=== PATIENT | male | born 1970 | race Caucasian/White ===

== ENCOUNTER → 2021-10-22 12:11 | Outpatient (BNVA) | payer MEDICAID, SELFPAY | PROVIDERS: PCP Nurse Practitioner Family; Visit Provider Nurse Practitioner | DX: Z20.2 Contact with and (suspected) exposure to infections with a predominantly sexual mode of transmission (principal) | CPT/HCPCS: 87661 ==

== ENCOUNTER 2021-12-31 09:51 | Outpatient (RCR) | payer MEDICAID, SELFPAY ==
[2021-12-30 14:33] LABS: Basophils # 0.1 10^3/uL (0.0-0.1); Basophils % 0.8 %; Eosinophils # 0.4 10^3/uL (0.0-0.8); Eosinophils % 3.5 %; Hemoglobin 14.9 g/dL (11.7-16.6); Lymphocytes # 5.3 10^3/uL (0.8-4.8); Lymphocytes % 49.8 %; Mean Corpuscular HGB Conc 32.4 g/dL (30.0-36.0); Mean Corpuscular Hemoglobin 28.1 pg (28.0-34.0); Mean Corpuscular Volume 86.6 fl (80-94); Mean Platelet Volume 9.8 fL (7.4-10.4); Monocytes # 0.9 10^3/uL (0.2-0.9); Monocytes % 8.2 %; Neutrophils # 4.01 10^3/uL (1.8-7.7); Neutrophils % 37.5 %; Nucleated Red Blood Cells % 0 %; Platelet Count 273 10^3/cmm (130-400); Red Blood Count 5.31 10^6/uL (4.1-5.3); Red Cell Distribution Width 17.1 % (12.1-15.1); White Blood Count 10.7 10^3/uL (4.0-10.0)
[2021-12-30 14:51] LABS: Alanine Aminotransferase 36 U/L (0-41); Albumin Level 4.5 g/dL (3.5-5.2); Alkaline Phosphatase 120 IU/L (40-130); Anion Gap 16.1 (5-19); Aspartate Amino Transferase 38 U/L (0-40); Blood Urea Nitrogen 8 mg/dL (6-20); Calcium 8.9 mg/dL (8.5-10.5); Carbon Dioxide 24 mmol/L (22-29); Chloride 101 mmol/L (98-107); Globulin 3.3 g/dL (1.3-4.6); Glomerular Filtration Rate 140.9 mL/min (90-130); Glucose 98 mg/dL (65-115); Osmolality Calculated 282 mOsm/kg (285-295); Potassium 4.1 mmol/L (3.5-5.1); Sodium 137 mmol/L (136-145); Total Bilirubin 0.3 mg/dL (0.15-1.2); Total Protein 7.8 g/dL (6.6-8.7)
--- NOTE | 2021-12-30 17:34 | ONC CON_ITS ---
Dr. Velazquez New Patient Note Patient: Donny Waller Unit #: [id number]: 1970 Dicatated By: Luiza Velazquez M.D.Date of Visit: Dec 30, 2021 Onc MED New Patient/Consult Referring Physician: Dr. Deon Mendoza M.D. History of Present Illness: Mr. Donny Waller, is a 51-year-old gentleman with a history of recurrent nosebleed was evaluated by ENT in August 2021 requiring right nasal cavity packing, as per ENT note, bleeding was also noted from left nasal cavity, as patient was complaining of sore throat, patient underwent flexible fiberoptic laryngoscopy on November 26, 2021, which showed chronic laryngitis, chronic sore throat and left laryngeal surface of epiglottis mass/lesion, subsequently on December 12, 2021 underwent directly endoscopy, operative, with biopsy with the telescope which showed ulcerative lesion of left laryngeal surface of the epiglottis extends to false fold and left AE fold no glottic involvement. 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 And prominent left palatine tonsil consistent with inflammation, multiple level left neck lymph nodes consistent with metastatic involvement, no evidence of distant metastatic disease., As per ENT evaluation due to difficult exposure, not a TORS candidate Patient has history of heavy smoking and still active, alcohol abuse, quit 5 months ago and history of chewing tobacco and quit 5 months ago. Also history of COPD, CVD, Denies any fever chills denies any nausea or vomiting denies any diarrhea or constipation denies any hemoptysis or hematemesis denies any dysphagia. Past Medical History: Mr. Waller's medical history consists of acute brain disorder, anxiety, chronic alcohol abuse, chronic obstructive pulmonary disease, and respiratory insufficiency. Past Surgical History: Mr. Waller's surgical/procedural history consists of Covid vaccine #2 - [place] in 2020 and Covid vaccine #1 - [place] in 2020. Medications: Acetaminophen 2 Tablet (of 500 mg) Oral b.i.d. PRN Allergies: No Known Allergies. Social History: Mr. Waller is single. He is a daily smoker who smokes 0.5 packs/day. He drinks occasionally. He has indicated exposure to the following products: cigarettes. Family History: Mr. Waller's mother is : lung cancer. Review Of Symptoms: Review of Systems is not available for this patient. Vital Signs: Performed on Dec 30, 2021 13:46: 0, 0, 24.26, 1.73 sq.m, 65 in, 98 %, 82 /min, 16 /min, 133/78 mm(hg), 99.0 F (HIGH), and 145.8 lbs (HIGH). Performance Status: 0 - Fully active, able to carry on all predisease activities without restrictions. (ECOG) Physical Examination: ENMT - Poor oral hygiene/dentition, no mouth sores or thrush, shotty palpable lymph nodes in left neck, Respiratory - Lungs are clear to auscultation, Cardiovascular - Regular rate and rhythm of heart, Abdomen - Soft, bowel sounds present, Extremities - No visible edema. Lab/Imaging: Most recent lab results are not available for this patient. 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 Multiple level left neck lymph node consistent with metastatic involvement, clinically N2b, Clinical stage Patrica COPD History of chronic smoking still active History of chewing tobacco quit recently, history of alcohol abuse quit recently Plan: Discussed with patient regarding his disease status and treatment options, clinically, patient has local regional disease stage Patrica and is a candidate for organ preservation with combined chemoradiation, moreover as per surgical evaluation due to difficult exposure, patient is not a TORS candidate, now being evaluated for combined chemoradiation. With either high-dose cisplatin 100 mg per metered square day 1, 22 and day 43 concurrent with radiation therapy or weekly cisplatin, 40 mg per metered square concurrent with radiation therapy. Due to comorbid condition and poor oral hygiene, patient may require dental surgical evaluation for complete extraction and possible G-tube placement to maintain nutrition, we will defer those decisions to radiation oncology. At this point will obtain baseline CBC CMP and nursing will evaluate if patient have adequate IV access otherwise consider Port-A-Cath placement. He will return to clinic in 2 weeks for further discussion, patient is already scheduled to see radiation oncology in the morning. All the side effect possible benefits associated with chemotherapy including but not limited to bone marrow suppression, nausea vomiting, zahira/nephrotoxicity, were mentioned, further teaching will be done by chemotherapy nurse. Signed By: Luiza Velazquez M.D. <<Signature on File>>
--- NOTE | 2021-12-31 10:48 | N.ONRAD NP_ITS ---
Radiation Oncology Consultation Patient Name: Donny Waller Date of : 1970 Date of Service: 12/31/2021 Attending Physician: Crow Broderick M.D. Donny Waller was seen in consultation this morning at the request of Deon Mendoza M.D. for consideration of head and neck radiotherapy for the management of a recently diagnosed supraglottic laryngeal cancer. He was evaluated at [facility] in [place], [place] by Deon Mendoza M.D. in November regarding a persistent sore throat. A laryngoscopy identified a lesion on the left laryngeal surface of epiglottis. There was no palpable cervical lymphadenopathy. A direct flexible laryngoscopy was performed on December 12, 2021. Significant findings included an ulcerative lesion of the left laryngeal surface of the epiglottis with extension to the left false vocal cord and left area epiglottic fold. 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 A PET scan December 23, 2021 demonstrated thickening of the left epiglottis with a maximum SUV of 5.6, a left level IIA lymph node measuring 1.5 cm x 1 cm (SUV 3.5), and a left level III node measuring 1 cm x 0.8 cm (SUV 4.2). There was no evidence of systemic metastatic disease. The patient was not considered a TORS candidate on account of limited operative exposure. He was evaluated for concomitant chemoradiotherapy. I discussed with Mr. Power the AJCC clinical stage Patrica (T2N2b) supraglottic laryngeal cancer and the National Comprehensive Cancer Network Guidelines endorsing concurrent chemoradiation. I also reviewed the classic [facility] Laryngeal Cancer Study Group Trial that established induction chemotherapy with definitive radiotherapy was effective in laryngeal preservation and the RTOG 91???11 study that randomized patients with locally advanced laryngeal cancer to RT alone, induction chemotherapy, or concurrent chemoradiotherapy that affirmed laryngectomy free survival was significantly improved in the concurrent chemoradiotherapy arm. He will have a pre-radiotherapy dental evaluation and I have requested PEG tube placement to be scheduled prior to implementing therapy. I would recommend a seven week course of radiotherapy. A CT scan with contrast for radiotherapy planning scan in the treatment position will be acquired and co-registered to the staging PET CT scan to identify the gross tumor volumes (primary mass and hypermetabolic lymph nodes). The potential toxicities of head and neck radiotherapy were reviewed. He has verbalized understanding would like to proceed as recommended. The patient's medical treatment plan has been discussed with Elvin Velazquez M.D. Signed by: Dr. Crow Broderick 12/31/2021 10:46:39 AM
== END 2022-01-12 23:59 | disposition home or self-care (01) ==
LOC: ONCMED 09:51
PROVIDERS: Internal Medicine Hematology & Oncology; Visit Provider Radiology Radiation Oncology
DX: C10.1 Malignant neoplasm of anterior surface of epiglottis (principal); C77.0 Secondary and unspecified malignant neoplasm of lymph nodes of head, face and neck; J44.9 Chronic obstructive pulmonary disease, unspecified; F17.210 Nicotine dependence, cigarettes, uncomplicated; F17.221 Nicotine dependence, chewing tobacco, in remission; F10.11 Alcohol abuse, in remission; Z79.899 Other long term (current) drug therapy
CPT/HCPCS: 36415; 80053; 85025; 99205

== ENCOUNTER → 2022-01-14 10:23 | Outpatient (BNVA) | payer MEDICAID, SELFPAY | PROVIDERS: Visit Provider Surgery | DX: Z20.822 Contact with and (suspected) exposure to COVID-19 (principal); Z11.52 Encounter for screening for COVID-19 | CPT/HCPCS: 87635 ==

== ENCOUNTER 2022-01-19 07:31 | Day surgery (SDC) | payer MEDICAID, SELFPAY ==
[2022-01-16 11:06] VITALS: BMI 25.0
[2022-01-19] VITALS (9 sets, daily range): BP systolic 139–172; BP diastolic 78–100; PULSE 66–80; RESP 16–20; TEMP 36.2–36.8; O2SAT 95–99
--- NOTE | 2022-01-19 | SCC_ITS ---
Procedure done: 1. Placement of right subclavian vein PowerPort placement 2. Fluoroscopic guidance and interpretation for placement of catheter 3. Percutaneous endoscopic guided gastrostomy tube placement 10.7 seconds of fluoroscopic guidance, for a cumulative dose of 1.51 mGy, was provided to Dr. Hardin by the radiology department. C-arm images of the chest were saved for the patient's permanent record. [facility]
--- NOTE | 2022-01-19 07:34 | SC_ITS ---
WS: [id number] C-ARM RADIOGRAPHS CHEST; 3 IMAGES HISTORY: PowerPort placement COMPARISON: None available. Intraoperative imaging during power port placement. Power port extends through the RIGHT subclavian v ein with the tip overlying the distal SVC. SC/C-arm FL for CVA 37153 IMPRESSION: Intraoperative imaging during power port placement.
[2022-01-19] MEDS: sodium chloride 0.9% 1,000 ML 30 ML IV (08:10)
[2022-01-19] MEDS: acetaminophen 1,000 MG/100 ML PIGGYBACK 400 MG IV (08:15)
--- NOTE | 2022-01-19 08:24 | ANES.PREANE2 ---
Pre-Anesthetic Assessment Height/Weight: Height 1.65 m Weight 68.039 kg Temp Pulse Resp BP Pulse Ox 97.7 F 78 16 139/79 99 01/19/22 07:52 01/19/22 07:52 01/19/22 07:52 01/19/22 07:52 01/19/22 07:52 Preop Diagnosis: Laryngeal cancer Operation Date: 01/19/22 09:10 Proposed Procedures p Power Port Placement 09524/67546/c32.1(Not Applicable) - Ollie Reza MD s Gastric Tube Insertion(Not Applicable) - Ollie Reza MD s EGD(Not Applicable) - Ollie Reza MD Familial anesthetic complications: None Was Beta Emily taken within 24 hours: N/A Was Clonidine taken within 24 hours: N/A Last intake: Intake Last Liquid Date 01/19/22 Last Liquid Time 06:00 Last Solid Date 01/18/22 Last Solid Time 19:00 Social Tobacco and No alcohol Exam alert, oriented x 3, clear to auscultation bilaterally and regular rate & rhythm Airway Submandibular: within normal limits Cervical ROM: within normal limits Mallampati: Class II Dentition: full Pulmonary Chronic Obstructive Pulmonary Disease Supraglottic cancer CV/HEM None reported METS =4 None reported Hepatic None reported GI None reported Metabolic None reported Musc/skel None reported Neuropsych None reported Anesthetic Plan ASA status: 3 Anesthesia: Anesthesia Evaluation and General Other: We discussed risk and benefits of general anesthesia including PONV, sore throat (sometimes severe), corneal abrasion, positioning and peripheral nerve injuries, life threatening allergic reaction, post operative ICU admission requiring prolonged intubation, stroke, heart attack, , and rare incidences of recall. Patient consents to proceed with general anesthesia. Risk of > 500 ml blood loss (7ml/kg in children): No Medications/Allergies Home Medications Medication Instructions Recorded Confirmed Last Taken Type albuterol sulfate 90 mcg/actuation 2 puff INHALATION Q6H PRN 10/22/21 01/19/22 10/29/21 History aerosol inhaler acetaminophen 325 mg capsule 325 mg PO QID PRN 01/19/22 01/19/22 01/18/22 20:00 History (Tylenol) Allergies Allergy/AdvReac Type Severity Reaction Status Date / Time No Known Allergies Allergy Verified 01/16/22 11:05 Current Medications Generic Name Dose Route Start Last Admin Trade Name Freq PRN Reason Stop Dose Admin Sodium Chloride 1,000 mls @ 30 mls/hr 01/19/22 07:45 01/19/22 08:10 Sodium Chloride 0.9% IV 01/20/22 07:44 30 mls/hr .Q24H PRAVIN Administration PFSH Anesthesia Medical History Cancer of supraglottis Social History Smoking and tobacco status: current every day smoker Alcohol intake: current Data Anesthesia Cardiac Studies: No Data to Display
--- NOTE | 2022-01-19 08:42 | W.PM.OPSUD ---
Surgery/Procedure H&P Update DATE OF PROCEDURE: January 19, 2022 DATE H&P PERFORMED: 01/07/22 PREOP DIAGNOSIS: Laryngeal cancer PRIMARY INDICATION FOR PROCEDURE: The same PLANNED PROCEDURE: Operation Date: 01/19/22 09:10 Proposed Procedures p Power Port Placement 32618/[id number]/c32.1(Not Applicable) - Ollie Reza MD s Gastric Tube Insertion(Not Applicable) - Ollie Reza MD s EGD(Not Applicable) - Ollie Reza MD
[2022-01-19] MEDS: heparin, porcine 1,000 unit/mL INJ 10 mL 10000 UNIT IRRIGATION (10:04)
[2022-01-19] MEDS: lidocaine 2% INJ 20 mL INJECTION (10:05)
--- NOTE | 2022-01-19 10:35 | PM.OP ---
Operative Report Date of procedure: January 19, 2022 Pre-op diagnosis: Preop Diagnosis Laryngeal cancer Post-op diagnosis: The same Post-op findings: Normal anatomy of right subclavian vein Normal-looking esophagus stomach duodenum Procedure done: 1. Placement of right subclavian vein PowerPort placement 2. Fluoroscopic guidance and interpretation for placement of catheter 3. 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 SCDs confirmed to be functioning, preoperative antibiotics administered per protocol, and beta dwayne protocol was confirmed, appropriate positioning of the patient was done by me. Medications were reviewed to assess for anticoagulant usage. Risks and benefits and prevention of central line associated blood stream infection (CLABSI) were discussed with the patient/CPOA, and a consent was obtained. Monitors were in place and monitored throughout the procedure. All necessary supplies were available prior to start. Hand hygiene was completed prior to starting. Maximum barrier technique was utilized including a sterile gown, sterile gloves with a hat and mask. Site was was prepped with [chlorhexidine] and a full body drape was placed. 5 mL of 2% lidocaine was injected into the skin with a 25 gauge needle. Prep& drape was done under the usual sterile technique, lidocaine 2% was injected at the site of the stick, started by right sub-clavian vein stick that retrieved venous blood was obtained from the first stick, a guide wire was then threaded and under the guidance of fluoroscopy position was confirmed to be in the IVC and my interpretation, there were no PVC changes, at that point the guide wire was secured to the drapes with a hemostat and the needle was taken out, attention was then deviated towards creation of a pocket for the port were lidocaine 2% was injected using an 15 blade knife skin incision was created dissection using the Bovie to create a pocket for the Power Port to be accommodated. Hemostasis was secured, after the port being appropriately flushed it was inserted into the pocket and a tunneler was used to accommodate the catheter of the port catheter to be delivered through the incision first created at the site of the stick, at that point under fluoroscopy an estimated length was measured for the catheter and was cut at the designed level, followed by that a dilator with the sheath introduced onto the guide wire the dilator and the wire were retrieved and the catheter of the port was introduced via the sheath where it was peeled off and the catheter maintained to be in the SVC that was confirmed with fluoroscopy, and the fluoroscopy interpretation was done by me throughout the entire procedure. The port was kept in its pocket,3-0 Vicryl deep subdermal interrupted sutures, skin was then closed by 4-0 Monocryl as subcuticular closure.The port was appropriately flushed with heparin and venous blood was withdrawn without difficulty.The stick site was closed by 4-0 Monocryl and Dermabond was used followed by dressing.Count was correct at the end of the procedure.Patient tolerated the procedure well was taken to the recovery area. I was present for the whole entire procedure. Position of the catheter was checked with an intraoperative fluoroscopy and showed to be in good position. Attention now was deviated towards the PEG tube placement Patient was continued to be in supine position after a bite block was placed in her mouth, started by introducing the EGD via the mouth under direct visualization, the patient was continuously monitored via concession stand attendant, I was able to assess the esophagus stomach and duodenum till the second part. GE junction at 40 cm from the incisors,the remaining of the examination was unremarkable. I was able to identify a good light reflex through the anterior abdominal wall, corresponding to appropriate indentation of the examining finger. At this point prep and drape of the anterior abdominal wall was done under the usual sterile technique, sterile gowns and gloves were used, lidocaine was infiltrated at the site of the needle insertion, my equity sales assistant held onto the EGD, under direct visualization a needle with the sheath was inserted by me that come with the PEG kit, once the needle and catheter were inserted into the inflated stomach, a needle was taken out, and through the catheter the blue loop wire introduced through the catheter, and via the working channel of the EGD, the retrieval device was inserted under direct visualization, the blue loop was caught by the retrieval device, at this point the scope was taken out and a firm helminthologist was continued to be applied onto the blue loop wire, the blue loop was then released and the PEG tube was tightened to it outside the patient's mouth, and with the remaining of the blue loop wire was Outside the abdominal wall, I was able to pull the PEG down all the way to the stomach, and have it placed in a good position at the level of 2-3 cm at the skin. The EGD was reintroduced by me, there was no evidence of bleeding, good spinning of the PEG tube was witnessed The scope was then retrieved The scope was retrieved under direct visualization and gas was deflated,no biopsies were obtained at that point. The PEG tube base and clamp were applied and the PEG tube was connected to gravity Patient tolerated the procedure well and was taken to the recovery area I was present for the whole entire procedure
--- NOTE | 2022-01-19 11:56 | ANE.PACU2 ---
Inpatient post-anesthesia follow up: Airway intact: Yes Vital signs: Temperature 98.2 F Pulse Rate 77 Respiratory Rate 20 Blood Pressure 172/79 Pulse Oximetry 98 Oxygen Delivery Me thod Room Air Oxygen Flow Rate 6 Fraction of Inspir ed Oxygen Hydration adequate: Yes Nausea and vomiting: No Pain level: 1 Mental status: Baseline
[2022-01-19] MEDS: HYDROcodone-acetaminophen 5-325 mg Tablet 1 TAB PO (12:25)
== END 2022-01-19 12:30 | disposition home or self-care (01) ==
PROVIDERS: Visit Provider Surgery
PROC: (CPT 36561; principal; 2022-01-19 09:00)
PROC: (CPT 36561; 2022-01-19 09:00)
PROC: 0DJ08ZZ Inspection of Upper Intestinal Tract, Via Natural or Artificial Opening Endoscopic (ICD-10-PCS; CPT 43235; 2022-01-19 09:00)
DX: C32.1 Malignant neoplasm of supraglottis (principal); J44.9 Chronic obstructive pulmonary disease, unspecified; F17.210 Nicotine dependence, cigarettes, uncomplicated
CPT/HCPCS: 36561; 43246; 77001; C1788; J0330; J0690; J1100; J1644; J2405; J2704; J3010; J3490; J7030

== ENCOUNTER 2022-01-24 15:38 | Emergency (ER) | payer MEDICAID, SELFPAY ==
[2022-01-24 15:44] VITALS: BP 120/72; PULSE 100; RESP 16; TEMP 36.9; O2SAT 96; BMI 24.9
--- NOTE | 2022-01-24 16:01 | ED_ITS ---
Documented by User: ADAM Goode 01/24/22 16:03 HPI - Fever General: Chief Complaint: Fever Stated Complaint: peg tube irritated and red/fever Time Seen by Provider: 01/24/22 15:54 History of Present Illness: Patient presents here with discomfort around his PEG site. Patient also said he had fever 100.0 today at home and took Tylenol. Patient does not have a fever on triage here. Patient recently diagnosed with throat cancer. Had a port placed Wednesday and a PEG tube. Is having some leakage in and around PEG tube. Says he just has not felt real good today. Associated symptoms: Deny abdominal pain, chills, chest pain, headache(s), nausea or vomiting Review of Systems Const: Reports: fever(s); Denies: chills or body aches Eyes: Denies: eye discomfort ENMT: Denies: throat pain Card: Denies: chest pain Resp: Denies: dyspnea GI: Denies: abdominal pain, nausea or vomiting Skin/Breast: Reports: erythema and skin swelling; Denies: rash Neuro: Denies: headache(s) Psych: Denies: depression or suicidal ideation [facility] ED PFSH: Medical History Cancer of supraglottis Social History Smoking and tobacco status: current every day smoker Alcohol intake: current Physical Exam Const: COMMON NORMALS: no acute distress, patient oriented x3 and alert HENMT: COMMON NORMALS: normocephalic and external ears normal HEAD & SCALP: normocephalic EXTERNAL EAR: Yes external ears normal Eye: COMMON NORMALS: EOMs intact bilaterally Neck/C-Spine: COMMON NORMALS: no JVD Resp: COMMON NORMALS: normal respiratory effort and No use of accessory muscles Cardio: COMMON NORMALS: no JVD GI: INSPECTION: Yes normal to inspection Extremity: COMMON NORMALS: normal to inspection and full ROM Neuro: COMMON NORMALS: patient oriented x3 SENSORIUM/ORIENTATION: Yes alert Psych: COMMON NORMALS: mental status grossly normal Skin: COMMON NORMALS: no rashes or lesions noted GENERAL SKIN EXAM: no rashes or lesions noted OTHER: Slight redness around his PEG tube that is draining. Course Vital Signs: Vital signs: Vital Signs Temperature 98.5 F 01/24/22 15:44 Pulse Rate 87 01/24/22 16:20 Respiratory Rate 16 01/24/22 16:20 Blood Pressure 125/83 01/24/22 16:20 Pulse Oximetry 94 01/24/22 16:20 MDM - Fever Lab Data : 01/24/22 16:39 Laboratory Results WBC 12.3 10^3/uL (4.0-10.0) H 01/24/22 16:39 RBC 3.61 10^6/uL (4.1-5.3) L 01/24/22 16:39 Hgb 10.7 g/dL (11.7-16.6) L 01/24/22 16:39 Hct 32.2 % (42.0-52.0) L 01/24/22 16:39 MCV 89.2 fl (80-94) 01/24/22 16:39 MCH 29.6 pg (28.0-34.0) 01/24/22 16:39 MCHC 33.2 g/dL (30.0-36.0) 01/24/22 16:39 RDW 17.5 % (12.1-15.1) H 01/24/22 16:39 Plt Count 202 10^3/cmm (130-400) 01/24/22 16:39 MPV 9.3 fL (7.4-10.4) 01/24/22 16:39 Neut % (Auto) 63.0 % 01/24/22 16:39 Lymph % (Auto) 23.9 % 01/24/22 16:39 Bowie % (Auto) 9.2 % 01/24/22 16:39 Eos % (Auto) 3.1 % 01/24/22 16:39 Baso % (Auto) 0.5 % 01/24/22 16:39 Neut # (Auto) 7.72 10^3/uL (1.8-7.7) H 01/24/22 16:39 Lymph # (Auto) 2.9 10^3/uL (0.8-4.8) 01/24/22 16:39 Bowie # (Auto) 1.1 10^3/uL (0.2-0.9) H 01/24/22 16:39 Eos # (Auto) 0.4 10^3/uL (0.0-0.8) 01/24/22 16:39 Baso # (Auto) 0.1 10^3/uL (0.0-0.1) 01/24/22 16:39 Nucleated RBC % (auto) 0 % 01/24/22 16:39 Nucleated RBCs # 0.0 /100WBC 01/24/22 16:39 Lactate 1.3 mmol/L (0.5-2.2) 01/24/22 16:20 C-Reactive Protein 20.7 mg/L (0.0-4.9) H 01/24/22 16:20 Discharge Plan Discharge Patient Disposition: Home Clinical Impression: Cancer of supraglottis Condition: Stable Prescriptions: No Action albuterol sulfate 90 mcg/actuation HFA aerosol inhaler 2 puff inhalation Q6H PRN (Reason: sob) 0RF Tylenol 325 mg Capsule 325 mg PO QID PRN (Reason: Moderate Pain (Scale Score 5-6)) 0RF hydrocodone-acetaminophen 5-325 mg tablet 1 tab PO Q6H PRN (Reason: pain) Qty: 20 0RF Discharge Orders: Discharge ED (Routine); Ordered 01/24/22 Ordered By: Carlos Alberto Armstrong Patient Instructions: Opioid Safety Activity Restrictions/Additional Instructions: Continue your usual medications. Monitor your temperature every 6-8 hours at home. Should your temperature go higher than 100.5 degrees return to this emergency department for reevaluation. Follow-up with your oncologist this coming Wednesday as scheduled. Coding Level of Care Code ED Planishing Hammer Operator for Chg Fwd Exam Comprehensive Documented by User: Carlos Alberto Armstrong DO 01/24/22 17:29 HPI - Fever General: Chief Complaint: Fever Stated Complaint: peg tube irritated and red/fever Time Seen by Provider: 01/24/22 15:54 PFSH ED PFSH: Medical History Cancer of supraglottis Social History Smoking and tobacco status: current every day smoker Alcohol intake: current Course Reevaluation(s): Reevaluation #1: I took over care of this patient from the physician's assistant golf course superintendent who was going off shift. I personally interviewed and did a focused evaluation of the patient. History as noted. Patient awoke with feeling a bit out of sorts and is a question whether he had a temperature that approached 100. He denied any other constitutional symptoms such as cough, sore throat (other than his discomfort from his laryngeal cancer) dysuria exposure to infectious disease etc. He is eating and drinking normally. He is not using his feeding tube yet. His clinical exam reveals him to be alert cooperative and appears to be in no acute distress. He speaks in goal-directed sentences. His skin examination reveals very minimal or erythema around his feeding tube but no drainage. He has no other skin rashes noted his sites over his [id number] are not erythematous and are not draining and are nontender. No other focal clinical findings on his examination. Vital Signs: Vital signs: Vital Signs Temperature 98.5 F 01/24/22 15:44 Pulse Rate 87 01/24/22 16:20 Respiratory Rate 16 01/24/22 16:20 Blood Pressure 125/83 01/24/22 16:20 Pulse Oximetry 94 01/24/22 16:20 MDM - Fever Medical Decision Making This patient with a history of laryngeal cancer just beginning his treatment regimen presented with a history of waking from a nap and feeling out of sorts and there was a question whether he had a low-grade temperature or not but did not document a temperature over 100.5. His clinical examination here was reassuring. His port sites revealed no erythema or tenderness or discomfort and his feeding tube site was also unremarkable for any findings to suggest infection. His laboratories are nonspecific with the exception of his CRP however the latter is likely and can be related to his acute cancer so is really nonspecific. He did not have fever at this location he looks clinically well and subjectively feels at baseline at this time. I discussed current findings under implications with the patient. I think it is reasonable for us to have him follow his temperature at home. I advised both he and his spouse to take his temperature every 8 hours and return to this emergency department immediately should it become 100.5 or greater at any time or should he develop other concerning symptoms. He is not currently using his either his support or his feeding tube. These are pending his oncoming oncologic treatment. Medical Records I reviewed the patient's medical records. Lab Data I reviewed the patient's lab results. : 01/24/22 16:39 Laboratory Results WBC 12.3 10^3/uL (4.0-10.0) H 01/24/22 16:39 RBC 3.61 10^6/uL (4.1-5.3) L 01/24/22 16:39 Hgb 10.7 g/dL (11.7-16.6) L 01/24/22 16:39 Hct 32.2 % (42.0-52.0) L 01/24/22 16:39 MCV 89.2 fl (80-94) 01/24/22 16:39 MCH 29.6 pg (28.0-34.0) 01/24/22 16:39 MCHC 33.2 g/dL (30.0-36.0) 01/24/22 16:39 RDW 17.5 % (12.1-15.1) H 01/24/22 16:39 Plt Count 202 10^3/cmm (130-400) 01/24/22 16:39 MPV 9.3 fL (7.4-10.4) 01/24/22 16:39 Neut % (Auto) 63.0 % 01/24/22 16:39 Lymph % (Auto) 23.9 % 01/24/22 16:39 Bowie % (Auto) 9.2 % 01/24/22 16:39 Eos % (Auto) 3.1 % 01/24/22 16:39 Baso % (Auto) 0.5 % 01/24/22 16:39 Neut # (Auto) 7.72 10^3/uL (1.8-7.7) H 01/24/22 16:39 Lymph # (Auto) 2.9 10^3/uL (0.8-4.8) 01/24/22 16:39 Bowie # (Auto) 1.1 10^3/uL (0.2-0.9) H 01/24/22 16:39 Eos # (Auto) 0.4 10^3/uL (0.0-0.8) 01/24/22 16:39 Baso # (Auto) 0.1 10^3/uL (0.0-0.1) 01/24/22 16:39 Nucleated RBC % (auto) 0 % 01/24/22 16:39 Nucleated RBCs # 0.0 /100WBC 01/24/22 16:39 Lactate 1.3 mmol/L (0.5-2.2) 01/24/22 16:20 C-Reactive Protein 20.7 mg/L (0.0-4.9) H 01/24/22 16:20 Discharge Plan Discharge Patient Disposition: Home Clinical Impression: Cancer of supraglottis Condition: Stable Prescriptions: No Action albuterol sulfate 90 mcg/actuation HFA aerosol inhaler 2 puff inhalation Q6H PRN (Reason: sob) 0RF Tylenol 325 mg Capsule 325 mg PO QID PRN (Reason: Moderate Pain (Scale Score 5-6)) 0RF hydrocodone-acetaminophen 5-325 mg tablet 1 tab PO Q6H PRN (Reason: pain) Qty: 20 0RF Discharge Orders: Discharge ED (Routine); Ordered 01/24/22 Ordered By: Carlos Alberto Armstrong Patient Instructions: Opioid Safety Activity Restrictions/Additional Instructions: Continue your usual medications. Monitor your temperature every 6-8 hours at home. Should your temperature go higher than 100.5 degrees return to this emergency department for reevaluation. Follow-up with your oncologist this coming Wednesday as scheduled. Coding Level of Care Code ED Planishing Hammer Operator for Jackson Fwd Exam Comprehensive
[2022-01-24 16:20] VITALS: BP 125/83; PULSE 87; RESP 16; O2SAT 94
[2022-01-24 16:47] LABS: Basophils # 0.1 10^3/uL (0.0-0.1); Basophils % 0.5 %; Eosinophils # 0.4 10^3/uL (0.0-0.8); Eosinophils % 3.1 %; Hematocrit 32.2 % (42.0-52.0); Hemoglobin 10.7 g/dL (11.7-16.6); Lymphocytes # 2.9 10^3/uL (0.8-4.8); Lymphocytes % 23.9 %; Mean Corpuscular HGB Conc 33.2 g/dL (30.0-36.0); Mean Corpuscular Hemoglobin 29.6 pg (28.0-34.0); Mean Corpuscular Volume 89.2 fl (80-94); Mean Platelet Volume 9.3 fL (7.4-10.4); Monocytes # 1.1 10^3/uL (0.2-0.9); Monocytes % 9.2 %; Neutrophils # 7.72 10^3/uL (1.8-7.7); Nucleated Red Blood Cells % 0 %; Platelet Count 202 10^3/cmm (130-400); Red Blood Count 3.61 10^6/uL (4.1-5.3); Red Cell Distribution Width 17.5 % (12.1-15.1); White Blood Count 12.3 10^3/uL (4.0-10.0)
[2022-01-24 17:01] LABS: C Reactive Protein 20.7 mg/L (0.0-4.9); Lactate (Lactic Acid level) 1.3 mmol/L (0.5-2.2)
[2022-01-24 17:40] VITALS: BP 119/72; PULSE 78; O2SAT 98
== END 2022-01-24 17:42 | disposition home or self-care (01) ==
PROVIDERS: Emergency Provider Nurse Practitioner Family
DX: C32.1 Malignant neoplasm of supraglottis (principal); F17.210 Nicotine dependence, cigarettes, uncomplicated
CPT/HCPCS: 83605; 85025; 86140; 87040; 99282

== ENCOUNTER 2022-02-12 06:49 | Outpatient (RCR) | payer MEDICAID, SELFPAY ==
[2022-01-13 10:06] LABS: Basophils # 0.1 10^3/uL (0.0-0.1); Basophils % 1.2 %; Eosinophils # 0.4 10^3/uL (0.0-0.8); Eosinophils % 4.2 %; Hematocrit 43.3 % (42.0-52.0); Hemoglobin 14.1 g/dL (11.7-16.6); Lymphocytes # 5.2 10^3/uL (0.8-4.8); Lymphocytes % 61.3 %; Mean Corpuscular HGB Conc 32.6 g/dL (30.0-36.0); Mean Corpuscular Hemoglobin 28.9 pg (28.0-34.0); Mean Corpuscular Volume 88.7 fl (80-94); Monocytes # 0.9 10^3/uL (0.2-0.9); Neutrophils # 1.97 10^3/uL (1.8-7.7); Neutrophils % 23.1 %; Nucleated Red Blood Cells % 0 %; Platelet Count 288 10^3/cmm (130-400); Red Blood Count 4.88 10^6/uL (4.1-5.3); Red Cell Distribution Width 17.5 % (12.1-15.1); White Blood Count 8.5 10^3/uL (4.0-10.0)
[2022-01-13 10:30] LABS: Alanine Aminotransferase 26 U/L (0-41); Albumin Level 4.1 g/dL (3.5-5.2); Alkaline Phosphatase 103 IU/L (40-130); Anion Gap 14.2 (5-19); Aspartate Amino Transferase 34 U/L (0-40); Blood Urea Nitrogen 8 mg/dL (6-20); Calcium 9.6 mg/dL (8.5-10.5); Carbon Dioxide 25 mmol/L (22-29); Chloride 101 mmol/L (98-107); Globulin 3.4 g/dL (1.3-4.6); Glucose 87 mg/dL (65-115); Osmolality Calculated 280 mOsm/kg (285-295); Potassium 4.2 mmol/L (3.5-5.1); Sodium 136 mmol/L (136-145); Total Bilirubin 0.3 mg/dL (0.15-1.2); Total Protein 7.5 g/dL (6.6-8.7)
--- NOTE | 2022-01-14 17:06 | ONC FU_ITS ---
Dr. Velazquez follow up note Patient: Donny Waller Unit #: [id number]: 1970 Dicatated By: Luiza Velazquez M.D.Date of Visit:Jan 13, 2022 Onc Med Follow-up/Prog Note History of Present Illness: Mr. Donny Waller, is a 51-year-old gentleman with a history of recurrent nosebleed was evaluated by ENT in August 2021 requiring right nasal cavity packing, as per ENT note, bleeding was also noted from left nasal cavity, as patient was complaining of sore throat, patient underwent flexible fiberoptic laryngoscopy on November 26, 2021, which showed chronic laryngitis, chronic sore throat and left laryngeal surface of epiglottis mass/lesion, subsequently on December 12, 2021 underwent directly endoscopy, operative, with biopsy with the telescope which showed ulcerative lesion of left laryngeal surface of the epiglottis extends to false fold and left AE fold no glottic involvement. 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 And prominent left palatine tonsil consistent with inflammation, multiple level left neck lymph nodes consistent with metastatic involvement, no evidence of distant metastatic disease., As per ENT evaluation due to difficult exposure, not a TORS candidate Patient has history of heavy smoking and still active, alcohol abuse, quit 5 months ago and history of chewing tobacco and quit 5 months ago. Also history of COPD, CVD, Came for follow-up, denies any specific complaints, no fever chills, no nausea or vomiting, no diarrhea or constipation, patient underwent complete dental extraction as preparation for combined chemoradiation for newly diagnosed laryngeal carcinoma, now scheduled for PEG tube and Port-A-Cath placement on coming Wednesday Medications: Acetaminophen 2 Tablet (of 500 mg) Oral b.i.d. PRN Allergies: No Known Allergies. Review of Systems: Review of Systems is not available for this patient. Vital Signs: Performed on Jan 13, 2022 11:17 Height - 65.00 in Weight - 146.8 lbs (LOW) BSA - 1.73 sq.m BMI - 24.43 Temperature - 97.8 F (LOW) Pulse - 74 /min Respiration - 18 /min BP - 149/78 mm(hg) (HIGH) O2 Sat - 99 % Pain - 0 Fatigue - 0 Performance Status: 1 - No physically strenuous activity, but ambulatory and able to carry out light or sedentary work (e.g. office work, light house work). (ECOG) Physical Examination: ENMT - No mouth sores, no thrush, no jaundice, Status post complete dental extraction, Respiratory - Lungs are clear to auscultation, Cardiovascular - Regular rate and rhythm of heart, Abdomen - Soft, bowel sounds present, Extremities - No visible edema. Lab/Imaging: Most recent lab results are not available for this patient. 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 Multiple level left neck lymph node consistent with metastatic involvement, clinically N2b, Clinical stage Patrica COPD History of chronic smoking still active History of chewing tobacco quit recently, history of alcohol abuse quit recently Plan: Discussed with patient regarding his labs white blood count 8.5 hemoglobin 14.1 hematocrit 43.3 platelets 288,000 CMP within normal limits Clinically, patient doing well with no new signs symptoms, recently underwent complete dental extraction as preparation for combined chemoradiation, his baseline lab work-up including CBC CMP is within normal range, at this point, will consider combined chemoradiation therapy with high-dose cisplatin 100 mg per metered square day 1, 22 and 43 concurrent with radiation therapy. We will also request Neulasta to prevent chemotherapy-induced neutropenia/leukopenia. All the side effect possible benefits associated with high-dose cisplatin were discussed again, patient and agreed. Patient already scheduled for Port-A-Cath placement as well as PEG tube placement and scheduled to see radiation oncology next week and anticipating starting combined chemoradiation in 2 weeks. Return to clinic in 2 weeks with CBC CMP to start his first cycle of high-dose cisplatin concurrent with radiation therapy. Signed By: Luiza Velazquez M.D. <<Signature on File>>
--- NOTE | 2022-01-22 13:13 | ONCRAD EPV_ITS ---
Radiation Oncology Follow-Up Note Patient Name: Donny Waller Date of : 1970 Date of Service: 01/22/2022 Attending Physician: Crow Broderick M.D. Donny Waller was seen for a scheduled appointment this afternoon. He was evaluated at [facility] in [place], [place] by Deon Mendoza M.D. in November regarding a persistent sore throat. A laryngoscopy identified a lesion on the left laryngeal surface of epiglottis. There was no palpable cervical lymphadenopathy. A direct flexible laryngoscopy was performed on December 12, 2021. Significant findings included an ulcerative lesion of the left laryngeal surface of the epiglottis with extension to the left false vocal cord and left area epiglottic fold. 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 A PET scan December 23, 2021 demonstrated thickening of the left epiglottis with a maximum SUV of 5.6, a left level IIA lymph node measuring 1.5 cm x 1 cm (SUV 3.5), and a left level III node measuring 1 cm x 0.8 cm (SUV 4.2). There was no evidence of systemic metastatic disease. The patient was not considered a TORS candidate on account of limited operative exposure. He has recently has had a complete extraction of his teeth. An examination of the oral cavity did not identify any open wounds or bone exposure. He will return for radiotheraply planning. Signed by: Dr. Crow Broderick 01/22/2022 1:12:15 PM
--- NOTE | 2022-02-02 | CT_ITS ---
Radiation Therapy Planning CT images; total exam DLP: 851.68 mGy-cm MTDD
[2022-02-02 09:16] LABS: Basophils # 0.1 10^3/uL (0.0-0.1); Basophils % 1.1 %; Eosinophils # 0.6 10^3/uL (0.0-0.8); Hemoglobin 13.1 g/dL (11.7-16.6); Lymphocytes # 4.6 10^3/uL (0.8-4.8); Lymphocytes % 49.2 %; Mean Corpuscular HGB Conc 32.8 g/dL (30.0-36.0); Mean Corpuscular Hemoglobin 29.6 pg (28.0-34.0); Mean Corpuscular Volume 90.5 fl (80-94); Mean Platelet Volume 8.9 fL (7.4-10.4); Monocytes # 0.7 10^3/uL (0.2-0.9); Monocytes % 7.4 %; Neutrophils # 3.38 10^3/uL (1.8-7.7); Neutrophils % 35.9 %; Nucleated Red Blood Cells % 0 %; Platelet Count 336 10^3/cmm (130-400); Red Blood Count 4.42 10^6/uL (4.1-5.3); Red Cell Distribution Width 17.4 % (12.1-15.1); White Blood Count 9.4 10^3/uL (4.0-10.0)
[2022-02-02 09:34] LABS: Alanine Aminotransferase 27 U/L (0-41); Albumin Level 3.7 g/dL (3.5-5.2); Alkaline Phosphatase 97 IU/L (40-130); Anion Gap 13.3 (5-19); Aspartate Amino Transferase 34 U/L (0-40); Blood Urea Nitrogen 9 mg/dL (6-20); Calcium 9.1 mg/dL (8.5-10.5); Carbon Dioxide 22 mmol/L (22-29); Chloride 100 mmol/L (98-107); Globulin 3.3 g/dL (1.3-4.6); Glucose 90 mg/dL (65-115); Osmolality Calculated 270 mOsm/kg (285-295); Potassium 4.3 mmol/L (3.5-5.1); Sodium 131 mmol/L (136-145); Total Bilirubin 0.2 mg/dL (0.15-1.2)
[2022-02-04] MEDS: sodium chloride 0.9% 250 ML 75 ML IV (10:00)
[2022-02-04] MEDS: palonosetron 0.25 mg/5 mL SDV IV (11:30)
[2022-02-04] MEDS: fosaprepitant 150 MG in sodium chloride 0.9% 150 ML 300 MG IV (11:35)
[2022-02-04] MEDS: FUROsemide 10 mg/mL SDV 2mL 20 MG IV (14:10)
[2022-02-04] MEDS: sodium chlor 0.9% + KCl 20 mEq 20 MEQ/1,000 ML BAG 500 MEQ IV (14:15)
[2022-02-04] MEDS: sodium chloride 0.9% (100 ml) 100 ML 75 ML (14:15)
[2022-02-04] MEDS: pegfilgrastim 6 mg/0.6 mL Kit (onpro) SUBCUT (15:28)
--- NOTE | 2022-02-10 15:36 | ONCRAD TMN_ITS ---
Radiation Oncology Treatment Management Note Patient Name: Donny Waller Date of : 1970 Date of Service: 02/10/2022 Attending Physician: Crow Broderick M.D. 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 in November regarding a persistent sore throat. A laryngoscopy identified a lesion on the left laryngeal surface of epiglottis. There was no palpable cervical lymphadenopathy. A direct flexible laryngoscopy was performed on December 12, 2021. Significant findings included an ulcerative lesion of the left laryngeal surface of the epiglottis with extension to the left false vocal cord and left aryepiglottic fold. 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 A PET scan December 23, 2021 demonstrated thickening of the left epiglottis with a maximum SUV of 5.6, a left level IIA lymph node measuring 1.5 cm x 1 cm (SUV 3.5), and a left level III node measuring 1 cm x 0.8 cm (SUV 4.2). There was no evidence of systemic metastatic disease. The patient was not considered a TORS candidate on account of limited operative exposure. The patient has received 10 Gy of a prescribed 50 Valles with an intensity modulated radiotherapy plan utilizing a step and shoot treatment technique. An additional 20 Gy will be delivered to the gross tumor volume and high risk cervical lymph nodes subsequent to the initial treatment plan. He has been prescribed cisplatin (100 mg/m2) every 21 days for three cycles. Upon review of systems, he denied any complaints related to radiotherapy. On physical examination, the patient weighed 140 lbs. His temperature was 98.5 ???F and the blood pressure was 127/74 mmHg. His pulse was 86 bpm and the respiratory rate was 16. There was no erythema within the treatment dias. Continue head and neck radiotherapy as prescribed. Signed by: Dr. Crow Broderick 02/10/2022 3:35:43 PM
[2022-02-11 09:37] LABS: Basophils # 0.2 10^3/uL (0.0-0.1); Basophils % 0.8 %; Eosinophils # 0.1 10^3/uL (0.0-0.8); Eosinophils % 0.7 %; Hematocrit 39.4 % (42.0-52.0); Lymphocytes # 3.7 10^3/uL (0.8-4.8); Lymphocytes % 19.7 %; Mean Corpuscular Hemoglobin 29.6 pg (28.0-34.0); Mean Corpuscular Volume 89.7 fl (80-94); Mean Platelet Volume 10.2 fL (7.4-10.4); Neutrophils # 11.72 10^3/uL (1.8-7.7); Neutrophils % 62.2 %; Nucleated Red Blood Cells % 0 %; Platelet Count 176 10^3/cmm (130-400); Red Blood Count 4.39 10^6/uL (4.1-5.3); Red Cell Distribution Width 17.1 % (12.1-15.1); White Blood Count 18.9 10^3/uL (4.0-10.0)
[2022-02-11 10:03] LABS: Prostate Specific Antigen 0.422 ng/mL (0-4)
[2022-02-11 10:04] LABS: Carcinoembryonic Antigen 2.9 ng/mL (0.0-4.7)
[2022-02-11 10:15] LABS: Alanine Aminotransferase 72 U/L (0-41); Albumin Level 3.8 g/dL (3.5-5.2); Alkaline Phosphatase 196 IU/L (40-130); Anion Gap 12.6 (5-19); Aspartate Amino Transferase 43 U/L (0-40); Blood Urea Nitrogen 11 mg/dL (6-20); Calcium 9.3 mg/dL (8.5-10.5); Carbon Dioxide 24 mmol/L (22-29); Chloride 100 mmol/L (98-107); Cholesterol 99 mg/dL (0-200); Globulin 3.1 g/dL (1.3-4.6); Glomerular Filtration Rate 173.3 mL/min (90-130); Glucose 96 mg/dL (65-115); HDL Cholesterol 33 mg/dL (60-100); LDL Cholesterol Calculated 53 mg/dL (50-129); LDL HDL Ratio 1.61 RATIO (0.00-3.22); Osmolality Calculated 275 mOsm/kg (285-295); Potassium 3.6 mmol/L (3.5-5.1); Sodium 133 mmol/L (136-145); Total Bilirubin 0.3 mg/dL (0.15-1.2); Total Protein 6.9 g/dL (6.6-8.7); Triglycerides 67 mg/dL (0-150)
--- NOTE | 2022-02-11 21:33 | ONC FU_ITS ---
Krysta Davis Progress Note Patient: Donny Waller Unit #: [id number]: 1970 Dicatated By: Krysta Davis N.P.Date of Visit:Feb 04, 2022 Onc MED Follow-up/Prog Note Chief Complaint: Laryngeal carcinoma History of Present Illness: Mr. Donny Waller, is a 51-year-old gentleman with a history of recurrent nosebleed was evaluated by ENT in August 2021 requiring right nasal cavity packing, as per ENT note, bleeding was also noted from left nasal cavity, as patient was complaining of sore throat, patient underwent flexible fiberoptic laryngoscopy on November 26, 2021, which showed chronic laryngitis, chronic sore throat and left laryngeal surface of epiglottis mass/lesion, subsequently on December 12, 2021 underwent directly endoscopy, operative, with biopsy with the telescope which showed ulcerative lesion of left laryngeal surface of the epiglottis extends to false fold and left AE fold no glottic involvement. 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 And prominent left palatine tonsil consistent with inflammation, multiple level left neck lymph nodes consistent with metastatic involvement, no evidence of distant metastatic disease., As per ENT evaluation due to difficult exposure, not a TORS candidate Patient has history of heavy smoking and still active, alcohol abuse, quit 5 months ago and history of chewing tobacco and quit 5 months ago. Also history of COPD, CVD, Patient presents today for education on cisplatin. He is scheduled to receive his first dose today. It will be given concurrently with radiation therapy. He states he is feeling well. His appetite has been fair. He does have a PEG tube which she is not currently using. He is not having any difficulty with swallowing. He denies fever, chills, hot sweats. No shortness of breath, cough, chest pain. No problems with his bowel or bladder. No joint or muscle pain. Review Of Symptoms:See above. Past Medical History: Acute brain disorder Anxiety Chronic alcohol abuse Chronic obstructive pulmonary disease Respiratory insufficiency Past Surgical History: Covid vaccine #2 - [place] in 2020 Covid vaccine #1 - [place] in 2020 Allergies: No Known Allergies. Medications: Acetaminophen 2 Tablet (of 500 mg) Oral b.i.d. PRN LORazepam 1 - 2 Tablet (of 0.5 mg) Oral t.i.d. PRN MiraLax Powder Oral PRN Zofran 1 Tablet (of 4 mg) Oral q 8 hours PRN Family History: Mr. Waller's mother is : lung cancer. Social History: Mr. Waller is single. He is a daily smoker who smokes 0.5 packs/day. He drinks occasionally. He has indicated exposure to the following products: cigarettes. Physical Examination: Performed on Feb 04, 2022 08:36: Height - 65.00 in, Weight - 142.4 lbs (LOW), BSA - 1.71 sq.m, BMI - 23.70, Temperature - 98.3 F (LOW), Pulse - 85 /min, Respiration - 16 /min, BP - 138/78 mm(hg), O2 Sat - 99 %, Pain - 0, and Fatigue - 0. Performance Status: 1 - No physically strenuous activity, but ambulatory and able to carry out light or sedentary work (e.g. office work, light house work). (ECOG) Constitutional Alert, cooperative, oriented. Mood and affect appropriate. Appears close to chronological age. Well nourished. Well developed. Head Normocephalic; no scars. Respiratory Lungs are clear to auscultation without rhonchi or wheezing. Cardiovascular Regular rate and rhythm of heart without murmurs, gallops or rubs. Abdomen Non-tender, non-distended, no masses, ascites or hepatosplenomegaly. Good bowel sounds. No guarding or rebound tenderness. Musculoskeletal No tenderness or swelling, normal range of motion without obvious weakness. Psychiatric Alert and oriented times three. Coherent speech. Verbalizes understanding of our discussions today. Laboratory: Most recent lab results are not available for this patient. 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 Multiple level left neck lymph node consistent with metastatic involvement, clinically N2b, Clinical stage Patrica Started on combined chemoradiation with high-dose cisplatin on February 04, 2022 And planning to consider high-dose cisplatin, day 1, 22 and if possible day 43 concurrent with radiation therapy COPD History of chronic smoking still active History of chewing tobacco quit recently, history of alcohol abuse quit recently Plan: Patient presents today for education on cisplatin which will be given concurrently with radiation therapy. Handouts were provided. Treatment regimen, side effects including neutropenia, thrombocytopenia, nausea and vomiting were all discussed with the patient. He will receive his first dose of cisplatin today and return to the clinic in 1 week with CBC and CMP. Signed By: Krysta Davis N.P. <<Signature on File>>
--- NOTE | 2022-02-16 08:16 | ONC FU_ITS ---
Dr. Velazquez follow up note Patient: Donny Waller Unit #: [id number]: 1970 Dicatated By: Luiza Velazquez M.D.Date of Visit:Feb 11, 2022 Onc Med Follow-up/Prog Note History of Present Illness: Mr. Donny Waller, is a 52-year-old gentleman with a history of recurrent nosebleed was evaluated by ENT in August 2021 requiring right nasal cavity packing, as per ENT note, bleeding was also noted from left nasal cavity, as patient was complaining of sore throat, patient underwent flexible fiberoptic laryngoscopy on November 26, 2021, which showed chronic laryngitis, chronic sore throat and left laryngeal surface of epiglottis mass/lesion, subsequently on December 12, 2021 underwent directly endoscopy, operative, with biopsy with the telescope which showed ulcerative lesion of left laryngeal surface of the epiglottis extends to false fold and left AE fold no glottic involvement. 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 And prominent left palatine tonsil consistent with inflammation, multiple level left neck lymph nodes consistent with metastatic involvement, no evidence of distant metastatic disease., As per ENT evaluation due to difficult exposure, not a TORS candidate Patient has history of heavy smoking and still active, alcohol abuse, quit 5 months ago and history of chewing tobacco and quit 5 months ago. Also history of COPD, CVD, Started on combined chemoradiation with high-dose cisplatin on February 04, 2022 Came for follow-up denies any specific complaints, no fever chills, no nausea or vomiting, no diarrhea constipation, patient tolerated first dose of high-dose cisplatin concurrent with radiation therapy well except 1 day of self-limiting diarrhea. No mouth sores, no new bony pains, no dysuria or hematuria, no jaundice. No dysphagia, tolerating combined chemoradiation well otherwise Medications: Acetaminophen 2 Tablet (of 500 mg) Oral b.i.d. PRN, LORazepam 1 - 2 Tablet (of 0.5 mg) Oral t.i.d. PRN, MiraLax Powder Oral PRN, Zofran 1 Tablet (of 4 mg) Oral q 8 hours PRN Allergies: No Known Allergies. Review of Systems: Review of Systems is not available for this patient. Vital Signs: Performed on Feb 11, 2022 10:15 Height - 65.00 in Weight - 141.0 lbs (HIGH) BSA - 1.71 sq.m BMI - 23.46 Temperature - 98.4 F Pulse - 81 /min Respiration - 16 /min BP - 128/81 mm(hg) O2 Sat - 98 % Pain - 0 Fatigue - 0 Performance Status: 0 - Fully active, able to carry on all predisease activities without restrictions. (ECOG) Physical Examination: ENMT - No mouth sores, no thrush mild pharyngeal erythema, Respiratory - Lungs are clear to auscultation, Cardiovascular - Regular rate and rhythm of heart, Abdomen - Soft, bowel sounds present, Extremities - No visible edema. Lab/Imaging: Most recent lab results are not available for this patient. 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 Multiple level left neck lymph node consistent with metastatic involvement, clinically N2b, Clinical stage Patrica Started on combined chemoradiation with high-dose cisplatin on February 04, 2022 And planning to consider high-dose cisplatin, day 1, 22 and if possible day 43 concurrent with radiation therapy COPD History of chronic smoking still active History of chewing tobacco quit recently, history of alcohol abuse quit recently Plan: Discussed with patient regarding his labs white blood count 18.9 hemoglobin 13 hematocrit 39.4 platelets 176,000 CMP within normal limit except sodium 133 and ALT 72 compared to 27 prior to chemotherapy and AST 43 compared to 34 prior, PSA 0.422 and CEA 2.9 ordered by nursing practitioner Clinically, patient is doing well with no new signs symptoms tolerating combined chemoradiation with high-dose cisplatin well, his follow-up lab work-up shows elevated transaminases, as per patient he has been consuming substantial alcohol, it could be due to alcohol-related or due to chemo. Patient was advised to quit alcohol at least during treatment and will monitor his liver function test and if no improvement will consider intervention Return to clinic in 1 week with CBC CMP. Signed By: Luiza Velazquez M.D. <<Signature on File>>
== END 2022-02-12 23:59 | disposition home or self-care (01) ==
LOC: ONCMED 06:49
PROVIDERS: Absent Provider Internal Medicine Hematology & Oncology; Visit Provider Radiology Radiation Oncology
DX: Z51.0 Encounter for antineoplastic radiation therapy (principal); Z51.11 Encounter for antineoplastic chemotherapy; C10.1 Malignant neoplasm of anterior surface of epiglottis; C77.0 Secondary and unspecified malignant neoplasm of lymph nodes of head, face and neck; J44.9 Chronic obstructive pulmonary disease, unspecified; F17.210 Nicotine dependence, cigarettes, uncomplicated; F17.221 Nicotine dependence, chewing tobacco, in remission; F10.11 Alcohol abuse, in remission; Z79.899 Other long term (current) drug therapy
CPT/HCPCS: 36415; 36591; 77300; 77301; 77334; 77336; 77338; 77386; 77470; 80053; 80061; 82378; 84153; 85025; 96367; 96372; 96375; 96377; 96413; 96415; 99024; 99214; 99215; J1100; J1453; J1940; J2469; J2506; J3475; J3480; J7030; J7040; J7050; J9060; Q9967

== ENCOUNTER 2022-03-13 06:36 | Outpatient (RCR) | payer MEDICAID, SELFPAY ==
--- NOTE | 2022-02-17 15:35 | ONCRAD TMN_ITS ---
Radiation Oncology Treatment Management Note Patient Name: Donny Waller Date of : 1970 Date of Service: 02/17/2022 Attending Physician: Crow Broderick M.D. 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 in November regarding a persistent sore throat. A laryngoscopy identified a lesion on the left laryngeal surface of epiglottis. There was no palpable cervical lymphadenopathy. A direct flexible laryngoscopy was performed on December 12, 2021. Significant findings included an ulcerative lesion of the left laryngeal surface of the epiglottis with extension to the left false vocal cord and left aryepiglottic fold. 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 A PET scan December 23, 2021 demonstrated thickening of the left epiglottis with a maximum SUV of 5.6, a left level IIA lymph node measuring 1.5 cm x 1 cm (SUV 3.5), and a left level III node measuring 1 cm x 0.8 cm (SUV 4.2). There was no evidence of systemic metastatic disease. The patient was not considered a TORS candidate on account of limited operative exposure. The patient has received 20 Gy of a prescribed 50 Valles with an intensity modulated radiotherapy plan utilizing a step and shoot treatment technique. An additional 20 Gy will be delivered to the gross tumor volume and high risk cervical lymph nodes subsequent to the initial treatment plan. He has been prescribed cisplatin (100 mg/m2) every 21 days for three cycles. Upon review of systems, he described odynophagia. On physical examination, the patient weighed 141 lbs. His temperature was 98.3 ???F and the blood pressure was 136/79 mmHg. His pulse was 74 bpm and the respiratory rate was 18. There was no erythema within the treatment dias. Continue head and neck radiotherapy as planned. I will prescribe oxycodone elixir for odynophagia. Signed by: Dr. Crow Broderick 02/17/2022 3:33:57 PM
[2022-02-18 15:28] LABS: Basophils # 0.1 10^3/uL (0.0-0.1); Basophils % 0.8 %; Eosinophils # 0.1 10^3/uL (0.0-0.8); Hematocrit 37.4 % (42.0-52.0); Hemoglobin 12.3 g/dL (11.7-16.6); Mean Corpuscular HGB Conc 32.9 g/dL (30.0-36.0); Mean Corpuscular Hemoglobin 29.6 pg (28.0-34.0); Mean Corpuscular Volume 90.1 fl (80-94); Mean Platelet Volume 9.6 fL (7.4-10.4); Monocytes # 0.7 10^3/uL (0.2-0.9); Neutrophils # 2.59 10^3/uL (1.8-7.7); Nucleated Red Blood Cells % 0 %; Platelet Count 178 10^3/cmm (130-400); Red Blood Count 4.15 10^6/uL (4.1-5.3); Red Cell Distribution Width 17.1 % (12.1-15.1); White Blood Count 6.5 10^3/uL (4.0-10.0)
[2022-02-18 15:45] LABS: Alanine Aminotransferase 33 U/L (0-41); Albumin Level 3.7 g/dL (3.5-5.2); Alkaline Phosphatase 139 IU/L (40-130); Anion Gap 14.6 (5-19); Aspartate Amino Transferase 32 U/L (0-40); Blood Urea Nitrogen 8 mg/dL (6-20); Calcium 9.2 mg/dL (8.5-10.5); Carbon Dioxide 24 mmol/L (22-29); Chloride 103 mmol/L (98-107); Globulin 3.6 g/dL (1.3-4.6); Glomerular Filtration Rate 224.2 mL/min (90-130); Glucose 121 mg/dL (65-115); Osmolality Calculated 286 mOsm/kg (285-295); Potassium 3.6 mmol/L (3.5-5.1); Sodium 138 mmol/L (136-145); Total Bilirubin 0.2 mg/dL (0.15-1.2); Total Protein 7.3 g/dL (6.6-8.7)
--- NOTE | 2022-02-23 09:37 | ONC FU_ITS ---
Krysta Davis Progress Note Patient: Donny Waller Unit #: [id number]: 1970 Dicatated By: Krysta Davis N.P.Date of Visit:Feb 19, 2022 Onc MED Follow-up/Prog Note Chief Complaint: Laryngeal carcinoma History of Present Illness: Mr. Donny Waller, is a 52-year-old gentleman with a history of recurrent nosebleed was evaluated by ENT in August 2021 requiring right nasal cavity packing, as per ENT note, bleeding was also noted from left nasal cavity, as patient was complaining of sore throat, patient underwent flexible fiberoptic laryngoscopy on November 26, 2021, which showed chronic laryngitis, chronic sore throat and left laryngeal surface of epiglottis mass/lesion, subsequently on December 12, 2021 underwent directly endoscopy, operative, with biopsy with the telescope which showed ulcerative lesion of left laryngeal surface of the epiglottis extends to false fold and left AE fold no glottic involvement. 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 And prominent left palatine tonsil consistent with inflammation, multiple level left neck lymph nodes consistent with metastatic involvement, no evidence of distant metastatic disease., As per ENT evaluation due to difficult exposure, not a TORS candidate Patient has history of heavy smoking and still active, alcohol abuse, quit 5 months ago and history of chewing tobacco and quit 5 months ago. Also history of COPD, CVD, Started on combined chemoradiation with high-dose cisplatin on February 04, 2022 Patient presents today for follow-up. He is doing radiation therapy concurrent with high-dose cisplatin on days 1, 22 and possibly day 43. He has been tolerating treatments well. His appetite has been good. He has a mild sore throat. He has a cough that is chronic in nature due to his smoking. He had diarrhea x1 day that has now resolved. No urinary symptoms. No joint or bone pain. No headaches or dizziness. Review Of Symptoms: see above. Past Medical History: Acute brain disorder Anxiety Chronic alcohol abuse Chronic obstructive pulmonary disease Respiratory insufficiency Past Surgical History: Covid vaccine #2 - [place] in 2020 Covid vaccine #1 - [place] in 2020 Allergies: No Known Allergies. Medications: Acetaminophen 2 Tablet (of 500 mg) Oral b.i.d. PRN LORazepam 1 - 2 Tablet (of 0.5 mg) Oral t.i.d. PRN MiraLax Powder Oral PRN oxyCODONE HCl (5 mg/5mL) Solution Oral Take as Directed Zofran 1 Tablet (of 4 mg) Oral q 8 hours PRN Family History: Mr. Waller's mother is : lung cancer. Social History: Mr. Waller is single. He is a daily smoker who smokes 0.5 packs/day. He drinks occasionally. He has indicated exposure to the following products: cigarettes. Physical Examination: Performed on Feb 19, 2022 14:50: Height - 65.00 in, Weight - 139.8 lbs (LOW), BSA - 1.70 sq.m, BMI - 23.26, Pulse - 75 /min, Respiration - 18 /min, BP - 153/84 mm(hg) (HIGH), O2 Sat - 99 %, Pain - 0, and Fatigue - 4. Performance Status: 1 - No physically strenuous activity, but ambulatory and able to carry out light or sedentary work (e.g. office work, light house work). (ECOG) Constitutional Alert, cooperative, oriented. Mood and affect appropriate. Appears close to chronological age. Well nourished. Well developed. Head Normocephalic; no scars. Respiratory Lungs are clear to auscultation without rhonchi or wheezing. Cardiovascular Regular rate and rhythm of heart without murmurs, gallops or rubs. Abdomen Non-tender, non-distended, no masses, ascites or hepatosplenomegaly. Good bowel sounds. No guarding or rebound tenderness. Musculoskeletal No tenderness or swelling, normal range of motion without obvious weakness. Psychiatric Alert and oriented times three. Coherent speech. Verbalizes understanding of our discussions today. Laboratory: Most recent lab results are not available for this patient. 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 Multiple level left neck lymph node consistent with metastatic involvement, clinically N2b, Clinical stage Patrica Started on combined chemoradiation with high-dose cisplatin on February 04, 2022 And planning to consider high-dose cisplatin, day 1, 22 and if possible day 43 concurrent with radiation therapy COPD History of chronic smoking still active History of chewing tobacco quit recently, history of alcohol abuse quit recently Plan: Patient presents today for follow-up after receiving high dose cisplatin. He tolerated the treatment well. He is also tolerating radiation therapy well. He will return to clinic in 1 week with CBC and CMP and to receive his second cycle of high-dose cisplatin. Signed By: Krysta Davis N.P. <<Signature on File>>
--- NOTE | 2022-02-24 11:25 | ONCRAD TMN_ITS ---
Radiation Oncology Treatment Management Note Patient Name: Donny Waller Date of : 1970 Date of Service: 02/24/2022 Attending Physician: Crow Broderick M.D. 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 in November regarding a persistent sore throat. A laryngoscopy identified a lesion on the left laryngeal surface of epiglottis. There was no palpable cervical lymphadenopathy. A direct flexible laryngoscopy was performed on December 12, 2021. Significant findings included an ulcerative lesion of the left laryngeal surface of the epiglottis with extension to the left false vocal cord and left aryepiglottic fold. 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 A PET scan December 23, 2021 demonstrated thickening of the left epiglottis with a maximum SUV of 5.6, a left level IIA lymph node measuring 1.5 cm x 1 cm (SUV 3.5), and a left level III node measuring 1 cm x 0.8 cm (SUV 4.2). There was no evidence of systemic metastatic disease. The patient was not considered a TORS candidate on account of limited operative exposure. The patient has received 30 Gy of a prescribed 50 Valles with an intensity modulated radiotherapy plan utilizing a step and shoot treatment technique. An additional 20 Gy will be delivered to the gross tumor volume and high risk cervical lymph nodes subsequent to the initial treatment plan. He has been prescribed cisplatin (100 mg/m2) every 21 days for three cycles. Upon review of systems, he reported dysgeusia. Pain has improved with medication. On physical examination, the patient weighed 142 lbs. His temperature was 98.2 ???F and the blood pressure was 106/51 mmHg. His pulse was 80 bpm and the respiratory rate was 18. There was no erythema within the treatment dias. Continue head and neck radiotherapy as prescribed. Signed by: Crow Broderick 02/24/2022 11:23:42 AM
[2022-02-24 11:49] LABS: Basophils # 0.1 10^3/uL (0.0-0.1); Basophils % 0.8 %; Eosinophils # 0.2 10^3/uL (0.0-0.8); Eosinophils % 3.3 %; Hematocrit 39.9 % (42.0-52.0); Hemoglobin 13.2 g/dL (11.7-16.6); Lymphocytes # 2.6 10^3/uL (0.8-4.8); Lymphocytes % 41.4 %; Mean Corpuscular HGB Conc 33.1 g/dL (30.0-36.0); Mean Corpuscular Hemoglobin 29.9 pg (28.0-34.0); Mean Corpuscular Volume 90.5 fl (80-94); Mean Platelet Volume 9.4 fL (7.4-10.4); Monocytes # 0.7 10^3/uL (0.2-0.9); Monocytes % 10.6 %; Neutrophils # 2.76 10^3/uL (1.8-7.7); Neutrophils % 43.6 %; Nucleated Red Blood Cells % 0 %; Platelet Count 215 10^3/cmm (130-400); Red Blood Count 4.41 10^6/uL (4.1-5.3); Red Cell Distribution Width 17.2 % (12.1-15.1); White Blood Count 6.3 10^3/uL (4.0-10.0)
[2022-02-24 12:07] LABS: Alanine Aminotransferase 30 U/L (0-41); Albumin Level 3.7 g/dL (3.5-5.2); Alkaline Phosphatase 125 IU/L (40-130); Aspartate Amino Transferase 33 U/L (0-40); Blood Urea Nitrogen 8 mg/dL (6-20); Calcium 9.2 mg/dL (8.5-10.5); Carbon Dioxide 24 mmol/L (22-29); Chloride 102 mmol/L (98-107); Globulin 2.8 g/dL (1.3-4.6); Glomerular Filtration Rate 173.3 mL/min (90-130); Glucose 154 mg/dL (65-115); Osmolality Calculated 277 mOsm/kg (285-295); Sodium 133 mmol/L (136-145); Total Bilirubin 0.2 mg/dL (0.15-1.2); Total Protein 6.5 g/dL (6.6-8.7)
[2022-02-25] MEDS: sodium chloride 0.9% 250 ML 75 ML IV (08:45)
[2022-02-25] MEDS: fosaprepitant 150 MG in sodium chloride 0.9% 150 ML 300 MG IV (10:10)
[2022-02-25] MEDS: palonosetron 0.25 mg/5 mL SDV IV (10:30)
[2022-02-25] MEDS: FUROsemide 10 mg/mL SDV 2mL 20 MG IV (12:00)
[2022-02-25] MEDS: sodium chlor 0.9% + KCl 20 mEq 20 MEQ/1,000 ML BAG 500 MEQ IV (12:05)
[2022-02-25] MEDS: pegfilgrastim 6 mg/0.6 mL Kit (onpro) SUBCUT (13:05)
--- NOTE | 2022-02-25 17:14 | ONC FU_ITS ---
Dr. Velazquez follow up note Patient: Donny Waller < Unit #: [id number]: 1970 Dicatated By: Luiza Velazquez M.D.Date of Visit:Feb 25, 2022 Onc Med Follow-up/Prog Note History of Present Illness: Mr. Donny Waller, is a 52-year-old gentleman with a history of recurrent nosebleed was evaluated by ENT in August 2021 requiring right nasal cavity packing, as per ENT note, bleeding was also noted from left nasal cavity, as patient was complaining of sore throat, patient underwent flexible fiberoptic laryngoscopy on November 26, 2021, which showed chronic laryngitis, chronic sore throat and left laryngeal surface of epiglottis mass/lesion, subsequently on December 12, 2021 underwent directly endoscopy, operative, with biopsy with the telescope which showed ulcerative lesion of left laryngeal surface of the epiglottis extends to false fold and left AE fold no glottic involvement. 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 And prominent left palatine tonsil consistent with inflammation, multiple level left neck lymph nodes consistent with metastatic involvement, no evidence of distant metastatic disease., As per ENT evaluation due to difficult exposure, not a TORS candidate Patient has history of heavy smoking and still active, alcohol abuse, quit 5 months ago and history of chewing tobacco and quit 5 months ago. Also history of COPD, CVD, Started on combined chemoradiation with high-dose cisplatin on February 04, 2022 Came for follow-up, denies any specific complaint except mild itching/discomfort in throat, as per patient radiation oncology is managing it otherwise tolerating combined chemoradiation with high-dose cisplatin well, denies any fever chills denies any shortness of breath denies any palpitation denies any bony pains, denies any peripheral numbness, denies any hearing problem. Medications: Acetaminophen 2 Tablet (of 500 mg) Oral b.i.d. PRN, LORazepam 1 - 2 Tablet (of 0.5 mg) Oral t.i.d. PRN, MiraLax Powder Oral PRN, oxyCODONE HCl (5 mg/5mL) Solution Oral Take as Directed, Zofran 1 Tablet (of 4 mg) Oral q 8 hours PRN Allergies: No Known Allergies. Review of Systems: Review of Systems is not available for this patient. Vital Signs: Performed on Feb 25, 2022 13:20 Height - 65.00 in Temperature - 97.4 F (LOW) Pulse - 74 /min Respiration - 18 /min BP - 135/71 mm(hg) O2 Sat - 99 % Pain - 0 Fatigue - 0 Performed on Feb 25, 2022 08:06 Height - 65.00 in Weight - 140.6 lbs (LOW) BSA - 1.70 sq.m BMI - 23.40 Temperature - 98.1 F (LOW) Pulse - 88 /min Respiration - 16 /min BP - 123/74 mm(hg) O2 Sat - 99 % Pain - 0 Fatigue - 0 Performance Status: 0 - Fully active, able to carry on all predisease activities without restrictions. (ECOG) Physical Examination: ENMT - No mouth sores, no thrush, no jaundice but mild pharyngeal erythema, Respiratory - Lungs are clear to auscultation, Cardiovascular - Regular rate and rhythm of heart, Abdomen - Soft, bowel sounds present, G-tube site clean, Extremities - No visible edema. Lab/Imaging: Most recent lab results are not available for this patient. 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 Multiple level left neck lymph node consistent with metastatic involvement, clinically N2b, Clinical stage Patrica Started on combined chemoradiation with high-dose cisplatin on February 04, 2022 And planning to consider high-dose cisplatin, day 1, 22 and if possible day 43 concurrent with radiation therapy COPD History of chronic smoking still active History of chewing tobacco quit recently, history of alcohol abuse quit recently Plan: Discussed with patient regarding his labs white blood count 6.3 hemoglobin 13.2 hematocrit 39.9 platelets 215,000 CMP within normal limits Clinically, patient doing well with no new signs symptoms except mild sore throat probably due to combined chemoradiation, radiation oncology is managing it. We will proceed with his next cycle #2 with high-dose cisplatin on day 22 concurrent with radiation therapy today and then he will return to clinic in 1 week with CBC CMP. Patient was advised to maintain hydration and use G-tube as needed. Signed By: Luiza Velazquez M.D. <<Signature on File>>
[2022-03-03 15:20] LABS: Basophils # 0.2 10^3/uL (0.0-0.1); Basophils % 0.8 %; Eosinophils # 0.1 10^3/uL (0.0-0.8); Eosinophils % 0.4 %; Hematocrit 37.9 % (42.0-52.0); Hemoglobin 12.9 g/dL (11.7-16.6); Lymphocytes # 2.2 10^3/uL (0.8-4.8); Lymphocytes % 9.9 %; Mean Corpuscular Hemoglobin 30.6 pg (28.0-34.0); Mean Corpuscular Volume 89.8 fl (80-94); Mean Platelet Volume 10.4 fL (7.4-10.4); Monocytes # 2.7 10^3/uL (0.2-0.9); Monocytes % 11.8 %; Neutrophils # 17.23 10^3/uL (1.8-7.7); Nucleated Red Blood Cells % 0 %; Platelet Count 145 10^3/cmm (130-400); Red Blood Count 4.22 10^6/uL (4.1-5.3); Red Cell Distribution Width 17.3 % (12.1-15.1); White Blood Count 22.7 10^3/uL (4.0-10.0)
[2022-03-03 15:43] LABS: Slide Review Slide Review Perform
--- NOTE | 2022-03-03 15:43 | ONCRAD TMN_ITS ---
Radiation Oncology Treatment Management Note Patient Name: Donny Waller Date of : 1970 Date of Service: 03/03/2022 Attending Physician: Crow Broderick M.D. 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 in November regarding a persistent sore throat. A laryngoscopy identified a lesion on the left laryngeal surface of epiglottis. There was no palpable cervical lymphadenopathy. A direct flexible laryngoscopy was performed on December 12, 2021. Significant findings included an ulcerative lesion of the left laryngeal surface of the epiglottis with extension to the left false vocal cord and left aryepiglottic fold. 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 A PET scan December 23, 2021 demonstrated thickening of the left epiglottis with a maximum SUV of 5.6, a left level IIA lymph node measuring 1.5 cm x 1 cm (SUV 3.5), and a left level III node measuring 1 cm x 0.8 cm (SUV 4.2). There was no evidence of systemic metastatic disease. The patient was not considered a TORS candidate on account of limited operative exposure. The patient has received 40 Gy of a prescribed 50 Valles with an intensity modulated radiotherapy plan utilizing a step and shoot treatment technique. An additional 20 Gy will be delivered to the gross tumor volume and high risk cervical lymph nodes subsequent to the initial treatment plan. He has been prescribed cisplatin (100 mg/m2) every 21 days for three cycles. Upon review of systems, he did not report any new complaints. On physical examination, the patient weighed 138 lbs. His temperature was 98.6 ???F and the blood pressure was 115/72 mmHg. His pulse was 81 bpm and the respiratory rate was 16. There was no erythema within the treatment dias. Continue head and neck radiotherapy as planned. Signed by: Crow Broderick 03/03/2022 3:41:58 PM
[2022-03-03 15:52] LABS: Alanine Aminotransferase 55 U/L (0-41); Albumin Level 4.1 g/dL (3.5-5.2); Alkaline Phosphatase 202 IU/L (40-130); Anion Gap 13.6 (5-19); Aspartate Amino Transferase 51 U/L (0-40); Blood Urea Nitrogen 7 mg/dL (6-20); Calcium 9.4 mg/dL (8.5-10.5); Carbon Dioxide 25 mmol/L (22-29); Chloride 97 mmol/L (98-107); Globulin 2.8 g/dL (1.3-4.6); Glomerular Filtration Rate 224.2 mL/min (90-130); Glucose 104 mg/dL (65-115); Osmolality Calculated 272 mOsm/kg (285-295); Potassium 3.6 mmol/L (3.5-5.1); Sodium 132 mmol/L (136-145); Total Bilirubin 0.3 mg/dL (0.15-1.2); Total Protein 6.9 g/dL (6.6-8.7)
--- NOTE | 2022-03-10 15:21 | ONCRAD TMN_ITS ---
Radiation Oncology Treatment Management Note Patient Name: Donny Waller Date of : 1970 Date of Service: 03/10/2022 Attending Physician: Crow Broderick M.D. 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 in November regarding a persistent sore throat. A laryngoscopy identified a lesion on the left laryngeal surface of epiglottis. There was no palpable cervical lymphadenopathy. A direct flexible laryngoscopy was performed on December 12, 2021. Significant findings included an ulcerative lesion of the left laryngeal surface of the epiglottis with extension to the left false vocal cord and left aryepiglottic fold. 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 A PET scan December 23, 2021 demonstrated thickening of the left epiglottis with a maximum SUV of 5.6, a left level IIA lymph node measuring 1.5 cm x 1 cm (SUV 3.5), and a left level III node measuring 1 cm x 0.8 cm (SUV 4.2). There was no evidence of systemic metastatic disease. The patient was not considered a TORS candidate on account of limited operative exposure. The patient has received 50 Gy of a prescribed 50 Valles with an intensity modulated radiotherapy plan utilizing a step and shoot treatment technique. An additional 20 Gy will be delivered to the gross tumor volume and high risk cervical lymph nodes subsequent to the initial treatment plan. He has been prescribed cisplatin (100 mg/m2) every 21 days for three cycles. Upon review of systems, he did not report any new complaints. On physical examination, the patient weighed 136 lbs. His temperature was 98.6 ???F and the blood pressure was 127/72 mmHg. His pulse was 76 bpm and the respiratory rate was 16. There was dry desquamation within the treatment dias. Continue head and neck radiotherapy as prescribed. I will refill the oxycodone elixir. Signed by: Crow Broderick 03/10/2022 3:21:05 PM
[2022-03-10 15:45] LABS: Basophils # 0.1 10^3/uL (0.0-0.1); Basophils % 1.3 %; Eosinophils # 0.1 10^3/uL (0.0-0.8); Eosinophils % 0.9 %; Hematocrit 34.9 % (42.0-52.0); Hemoglobin 11.7 g/dL (11.7-16.6); Lymphocytes # 1.9 10^3/uL (0.8-4.8); Lymphocytes % 34.8 %; Mean Corpuscular HGB Conc 33.5 g/dL (30.0-36.0); Mean Corpuscular Hemoglobin 30.8 pg (28.0-34.0); Mean Corpuscular Volume 91.8 fl (80-94); Mean Platelet Volume 9.9 fL (7.4-10.4); Monocytes # 0.6 10^3/uL (0.2-0.9); Monocytes % 10.8 %; Neutrophils % 51.8 %; Nucleated Red Blood Cells % 0 %; Platelet Count 144 10^3/cmm (130-400); Red Cell Distribution Width 16.5 % (12.1-15.1); White Blood Count 5.6 10^3/uL (4.0-10.0)
[2022-03-10 16:13] LABS: Alanine Aminotransferase 31 U/L (0-41); Alkaline Phosphatase 152 IU/L (40-130); Anion Gap 13.3 (5-19); Aspartate Amino Transferase 32 U/L (0-40); Blood Urea Nitrogen 7 mg/dL (6-20); Calcium 8.3 mg/dL (8.5-10.5); Carbon Dioxide 26 mmol/L (22-29); Chloride 100 mmol/L (98-107); Globulin 2.6 g/dL (1.3-4.6); Glomerular Filtration Rate 224.2 mL/min (90-130); Glucose 97 mg/dL (65-115); Osmolality Calculated 278 mOsm/kg (285-295); Potassium 4.3 mmol/L (3.5-5.1); Sodium 135 mmol/L (136-145); Total Bilirubin 0.2 mg/dL (0.15-1.2); Total Protein 6.6 g/dL (6.6-8.7)
--- NOTE | 2022-03-11 10:32 | ONC FU_ITS ---
Dr. Velazquez follow up note Patient: Donny Waller Unit #: [id number]: 1970 Dicatated By: Luiza Velazquez M.D.Date of Visit:Mar 11, 2022 Onc Med Follow-up/Prog Note History of Present Illness: Mr. Donny Waller, is a 52-year-old gentleman with a history of recurrent nosebleed was evaluated by ENT in August 2021 requiring right nasal cavity packing, as per ENT note, bleeding was also noted from left nasal cavity, as patient was complaining of sore throat, patient underwent flexible fiberoptic laryngoscopy on November 26, 2021, which showed chronic laryngitis, chronic sore throat and left laryngeal surface of epiglottis mass/lesion, subsequently on December 12, 2021 underwent directly endoscopy, operative, with biopsy with the telescope which showed ulcerative lesion of left laryngeal surface of the epiglottis extends to false fold and left AE fold no glottic involvement. 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 And prominent left palatine tonsil consistent with inflammation, multiple level left neck lymph nodes consistent with metastatic involvement, no evidence of distant metastatic disease., As per ENT evaluation due to difficult exposure, not a TORS candidate Patient has history of heavy smoking and still active, alcohol abuse, quit 5 months ago and history of chewing tobacco and quit 5 months ago. Also history of COPD, CVD, Started on combined chemoradiation with high-dose cisplatin on February 04, 2022 Came for follow-up, denies any specific complaints, except sore throat but pain is under control with current pain medication prescribed by radiation oncology, otherwise tolerating combined chemoradiation well and no fever chills, no nausea or vomiting, no diarrhea constipation, patient said he has been avoiding alcohol except on Wednesday he had couple of beers Medications: Acetaminophen 2 Tablet (of 500 mg) Oral b.i.d. PRN, LORazepam 1 - 2 Tablet (of 0.5 mg) Oral t.i.d. PRN, MiraLax Powder Oral PRN, oxyCODONE HCl (5 mg/5mL) Solution Oral Take as Directed, Zofran 1 Tablet (of 4 mg) Oral q 8 hours PRN Allergies: No Known Allergies. Review of Systems: Review of Systems is not available for this patient. Vital Signs: Performed on Mar 11, 2022 10:10 Height - 65.00 in Weight - 136 lbs (HIGH) BSA - 1.68 sq.m BMI - 22.63 Temperature - 97.6 F (LOW) Pulse - 68 /min Respiration - 17 /min BP - 122/76 mm(hg) O2 Sat - 98 % Pain - 0 Fatigue - 0 Performance Status: 0 - Fully active, able to carry on all predisease activities without restrictions. (ECOG) Physical Examination: ENMT - No mouth sores but pharyngeal erythema, poor oral hygiene, Respiratory - Lungs are clear to auscultation, Cardiovascular - Regular rate and rhythm of heart, Abdomen - Soft, bowel sounds present, Extremities - No visible edema. Lab/Imaging: Most recent lab results are not available for this patient. 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 Multiple level left neck lymph node consistent with metastatic involvement, clinically N2b, Clinical stage Patrica Started on combined chemoradiation with high-dose cisplatin on February 04, 2022 And planning to consider high-dose cisplatin, day 1, 22 and if possible day 43 concurrent with radiation therapy COPD History of chronic smoking still active History of chewing tobacco quit recently, history of alcohol abuse quit recently Plan: Discussed with patient regarding his labs white blood count 5.6 hemoglobin 11.7 hematocrit 34.9 platelets 144,000 CMP within normal limits, his ALT has gone down to 31 compared to 55 previously and AST 32 compared to 51 previously and alk phos has gone down to 152 compared to 202 previously Clinically, patient doing well with no new signs symptoms except persistent sore throat which is under control with current pain medication prescribed by radiation oncology. His lab work-up done last week showed mildly elevated AST/ALT, concern was whether is due to alcohol consumption or chemotherapy, patient was advised to hold alcohol consumption and his repeat CMP showed normalization of mildly elevated transaminases. Patient was encouraged not to drink alcohol at least during treatment.He was also advised to maintain oral hygiene He will return to clinic in 1 week with CBC CMP and if reasonable, for final dose of high-dose cisplatin concurrent with radiation therapy. Signed By: Luiza Velazquez M.D. <<Signature on File>>
== END 2022-03-14 23:59 | disposition home or self-care (01) ==
LOC: ONCMED 06:36
PROVIDERS: Internal Medicine Hematology & Oncology; Absent Provider Radiology Radiation Oncology; Visit Provider Radiology Radiation Oncology
DX: Z51.0 Encounter for antineoplastic radiation therapy (principal); Z51.11 Encounter for antineoplastic chemotherapy; C32.1 Malignant neoplasm of supraglottis; C77.8 Secondary and unspecified malignant neoplasm of lymph nodes of multiple regions; J44.9 Chronic obstructive pulmonary disease, unspecified; F17.210 Nicotine dependence, cigarettes, uncomplicated; F17.221 Nicotine dependence, chewing tobacco, in remission; F10.11 Alcohol abuse, in remission; R74.01 Elevation of levels of liver transaminase levels; Z79.899 Other long term (current) drug therapy
CPT/HCPCS: 36591; 77014; 77300; 77336; 77338; 77386; 80053; 85025; 96367; 96372; 96375; 96377; 96401; 96413; 99215; J1100; J1453; J1940; J2469; J2506; J3475; J3480; J7030; J7040; J7050; J9060

== ENCOUNTER 2022-03-16 14:59 | Oncology outpatient (recurring) (ONCR) | payer MEDICAID, SELFPAY ==
--- NOTE | 2022-03-17 15:22 | ONCRAD TMN_ITS ---
Radiation Oncology Treatment Management Note Patient Name: Donny Waller Date of : 1970 Date of Service: 03/17/2022 Attending Physician: Crow Broderick M.D. 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 in November regarding a persistent sore throat. A laryngoscopy identified a lesion on the left laryngeal surface of epiglottis. There was no palpable cervical lymphadenopathy. A direct flexible laryngoscopy was performed on December 12, 2021. Significant findings included an ulcerative lesion of the left laryngeal surface of the epiglottis with extension to the left false vocal cord and left aryepiglottic fold. 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 A PET scan December 23, 2021 demonstrated thickening of the left epiglottis with a maximum SUV of 5.6, a left level IIA lymph node measuring 1.5 cm x 1 cm (SUV 3.5), and a left level III node measuring 1 cm x 0.8 cm (SUV 4.2). There was no evidence of systemic metastatic disease. The patient was not considered a TORS candidate on account of limited operative exposure. The patient has received 60 Gy of a prescribed 70 Valles with an intensity modulated radiotherapy plan utilizing a step and shoot treatment technique. He has been prescribed cisplatin (100 mg/m2) every 21 days for three cycles. Upon review of systems, he did not report any new complaints. On physical examination, the patient weighed 138 lbs. His temperature was 98.2 ???F and the blood pressure was 122/75 mmHg. His pulse was 76 bpm and the respiratory rate was 18. There was dry desquamation within the treatment dias. Continue head and neck radiotherapy as planned. Signed by: Crow Broderick 03/17/2022 3:21:30 PM
--- NOTE | 2022-03-24 15:17 | N.ONRD TS_ITS ---
Radiation OncologyTreatment Summary Patient Name: Donny Waller Date of : 1970 Date of Service: 03/24/2022 Attending Physician: Crow Broderick M.D. 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 He was evaluated at [facility] in [place], [place] by Deon Mendoza M.D. in November regarding a persistent sore throat. A laryngoscopy identified a lesion on the left laryngeal surface of epiglottis. There was no palpable cervical lymphadenopathy. A direct flexible laryngoscopy was performed on December 12, 2021. Significant findings included an ulcerative lesion of the left laryngeal surface of the epiglottis with extension to the left false vocal cord and left aryepiglottic fold. 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 A PET scan December 23, 2021 demonstrated thickening of the left epiglottis with a maximum SUV of 5.6, a left level IIA lymph node measuring 1.5 cm x 1 cm (SUV 3.5), and a left level III node measuring 1 cm x 0.8 cm (SUV 4.2). There was no evidence of systemic metastatic disease. The patient was not considered a TORS candidate on account of limited operative exposure. Head and neck radiation therapy was delivered between the dates of February 04, 2022 through March 24, 2022. A dose of 70 Gy was delivered in 35 fractions encompassing 49 elapsed days. He was prescribed cisplatin (100 mg/m2) every 21 days for three cycles. The supraglottis and cervical lymph node regions were treated utilizing an intensity modulated radiotherapy plan with a step and shoot treatment technique. The plan required eleven gantry angles (0???, 30???, 60???, 80???, 120???, 160???, 190???, 220???, 260???, 300???, and 330???) replicating an arc. The collimator rotation was 0???. The field sizes measured between 9.8 cm x 14.5 cm to 14 cm x 14.8 cm. The SSDs measured a minimum of 86.9 cm to a maximum of 95.9 cm. The ports delivered 234 MU, 223 MU, 149 MU, 112 MU, 118 MU, 153 MU, 143 MU, 119 MU, 97 MU, 128 MU, and 277 MU corresponding to the gantry angles described. Low energy photons were prescribed. The initial dias began on February 04, 2022 and continued through March 10, 2022. A prescribed dose of 50 Valles was administered 25 fractions over 35 elapsed days. The gross tumor volume and PET avid cervical lymph nodes were subsequently treated with an intensity modular radiotherapy plan with a step and shoot treatment technique. The plan required nine gantry angles (0???, 30???, 60???, 80???, 130???, 210???, 190???, 220???, 260???, 300???, and 330?) replicating an arc. The collimator rotations was 0???. The field sizes ranged between 6.3 cm x 9.8 cm to 12.3 cm x 9.3 cm. The SSDs measured a minimum of 90.7 cm to a maximum of 96.9 cm. The ports distributed 174 MU, 188 MU, 167 MU, 130 MU, 70 MU, 88 MU, 111 MU, 98 MU, and 139 MU corresponding to the gantry angles described. Low energy photons were prescribed. The reduced ports commenced on March 11, 2022 and concluded on March 24, 2022. An additional 20 Gy was allocated in 10 fractions over 14 elapsed days. All treatments were performed with the NCLC linear accelerator and an isocentric technique. The dose was calculated by Anisotropic Analytic Algorithm with the plan normalized to deliver 100% of the prescription dose to 95% of the planning target volume. Signed by: Crow Broderick 03/24/2022 3:16:30 PM
--- NOTE | 2022-03-24 15:21 | ONCRAD TMN_ITS ---
Radiation Oncology Treatment Management Note Patient Name: Donny Waller Date of : 1970 Date of Service: 03/24/2022 Attending Physician: Crow Broderick M.D. 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 in November regarding a persistent sore throat. A laryngoscopy identified a lesion on the left laryngeal surface of epiglottis. There was no palpable cervical lymphadenopathy. A direct flexible laryngoscopy was performed on December 12, 2021. Significant findings included an ulcerative lesion of the left laryngeal surface of the epiglottis with extension to the left false vocal cord and left aryepiglottic fold. 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 A PET scan December 23, 2021 demonstrated thickening of the left epiglottis with a maximum SUV of 5.6, a left level IIA lymph node measuring 1.5 cm x 1 cm (SUV 3.5), and a left level III node measuring 1 cm x 0.8 cm (SUV 4.2). There was no evidence of systemic metastatic disease. The patient was not considered a TORS candidate on account of limited operative exposure. The patient has received 70 Gy of a prescribed 70 Valles with an intensity modulated radiotherapy plan utilizing a step and shoot treatment technique. He has been prescribed cisplatin (100 mg/m2) every 21 days for three cycles. Upon review of systems, he did not report any new complaints. On physical examination, the patient weighed 136 lbs. His temperature was 98.5 ???F and the blood pressure was 117/70 mmHg. His pulse was 74 bpm and the respiratory rate was 18. There was dry desquamation within the treatment dias. Treatment was completed today. He will follow-up as scheduled. Signed by: Crow Broderick 03/24/2022 3:20:16 PM
== END 2022-03-18 15:15 | disposition home or self-care (01) ==
PROVIDERS: Visit Provider Radiology Radiation Oncology
DX: Z51.0 Encounter for antineoplastic radiation therapy (principal); C32.1 Malignant neoplasm of supraglottis; C77.0 Secondary and unspecified malignant neoplasm of lymph nodes of head, face and neck; Z79.899 Other long term (current) drug therapy
CPT/HCPCS: 77014; 77336; 77386; 77427; 99215

== ENCOUNTER 2022-03-25 09:04 | Oncology outpatient (recurring) (ONCR) | payer MEDICAID, SELFPAY ==
[2022-03-17 16:18] LABS: Basophils % 0.5 %; Eosinophils # 0.2 10^3/uL (0.0-0.8); Eosinophils % 2.6 %; Hematocrit 35.6 % (42.0-52.0); Hemoglobin 11.9 g/dL (11.7-16.6); Lymphocytes % 33.5 %; Mean Corpuscular HGB Conc 33.4 g/dL (30.0-36.0); Mean Corpuscular Hemoglobin 31.2 pg (28.0-34.0); Mean Corpuscular Volume 93.4 fl (80-94); Mean Platelet Volume 9.5 fL (7.4-10.4); Monocytes # 0.6 10^3/uL (0.2-0.9); Monocytes % 10.5 %; Neutrophils # 3.06 10^3/uL (1.8-7.7); Neutrophils % 52.6 %; Nucleated Red Blood Cells % 0 %; Platelet Count 178 10^3/cmm (130-400); Red Blood Count 3.81 10^6/uL (4.1-5.3); Red Cell Distribution Width 17.7 % (12.1-15.1); White Blood Count 5.8 10^3/uL (4.0-10.0)
[2022-03-17 16:44] LABS: Alanine Aminotransferase 24 U/L (0-41); Alkaline Phosphatase 128 IU/L (40-130); Anion Gap 12.1 (5-19); Aspartate Amino Transferase 28 U/L (0-40); Blood Urea Nitrogen 7 mg/dL (6-20); Calcium 8.6 mg/dL (8.5-10.5); Carbon Dioxide 25 mmol/L (22-29); Chloride 99 mmol/L (98-107); Chol HDL Ratio 3.81 mg/dL (1.0-5.00); Cholesterol 122 mg/dL (0-200); Globulin 2.6 g/dL (1.3-4.6); Glomerular Filtration Rate 224.2 mL/min (90-130); Glucose 100 mg/dL (65-115); HDL Cholesterol 32 mg/dL (60-100); LDL Cholesterol Calculated 73 mg/dL (50-129); LDL HDL Ratio 2.28 RATIO (0.00-3.22); Osmolality Calculated 272 mOsm/kg (285-295); Potassium 4.1 mmol/L (3.5-5.1); Prostate Specific Antigen 0.356 ng/mL (0-4); Sodium 132 mmol/L (136-145); Total Bilirubin 0.2 mg/dL (0.15-1.2); Total Protein 6.6 g/dL (6.6-8.7); Triglycerides 85 mg/dL (0-150)
[2022-03-18 10:20] VITALS: BP 111/71; PULSE 74; RESP 18; TEMP 36.4; O2SAT 98
[2022-03-18] MEDS: sodium chloride 0.9% 250 ML 75 ML IV (12:38)
[2022-03-18] MEDS: palonosetron 0.25 mg/5 mL SDV IVP (12:39)
[2022-03-18] MEDS: fosaprepitant 150 MG in sodium chloride 0.9% 150 ML 300 MG IV (13:07)
[2022-03-18] MEDS: FUROsemide 10 mg/mL SDV 2mL 20 MG IVP (15:50)
[2022-03-18] MEDS: potassium chloride 20 MEQ in sodium chloride 0.9% 500 ML 500 MEQ IV (16:00)
[2022-03-18 16:16] VITALS: BP 132/76; PULSE 69; RESP 18; TEMP 37; O2SAT 99
[2022-03-18] MEDS: pegfilgrastim 6 mg/0.6 mL Kit (onpro) SUBCUT (16:25)
[2022-03-18 16:35] VITALS: BP 121/78; PULSE 74; RESP 18; TEMP 37; O2SAT 99
[2022-03-24 15:45] LABS: Basophils # 0.1 10^3/uL (0.0-0.1); Basophils % 0.9 %; Eosinophils # 0.1 10^3/uL (0.0-0.8); Eosinophils % 0.5 %; Hematocrit 33.6 % (42.0-52.0); Hemoglobin 11.3 g/dL (11.7-16.6); Lymphocytes # 2.2 10^3/uL (0.8-4.8); Mean Corpuscular HGB Conc 33.6 g/dL (30.0-36.0); Mean Corpuscular Hemoglobin 31.7 pg (28.0-34.0); Mean Corpuscular Volume 94.1 fl (80-94); Mean Platelet Volume 10.2 fL (7.4-10.4); Monocytes # 1.5 10^3/uL (0.2-0.9); Monocytes % 9.6 %; Neutrophils # 11.59 10^3/uL (1.8-7.7); Neutrophils % 73.7 %; Nucleated Red Blood Cells % 0 %; Platelet Count 109 10^3/cmm (130-400); Red Blood Count 3.57 10^6/uL (4.1-5.3); Red Cell Distribution Width 18.1 % (12.1-15.1); White Blood Count 15.7 10^3/uL (4.0-10.0)
[2022-03-24 16:36] LABS: Slide Review Slide Review Perform
[2022-03-24 17:01] LABS: Alanine Aminotransferase 51 U/L (0-41); Albumin Level 3.9 g/dL (3.5-5.2); Alkaline Phosphatase 157 IU/L (40-130); Anion Gap 16.6 (5-19); Aspartate Amino Transferase 53 U/L (0-40); Blood Urea Nitrogen 8 mg/dL (6-20); Calcium 9.1 mg/dL (8.5-10.5); Carbon Dioxide 21 mmol/L (22-29); Chloride 96 mmol/L (98-107); Glomerular Filtration Rate 224.2 mL/min (90-130); Glucose 93 mg/dL (65-115); Osmolality Calculated 268 mOsm/kg (285-295); Potassium 3.6 mmol/L (3.5-5.1); Sodium 130 mmol/L (136-145); Total Bilirubin 0.4 mg/dL (0.15-1.2); Total Protein 6.9 g/dL (6.6-8.7)
== END 2022-04-14 23:59 | disposition home or self-care (01) ==
PROVIDERS: Family Medicine; Internal Medicine Hematology & Oncology; Visit Provider Radiology Radiation Oncology
DX: C32.1 Malignant neoplasm of supraglottis (principal); C77.8 Secondary and unspecified malignant neoplasm of lymph nodes of multiple regions; J44.9 Chronic obstructive pulmonary disease, unspecified; E87.1 Hypo-osmolality and hyponatremia; R74.01 Elevation of levels of liver transaminase levels; Z79.899 Other long term (current) drug therapy; Z87.891 Personal history of nicotine dependence
CPT/HCPCS: 36591; 77336; 80053; 80061; 84153; 85025; 96367; 96368; 96375; 96377; 96413; 96415; 99214; 99215; 99999; J1100; J1453; J1940; J2469; J2506; J3475; J3480; J7030; J7040; J7050; J9060

== ENCOUNTER 2022-04-27 13:00 | Oncology outpatient (recurring) (ONCR) | payer MEDICAID, SELFPAY ==
--- NOTE | 2022-04-23 10:23 | ONCRAD EPV_ITS ---
Radiation Oncology Follow-Up Note Patient Name: Donny Waller Date of : 1970 Date of Service: 04/23/2022 Attending Physician: Crow Broderick M.D. Donny Waller returned to my office this morning for a routinely scheduled follow-up appointment. 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 He was evaluated at [facility] in [place], [place] by Deon Mendoza M.D. in November regarding a persistent sore throat. A laryngoscopy identified a lesion on the left laryngeal surface of epiglottis. There was no palpable cervical lymphadenopathy. A direct flexible laryngoscopy was performed on December 12, 2021. Significant findings included an ulcerative lesion of the left laryngeal surface of the epiglottis with extension to the left false vocal cord and left aryepiglottic fold. 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 A PET scan December 23, 2021 demonstrated thickening of the left epiglottis with a maximum SUV of 5.6, a left level IIA lymph node measuring 1.5 cm x 1 cm (SUV 3.5), and a left level III node measuring 1 cm x 0.8 cm (SUV 4.2). There was no evidence of systemic metastatic disease. The patient was not considered a TORS candidate on account of limited operative exposure. Head and neck radiation therapy was delivered between the dates of February 04, 2022 through March 24, 2022. A dose of 70 Gy was delivered in 35 fractions encompassing 49 elapsed days. He was prescribed cisplatin (100 mg/m2) every 21 days for three cycles. On review of systems, he described xerostomia. On physical examination, he weighed 134 lbs. His temperature was 98.1???F and the blood pressure was 124/76 mmHg. The pulse was 73 bpm and his respiratory rate was 16 breaths per minute. No erythema was noted in the skin of the neck. In summary, Mr. Waller returned for a post-radiotherapy follow-up appointment. Toxicities from radiotherapy have improved. He will be scheduled for PET/CT in two months and will continue follow-up with medical oncology. Signed by: Dr. Crow Broderick 04/23/2022 10:22:53 AM
[2022-04-27 13:31] LABS: Basophils # 0.1 10^3/uL (0.0-0.1); Basophils % 0.9 %; Eosinophils # 0.2 10^3/uL (0.0-0.8); Eosinophils % 2.9 %; Lymphocytes # 3.5 10^3/uL (0.8-4.8); Mean Corpuscular HGB Conc 35.3 g/dL (30.0-36.0); Mean Corpuscular Hemoglobin 34.6 pg (28.0-34.0); Mean Platelet Volume 9.1 fL (7.4-10.4); Monocytes # 0.9 10^3/uL (0.2-0.9); Monocytes % 12.4 %; Neutrophils # 2.82 10^3/uL (1.8-7.7); Neutrophils % 37.7 %; Nucleated Red Blood Cells % 0 %; Platelet Count 192 10^3/cmm (130-400); Red Blood Count 3.47 10^6/uL (4.1-5.3); Red Cell Distribution Width 18.5 % (12.1-15.1); White Blood Count 7.5 10^3/uL (4.0-10.0)
[2022-04-27 13:50] LABS: Alanine Aminotransferase 15 U/L (0-41); Albumin Level 4.1 g/dL (3.5-5.2); Alkaline Phosphatase 102 IU/L (40-130); Anion Gap 15.4 (5-19); Aspartate Amino Transferase 25 U/L (0-40); Blood Urea Nitrogen 5 mg/dL (6-20); Calcium 8.8 mg/dL (8.5-10.5); Carbon Dioxide 25 mmol/L (22-29); Chloride 101 mmol/L (98-107); Glomerular Filtration Rate 224.2 mL/min (90-130); Glucose 113 mg/dL (65-115); Osmolality Calculated 282 mOsm/kg (285-295); Potassium 4.4 mmol/L (3.5-5.1); Sodium 137 mmol/L (136-145); Total Bilirubin 0.4 mg/dL (0.15-1.2); Total Protein 7.1 g/dL (6.6-8.7)
== END 2022-05-14 23:59 | disposition home or self-care (01) ==
PROVIDERS: PCP Family Medicine; Visit Provider Internal Medicine Hematology & Oncology
DX: C32.1 Malignant neoplasm of supraglottis (principal); K11.7 Disturbances of salivary secretion; F17.210 Nicotine dependence, cigarettes, uncomplicated; J44.9 Chronic obstructive pulmonary disease, unspecified; E87.1 Hypo-osmolality and hyponatremia; Z79.899 Other long term (current) drug therapy; Z92.3 Personal history of irradiation; Z93.1 Gastrostomy status
CPT/HCPCS: 36591; 80053; 85025; 99215

== ENCOUNTER 2022-05-04 03:32 | Emergency (ER) | payer MEDICAID, SELFPAY ==
[2022-05-04 03:33] VITALS: BMI 23.1
[2022-05-04 03:37] VITALS: BP 101/66; PULSE 67; RESP 17; TEMP 36.1; O2SAT 98
--- NOTE | 2022-05-04 03:59 | CTR_ITS ---
PROCEDURE INFORMATION: Exam: CT Head Without Contrast Exam date and time: 05/04/2022 4:41 AM Age: 52 years old Clinical indication: Weakness, extremity TECHNIQUE: Imaging protocol: Computed tomography of the head without contrast. Radiation optimization: All CT scans at this facility use at least one of these dose optimization techniques: automated exposure control; mA and/or kV adjustment per patient size (includes targeted exams where dose is matched to clinical indication); or iterative reconstruction. COMPARISON: CT head wo con* [id number] 11/13/2017 3:43 AM RADIATION DOSE METRICS: Total DLP (mGy-cm): 911.07 FINDINGS: Brain: There is no acute hemorrhage or mass effect. Mild diffuse volume loss is within the range of normal for patient age. There are small vessel ischemic changes within the periventricular and subcortical white matter. Chronic appearing lacunar infarcts involve the basal ganglia and thalami. Cerebral ventricles: No ventriculomegaly. Paranasal sinuses: Visualized sinuses are unremarkable. No fluid levels. Mastoid air cells: Visualized mastoid air cells are well aerated. Bones/joints: Unremarkable. No acute fracture. Soft tissues: Unremarkable. CT/CT head wo con* [id number] IMPRESSION: No acute intracranial abnormality.
--- NOTE | 2022-05-04 03:59 | XRR_ITS ---
PROCEDURE INFORMATION: Exam: XR Chest Exam date and time: 05/04/2022 4:13 AM Age: 52 years old Clinical indication: Other: Weakness TECHNIQUE: Imaging protocol: Radiologic exam of the chest. Views: 1 view. COMPARISON: CT Chest/Abdomen/Pelvis w IV* 11/13/2017 3:59 AM FINDINGS: Tubes, catheters and devices: There is a right-sided Port-A-Cath. Lungs: Unremarkable. No consolidation. Pleural spaces: Unremarkable. No pleural effusion. No pneumothorax. Heart/Mediastinum: Unremarkable. No cardiomegaly. Bones/joints: Unremarkable. XR/XR chest 1V portable [id number] IMPRESSION: No acute abnormality.
--- NOTE | 2022-05-04 04:00 | ECG_ITS ---
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 Measurements Intervals [place] Rate: 64 P: 62 MT: 160 QRS: 78 QRSD: 85 T: 75 QT: 419 QTc: 435 Interpretive Statements SINUS RHYTHM Compared to ECG 02/06/2017 16:27:51 No significant changes Electronically Signed On 05-04-2022 21:23:45 CDT by Marisol Goodwin M.D. [email or web address] Therapeuticsst. [email or web address] hospitalSection 101[email or web address].Outline [email or web address]/store/NU/[id number] f
[2022-05-04] MEDS: sodium chloride 0.9% 1,000 ML 999 ML IV (04:12)
[2022-05-04 04:14] LABS: Basophils # 0.1 10^3/uL (0.0-0.1); Eosinophils # 0.4 10^3/uL (0.0-0.8); Eosinophils % 5.3 %; Hematocrit 35.9 % (42.0-52.0); Hemoglobin 12.6 g/dL (11.7-16.6); Lymphocytes # 4.5 10^3/uL (0.8-4.8); Lymphocytes % 53.7 %; Mean Corpuscular HGB Conc 35.1 g/dL (30.0-36.0); Mean Corpuscular Volume 99.7 fl (80-94); Mean Platelet Volume 9.1 fL (7.4-10.4); Monocytes # 0.6 10^3/uL (0.2-0.9); Monocytes % 7.7 %; Neutrophils # 2.65 10^3/uL (1.8-7.7); Neutrophils % 31.9 %; Nucleated Red Blood Cells % 0 %; Platelet Count 201 10^3/cmm (130-400); Red Cell Distribution Width 17.1 % (12.1-15.1); White Blood Count 8.3 10^3/uL (4.0-10.0)
--- NOTE | 2022-05-04 04:27 | W.ED.WEAKNES ---
HPI - Weakness General: Chief complaint: Weakness Stated complaint: weakness Time Seen by Provider: 05/04/22 03:59 Source: patient and EMS History of Present Illness: 52-year-old male with a history of glottic cancer. He is off chemotherapy and radiation he states. He notes that around dark last night, he had been sitting on a porch with her friend. He had fallen asleep, and when he awoke to urinate, he felt weak and numb . His weakness he relates to his lower extremities bilaterally. His numbness is mainly in the left side of his face and his left arm. This is somewhat improved since calling an ambulance, but not resolved. He has other general symptoms including cough and dry mouth. He notes he had drank beer last night. MD Complaint: generalized weakness, numbness and tingling Onset (ago): unknown Duration: constant Location: other Migration: none Severity: mild Quality: tingling and numbness Relieving factors: none Exacerbating factors: none Associated symptoms: Denies chest pain, confusion, dysuria, fever(s), headache(s), nausea, short of breath or vomiting Review of Systems Const: Denies: fever(s) Eyes: Denies: change in vision ENMT: Reports: throat pain and hoarseness Card: Denies: chest pain Resp: Denies: dyspnea, productive cough or non-productive cough GI: Denies: nausea or vomiting : Denies: dysuria Neuro: Denies: headache(s) or confusion PFS ED PFSH: Medical History COPD (chronic obstructive pulmonary disease) Elevated liver transaminase level Hyponatremia Laryngeal carcinoma Family History Mother Lung disease COPD Other Anesthesia complication Cancer Hyperlipidemia Hypertension Denies family history of Diabetes CAD (coronary artery disease) Clotting disorder Dementia Psychiatric illness Chronic kidney disease (CKD) Suicide Bleeding disorder Stroke Social History Smoking and tobacco status: current every day smoker cigarettes Packs smoked per day: 0.5 Alcohol intake: former Physical Exam Const: GENERAL APPEARANCE: cooperative, comfortable and frail appearing NUTRITIONAL APPEARANCE: thin HENMT: COMMON NORMALS: normocephalic, atraumatic and Normal external nose present HEAD & SCALP: normocephalic and atraumatic FACE & SINUS: normal facial exam and face symmetric NOSE: Normal external nose present Eye: COMMON NORMALS: Equal, round and reactive pupils present and EOMs intact bilaterally PUPIL: Yes Equal, round and reactive pupils present Neck/C-Spine: GENERAL: Yes trachea midline Chest: CHEST: Yes Symmetrical chest wall rise Resp: COMMON NORMALS: normal respiratory effort, No use of accessory muscles and clear to auscultation bilaterally AUSCULTATION: clear to auscultation bilaterally Cardio: COMMON NORMALS: regular rate and regular rhythm RATE: regular rate RHYTHM: regular rhythm GI: INSPECTION: Yes normal to inspection PALPATION: No Tenderness to palpation present (GI) Extremity: COMMON NORMALS: no pedal edema Neuro: RUTHY COMA SCALE: document GCS findings Ruthy coma scale eye opening: Spontaneous Ruthy coma scale verbal response: Orientated [place] coma scale motor response: Obey commands [place] coma scale total score: 15 CRANIAL NERVES: Yes CN normal except as noted COORDINATION/BALANCE: lbdcfj-gi-eyah test normal and mcdl-en-xrwv test normal SPEECH: speech normal SENSORY EXAM: Yes extremities (Intact) and Trunk sensory exam abnormal (Intact) COORDINATION: gkiguo-uj-badu test normal and aoxz-zq-jmrm test normal Psych: COMMON NORMALS: cooperative ATTITUDE: Yes calm Skin: COMMON NORMALS: no jaundice Course Vital Signs: Vital signs: Vital Signs Temperature 97.0 F L 05/04/22 03:37 Pulse Rate 68 05/04/22 08:02 Respiratory Rate 18 05/04/22 08:02 Blood Pressure 102/68 05/04/22 08:02 Pulse Oximetry 98 05/04/22 08:02 MDM - Weakness Medical Decision Making Patient presents with generalized weakness, and slight alteration in mental status. He is sleepy but arousable. His CBC is normal. His BMP is not remarkable. His chest x-ray is negative for acute abnormality. CT of the head is negative. He is found to have an alcohol level of 222, hours after ingestion apparently. He will be allowed discharge home Lab Data : 05/04/22 03:48 05/04/22 03:48 Radiology Impressions Chest X-Ray 05/04/22 03:59 IMPRESSION: No acute abnormality. Head CT 05/04/22 03:59 IMPRESSION: No acute intracranial abnormality. Laboratory Results WBC 8.3 10^3/uL (4.0-10.0) 05/04/22 03:48 RBC 3.60 10^6/uL (4.1-5.3) L 05/04/22 03:48 Hgb 12.6 g/dL (11.7-16.6) 05/04/22 03:48 Hct 35.9 % (42.0-52.0) L 05/04/22 03:48 MCV 99.7 fl (80-94) H 05/04/22 03:48 MCH 35.0 pg (28.0-34.0) H 05/04/22 03:48 MCHC 35.1 g/dL (30.0-36.0) 05/04/22 03:48 RDW 17.1 % (12.1-15.1) H 05/04/22 03:48 Plt Count 201 10^3/cmm (130-400) 05/04/22 03:48 MPV 9.1 fL (7.4-10.4) 05/04/22 03:48 Neut % (Auto) 31.9 % 05/04/22 03:48 Lymph % (Auto) 53.7 % 05/04/22 03:48 [place] % (Auto) 7.7 % 05/04/22 03:48 Eos % (Auto) 5.3 % 05/04/22 03:48 Baso % (Auto) 1.0 % 05/04/22 03:48 Neut # (Auto) 2.65 10^3/uL (1.8-7.7) 05/04/22 03:48 Lymph # (Auto) 4.5 10^3/uL (0.8-4.8) 05/04/22 03:48 [place] # (Auto) 0.6 10^3/uL (0.2-0.9) 05/04/22 03:48 Eos # (Auto) 0.4 10^3/uL (0.0-0.8) 05/04/22 03:48 Baso # (Auto) 0.1 10^3/uL (0.0-0.1) 05/04/22 03:48 Nucleated RBC % (auto) 0 % 05/04/22 03:48 Nucleated RBCs # 0.0 /100WBC 05/04/22 03:48 Sodium 132 mmol/L (136-145) L 05/04/22 03:48 Potassium 3.9 mmol/L (3.5-5.1) 05/04/22 03:48 Chloride 99 mmol/L (98-107) 05/04/22 03:48 Carbon Dioxide 22 mmol/L (22-29) 05/04/22 03:48 Anion Gap 14.9 (5-19) 05/04/22 03:48 BUN 4 mg/dL (6-20) L 05/04/22 03:48 Creatinine 0.6 mg/dL (0.7-1.2) L 05/04/22 03:48 GFR Calculation 140.4 mL/min (90-130) H 05/04/22 03:48 Glucose 90 mg/dL (65-115) 05/04/22 03:48 Calculated Osmolality 270 mOsm/kg (285-295) L 05/04/22 03:48 Calcium 9.1 mg/dL (8.5-10.5) 05/04/22 03:48 Magnesium 2.0 mg/dL (1.7-2.3) 05/04/22 03:48 Total Bilirubin 0.3 mg/dL (0.15-1.2) 05/04/22 03:48 AST 34 U/L (0-40) 05/04/22 03:48 ALT 16 U/L (0-41) 05/04/22 03:48 Alkaline Phosphatase 99 IU/L (40-130) 05/04/22 03:48 Creatine Kinase 36 U/L (39-308) L 05/04/22 03:48 C-Reactive Protein 3.0 mg/L (0.0-4.9) 05/04/22 03:48 Total Protein 6.8 g/dL (6.6-8.7) 05/04/22 03:48 Albumin 4.1 g/dL (3.5-5.2) 05/04/22 03:48 Globulin 2.7 g/dL (1.3-4.6) 05/04/22 03:48 Urine Color Yellow (Yellow) 05/04/22 04:59 Urine Appearance Clear (CLEAR) 05/04/22 04:59 Urine pH 5 (5-7) 05/04/22 04:59 Ur Specific [place] 1.010 (1.005-1.030) 05/04/22 04:59 Urine Protein Neg (Negative) 05/04/22 04:59 Urine Glucose (UA) Norm (Normal) 05/04/22 04:59 Urine Ketones Negative (Negative) 05/04/22 04:59 Urine Blood 2+ (Negative) H 05/04/22 04:59 Urine Nitrate Negative (Negative) 05/04/22 04:59 Urine Bilirubin Neg (Negative) 05/04/22 04:59 Urine Urobilinogen Norm mg/dL (Negative) 05/04/22 04:59 Ur Leukocyte Esterase Negative (Negative) 05/04/22 04:59 Urine RBC 0-4 /hpf (0-2) H 05/04/22 04:59 Urine WBC 0-4 /hpf (0-5) H 05/04/22 04:59 Ur Squamous Epith Cells 0-4 /hpf (0-5) H 05/04/22 04:59 Amorphous Sediment Not Reportable 05/04/22 04:59 Urine Bacteria Trace /hpf (NONE) 05/04/22 04:59 Urine Opiates Screen Negative ng/mL (Negative) 05/04/22 04:59 Ur Barbiturates Screen Negative ng/mL (Negative) 05/04/22 04:59 Ur Phencyclidine Scrn Negative ng/mL (Negative) 05/04/22 04:59 Ur Amphetamines Screen Negative ng/mL (Negative) 05/04/22 04:59 U Benzodiazepines Scrn Negative ng/mL (Negative) 05/04/22 04:59 Urine Cocaine Screen Negative ng/mL (Negative) 05/04/22 04:59 U Marijuana (THC) Screen Negative ng/mL (Negative) 05/04/22 04:59 Ethyl Alcohol 222 mg/dL (0-10) H 05/04/22 03:48 Discharge Plan Discharge Patient Disposition: Home Clinical Impression: Paresthesia, Alcohol intoxication Condition: Stable Prescriptions: No Action albuterol sulfate 90 mcg/actuation HFA aerosol inhaler 2 puff inhalation Q6H PRN (Reason: sob) 0RF lorazepam 0.5 mg tablet 0.5 mg PO DAILY PRN0RF ondansetron 4 mg tablet,disintegrating 4 mg PO Q8H PRN0RF clotrimazole 10 mg saundra 10 mg mucous membrane TID Qty: 20 1RF oxycodone 5 mg/5 mL solution 5 mg PO Q4H PRN (Reason: pain) 14 Days Qty: 200 0RF Tylenol 325 mg Capsule 325 mg PO QID PRN (Reason: Moderate Pain (Scale Score 5-6)) 0RF Discharge Orders: Discharge ED (Routine); Ordered 05/04/22 Ordered By: Babar Angel Referrals: Ketan Verde, [Primary Care Provider] - 1-3 days Patient Instructions: Alcohol Intoxication (ED), Paresthesia (ED), Opioid Safety Activity Restrictions/Additional Instructions: Return for worsening symptoms. Coding Level of Care Code ED Prescription Clerk for [place] Fwd Exam Comprehensive
[2022-05-04 04:28] LABS: Alanine Aminotransferase 16 U/L (0-41); Albumin Level 4.1 g/dL (3.5-5.2); Alcohol Level 222 mg/dL (0-10); Alkaline Phosphatase 99 IU/L (40-130); Anion Gap 14.9 (5-19); Aspartate Amino Transferase 34 U/L (0-40); Blood Urea Nitrogen 4 mg/dL (6-20); Calcium 9.1 mg/dL (8.5-10.5); Carbon Dioxide 22 mmol/L (22-29); Chloride 99 mmol/L (98-107); Creatine Phosphokinase 36 U/L (39-308); Globulin 2.7 g/dL (1.3-4.6); Glomerular Filtration Rate 140.4 mL/min (90-130); Glucose 90 mg/dL (65-115); Osmolality Calculated 270 mOsm/kg (285-295); Potassium 3.9 mmol/L (3.5-5.1); Sodium 132 mmol/L (136-145); Total Bilirubin 0.3 mg/dL (0.15-1.2); Total Protein 6.8 g/dL (6.6-8.7)
[2022-05-04 04:51] VITALS: BP 113/72; PULSE 59; RESP 16; O2SAT 98
[2022-05-04 05:00] VITALS: BP 114/67; PULSE 60; RESP 17; O2SAT 100
[2022-05-04 05:12] LABS: Add Urine Culture? No; Add Urine Microscopic? YES; Bacteria Urine TRACE /hpf; Bilirubin Urine Neg (Negative); Blood Urine 2+ (Negative); Glucose Urine UA Norm (Normal); Ketones Urine Negative (Negative); Leukocyte Esterase Urine Negative (Negative); Nitrate Urine Negative (Negative); Protein Urine Neg (Negative); RBC Urine 0-4 /hpf (0-2); Squamous Epithelial Cell Urine 0-4 /hpf (0-5); Urine Appearance Clear (CLEAR); Urine Color Yellow (Yellow); Urobilinogen Urine Norm (Negative); WBC Urine 0-4 /hpf (0-5); pH Urine 5 (5-7)
[2022-05-04 05:15] LABS: Amphetamines Screen Urine Negative (Negative); Barbiturates Screen Urine Negative (Negative); Benzodiazepines Screen Urine Negative (Negative); Cocaine Screen Urine Negative (Negative); Opiate Screen Urine Negative (Negative); PCP Screen Urine Negative (Negative); THC Screen Urine Negative (Negative)
[2022-05-04 08:02] VITALS: BP 102/68; PULSE 68; RESP 18; O2SAT 98
== END 2022-05-04 08:04 | disposition home or self-care (01) ==
PROVIDERS: Emergency Provider Emergency Medicine; PCP Family Medicine
DX: R20.2 Paresthesia of skin (principal); F10.129 Alcohol abuse with intoxication, unspecified; Y90.7 Blood alcohol level of 200-239 mg/100 ml; J44.9 Chronic obstructive pulmonary disease, unspecified; F17.210 Nicotine dependence, cigarettes, uncomplicated
CPT/HCPCS: 70450; 71045; 80053; 80306; 80307; 81001; 82550; 83735; 85025; 86140; 93005; 96361; 96374; 99284; J3411; J7030

== ENCOUNTER → 2022-05-13 11:33 | Outpatient (BNVA) | payer MEDICAID, SELFPAY | PROVIDERS: PCP Family Medicine; Visit Provider Surgery | DX: Z93.1 Gastrostomy status (principal) | CPT/HCPCS: 99213 ==

== ENCOUNTER 2022-06-05 19:38 | Emergency (ER) | payer MEDICAID, SELFPAY ==
[2022-06-05 19:39] VITALS: BP 116/88; PULSE 83; RESP 22; TEMP 36.9; O2SAT 100; BMI 22.3
--- NOTE | 2022-06-05 19:47 | CTR_ITS ---
PROCEDURE INFORMATION: Exam: CT Abdomen And Pelvis With Contrast Exam date and time: 06/05/2022 8:16 PM Age: 52 years old Clinical indication: Nausea and vomiting; Abdominal pain; Generalized; Prior surgery; Surgery type: Chest port. Peg tube. Patient HX: C/O abd pain with n/v. History of esophageal/skin cancer. TECHNIQUE: Imaging protocol: Computed tomography of the abdomen and pelvis with contrast. Radiation optimization: All CT scans at this facility use at least one of these dose optimization techniques: automated exposure control; mA and/or kV adjustment per patient size (includes targeted exams where dose is matched to clinical indication); or iterative reconstruction. Contrast material: OMNI 350; Contrast volume: 95 ml; Contrast route: INTRAVENOUS (IV); COMPARISON: CT Chest/Abdomen/Pelvis w IV* 11/13/2017 3:59 AM RADIATION DOSE METRICS: Total DLP (mGy-cm): 822.47 FINDINGS: Tubes, catheters and devices: A percutaneous gastrostomy tube is present, with its tip in the gastric antrum region. Liver: Normal. No mass. Gallbladder and bile ducts: Normal. No calcified stones. No ductal dilation. Pancreas: Normal. No ductal dilation. Spleen: Normal. No splenomegaly. Adrenal glands: Normal. No mass. Kidneys and ureters: The kidneys appear normal. Mild bilateral hydronephrosis is likely due to voluntary urinary retention. Stomach and bowel: Unremarkable. No obstruction. No mucosal thickening. Appendix: The appendix is normal. Intraperitoneal space: Unremarkable. No free air. No significant fluid collection. Vasculature: Unremarkable. No abdominal aortic aneurysm. Lymph nodes: Unremarkable. No enlarged lymph nodes. Urinary bladder: The urinary bladder is prominently distended. No urinary bladder wall thickening. Reproductive: Unremarkable as visualized. Bones/joints: Unremarkable. No acute fracture. Soft tissues: Unremarkable. CT/CT abdomen pelvis w con* [id number] IMPRESSION: No acute abnormality is seen in the abdomen or pelvis.
[2022-06-05 19:50] LABS: Basophils # 0.1 10^3/uL (0.0-0.1); Eosinophils # 0.3 10^3/uL (0.0-0.8); Eosinophils % 3.1 %; Hematocrit 38.7 % (42.0-52.0); Hemoglobin 13.9 g/dL (11.7-16.6); Lymphocytes # 4.9 10^3/uL (0.8-4.8); Mean Corpuscular HGB Conc 35.9 g/dL (30.0-36.0); Mean Corpuscular Hemoglobin 36.6 pg (28.0-34.0); Mean Corpuscular Volume 101.8 fl (80-94); Mean Platelet Volume 9.5 fL (7.4-10.4); Monocytes # 0.6 10^3/uL (0.2-0.9); Monocytes % 7.5 %; Nucleated Red Blood Cells % 0 %; Platelet Count 145 10^3/cmm (130-400); Red Cell Distribution Width 11.9 % (12.1-15.1); White Blood Count 8.2 10^3/uL (4.0-10.0)
--- NOTE | 2022-06-05 19:51 | ECG_ITS ---
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 Measurements Intervals [place] Rate: 81 P: 75 FL: 136 QRS: 85 QRSD: 93 T: 110 QT: 392 QTc: 458 Interpretive Statements SINUS RHYTHM Compared to ECG 05/04/2022 02:39:29 No significant changes Electronically Signed On 06-05-2022 20:28:13 CDT by Christian Covarrubias M.D. [email or web address] [email or web address] Datauniversity hospitals [email or web address] [id number]
[2022-06-05] MEDS: sodium chloride 0.9% 1,000 ML 999 ML IV (19:57)
[2022-06-05 19:58] VITALS: RESP 22
[2022-06-05] MEDS: morphine 4 mg/mL SDV 1 mL 2 MG IVP (19:58)
--- NOTE | 2022-06-05 20:10 | ED_ITS ---
HPI - General Adult General: Chief complaint: Abdominal Pain Stated complaint: ABD PAIN Time Seen by Provider: 06/05/22 19:40 History of Present Illness: Patient is a 52-year-old male with his history of throat cancer, chronically G-tube dependent presenting to the emergency room with complaints of abdominal pain since 2 days ago. Patient tells me that he was outside lifting rocks when he suddenly began having abdominal pain with bloating sensation. Patient reports I think my stomach is about to explode . Patient is chronically G-tube dependent and the G-tube was placed at an outside hospital about 3 to 4-month ago. Patient also report multiple episodes of emesis yesterday followed by episodes of diarrhea history and today. Patient denies any fever/chills, melena/hematochezia. Patient has no complaints he tells me that he still able to swallow despite his throat cancer. Patient has not had any recent chemotherapy or radiation treatment. Onset:3 days ago Duration:3 days Location:home Severity:moderate Associated symptoms: Reports nausea and vomiting; Deny chest pain, dyspnea, rash or palpitations Review of Systems Const: Denies: fever(s) or chills Eyes: Denies: change in vision ENMT: Denies: mouth pain Card: Denies: chest pain or palpitations Resp: Denies: dyspnea or non-productive cough GI: Reports: abdominal pain, nausea, vomiting and diarrhea : Denies: dysuria Musc: Denies: extremity pain Skin/Breast: Denies: rash or new lesions Neuro: Denies: weakness in extremities Psych: Reports: other (Normal mood) Coy/Lymph: Denies: easy bruising PFS ED PFSH: Medical History COPD (chronic obstructive pulmonary disease) Elevated liver transaminase level Feeding by G-tube Heart attack Hyponatremia Laryngeal carcinoma Stroke Surgical History H/O tooth extraction had 32 teeth removed prior to radiation therapy in January 2022 History of insertion of tunneled central venous catheter (CVC) with port History of knee surgery 1986 History of surgery on arm 1986 Family History Mother Lung disease COPD Other Anesthesia complication Cancer Hyperlipidemia Hypertension Denies family history of Diabetes CAD (coronary artery disease) Clotting disorder Dementia Psychiatric illness Chronic kidney disease (CKD) Suicide Bleeding disorder Stroke Social History Smoking and tobacco status: never smoked Alcohol intake: former Physical Exam Const: COMMON NORMALS: alert HENMT: COMMON NORMALS: atraumatic HEAD & SCALP: atraumatic MOUTH: moist mucous membranes not abnormal Eye: COMMON NORMALS: EOMs intact bilaterally and conjunctivae normal CONJ UNCTIVA: Yes conjunctivae normal Neck/C-Spine: COMMON NORMALS: full ROM and supple Resp: COMMON NORMALS: normal respiratory effort and clear to auscultation bilaterally AUSCULTATION: clear to auscultation bilaterally Cardio: COMMON NORMALS: regular rate RATE: regular rate GI: COMMON NORMALS: Soft to palpation PALPATION: Yes Soft to palpation OTHER: +mild epigastric abd focal TTP. NO guarding rebound, guarding, rigidity. No CVA tenderness to percussion. Neg Whiting/Neg McBurney's point tenderness, no suprabupic tenderness to palpation. +G tube site dry/clean/intact Extremity: COMMON NORMALS: full ROM Neuro: SENSORIUM/ORIENTATION: Yes alert MOTOR EXAM: No Abnormal motor strength present and Other motor observations present (no focal motor deficits) Psych: COMMON NORMALS: speech normal SPEECH: Yes normal speech MOOD & AFFECT: Yes euthymic mood Course Vital Signs: Vital signs: Vital Signs Temperature 98.4 F 06/05/22 19:39 Pulse Rate 83 06/05/22 19:39 Respiratory Rate 22 H 06/05/22 19:58 Blood Pressure 116/88 06/05/22 19:39 Pulse Oximetry 100 06/05/22 19:39 [facility] - General Adult Medical Decision Making Patient is a 52-year-old male with his history of throat cancer, chronically G- tube dependent presenting to the emergency room with complaints of abdominal sheri n since 2 days ago. On physical exam, patient had mid epigastric abdominal tenderness to palpation. Exam unremarkable. Patient has a G-tube that is placed without any surrounding erythema or drainage. There is no guarding or rebound tenderness. Patient is noted to have white count 8.2 today. EKG and troponin within normal limit. CT abdomen pelvis showed distended bladder. Creatinine within normal limit. Patient has been able to successfully void 1 L of urine. Patient reports mildly symptomatically improved abdominal pain after GI cocktail. He has been able to tolerate p.o. Patient tells me that he has oral thrush. Patient request for medication for thrush Doubt ACS/PE or other emergent causes of chest pain patient has no chest pain, troponin and EKG within normal limit. No suspicion for other acute intra- abdominal pathology including SBO, biliary pathology, appendicitis, di verticulitis, or other emergent condition requiring surgery. Rx tylenol PRN abd pain, maalox/pepcid PRN dyspepsia, and zofran PRN nausea/vomiting, flucoanzole for oral thrush Disposition: Discharge. Patient counseled regarding diagnostic impression, treatment plan. Patient given ED strict return precautions to return for continuation, worsening, or development of new symptoms. Instructed to f/u w/ PCP regarding symptoms today. Patient verbalized understanding. Lab Data : 06/05/22 18:38 06/05/22 18:38 Radiology Impressions Abdomen/Pelvis CT 06/05/22 19:47 IMPRESSION: No acute abnormality is seen in the abdomen or pelvis. Laboratory Results WBC 8.2 10^3/uL (4.0-10.0) 06/05/22 18:38 RBC 3.80 10^6/uL (4.1-5.3) L 06/05/22 18:38 Hgb 13.9 g/dL (11.7-16.6) 06/05/22 18:38 Hct 38.7 % (42.0-52.0) L 06/05/22 18:38 MCV 101.8 fl (80-94) H 06/05/22 18:38 MCH 36.6 pg (28.0-34.0) H 06/05/22 18:38 MCHC 35.9 g/dL (30.0-36.0) 06/05/22 18:38 RDW 11.9 % (12.1-15.1) L 06/05/22 18:38 Plt Count 145 10^3/cmm (130-400) 06/05/22 18:38 MPV 9.5 fL (7.4-10.4) 06/05/22 18:38 Neut % (Auto) 28.0 % 06/05/22 18:38 Lymph % (Auto) 60.0 % 06/05/22 18:38 [place] % (Auto) 7.5 % 06/05/22 18:38 Eos % (Auto) 3.1 % 06/05/22 18:38 Baso % (Auto) 1.0 % 06/05/22 18:38 Neut # (Auto) 2.30 10^3/uL (1.8-7.7) 06/05/22 18:38 Lymph # (Auto) 4.9 10^3/uL (0.8-4.8) H 06/05/22 18:38 [place] # (Auto) 0.6 10^3/uL (0.2-0.9) 06/05/22 18:38 Eos # (Auto) 0.3 10^3/uL (0.0-0.8) 06/05/22 18:38 Baso # (Auto) 0.1 10^3/uL (0.0-0.1) 06/05/22 18:38 Nucleated RBC % (auto) 0 % 06/05/22 18:38 Nucleated RBCs # 0.0 /100WBC 06/05/22 18:38 Sodium 130 mmol/L (136-145) L 06/05/22 18:38 Potassium 3.2 mmol/L (3.5-5.1) L 06/05/22 18:38 Chloride 93 mmol/L (98-107) L 06/05/22 18:38 Carbon Dioxide 19 mmol/L (22-29) L 06/05/22 18:38 Anion Gap 21.2 (5-19) H 06/05/22 18:38 BUN 4 mg/dL (6-20) L 06/05/22 18:38 Creatinine 0.4 mg/dL (0.7-1.2) L 06/05/22 18:38 GFR Calculation 224.2 mL/min (90-130) H 06/05/22 18:38 Glucose 95 mg/dL (65-115) 06/05/22 18:38 Calculated Osmolality 267 mOsm/kg (285-295) L 06/05/22 18:38 Calcium 9.0 mg/dL (8.5-10.5) 06/05/22 18:38 Total Bilirubin 0.4 mg/dL (0.15-1.2) 06/05/22 18:38 AST 76 U/L (0-40) H 06/05/22 18:38 ALT 50 U/L (0-41) H 06/05/22 18:38 Alkaline Phosphatase 88 IU/L (40-130) 06/05/22 18:38 Troponin T Baseline 7 ng/L (0-15) 06/05/22 18:38 Troponin T 120 Minute 8.89 ng/L (0-15) 06/05/22 20:56 Delta Troponin T 1.89 ABS# (0-10) 06/05/22 20:56 Total Protein 7.5 g/dL (6.6-8.7) 06/05/22 18:38 Albumin 4.5 g/dL (3.5-5.2) 06/05/22 18:38 Globulin 3.0 g/dL (1.3-4.6) 06/05/22 18:38 Lipase 23 U/L (13-60) 06/05/22 18:38 Imaging Data Other Imaging: Radiologist's impression: [place] [address] CT Scan Report Signed Patient: Donny Waller Unit #: [id number] : 1970 Age/Sex: 52 / M ADM Date: 06/05/22 Loc: ER Room/Bed: Attending Dr: Ordering Provider/Ordering MD: Alina Martin MD Date of Service: 06/05/22 Procedure(s): CT abdomen pelvis w con* [id number] Accession Number(s): [id number] Report Number: [id number] PROCEDURE INFORMATION: Exam: CT Abdomen And Pelvis With Contrast Exam date and time: 06/05/2022 8:16 PM Age: 52 years old Clinical indication: Nausea and vomiting; Abdominal pain; Generalized; Prior surgery; Surgery type: Chest port. Peg tube. Patient HX: C/O abd pain with n/v. History of esophageal/skin cancer. TECHNIQUE: Imaging protocol: Computed tomography of the abdomen and pelvis with contrast. Radiation optimization: All CT scans at this facility use at least one of these dose optimization techniques: automated exposure control; mA and/or kV adjustment per patient size (includes targeted exams where dose is matched to clinical indication); or iterative reconstruction. Contrast material: OMNI 350; Contrast volume: 95 ml; Contrast route: INTRAVENOUS (IV);? COMPARISON: CT Chest/Abdomen/Pelvis w IV* 11/13/2017 3:59 AM RADIATION DOSE METRICS: Total DLP (mGy-cm): 822.47 FINDINGS: Tubes, catheters and devices: A percutaneous gastrostomy tube is present, with its tip in the gastric antrum region. Liver: Normal. No mass. Gallbladder and bile ducts: Normal. No calcified stones. No ductal dilation. Pancreas: Normal. No ductal dilation. Spleen: Normal. No splenomegaly. Adrenal glands: Normal. No mass. Kidneys and ureters: The kidneys appear normal. Mild bilateral hydronephrosis is likely due to voluntary urinary retention. Stomach and bowel: Unremarkable. No obstruction. No mucosal thickening. Appendix: The appendix is normal. Intraperitoneal space: Unremarkable. No free air. No significant fluid collection. Vasculature: Unremarkable. No abdominal aortic aneurysm. Lymph nodes: Unremarkable. No enlarged lymph nodes. Urinary bladder: The urinary bladder is prominently distended. No urinary bladder wall thickening. Reproductive: Unremarkable as visualized. Bones/joints: Unremarkable. No acute fracture. Soft tissues: Unremarkable. CT/CT abdomen pelvis w con* [id number] IMPRESSION:? No acute abnormality is seen in the abdomen or pelvis. ? Dictated By: Enrike Armstrong MD Signed By: Enrike Armstrong MD Signed Date/Time: 06/05/222052 DD/ 15 Discharge Plan Discharge Patient Disposition: Home Clinical Impression: Abdominal pain Condition: Stable Prescriptions: New acetaminophen 500 mg tablet 500 mg PO Q6H PRN (Reason: pain) 5 Days Qty: 20 0RF Pepcid 20 mg tablet 20 mg PO BID PRN (Reason: abdominal pain) 10 Days Qty: 20 0RF Maalox Advanced 1,000-60 mg tablet,chewable 1 tab PO TID PRN (Reason: abdominal pain) 7 Days Qty: 21 0RF fluconazole 100 mg tablet 100 mg PO DAILY 21 Days Qty: 21 0RF No Action albuterol sulfate 90 mcg/actuation HFA aerosol inhaler 2 puff inhalation Q6H PRN (Reason: sob) 0RF lorazepam 0.5 mg tablet 0.5 mg PO DAILY PRN0RF ondansetron 4 mg tablet,disintegrating 4 mg PO Q8H PRN0RF clotrimazole 10 mg saundra 10 mg mucous membrane TID Qty: 20 1RF fluconazole [Diflucan] 150 mg tablet 150 mg PO .weekly Qty: 4 0RF sildenafil 25 mg tablet 25 mg PO DAILY PRN (Reason: sexual activity) 30 Days Qty: 10 2RF Rx Instructions: administer 30 minutes to 4 hours before activity oxycodone 5 mg/5 mL solution 5 mg PO Q4H PRN (Reason: pain) 14 Days Qty: 200 0RF Tylenol 325 mg Capsule 325 mg PO QID PRN (Reason: Moderate Pain (Scale Score 5-6)) 0RF Discharge Orders: Discharge ED (Routine); Ordered 06/05/22 Ordered By: Alina Martin Referrals: Ketan Verde DO [Primary Care Provider] - Discharge Diet: Advance as tolerated Discharge Activity: Increase activity as tolerated Patient Instructions: Abdominal Pain (ED) Activity Restrictions/Additional Instructions: Please come back if you have any worsening abdominal pain, fever or chills, nausea or vomiting, diarrhea, blood in the stool, inability hold down liquid or solids, or any new concerning complaints. Coding Level of Care Code ED Heavy Media Operator for Chg Fwd Exam Comprehensive
[2022-06-05] MEDS: iohexol 350 mg/mL 100 mL Btl IV (20:19)
[2022-06-05 20:20] LABS: Alanine Aminotransferase 50 U/L (0-41); Albumin Level 4.5 g/dL (3.5-5.2); Alkaline Phosphatase 88 IU/L (40-130); Anion Gap 21.2 (5-19); Aspartate Amino Transferase 76 U/L (0-40); Blood Urea Nitrogen 4 mg/dL (6-20); Carbon Dioxide 19 mmol/L (22-29); Chloride 93 mmol/L (98-107); Glomerular Filtration Rate 224.2 mL/min (90-130); Glucose 95 mg/dL (65-115); Lipase 23 U/L (13-60); Osmolality Calculated 267 mOsm/kg (285-295); Potassium 3.2 mmol/L (3.5-5.1); Sodium 130 mmol/L (136-145); Total Bilirubin 0.4 mg/dL (0.15-1.2); Total Protein 7.5 g/dL (6.6-8.7)
[2022-06-05 20:35] LABS: Troponin(5th) Baseline 7 ng/L (0-15)
[2022-06-05] MEDS: lidocaine 2% viscous 15 ML, aluminum-mag hydrox-simethicon 30 ML, sucralfate oral liq 1 GM PO (21:20)
[2022-06-05 21:22] LABS: Troponin 5 2HR 8.89 ng/L (0-15); Troponin 5 2HR Delta 1.89 ABS# (0-10)
[2022-06-05 21:58] VITALS: PULSE 71; RESP 18; O2SAT 94
[2022-06-05 22:04] LABS: Add Urine Microscopic? NO; Charge for UA Resulting for Rev
[2022-06-05 22:05] LABS: Bilirubin Urine Neg (Negative); Blood Urine Neg (Negative); Glucose Urine UA Norm (Normal); Ketones Urine Negative (Negative); Leukocyte Esterase Urine Negative (Negative); Nitrate Urine Negative (Negative); Protein Urine Neg (Negative); Specific Gravity, Urine 1.005 (1.005-1.030); Urine Appearance Clear (CLEAR); Urine Color Straw (Yellow); Urobilinogen Urine Neg (Negative); pH Urine 5 (5-7)
== END 2022-06-05 21:59 | disposition home or self-care (01) ==
PROVIDERS: Emergency Provider Emergency Medicine; PCP Family Medicine
DX: R10.9 Unspecified abdominal pain (principal); J44.9 Chronic obstructive pulmonary disease, unspecified; Z86.73 Personal history of transient ischemic attack (TIA), and cerebral infarction without residual deficits; Z85.21 Personal history of malignant neoplasm of larynx; Z93.1 Gastrostomy status
CPT/HCPCS: 36415; 74177; 80053; 81003; 83690; 84484; 85025; 93005; 96361; 96374; 99285; J2270; J7030; Q9967

== ENCOUNTER 2022-07-02 10:35 | Oncology outpatient (recurring) (ONCR) | payer MEDICAID, SELFPAY ==
[2022-07-02 11:30] LABS: Alanine Aminotransferase 35 U/L (0-41); Alkaline Phosphatase 98 U/L (40-130); Aspartate Amino Transferase 42 U/L (0-40); Total Bilirubin 0.3 mg/dL (0.15-1.2)
== END 2022-07-15 23:59 | disposition home or self-care (01) ==
PROVIDERS: PCP Family Medicine; Visit Provider Internal Medicine Hematology & Oncology
DX: C32.1 Malignant neoplasm of supraglottis (principal)
CPT/HCPCS: 36591; 80076

== ENCOUNTER 2022-08-04 10:53 | Oncology outpatient (recurring) (ONCR) | payer MEDICAID, SELFPAY ==
[2022-08-04 11:22] LABS: Basophils # 0.1 10^3/uL (0.0-0.1); Basophils % 0.8 %; Eosinophils # 0.4 10^3/uL (0.0-0.8); Eosinophils % 5.1 %; Hematocrit 46.3 % (42.0-52.0); Hemoglobin 15.6 g/dL (11.7-16.6); Lymphocytes # 3.2 10^3/uL (0.8-4.8); Lymphocytes % 39.5 %; Mean Corpuscular HGB Conc 33.7 g/dL (30.0-36.0); Mean Corpuscular Hemoglobin 34.1 pg (28.0-34.0); Mean Corpuscular Volume 101.3 fl (80-94); Mean Platelet Volume 9.4 fL (7.4-10.4); Monocytes # 0.7 10^3/uL (0.2-0.9); Monocytes % 9.1 %; Neutrophils % 45.1 %; Nucleated Red Blood Cells % 0 %; Platelet Count 201 10^3/cmm (130-400); Red Blood Count 4.57 10^6/uL (4.1-5.3); Red Cell Distribution Width 12.3 % (12.1-15.1)
[2022-08-04 11:41] LABS: Alanine Aminotransferase 26 U/L (0-41); Alkaline Phosphatase 103 U/L (40-130); Aspartate Amino Transferase 40 U/L (0-40); Blood Urea Nitrogen 5 mg/dL (6-20); Calcium 9.3 mg/dL (8.5-10.5); Carbon Dioxide 24 mmol/L (22-29); Chloride 100 mmol/L (98-107); Globulin 3.3 g/dL (1.3-4.6); Glomerular Filtration Rate 140.4 mL/min (90-130); Glucose 101 mg/dL (65-115); Osmolality Calculated 277 mOsm/kg (285-295); Sodium 135 mmol/L (136-145); Total Bilirubin 0.4 mg/dL (0.15-1.2); Total Protein 7.3 g/dL (6.6-8.7)
[2022-08-04 11:42] LABS: Anion Gap 14.7 (5-19); Potassium 3.7 mmol/L (3.5-5.1)
== END 2022-08-14 23:59 | disposition home or self-care (01) ==
PROVIDERS: PCP Family Medicine; Visit Provider Internal Medicine Hematology & Oncology
DX: C32.9 Malignant neoplasm of larynx, unspecified (principal); C44.311 Basal cell carcinoma of skin of nose
CPT/HCPCS: 36591; 80053; 85025

== ENCOUNTER 2022-09-03 12:46 | Oncology outpatient (recurring) (ONCR) | payer MEDICAID, SELFPAY | END 2022-09-14 23:59 | disposition home or self-care (01) | PROVIDERS: PCP Family Medicine; Visit Provider Internal Medicine Hematology & Oncology | DX: Z45.2 Encounter for adjustment and management of vascular access device (principal); C32.9 Malignant neoplasm of larynx, unspecified | CPT/HCPCS: 96523 ==

== ENCOUNTER 2022-10-04 07:29 | Emergency (ER) | payer MEDICAID, SELFPAY ==
[2022-10-04 07:43] VITALS: BP 110/64; PULSE 126; RESP 20; TEMP 37.8; O2SAT 96; BMI 22.3
--- NOTE | 2022-10-04 07:57 | XRR_ITS ---
PROCEDURE INFORMATION: Exam: XR Chest Exam date and time: 10/04/2022 9:11 AM Age: 52 years old Clinical indication: Cough and fever; Prior surgery; Surgery type: Port; Additional info: Fever, cough TECHNIQUE: Imaging protocol: Radiologic exam of the chest. Views: 2 views. COMPARISON: CR XR chest 1V portable [id number] 05/04/2022 4:13 AM FINDINGS: Tubes, catheters and devices: Right-sided central venous chest port noted with the distal tip in the lower SVC. Lungs: The lung parenchyma is clear. Pleural spaces: No pneumothorax. No pleural effusion. Heart/Mediastinum: The cardiomediastinal silhouette is within normal limits. Bones/joints: Partially visualized humeral fixation hardware noted. XR/XR chest 2V* [id number] IMPRESSION: No acute cardiopulmonary abnormality identified.
--- NOTE | 2022-10-04 07:58 | W.ED.FEVER ---
HPI - Fever General: Chief Complaint: Fever Stated Complaint: High fever, and lots of pain. Time Seen by Provider: 10/04/22 07:52 History of Present Illness: 52-year-old male presents with generalized body aches, fever, chills, cough, sore throat. He reports has been going on for about 2 days. Reports he just feels like crap. He denies any shortness of breath. No vomiting or diarrhea. Associated symptoms: Reports chills; Deny abdominal pain, flank pain, chest pain, headache(s), nausea or vomiting Review of Systems Const: Reports: fever(s), chills, body aches, fatigue and malaise Eyes: Denies: change in vision or eye discharge ENMT: Reports: throat pain; Denies: ear or mastoid pain Card: Denies: chest pain or palpitations Resp: Reports: non-productive cough; Denies: dyspnea or wheezing GI: Denies: abdominal pain, nausea or vomiting : Denies: flank pain or difficulty urinating Musc: Denies: neck pain or back pain Skin/Breast: Denies: rash or erythema Neuro: Denies: headache(s) or dizziness [facility] ED PFSH: Medical History COPD (chronic obstructive pulmonary disease) Elevated liver transaminase level Feeding by G-tube Heart attack Hyponatremia Laryngeal carcinoma Stroke Surgical History H/O tooth extraction had 32 teeth removed prior to radiation therapy in January 2022 History of insertion of tunneled central venous catheter (CVC) with port History of knee surgery 1986 History of surgery on arm 1986 Family History Mother Lung disease COPD Other Anesthesia complication Cancer Hyperlipidemia Hypertension Denies family history of Diabetes CAD (coronary artery disease) Clotting disorder Dementia Psychiatric illness Chronic kidney disease (CKD) Suicide Bleeding disorder Stroke Social History Smoking and tobacco status: current every day smoker cigarettes Packs smoked per day: 0.5 Alcohol intake: former Physical Exam Const: COMMON NORMALS: no acute distress, patient oriented x3 and alert GENERAL APPEARANCE: ill appearing HENMT: COMMON NORMALS: hearing grossly normal bilaterally and moist oral mucous membranes Eye: COMMON NORMALS: EOMs intact bilaterally and conjunctivae normal CONJUNCTIVA: Yes conjunctivae normal Chest: CHEST: Yes Symmetrical chest wall rise Resp: COMMON NORMALS: normal respiratory effort, No retractions, No use of accessory muscles and clear to auscultation bilaterally AUSCULTATION: clear to auscultation bilaterally Cardio: COMMON NORMALS: regular rate and regular rhythm RATE: regular rate RHYTHM: regular rhythm GI: COMMON NORMALS: Soft to palpation and non-tender PALPATION: Yes Soft to palpation Extremity: COMMON NORMALS: normal to inspection, full ROM and capillary refill normal Neuro: COMMON NORMALS: patient oriented x3, moves all extremities and no focal motor deficits SENSORIUM/ORIENTATION: Yes alert Psych: COMMON NORMALS: mental status grossly normal, Normal thought process present and speech normal SPEECH: Yes normal speech THOUGHT PROCESS: Normal thought process present Skin: COMMON NORMALS: no rashes or lesions noted and turgor normal GENERAL SKIN EXAM: no rashes or lesions noted and turgor normal Course Vital Signs: Vital signs: Vital Signs Temperature 98.6 F 10/04/22 10:00 Pulse Rate 82 10/04/22 10:30 Respiratory Rate 20 H 10/04/22 07:43 Blood Pressure 102/58 10/04/22 10:30 Pulse Oximetry 96 10/04/22 10:30 Oxygen Delivery Me thod 10/04/22 10:30 MDM - Fever Medical Decision Making Patient's positive for influenza A. Patient was stable throughout his stay in the ER. Patient will be prescribed Tamiflu. He should follow-up as needed with her primary care provider return to the ER if symptoms worsen. Patient stable and discharged home Lab Data 10/04/22 08:06 10/04/22 08:06 Radiology Impressions Chest X-Ray 10/04/22 07:57 IMPRESSION: No acute cardiopulmonary abnormality identified. Laboratory Results WBC 5.7 10^3/uL (4.0-10.0) 10/04/22 08:06 RBC 4.46 10^6/uL (4.1-5.3) 10/04/22 08:06 Hgb 15.2 g/dL (11.7-16.6) 10/04/22 08:06 Hct 42.8 % (42.0-52.0) 10/04/22 08:06 MCV 96.0 fl (80-94) H 10/04/22 08:06 MCH 34.1 pg (28.0-34.0) H 10/04/22 08:06 MCHC 35.5 g/dL (30.0-36.0) 10/04/22 08:06 RDW 12.8 % (12.1-15.1) 10/04/22 08:06 Plt Count 164 10^3/cmm (130-400) 10/04/22 08:06 MPV 9.3 fL (7.4-10.4) 10/04/22 08:06 Neut % (Auto) 78.9 % 10/04/22 08:06 Lymph % (Auto) 7.1 % 10/04/22 08:06 [place] % (Auto) 12.2 % 10/04/22 08:06 Eos % (Auto) 0.7 % 10/04/22 08:06 Baso % (Auto) 0.7 % 10/04/22 08:06 Neut # (Auto) 4.46 10^3/uL (1.8-7.7) 10/04/22 08:06 Lymph # (Auto) 0.4 10^3/uL (0.8-4.8) L 10/04/22 08:06 [place] # (Auto) 0.7 10^3/uL (0.2-0.9) 10/04/22 08:06 Eos # (Auto) 0.0 10^3/uL (0.0-0.8) 10/04/22 08:06 Baso # (Auto) 0.0 10^3/uL (0.0-0.1) 10/04/22 08:06 Nucleated RBC % (auto) 0 % 10/04/22 08:06 Nucleated RBCs # 0.0 /100WBC 10/04/22 08:06 Sodium 133 mmol/L (136-145) L 10/04/22 08:06 Potassium 3.5 mmol/L (3.5-5.1) 10/04/22 08:06 Chloride 99 mmol/L (98-107) 10/04/22 08:06 Carbon Dioxide 20 mmol/L (22-29) L 10/04/22 08:06 Anion Gap 17.5 (5-19) 10/04/22 08:06 BUN 6 mg/dL (6-20) 10/04/22 08:06 Creatinine 0.8 mg/dL (0.7-1.2) 10/04/22 08:06 GFR Calculation 100.7 mL/min (90-130) 10/04/22 08:06 Glucose 145 mg/dL (65-115) H 10/04/22 08:06 Calculated Osmolality 276 mOsm/kg (285-295) L 10/04/22 08:06 Calcium 9.5 mg/dL (8.5-10.5) 10/04/22 08:06 Total Bilirubin 0.6 mg/dL (0.15-1.2) 10/04/22 08:06 AST 43 U/L (0-40) H 10/04/22 08:06 ALT 36 U/L (0-41) 10/04/22 08:06 Alkaline Phosphatase 100 U/L (40-130) 10/04/22 08:06 Total Protein 7.0 g/dL (6.6-8.7) 10/04/22 08:06 Albumin 4.0 g/dL (3.5-5.2) 10/04/22 08:06 Globulin 3.0 g/dL (1.3-4.6) 10/04/22 08:06 Procalcitonin 0.18 ng/mL (0-0.5) 10/04/22 08:06 Nasal Influ A H1 2008 PCR Not detected (NOT DETECT) 10/04/22 08:30 Adenovirus (PCR) Not detected (NOT DETECT) 10/04/22 08:30 C. pneumoniae DNA (PCR) Not detected (NOT DETECT) 10/04/22 08:30 Coronavirus 229E (PCR) Not detected (NOT DETECT) 10/04/22 08:30 Human Metapneumovir PCR Not detected (NOT DETECT) 10/04/22 08:30 Influenza A (H1) PCR Not detected (NOT DETECT) 10/04/22 08:30 Influenza A (H3) PCR Detected (NOT DETECT) A 10/04/22 08:30 Influenza Type A (PCR) Detected (NOT DETECT) A 10/04/22 08:30 Influenza Type B (PCR) Not detected (NOT DETECT) 10/04/22 08:30 M. pneumoniae (PCR) Not detected (NOT DETECT) 10/04/22 08:30 Parainfluenza 1 (PCR) Not detected (NOT DETECT) 10/04/22 08:30 Parainfluenza 2 (PCR) Not detected (NOT DETECT) 10/04/22 08:30 Parainfluenza 3 (PCR) Not detected (NOT DETECT) 10/04/22 08:30 Parainfluenza 4 (PCR) Not detected (NOT DETECT) 10/04/22 08:30 RSV Type A (PCR) Not detected (NOT DETECT) 10/04/22 08:30 RSV Type B (PCR) Not detected (NOT DETECT) 11 08:30 Entero/Rhino (PCR) Not detected (NOT DETECT) 10/04/22 08:30 SARS-CoV-2 (PCR) Not detected (NOT DETECT) 10/04/22 08:30 Discharge Plan Discharge Patient Disposition: Home Clinical Impression: Influenza A Condition: Stable Prescriptions: New Tamiflu 75 mg capsule 75 mg PO BID 5 Days Qty: 10 0RF No Action albuterol sulfate 90 mcg/actuation HFA aerosol inhaler 2 puff inhalation Q6H PRN (Reason: sob) tadalafil 5 mg tablet 5 mg PO DAILY 30 Days Qty: 30 2RF nystatin 100,000 unit/mL suspension 5 ml PO QID Qty: 473 1RF Rx Instructions: swish and swallow. mupirocin 2 % ointment 1 applic topical BID Qty: 22 1RF Rx Instructions: Apply to affected area on the nose until healed after stitches are removed Tylenol 325 mg Capsule 325 mg PO QID PRN (Reason: Moderate Pain (Scale Score 5-6)) Discharge Orders: Discharge ED (Routine); Ordered 10/04/22 Ordered By: Smooth Kwon Referrals: Ketan Verde DO [Primary Care Provider] - Discharge Diet: Usual diet Discharge Activity: Increase activity as tolerated Patient Instructions: Influenza (ED), Opioid Safety, Pain Management Activity Restrictions/Additional Instructions: Follow-up with your primary care provider in 3 to 4 days for recheck. Return to the ER if symptoms continue to worsen or with any concerns Coding Level of Care Code ED Accreditation Specialist for Chg Fwd Exam Comprehensive
[2022-10-04 08:16] VITALS: BP 116/66; PULSE 109; O2SAT 93
[2022-10-04] MEDS: ketorolac 30 mg/mL INJ 15 MG IVP (08:17)
[2022-10-04 08:18] LABS: Basophils % 0.7 %; Eosinophils % 0.7 %; Hematocrit 42.8 % (42.0-52.0); Hemoglobin 15.2 g/dL (11.7-16.6); Lymphocytes # 0.4 10^3/uL (0.8-4.8); Lymphocytes % 7.1 %; Mean Corpuscular HGB Conc 35.5 g/dL (30.0-36.0); Mean Corpuscular Hemoglobin 34.1 pg (28.0-34.0); Mean Platelet Volume 9.3 fL (7.4-10.4); Monocytes # 0.7 10^3/uL (0.2-0.9); Monocytes % 12.2 %; Neutrophils # 4.46 10^3/uL (1.8-7.7); Neutrophils % 78.9 %; Nucleated Red Blood Cells % 0 %; Platelet Count 164 10^3/cmm (130-400); Red Blood Count 4.46 10^6/uL (4.1-5.3); Red Cell Distribution Width 12.8 % (12.1-15.1); White Blood Count 5.7 10^3/uL (4.0-10.0)
[2022-10-04 08:31] VITALS: BP 111/63; PULSE 104; O2SAT 93
[2022-10-04 08:37] LABS: Alanine Aminotransferase 36 U/L (0-41); Alkaline Phosphatase 100 U/L (40-130); Anion Gap 17.5 (5-19); Aspartate Amino Transferase 43 U/L (0-40); Blood Urea Nitrogen 6 mg/dL (6-20); Calcium 9.5 mg/dL (8.5-10.5); Carbon Dioxide 20 mmol/L (22-29); Chloride 99 mmol/L (98-107); Glomerular Filtration Rate 100.7 mL/min (90-130); Glucose 145 mg/dL (65-115); Osmolality Calculated 276 mOsm/kg (285-295); Potassium 3.5 mmol/L (3.5-5.1); Sodium 133 mmol/L (136-145); Total Bilirubin 0.6 mg/dL (0.15-1.2)
[2022-10-04 08:42] LABS: Procalcitonin 0.18 ng/mL (0-0.5)
[2022-10-04 09:49] VITALS: BP 106/56; PULSE 94; O2SAT 96
[2022-10-04 10:00] VITALS: BP 97/54; PULSE 88; TEMP 37; O2SAT 96
[2022-10-04] MEDS: lactated ringers 1,000 ML 999 ML IV (10:09)
[2022-10-04 10:30] VITALS: BP 102/58; PULSE 82; O2SAT 96
[2022-10-04 10:43] LABS: Adenovirus Not Detected (NOT DETECT); Chlamydia Pneumoniae Not Detected (NOT DETECT); Coronavirus 229E,HKU1,NL63,OC4 Not Detected (NOT DETECT); Human Metapneumovirus Not Detected (NOT DETECT); Human Rhinovirus/Enterovirus Not Detected (NOT DETECT); Influenza A Detected (NOT DETECT); Influenza A H1 Not Detected (NOT DETECT); Influenza A H1-2009 Not Detected (NOT DETECT); Influenza A H3 Detected (NOT DETECT); Influenza B Not Detected (NOT DETECT); Mycoplasma Pneumoniae Not Detected (NOT DETECT); Parainfluenza Virus Type 1 Not Detected (NOT DETECT); Parainfluenza Virus Type 2 Not Detected (NOT DETECT); Parainfluenza Virus Type 3 Not Detected (NOT DETECT); Parainfluenza Virus Type 4 Not Detected (NOT DETECT); Respiratory Syncytial Virus A Not Detected (NOT DETECT); Respiratory Syncytial Virus B Not Detected (NOT DETECT); SARS-COV-2 Not Detected (NOT DETECT)
== END 2022-10-04 11:26 | disposition home or self-care (01) ==
PROVIDERS: Emergency Provider Student in an Organized Health Care Education/Training Program; PCP Family Medicine
DX: J10.1 Influenza due to other identified influenza virus with other respiratory manifestations (principal); Z20.822 Contact with and (suspected) exposure to COVID-19; F17.210 Nicotine dependence, cigarettes, uncomplicated; J44.9 Chronic obstructive pulmonary disease, unspecified; Z86.73 Personal history of transient ischemic attack (TIA), and cerebral infarction without residual deficits; Z85.21 Personal history of malignant neoplasm of larynx
CPT/HCPCS: 71046; 80053; 84145; 85025; 87486; 87581; 87633; 96374; 99284; J1885; J7120

== ENCOUNTER 2022-10-12 09:07 | Oncology outpatient (recurring) (ONCR) | payer MEDICAID, SELFPAY | END 2022-10-14 23:59 | disposition home or self-care (01) | PROVIDERS: PCP Family Medicine; Visit Provider Internal Medicine Hematology & Oncology | DX: Z45.2 Encounter for adjustment and management of vascular access device (principal) | CPT/HCPCS: 96523 ==

== ENCOUNTER 2022-12-04 09:00 | Oncology outpatient (recurring) (ONCR) | payer MEDICAID, SELFPAY | END 2022-12-15 23:59 | disposition home or self-care (01) | PROVIDERS: PCP Family Medicine; Visit Provider Internal Medicine Hematology & Oncology | DX: C32.9 Malignant neoplasm of larynx, unspecified | CPT/HCPCS: 96523 ==

== ENCOUNTER 2023-01-04 13:23 | Oncology outpatient (recurring) (ONCR) | payer MEDICAID, SELFPAY | END 2023-01-12 23:59 | disposition home or self-care (01) | LOC: ONCMED 13:23 | PROVIDERS: PCP Family Medicine; Visit Provider Internal Medicine Hematology & Oncology | DX: Z45.2 Encounter for adjustment and management of vascular access device (principal); Z95.828 Presence of other vascular implants and grafts | CPT/HCPCS: 96523 ==

== ENCOUNTER 2023-02-05 09:02 | Oncology outpatient (recurring) (ONCR) | payer MEDICAID, SELFPAY ==
[2023-02-04 09:47] LABS: Basophils # 0.1 10^3/uL (0.0-0.1); Basophils % 1.4 %; Eosinophils # 0.3 10^3/uL (0.0-0.8); Eosinophils % 5.2 %; Hematocrit 41.7 % (42.0-52.0); Hemoglobin 14.3 g/dL (11.7-16.6); Lymphocytes # 2.3 10^3/uL (0.8-4.8); Mean Corpuscular HGB Conc 34.3 g/dL (30.0-36.0); Mean Corpuscular Hemoglobin 33.5 pg (28.0-34.0); Mean Corpuscular Volume 97.7 fl (80-94); Mean Platelet Volume 8.6 fL (7.4-10.4); Monocytes # 0.4 10^3/uL (0.2-0.9); Monocytes % 7.6 %; Neutrophils # 2.09 10^3/uL (1.8-7.7); Neutrophils % 40.4 %; Nucleated Red Blood Cells % 0 %; Platelet Count 210 10^3/cmm (130-400); Red Blood Count 4.27 10^6/uL (4.1-5.3); Red Cell Distribution Width 14.1 % (12.1-15.1); White Blood Count 5.2 10^3/uL (4.0-10.0)
[2023-02-04 10:16] LABS: Alanine Aminotransferase 31 U/L (0-41); Albumin Level 3.8 g/dL (3.5-5.2); Alkaline Phosphatase 75 U/L (40-130); Aspartate Amino Transferase 47 U/L (0-40); Blood Urea Nitrogen 4 mg/dL (6-20); Calcium 8.5 mg/dL (8.5-10.5); Carbon Dioxide 24 mmol/L (22-29); Chloride 106 mmol/L (98-107); Globulin 2.4 g/dL (1.3-4.6); Glomerular Filtration Rate 117.5 mL/min (90-130); Glucose 94 mg/dL (65-115); Osmolality Calculated 287 mOsm/kg (285-295); Sodium 140 mmol/L (136-145); Total Bilirubin 0.3 mg/dL (0.15-1.2); Total Protein 6.2 g/dL (6.6-8.7)
== END 2023-02-12 23:59 | disposition home or self-care (01) ==
PROVIDERS: PCP Family Medicine; Visit Provider Internal Medicine Hematology & Oncology
DX: C32.9 Malignant neoplasm of larynx, unspecified
CPT/HCPCS: 36591; 80053; 85025

== ENCOUNTER 2023-03-15 09:55 | Oncology outpatient (recurring) (ONCR) | payer MEDICAID, SELFPAY ==
[2023-03-15 09:45] VITALS: BP 160/85; PULSE 89; RESP 18; TEMP 37.3; O2SAT 94
== END 2023-04-14 23:59 | disposition home or self-care (01) ==
PROVIDERS: PCP Family Medicine; Visit Provider Internal Medicine Hematology & Oncology
DX: C32.9 Malignant neoplasm of larynx, unspecified (principal)
CPT/HCPCS: 96523

== ENCOUNTER 2023-05-14 09:30 | Oncology outpatient (recurring) (ONCR) | payer MEDICAID, SELFPAY ==
[2023-05-14 09:33] VITALS: BP 117/78; PULSE 91; RESP 18; TEMP 37.2; O2SAT 97
== END 2023-05-14 23:59 | disposition home or self-care (01) ==
LOC: ONCMED 09:30
PROVIDERS: PCP Family Medicine; Visit Provider Internal Medicine Hematology & Oncology
DX: Z45.2 Encounter for adjustment and management of vascular access device (principal)
CPT/HCPCS: 96523; J1642

== ENCOUNTER 2023-06-15 11:39 | Oncology outpatient (recurring) (ONCR) | payer MEDICAID, SELFPAY ==
[2023-06-15 11:50] VITALS: BMI 3235.3
[2023-06-15 11:51] VITALS: BP 174/85; PULSE 70; RESP 16; TEMP 36.1; O2SAT 98
[2023-06-15 12:00] LABS: Basophils # 0.1 10^3/uL (0.0-0.1); Basophils % 1.5 %; Eosinophils # 0.2 10^3/uL (0.0-0.8); Eosinophils % 3.6 %; Hematocrit 41.4 % (42.0-52.0); Hemoglobin 14.1 g/dL (11.7-16.6); Lymphocytes # 2.2 10^3/uL (0.8-4.8); Lymphocytes % 40.8 %; Mean Corpuscular HGB Conc 34.1 g/dL (30.0-36.0); Mean Corpuscular Hemoglobin 33.8 pg (28.0-34.0); Mean Corpuscular Volume 99.3 fl (80-94); Mean Platelet Volume 9.7 fL (7.4-10.4); Monocytes # 0.5 10^3/uL (0.2-0.9); Monocytes % 10.2 %; Neutrophils # 2.33 10^3/uL (1.8-7.7); Neutrophils % 43.7 %; Nucleated Red Blood Cells % 0 %; Platelet Count 166 10^3/cmm (130-400); Red Blood Count 4.17 10^6/uL (4.1-5.3); Red Cell Distribution Width 13.5 % (12.1-15.1); White Blood Count 5.3 10^3/uL (4.0-10.0)
[2023-06-15 12:17] LABS: Alanine Aminotransferase 84 U/L (0-41); Albumin Level 3.9 g/dL (3.5-5.2); Alkaline Phosphatase 72 U/L (40-130); Aspartate Amino Transferase 110 U/L (0-40); Blood Urea Nitrogen 5 mg/dL (6-20); Calcium 9.3 mg/dL (8.5-10.5); Carbon Dioxide 23 mmol/L (22-29); Chloride 99 mmol/L (98-107); Globulin 3.1 g/dL (1.3-4.6); Glomerular Filtration Rate 139.9 mL/min (90-130); Glucose 112 mg/dL (65-115); Osmolality Calculated 274 mOsm/kg (285-295); Sodium 133 mmol/L (136-145); Total Bilirubin 0.6 mg/dL (0.15-1.2)
== END 2023-07-15 23:59 | disposition home or self-care (01) ==
PROVIDERS: Nurse Practitioner Family; PCP Family Medicine; Visit Provider Internal Medicine Hematology & Oncology
DX: C32.9 Malignant neoplasm of larynx, unspecified (principal)
CPT/HCPCS: 36591; 80053; 85025; J1642

== ENCOUNTER 2023-07-07 09:41 | Day surgery (SDC) | payer MEDICAID, SELFPAY ==
[2023-07-06 13:45] VITALS: BMI 22.4
[2023-07-07] VITALS (7 sets, daily range): BP systolic 115–129; BP diastolic 67–74; PULSE 64–75; RESP 16–17; TEMP 36.3–37; O2SAT 97–98
[2023-07-07] MEDS: sodium chloride 0.9% 1,000 ML 30 ML IV (10:17)
--- NOTE | 2023-07-07 11:08 | W.PM.OPSUD ---
Surgery/Procedure H&P Update DATE OF PROCEDURE: July 07, 2023 DATE H&P PERFORMED: 06/22/23 H&P UPDATE INFORMATION: I have reviewed H&P completed within last 30 days, I have examined patient prior to procedure, No changes to prior documentation and H&P is in [facility] [place] on date indicated PLANNED PROCEDURE: Operation Date: 07/07/23 11:20 Proposed Procedures p 11151 Peg removal [id number] port removal z93.1, C32.9(Not Applicable) - Crow Lester MD s Portacath Removal(Not Applicable) - Crow Lester MD
--- NOTE | 2023-07-07 12:08 | ANES.PREANE2 ---
Pre-Anesthetic Assessment Height/Weight: Height 1.65 m Weight 61.235 kg Temp Pulse Resp BP Pulse Ox O2 Del Method 98.6 F 74 17 129/74 98 Room Air 07/07/23 09:59 07/07/23 09:59 07/07/23 09:59 07/07/23 09:59 07/07/23 09:59 07/07/23 10:00 Operation Date: 07/07/23 11:20 Proposed Procedures p [id number] Peg removal 50779 port removal z93.1, C32.9(Not Applicable) - Crow Lester MD s Portacath Removal(Not Applicable) - Crow Lester MD Familial anesthetic complications: none Was Beta Emily taken within 24 hours: N/A Was Clonidine taken within 24 hours: N/A Last intake: Intake Last Liquid Date 07/06/23 Last Liquid Time 20:00 Last Solid Date 07/06/23 Last Solid Time 16:30 Social Alcohol and Tobacco Exam alert, oriented x 3 and regular rate & rhythm Airway Submandibular: within normal limits Cervical ROM: within normal limits Mallampati: Class I Dentition: false Comments: Comments: H/O neck radiation, laryngeal CA, no stridor or hoarsness Pulmonary Chronic Obstructive Pulmonary Disease GI PEG tube Anesthetic Plan ASA status: 3 Anesthesia: Choice Medications/Allergies Home Medications Medication Instructions Recorded Confirmed Last Taken Type albuterol sulfate 90 mcg/actuation 2 puff inhalation Q6H PRN sob 10/22/21 07/06/23 10/29/21 History aerosol inhaler acetaminophen 325 mg capsule 325 mg PO QID PRN Moderate Pain 01/19/22 07/07/23 07/07/23 History (Tylenol) (Scale Score 5-6) meloxicam 7.5 mg tablet 7.5 mg PO DAILY PRN Left knee pain 11/02/22 07/06/23 Unknown Rx #30 tabs fluconazole 150 mg tablet See Rx Instructions PO .COMPLEX 06/23/23 07/06/23 07/05/23 Rx (Diflucan) #11 tabs rjnmxkzl-sazrvjuws-ffmimhuzb 3.5 4 drp otic (ear) Q8H #10 mL 06/23/23 07/06/23 Unknown Rx mg-10,000 unit/mL-1 % ear drops,susp nystatin 100,000 unit/mL oral 5 ml PO QID #473 mL 06/23/23 07/06/23 Unknown Rx suspension Allergies Allergy/AdvReac Type Severity Reaction Status Date / Time No Known Allergies Allergy Verified 07/07/23 09:57 Current Medications Generic Name Dose Route Start Last Admin Trade Name Francoq PRN Reason Stop Dose Admin Sodium Chloride 1,000 mls @ 30 mls/hr 07/07/23 10:00 07/07/23 10:17 Sodium Chloride 0.9% IV 07/08/23 09:59 30 mls/hr .Q24H PRAVIN Administration PFSH Anesthesia Medical History COPD (chronic obstructive pulmonary disease) Elevated liver transaminase level Feeding by G-tube Heart attack Hyponatremia Laryngeal carcinoma Stroke Surgical History H/O tooth extraction had 32 teeth removed prior to radiation therapy in January 2022 History of esophagogastroduodenoscopy (EGD) 2 years ago History of insertion of tunneled central venous catheter (CVC) with port History of knee surgery 1986 History of surgery on arm 1986 Family History Mother Lung disease COPD Other Anesthesia complication Cancer Hyperlipidemia Hypertension Denies family history of Diabetes CAD (coronary artery disease) Clotting disorder Dementia Psychiatric illness Chronic kidney disease (CKD) Suicide Bleeding disorder Stroke Social History Smoking and tobacco status: current every day smoker cigarettes Packs smoked per day: 0.5 Alcohol intake: current Alcohol intake frequency: holidays/special occasions only Substance/Drug Use: never Data Anesthesia Cardiac Studies: No Data to Display
[2023-07-07] MEDS: lidocaine-epi 1% 20 mL INJ (13:39)
[2023-07-07] MEDS: BUPivacaine 0.25% INJ 10 mL INJECTION (13:39)
--- NOTE | 2023-07-07 13:41 | PM.OP ---
Operative Report Date of procedure: July 07, 2023 Pre-op diagnosis: History of head and neck cancer Post-op diagnosis: Same Procedure done: Removal of gastrostomy tube, removal of Port-A-Cath Specimens removed/disposition: Port a cath Surgeon: Crow Lester MD Estimated blood loss: 5cc Complications: none Findings: Particular on the right upper chest, Capsule Noted around the Port. Brief History: This is a 53-year-old male who has history of head and neck cancer, he received chemotherapy, for which he had a Port-A-Cath placed. He also had a gastrostomy tube placed for nutritional support. Patient is done with therapy, currently no additional chemotherapy is expected. He is eating okay and therefore the decision was made to proceed with Port-A-Cath and PEG tube removal Procedure: Patient was brought into the OR, placed in the supine position. Anesthesia was administered. Timeout was conducted. The abdomen was prepped, the gastrostomy tube was identified, the bumper was released and the gastrostomy tube was pulled out. Gastrostomy tube came in 1 piece, no missing bumper. We then prepped and draped the right chest in the usual sterile fashion. Local anesthesia was administered around the port and in the tract of the catheter. 2.5 cm incision was made overlying the previous incision site. The incision was deepened until the Port-A-Cath was encountered. Capsule overlying the Port-A-Cath was opened with electrocautery. Port-A-Cath was then removed from the pocket, catheter was removed from the vein and pressure was applied. 3-0 Vicryl was used to close the catheter tract. Hemostasis was obtained. The wound was closed in layers using 3-0 Vicryl for the subcutaneous tissue and 4-0 Monocryl for the skin. Dermabond was applied. At the end of the procedure all counts were correct. Patient tolerated well the procedure and was transferred to the PACU in stable condition.
--- NOTE | 2023-07-07 15:09 | ANE.PACU2 ---
Inpatient post-anesthesia follow up: Airway intact: Yes Vital signs: Temperature 97.4 F Pulse Rate 65 Respiratory Rate 17 Blood Pressure 120/69 Pulse Oximetry 98 Oxygen Delivery Me thod Room Air Oxygen Flow Rate Fraction of Inspir ed Oxygen Hydration adequate: Yes Nausea and vomiting: No Pain level: 1 Mental status: Baseline
== END 2023-07-07 14:39 | disposition home or self-care (01) ==
PROVIDERS: PCP Family Medicine; Visit Provider Surgery
PROC: (CPT 43999; principal; 2023-07-07 11:10)
PROC: (CPT 36589; 2023-07-07 11:10)
DX: Z85.89 Personal history of malignant neoplasm of other organs and systems (principal); Z45.2 Encounter for adjustment and management of vascular access device; J44.9 Chronic obstructive pulmonary disease, unspecified; F17.210 Nicotine dependence, cigarettes, uncomplicated
CPT/HCPCS: 36590; J2704; J3010; J3490; J7030

== ENCOUNTER → 2023-08-27 10:00 | Outpatient (BNVA) | payer MEDICAID, SELFPAY | PROVIDERS: PCP Family Medicine; Referring Provider Family Medicine; Visit Provider Student in an Organized Health Care Education/Training Program | DX: Z96.652 Presence of left artificial knee joint; M17.12 Unilateral primary osteoarthritis, left knee; T84.84XA Pain due to internal orthopedic prosthetic devices, implants and grafts, initial encounter; Y79.2 Prosthetic and other implants, materials and accessory orthopedic devices associated with adverse incidents; Z01.818 Encounter for other preprocedural examination | CPT/HCPCS: 36415; 73560; 73565; 80053; 81003; 85025 ==

== ENCOUNTER 2023-09-14 11:20 | Oncology outpatient (recurring) (ONCR) | payer MEDICAID, SELFPAY ==
[2023-09-14 11:45] VITALS: BP 117/85; PULSE 74; RESP 18; TEMP 36.6; O2SAT 97
[2023-09-14 11:56] LABS: Basophils # 0.1 10^3/uL (0.0-0.1); Basophils % 1.3 %; Eosinophils # 0.3 10^3/uL (0.0-0.8); Lymphocytes # 3.9 10^3/uL (0.8-4.8); Lymphocytes % 56.5 %; Mean Corpuscular HGB Conc 34.3 g/dL (30-55); Mean Corpuscular Hemoglobin 33.3 pg (27-33); Mean Corpuscular Volume 96.8 fl (82-101); Mean Platelet Volume 9.1 fL (7.4-10.4); Monocytes # 0.5 10^3/uL (0.2-0.9); Monocytes % 7.9 %; Neutrophils # 1.99 10^3/uL (1.8-7.7); Nucleated Red Blood Cells % 0 %; Platelet Count 198 10^3/cmm (157-399); Red Blood Count 4.75 10^6/uL (3.85-5.65); White Blood Count 6.85 10^3/uL (3.29-11.43)
[2023-09-14 12:15] LABS: Alanine Aminotransferase 41 U/L (0-41); Albumin Level 4.3 g/dL (3.5-5.2); Alkaline Phosphatase 80 U/L (40-130); Anion Gap 16.7 (5-19); Aspartate Amino Transferase 49 U/L (0-40); Blood Urea Nitrogen 9 mg/dL (6-20); Calcium 9.6 mg/dL (8.5-10.5); Carbon Dioxide 24 mmol/L (22-29); Chloride 99 mmol/L (98-107); Glomerular Filtration Rate 117.1 mL/min (90-130); Glucose 179 mg/dL (65-115); Osmolality Calculated 283 mOsm/kg (285-295); Potassium 4.7 mmol/L (3.5-5.1); Sodium 135 mmol/L (136-145); Total Bilirubin 0.5 mg/dL (0.15-1.2); Total Protein 7.3 g/dL (6.6-8.7)
[2023-09-14 14:34] LABS: Free T4 Free Thyroxine 1.23 ng/dL (0.82-1.77); Thyroid Stimulating Hormone 3.79 uIU/mL (0.27-4.20)
== END 2023-09-14 23:59 | disposition home or self-care (01) ==
PROVIDERS: Nurse Practitioner Family; PCP Family Medicine; Visit Provider Internal Medicine Medical Oncology
DX: C32.9 Malignant neoplasm of larynx, unspecified (principal); Z45.2 Encounter for adjustment and management of vascular access device
CPT/HCPCS: 36415; 80053; 84439; 84443; 85025

== ENCOUNTER → 2023-09-22 09:30 | Outpatient (BNVA) | payer MEDICAID, SELFPAY | PROVIDERS: PCP Family Medicine; Visit Provider Family Medicine | DX: Z01.818 Encounter for other preprocedural examination (principal) | CPT/HCPCS: 81000 ==

== ENCOUNTER 2023-09-29 08:45 | Day surgery (SDC) | payer MEDICAID, SELFPAY ==
[2023-09-29] VITALS (9 sets, daily range): BP systolic 111–145; BP diastolic 68–98; PULSE 70–106; RESP 14–19; TEMP 36.1–36.7; O2SAT 97–100; BMI 22.4
--- NOTE | 2023-09-29 | XR_ITS ---
WS: [id number] Exam: XR knee LT 1-2V [id number] Date/Time of Exam: 09/29/2023 12:00 AM Reason For Exam: CAT PICS Intraoperative C-arm images of the LEFT knee confirm removal of 3 orthopedic screws from the proximal LEFT tibia. Moderately advanced degenerative changes of the LEFT knee are noted.
[2023-09-29] MEDS: ketorolac 30 mg/mL INJ IVP (10:02)
[2023-09-29] MEDS: sodium chloride 0.9% 1,000 ML 30 ML IV (10:02)
[2023-09-29] MEDS: acetaminophen 1,000 MG/100 ML PIGGYBACK 400 MG IV (10:03)
[2023-09-29] MEDS: scopolamine 1.5 Patch 1 PATCH TRANSDERMA (10:03)
--- NOTE | 2023-09-29 10:17 | W.PM.OPSFHP ---
Same Day Surgery H&P Indication for Procedure/HPI DATE OF PROCEDURE: September 29, 2023 CHIEF COMPLAINT/INDICATIONFOR SURGICAL PROCEDURE: Left knee painful orthopedic hardware PREOP DIAGNOSIS: Left knee painful orthopedic hardware PLANNED PROCEDURE: Operation Date: 09/29/23 10:25 Proposed Procedures p Hardware Removal Knee(Left) - Sky Duran DO Medications/Allergies* Home Medications Medication Instructions Recorded Confirmed Type albuterol sulfate 90 mcg/actuation 2 puff inhalation Q6H PRN sob 10/22/21 09/28/23 History aerosol inhaler acetaminophen 325 mg capsule 325 mg PO QID PRN Moderate Pain 01/19/22 09/28/23 History (Tylenol) (Scale Score 5-6) Allergies/Adverse Reactions Allergy/AdvReac Type Severity Reaction Status Date / Time No Known Allergies Allergy Verified 09/28/23 11:39 Current Medications: Generic Name Dose Route Start Last Admin Trade Name Freq PRN Reason Stop Dose Admin Sodium Chloride 1,000 mls @ 30 mls/hr 09/29/23 09:15 09/29/23 10:02 Sodium Chloride 0.9% IV 09/30/23 09:14 30 mls/hr .Q24H PRAVIN Administration Pertinent History/Comorbid Conditions* Medical History (Updated 08/31/23 @ 22:44 by Sky Duran DO) COPD (chronic obstructive pulmonary disease) Elevated liver transaminase level Feeding by G-tube Heart attack Hyponatremia Laryngeal carcinoma Stroke Surgical History (Updated 07/23/23 @ 08:40 by Crow Lester MD) H/O tooth extraction had 32 teeth removed prior to radiation therapy in January 2022 History of esophagogastroduodenoscopy (EGD) 2 years ago History of insertion of tunneled central venous catheter (CVC) with port History of knee surgery 1986 History of surgery on arm 1986 Family History (Updated 03/25/22 @ 09:20 by Radha Menard LPN) Hyperlipidemia Anesthesia complication Lung disease Mother COPD Cancer Hypertension Denies family history of Diabetes CAD (coronary artery disease) Clotting disorder Dementia Psychiatric illness Chronic kidney disease (CKD) Suicide Bleeding disorder Stroke Social History Smoking and tobacco/nicotine status: current every day tobacco/nicotine user cigarettes Packs smoked per day: 0.5 Alcohol intake: current Alcohol intake frequency: 3 or more drinks per day Substance/Drug Use: never Pertinent Exam Findings alert, oriented x 3, operative site marked and procedure specific exam findings Left Knee Exam: Previous incision in the left knee is well-healed no signs of infection Tenderness to palpation over hardware of the lateral tibial plateau ?ROM 5 to greater [id number] ?Patellar crepitus with ROM ?Medial joint line tenderness to palpation ?Lateral joint line tenderness to palpation ?Stable Varus and Valgus stress ?Gross motor sensory intact Recommendations Surgery/Procedure today Other Plans: plan to proceed OR today for left knee hardware removal Coding Level of Care Code Acute Code for Chg Fwd Diagnoses
--- NOTE | 2023-09-29 10:27 | ANES.PREANE2 ---
Pre-Anesthetic Assessment Height/Weight: Height 1.65 m Weight 61 kg Temp Pulse Resp BP Pulse Ox O2 Del Method 98.1 F 70 18 111/68 98 Room Air 09/29/23 09:18 09/29/23 09:18 09/29/23 09:18 09/29/23 09:18 09/29/23 09:18 09/29/23 09:20 Preop Diagnosis: Left knee painful orthopedic hardware Operation Date: 09/29/23 10:25 Proposed Procedures p Hardware Removal Knee(Left) - Sky Duran, Familial anesthetic complications: None Was Beta Emily taken within 24 hours: N/A Was Clonidine taken within 24 hours: N/A Last intake: Intake Last Liquid Date 09/28/23 Last Liquid Time 20:00 Last Solid Date 09/28/23 Last Solid Time 23:00 Social Alcohol and Tobacco Exam alert, oriented x 3, clear to auscultation bilaterally and regular rate & rhythm Airway Mallampati: Class I Dentition: other (No teeth) Comments: Comments: Hx supraglottic cancer/ states he's had surgery and chemo and radiation, states he's in remission did have a PEG tube placed post-surgery without complications Pulmonary Chronic Obstructive Pulmonary Disease Anesthetic Plan ASA status: 3 Anesthesia: General Risk of > 500 ml blood loss (7ml/kg in children): No Medications/Allergies Home Medications Medication Instructions Recorded Confirmed Last Taken Type albuterol sulfate 90 mcg/actuation 2 puff inhalation Q6H PRN sob 10/22/21 09/28/23 10/29/21 History aerosol inhaler acetaminophen 325 mg capsule 325 mg PO QID PRN Moderate Pain 01/19/22 09/28/23 09/28/23 History (Tylenol) (Scale Score 5-6) sildenafil 50 mg tablet 50 mg PO DAILY PRN sexual activity 08/31/23 09/28/23 Unknown Rx #20 tabs hydrocodone 5 mg-acetaminophen 325 1 tab PO Q6H PRN pain 5 days #20 09/29/23 Unknown Rx mg tablet tabs ondansetron 4 mg disintegrating 4 mg PO Q8H PRN nausea and 09/29/23 Unknown Rx tablet vomiting 3 days #9 tabs Allergies Allergy/AdvReac Type Severity Reaction Status Date / Time No Known Allergies Allergy Verified 09/28/23 11:39 Current Medications Generic Name Dose Route Start Last Admin Trade Name Freq PRN Reason Stop Dose Admin Sodium Chloride 1,000 mls @ 30 mls/hr 09/29/23 09:15 09/29/23 10:02 Sodium Chloride 0.9% IV 09/30/23 09:14 30 mls/hr .Q24H PRAVIN Administration PFSH Anesthesia Medical History COPD (chronic obstructive pulmonary disease) Elevated liver transaminase level Feeding by G-tube Heart attack Hyponatremia Laryngeal carcinoma Stroke Surgical History H/O tooth extraction had 32 teeth removed prior to radiation therapy in January 2022 History of esophagogastroduodenoscopy (EGD) 2 years ago History of insertion of tunneled central venous catheter (CVC) with port History of knee surgery 1986 History of surgery on arm 1986 Family History Mother Lung disease COPD Other Anesthesia complication Cancer Hyperlipidemia Hypertension Denies family history of Diabetes CAD (coronary artery disease) Clotting disorder Dementia Psychiatric illness Chronic kidney disease (CKD) Suicide Bleeding disorder Stroke Social History Smoking and tobacco/nicotine status: current every day tobacco/nicotine user cigarettes Packs smoked per day: 0.5 Alcohol intake: current Alcohol intake frequency: 3 or more drinks per day Substance/Drug Use: never Data Anesthesia Cardiac Studies: No Data to Display
[2023-09-29] MEDS: ceFAZolin 2,000 MG in sodium chloride 0.9% (plus) 50 ML 100 MG IV (12:51)
[2023-09-29] MEDS: lidocaine 2% INJ 20 mL INJECTION (14:13)
[2023-09-29] MEDS: ROPivacaine 0.5% SDV 30 mL 150 MG INJECTION (14:13)
--- NOTE | 2023-09-29 14:22 | P.BOP_ITS ---
Date of Procedure: 09/29/2023 Surgeon: Sky Duran DO Manager Program Management(s): Carson Duran PA-C Procedure(s) performed: Left knee (proximal tibia) deep hardware removal x3 (removal of 3 screws and 3 washers) Findings of the procedure(s): Patient had left knee deep hardware removed all 3 screws and washers were removed atraumatically with no complications patient tolerated procedure well procedure went as planned. Estimated blood loss: 1 cc Specimen(s) removed: 3 orthopedic screws and 3 washers removed Post-operative diagnosis: Left knee painful orthopedic hardware
--- NOTE | 2023-09-29 14:24 | PM.OP ---
Operative Report Date of procedure: September 29, 2023 Pre-op diagnosis: Left knee painful orthopedic hardware Post-op diagnosis: Same Procedure done: Left knee (proximal tibia) deep hardware removal x3 (removal of 3 screws and 3 washers) Surgeon: Sky Duran DO Records Analysis Manager: SURY Blanc necessary for assistance in this case with Estimated blood loss: 1cc 39 minutes IV fluids: See anesthesia record Complications: None Findings: See operative report narrative Condition: stable Disposition: same day Brief History: Patient is a pleasant 53-year-old gentleman who has been worked up in the outpatient setting is findings of knee arthritis as well as left knee remanent of the orthopedic hardware that is painful. He had an injury back he states when he was 17. He had screws placed for this. At this point in time the fracture to his left lower extremity has subsequently healed. Of note his history did reveal he had to have a appears to be a flap coverage as well as skin graft. As result wanted to be careful with our approach to the hardware. We given he has significant arthritis as well as pain over the hardware no down the road he will likely need a knee replacement at this point in time would like to have his hardware removed that way will be ready for knee replacement if ever comes to this. As well as to remove his pain that he is having directly over the hardware laterally. We talked about the ins and outs procedure risk benefits complication alternatives surgery through shared decision-making elects proceed with left knee hardware removal. All questions answered. Procedure: Patient seen eval in preoperative holding area. Consent was reviewed and signed with patient. Correct extremity was then marked. Patient was seen and evaluated anesthesia was cleared for surgery was taken back to the operative suite he is transported on the OR table all bony prominences well-padded patient appropriate secured to the bed. Patient went anesthesia per the anesthesia part once appropriate anesthetized a nonsterile tourniquet was applied to the left thigh. Patient's left lower extremity was then prepped and draped in standard orthopedic fashion. Final timeout performed patient had appropriate preoperative antibiotics. I utilized large fluoroscopic imaging to localize all 3 of the screws. My plan was to make small stab incisions in order to not violate any part of patient's graft as well as to eliminate possible later wound issues or skin bridging if he proceeds with a total knee replacement. As result I started proximally centered my incision over the proximal posterior screw and subsequently made a small stab incision and used blunt dissection as well as electrocautery traction was utilized by my assistant executive housekeeper and I subsequently focalize the screw head the screw head was then debrided and cleared out and I utilized a hex head screwdriver and remove this atraumatically as well as the washer. Next I then subsequently focalized the neck screw inferior small stab incision was then made localizing this withTrial stem C-arm fluoroscopic imaging. Small stab incision made and then subsequently blunt dissection and electrocautery utilized debride all screw head and washer and subsequently removed the screw atraumatically. Final screw did have some excess bone growth around it I utilized the C arm to localize the area small stab incision made utilized a rongeur to debride the bone around the screw as well as washer once I had visualization of the screw head I was able to utilize the screwdriver and subsequently this was removed atraumatically without any issues or complications I did have to utilize an osteotome tome to chisel around the washer to get this removed. All screws were then subsequently removed as well as all 3 washers this was all done atraumatically. Final x-rays were taken confirming removal of hardware. I then tourniquet was deflated hemostasis for as factory I then localized around all of the small stab incision sites. And then thoroughly irrigation was then performed. These were then closed in interrupted nylon stitch fashion. Xeroform 4 x 4's ABD Curlex and an Tim wrap was then applied. Patient was then awakened from anesthesia and taken to PACU in stable condition. Disposition: Patient taken to PACU in stable condition recovering well pain controlled. Will receive appropriate discharge structure as well as pain medication postoperatively. This point in time we will have him have crutches postoperatively we will keep him partial weightbearing for his first 2 weeks postoperatively we will follow-up with patient in 2 weeks postoperatively for an incision check and see how he is doing. Patient understands agrees with current plan. Questions answered.
--- NOTE | 2023-09-29 14:39 | PM.PACU ---
PACU note Narrative: Patient is a 53-year-old male that just underwent orthopedic hardware removal of left knee. Pt transferred to PACU in stable condition. Dressing is dry. pt is awake and alert. pt can wiggle toes and plantarflex and dorsiflex foot. pt able to perform straight leg raise, Femoral nerve intact. Distal pulses are palpable toes are warm and well-perfused. Cap refill is normal and under 2 seconds. Sensation to foot is intact. Pain is controlled. Exam: awake Disposition: discharged
[2023-09-29] MEDS: HYDROcodone-acetaminophen 5-325 mg Tablet 1 TAB PO (15:19)
--- NOTE | 2023-09-29 16:10 | ANE.PACU2 ---
Inpatient post-anesthesia follow up: Airway intact: Yes Vital signs: Temperature 98.1 F Pulse Rate 88 Respiratory Rate 17 Blood Pressure 143/88 Pulse Oximetry 98 Oxygen Delivery Me thod Room Air Oxygen Flow Rate Fraction of Inspir ed Oxygen Hydration adequate: Yes Nausea and vomiting: No Pain level: 1 Mental status: Baseline
== END 2023-09-29 16:10 | disposition home or self-care (01) ==
PROVIDERS: PCP Family Medicine; Visit Provider Student in an Organized Health Care Education/Training Program
PROC: (CPT 20680; principal; 2023-09-29 10:25)
DX: T84.84XA Pain due to internal orthopedic prosthetic devices, implants and grafts, initial encounter (principal); Z85.89 Personal history of malignant neoplasm of other organs and systems; Z92.3 Personal history of irradiation; Z92.21 Personal history of antineoplastic chemotherapy; J44.9 Chronic obstructive pulmonary disease, unspecified; I25.2 Old myocardial infarction; Z86.73 Personal history of transient ischemic attack (TIA), and cerebral infarction without residual deficits; F17.210 Nicotine dependence, cigarettes, uncomplicated
CPT/HCPCS: 20680; 73560; 76000; J0131; J0690; J1100; J1885; J2250; J2405; J2704; J2795; J3010; J7030

== ENCOUNTER → 2023-10-19 09:04 | Outpatient (BNVA) | payer MEDICAID, SELFPAY | PROVIDERS: PCP Family Medicine; Visit Provider Student in an Organized Health Care Education/Training Program | DX: Z96.9 Presence of functional implant, unspecified (principal); M17.12 Unilateral primary osteoarthritis, left knee; T81.31XA Disruption of external operation (surgical) wound, not elsewhere classified, initial encounter; Y83.8 Other surgical procedures as the cause of abnormal reaction of the patient, or of later complication, without mention of misadventure at the time of the procedure | CPT/HCPCS: 73560; 73565 ==

== ENCOUNTER → 2023-11-02 13:23 | Outpatient (BNVA) | payer MEDICAID, SELFPAY | PROVIDERS: PCP Family Medicine; Visit Provider Student in an Organized Health Care Education/Training Program | DX: Z96.652 Presence of left artificial knee joint (principal); M17.12 Unilateral primary osteoarthritis, left knee; T81.31XA Disruption of external operation (surgical) wound, not elsewhere classified, initial encounter; Y83.8 Other surgical procedures as the cause of abnormal reaction of the patient, or of later complication, without mention of misadventure at the time of the procedure | CPT/HCPCS: 73560; 73565 ==

== ENCOUNTER 2023-12-30 09:45 | Oncology outpatient (recurring) (ONCR) | payer MEDICAID, SELFPAY ==
[2023-12-16 11:32] LABS: Basophils # 0.1 10^3/uL (0.0-0.1); Basophils % 1.2 %; Eosinophils # 0.5 10^3/uL (0.0-0.8); Eosinophils % 6.2 %; Hematocrit 42.3 % (37-53); Lymphocytes # 4.2 10^3/uL (0.8-4.8); Lymphocytes % 54.6 %; Mean Corpuscular HGB Conc 34.5 g/dL (30-55); Mean Corpuscular Hemoglobin 33.2 pg (27-33); Mean Corpuscular Volume 96.1 fl (82-101); Mean Platelet Volume 9.3 fL (7.4-10.4); Monocytes # 0.4 10^3/uL (0.2-0.9); Monocytes % 5.6 %; Neutrophils # 2.46 10^3/uL (1.8-7.7); Neutrophils % 32.3 %; Nucleated Red Blood Cells % 0.3 %; Platelet Count 167 10^3/cmm (157-399); Red Cell Distribution Width 13.2 % (12.1-15.1); White Blood Count 7.62 10^3/uL (3.29-11.43)
[2023-12-16 11:50] LABS: Alanine Aminotransferase 38 U/L (0-41); Albumin Level 4.1 g/dL (3.5-5.2); Alkaline Phosphatase 85 U/L (40-130); Anion Gap 14.3 (5-19); Aspartate Amino Transferase 48 U/L (0-40); Blood Urea Nitrogen 7 mg/dL (6-20); Calcium 9.6 mg/dL (8.5-10.5); Carbon Dioxide 23 mmol/L (22-29); Chloride 99 mmol/L (98-107); Globulin 2.9 g/dL (1.3-4.6); Glomerular Filtration Rate 139.9 mL/min (90-130); Glucose 85 mg/dL (65-115); Osmolality Calculated 271 mOsm/kg (285-295); Potassium 4.3 mmol/L (3.5-5.1); Sodium 132 mmol/L (136-145); Total Bilirubin 0.4 mg/dL (0.15-1.2)
[2023-12-30 09:17] LABS: Basophils # 0.1 10^3/uL (0.0-0.1); Basophils % 1.2 %; Eosinophils # 0.3 10^3/uL (0.0-0.8); Eosinophils % 5.8 %; Hematocrit 41.9 % (37-53); Lymphocytes # 2.8 10^3/uL (0.8-4.8); Lymphocytes % 47.3 %; Mean Corpuscular HGB Conc 34.6 g/dL (30-55); Mean Corpuscular Hemoglobin 33.3 pg (27-33); Mean Corpuscular Volume 96.3 fl (82-101); Monocytes # 0.5 10^3/uL (0.2-0.9); Monocytes % 7.9 %; Neutrophils # 2.18 10^3/uL (1.8-7.7); Neutrophils % 37.5 %; Nucleated Red Blood Cells % 0 %; Platelet Count 151 10^3/cmm (157-399); Red Blood Count 4.35 10^6/uL (3.85-5.65); Red Cell Distribution Width 13.2 % (12.1-15.1); White Blood Count 5.82 10^3/uL (3.29-11.43)
[2023-12-30 09:35] LABS: Alanine Aminotransferase 30 U/L (0-41); Alkaline Phosphatase 106 U/L (40-130); Aspartate Amino Transferase 44 U/L (0-40); Blood Urea Nitrogen 7 mg/dL (6-20); Carbon Dioxide 23 mmol/L (22-29); Chloride 98 mmol/L (98-107); Creatinine Clr Calc Pharmacy 122.6282; Globulin 2.9 g/dL (1.3-4.6); Glomerular Filtration Rate 139.9 mL/min (90-130); Glucose 85 mg/dL (65-115); Osmolality Calculated 271 mOsm/kg (285-295); Sodium 132 mmol/L (136-145); Total Bilirubin 0.4 mg/dL (0.15-1.2); Total Protein 6.9 g/dL (6.6-8.7)
== END 2024-01-13 23:59 | disposition home or self-care (01) ==
PROVIDERS: Nurse Practitioner Family; PCP Family Medicine; Visit Provider Internal Medicine Medical Oncology
DX: Z53.9 Procedure and treatment not carried out, unspecified reason (principal); C44.311 Basal cell carcinoma of skin of nose; C32.1 Malignant neoplasm of supraglottis
CPT/HCPCS: 36415; 80053; 85025

== ENCOUNTER 2024-01-17 07:42 | Outpatient (CLI) | payer MEDICAID, SELFPAY ==
--- NOTE | 2024-01-17 07:47 | CT_ITS ---
WS: [id number] CT NECK TECHNIQUE: Contrast-enhanced CT of the neck with coronal and sagittal reformatted images. 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 CT NECK 11/26/21. Outside reports not available. DLP: 152.[address] scans at [facility] use at least one of these dose optimization techniques: automated e xposure control; mA and/or kV adjustment per patient size (includes targeted exams where dose is matc hed to clinical indication); or iterative reconstruction. FINDINGS: Diffuse circumferential mucosal thickening and edema involving the supraglottic and glottic larynx wi th airway narrowing presumably due to treatment related changes. This extends to the oropharynx and p harynx. Recommend correlation with clinical history. No evidence of neck dissection visualized. Diffu se circumferential edema involving the true and false vocal cords. Glottic narrowing. Subglottic airw ay is patent. Slight asymmetry to the LEFT true vocal cord Partially visualized paranasal sinuses are well aerated. Mild mucosal thickening in the RIGHT greater than LEFT mastoid air cells. Normal posterior nasopharynx. Normal parapharyngeal fat. Parotid glands and submandibular glands are normal. No cervical lymphadenopathy. Lung apices are well aerated. Slight fibrosis in the lung apices. Straightening of the normal cervical lordosis. Moderat e spondylitic changes cervical spine. IMPRESSION: 1. Diffuse submucosal enhancement and circumferential edema involving the oropharynx, pharynx, supra glottic and glottic larynx extending to the glottis. Subglottic airway is patent. Findings presumably due to treatment related and radiation changes. No evidence of neck surgery. Recommend correlation w ith clinical history. 2. No cervical lymphadenopathy. 3. Slight asymmetry of the LEFT true vocal cord can be seen with LEFT vocal cord paralysis. This may be due to swallowing. Recommend correlation with endoscopy. 4. Normal salivary glands. 5. No other acute findings.
[2024-01-17] MEDS: iohexol 350 mg/mL 500 mL Btl (per mL) IV (08:32)
== END 2024-01-17 07:43 | disposition home or self-care (01) ==
LOC: RAD 07:42
PROVIDERS: PCP Family Medicine; Visit Provider Specialist
DX: C32.1 Malignant neoplasm of supraglottis (principal)
CPT/HCPCS: 70491; Q9967

== ENCOUNTER 2024-01-21 07:56 | Outpatient (CLI) | payer MEDICAID, SELFPAY ==
--- NOTE | 2024-01-21 07:59 | FL_ITS ---
WS: [id number] Barium swallow and esophagram, 01/21/2024 Clinical Data: MALIGNANT NEOPLASM OF SUPRAGLOTTIS/OTHER DYSPHAGIA Comparison: None. Fluoroscopy time: 0min [id number] # of spot films: 20 Findings: The patient swallowed the thick and thin barium, and it flowed through the hypopharynx without hesita tion. No stricture, mass, polyp or erosion was seen. There is osteoarthritis of the cervical vertebra l bodies impinging slightly onto the hypopharynx. The barium entered the esophagus and there was normal motility throughout. No hiatal hernia, reflux, stricture, polyp, mass, erosion or ulcer was noted. The barium passed normally into the stomach. Impression: Normal esophagram.
== END 2024-01-21 07:57 | disposition home or self-care (01) ==
LOC: RAD 07:56
PROVIDERS: PCP Family Medicine; Visit Provider Specialist
DX: C32.1 Malignant neoplasm of supraglottis (principal); R13.19 Other dysphagia; R07.0 Pain in throat
CPT/HCPCS: 74220

== ENCOUNTER 2024-05-25 19:45 | Emergency (ER) | payer MEDICAID, SELFPAY ==
[2024-05-25 19:59] VITALS: BP 127/79; PULSE 72; RESP 16; TEMP 36.7; O2SAT 97
--- NOTE | 2024-05-25 20:19 | ED_ITS ---
HPI - URI/Sore Throat General: Chief Complaint: Upper Respiratory Infection Stated Complaint: Sore throat x 1 month/ cancer Time Seen by Provider: 05/25/24 20:08 History of Present Illness: 54-year-old male patient comes in today with sore throat. 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 Patient usually will use nystatin with good results. Patient is unable to get nystatin due to a production delay for the medication. Patient appears nontoxic. Patient appears in no respiratory distress. Patient has a history of laryngeal cancer. Review of Systems General: Reports: 10 or more systems reviewed and unremarkable except in HPI and below PFSH ED PFSH: Medical History Stroke Heart attack Feeding by G-tube Elevated liver transaminase level Hyponatremia COPD (chronic obstructive pulmonary disease) Laryngeal carcinoma Surgical History History of esophagogastroduodenoscopy (EGD) 2 years ago History of surgery on arm 1986 History of knee surgery 1986 History of insertion of tunneled central venous catheter (CVC) with port H/O tooth extraction had 32 teeth removed prior to radiation therapy in January 2022 Family History Mother Lung disease COPD Other Anesthesia complication Cancer Hyperlipidemia Hypertension Denies family history of Diabetes CAD (coronary artery disease) Clotting disorder Dementia Psychiatric illness Chronic kidney disease (CKD) Suicide Bleeding disorder Stroke Social History Smoking and tobacco/nicotine status: current every day tobacco/nicotine user cigarettes Packs smoked per day: 0.5 Alcohol intake: current Alcohol intake frequency: 3 or more drinks per day Substance/Drug Use: never Physical Exam Const: COMMON NORMALS: alert HENMT: COMMON NORMALS: atraumatic HEAD & SCALP: atraumatic MOUTH: Normal oral and palatal mucosa present THROAT: posterior oropharynx normal Neck/C-Spine: COMMON NORMALS: full ROM Resp: COMMON NORMALS: normal respiratory effort and clear to auscultation bilaterally AUSCULTATION: clear to auscultation bilaterally Cardio: COMMON NORMALS: regular rate and regular rhythm RATE: regular rate RHYTHM: regular rhythm Back/Pelvis: COMMON NORMALS: thoracic and lumbar spine normal to inspection Extremity: COMMON NORMALS: full ROM Neuro: SENSORIUM/ORIENTATION: Yes alert Skin: COMMON NORMALS: turgor normal GENERAL SKIN EXAM: turgor normal Course Vital Signs: Vital signs: Vital Signs Temperature 98.1 F 05/25/24 19:59 Pulse Rate 72 05/25/24 19:59 Respiratory Rate 16 05/25/24 19:59 Blood Pressure 127/79 05/25/24 19:59 Pulse Oximetry 97 05/25/24 19:59 Oxygen Delivery Me thod Room Air 05/25/24 19:59 MDM - URI/Sore Throat Medical Decision Making 54-year-old male patient comes in today for complaints of sore throat and mouth tenderness. Patient reports that he has a history of recurrent thrush. Patient usually uses nystatin but has been without the medication for over a month. Patient reports that the pharmacy told that there is a shortage of it. On exam oral mucosa appears unremarkable and posterior pharynx is unremarkable. I reviewed with patient treatment plan to try fluconazole liquid 1/2 teaspoon twice a day for 14 days. Patient is willing to try it for treatment of his recurrent stomatitis. Patient should otherwise follow-up with primary care. No radiology studies performed this visit Discharge Plan Discharge Patient Disposition: Home Clinical Impression: Stomatitis Condition: Stable Prescriptions: New Diflucan 40 mg/mL suspension for reconstitution 100 mg PO BID 14 Days Qty: 70 0RF No Action albuterol sulfate 90 mcg/actuation HFA aerosol inhaler 2 puff inhalation Q6H PRN (Reason: sob) nystatin 100,000 unit/mL suspension 5 ml PO QID Qty: 473 5RF Rx Instructions: swish for one minute and spit. fluconazole 150 mg tablet 150 mg PO .q7days 112 Days Qty: 16 0RF sildenafil 50 mg tablet 50 mg PO DAILY PRN (Reason: sexual activity) Qty: 20 5RF Rx Instructions: administer 30 minutes to 4 hours before activity. tramadol 50 mg tablet 50 mg PO Q8H PRN (Reason: pain) Qty: 20 0RF Discharge Orders: Discharge ED (Routine); Ordered 05/25/24 Ordered By: Jefe Dueñas Referrals: Ketan Verde DO [Primary Care Provider] - Discharge Diet: Usual diet Discharge Activity: Increase activity as tolerated Patient Instructions: Gingivostomatitis (ED) Activity Restrictions/Additional Instructions: Use medication as directed. Follow-up with primary care for further instructions. Return to ED for new concerns. 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
[2024-05-25] MEDS: lidocaine 2% viscous 15 ML, diphenhydrAMINE oral liq 37.5 MG, aluminum-mag hydrox-simet... MUCOUS MEM (20:36)
== END 2024-05-25 20:59 | disposition home or self-care (01) ==
PROVIDERS: Emergency Provider Nurse Practitioner Family; PCP Family Medicine
DX: K12.1 Other forms of stomatitis (principal); J44.9 Chronic obstructive pulmonary disease, unspecified; Z79.899 Other long term (current) drug therapy; Z85.21 Personal history of malignant neoplasm of larynx; Z86.73 Personal history of transient ischemic attack (TIA), and cerebral infarction without residual deficits; Z92.3 Personal history of irradiation; F17.210 Nicotine dependence, cigarettes, uncomplicated
CPT/HCPCS: 99283

== ENCOUNTER 2024-06-29 10:12 | Oncology outpatient (recurring) (ONCR) | payer MEDICAID, SELFPAY ==
[2024-06-29 10:38] LABS: Basophils % 0.6 %; Eosinophils # 0.1 10^3/uL (0.0-0.8); Eosinophils % 1.6 %; Hematocrit 41.3 % (37-53); Lymphocytes # 3.1 10^3/uL (0.8-4.8); Lymphocytes % 48.4 %; Mean Corpuscular HGB Conc 34.6 g/dL (30-55); Mean Corpuscular Hemoglobin 35.3 pg (27-33); Mean Platelet Volume 8.5 fL (7.4-10.4); Monocytes # 0.6 10^3/uL (0.2-0.9); Monocytes % 8.6 %; Neutrophils # 2.58 10^3/uL (1.8-7.7); Neutrophils % 40.3 %; Nucleated Red Blood Cells % 0 %; Platelet Count 169 10^3/cmm (157-399); Red Blood Count 4.05 10^6/uL (3.85-5.65)
[2024-06-29 10:50] LABS: Alanine Aminotransferase 42 U/L (0-41); Albumin Level 4.1 g/dL (3.5-5.2); Alkaline Phosphatase 47 U/L (40-130); Aspartate Amino Transferase 66 U/L (0-40); Blood Urea Nitrogen 7 mg/dL (6-20); Calcium 9.1 mg/dL (8.5-10.5); Carbon Dioxide 24 mmol/L (22-29); Chloride 100 mmol/L (98-107); Globulin 2.7 g/dL (1.3-4.6); Glomerular Filtration Rate 116.7 mL/min (90-130); Glucose 91 mg/dL (65-115); Osmolality Calculated 282 mOsm/kg (285-295); Sodium 137 mmol/L (136-145); Total Bilirubin 0.3 mg/dL (0.15-1.2); Total Protein 6.8 g/dL (6.6-8.7)
== END 2024-07-15 23:59 | disposition home or self-care (01) ==
PROVIDERS: Nurse Practitioner Family; PCP Family Medicine; Visit Provider Internal Medicine Medical Oncology
DX: C32.1 Malignant neoplasm of supraglottis
CPT/HCPCS: 36415; 80053; 85025

== ENCOUNTER 2024-06-30 10:08 | Outpatient (CLI) | payer MEDICAID, SELFPAY ==
--- NOTE | 2024-06-30 10:12 | XR_ITS ---
WS: [id number] Examination: XR abdomen 1V* [id number] Reason for Exam: no BM for 2 weeks Date: June 30, 2024 Comparison: None. Findings: There is a large stool burden throughout the colon. Minimal small bowel gas is present The psoas margins are well seen. XR/XR abdomen 1V* [id number] Impression: There is a large stool burden noted throughout the colon.
== END 2024-06-30 10:09 | disposition home or self-care (01) ==
LOC: RAD 10:09
PROVIDERS: PCP Family Medicine; Visit Provider Nurse Practitioner Family
DX: K59.00 Constipation, unspecified (principal)
CPT/HCPCS: 74018

== ENCOUNTER 2024-07-12 20:13 | Emergency (ER) | payer MEDICAID, SELFPAY ==
[2024-07-12 20:14] VITALS: BP 121/77; PULSE 68; RESP 16; TEMP 36.8; O2SAT 99; BMI 24.0
--- NOTE | 2024-07-12 20:18 | ED_ITS ---
HPI - Nausea/Vomiting/Diarrhea 2 General: Chief complaint: Nausea/Vomiting/Diarrhea Stated complaint: N/V Time Seen by Provider: 07/12/24 20:14 Source: patient and EMS Mode of arrival: EMS Limitations: no limitations History of Present Illness: 54-year-old male states he was standing outside and felt like he got overheated. States he had felt nauseous and folic he is going to pass out. Denies any vomiting denies have any chest pain or headache. He is given Zofran fluids and route states he feels much improved and back to his baseline. Associated nausea: Yes Associated symtoms: Reports fatigue and nausea; Denies chest pain or headache(s) Related Data Home Medications Medication Instructions Recorded Confirmed albuterol sulfate 90 mcg/actuation 2 puff inhalation Q6H PRN sob 10/22/21 07/05/24 aerosol inhaler Previous Rx's Medication Instructions Recorded sildenafil 50 mg tablet 50 mg PO DAILY PRN sexual activity 08/31/23 #20 tabs tramadol 50 mg tablet 50 mg PO Q8H PRN pain #20 tabs 05/16/24 clotrimazole 10 mg saundra 10 mg mucous membrane TID #30 tabs 06/14/24 fluconazole 40 mg/mL oral 100 mg (2.5 mL) PO BID 14 days #70 06/29/24 suspension (Diflucan) mL lactulose 20 gram/30 mL oral 20 g (30 mL) PO DAILY PRN 06/29/24 solution constipation #1,200 mL nicotine 21 mg/24 hr daily 1 patch transdermal DAILY #14 ea 06/29/24 transdermal patch permethrin 5 % topical cream 1 applic topical Q14D 2 doses #60 07/05/24 grams ondansetron 4 mg disintegrating 4 mg PO Q6H PRN nausea and 07/12/24 tablet vomiting #14 tabs Allergies Allergy/AdvReac Type Severity Reaction Status Date / Time No Known Allergies Allergy Verified 07/05/24 08:44 Review of Systems 2 Const: Reports: fatigue; Denies: fever(s), chills, body aches or change in appetite Eyes: Denies: blurry vision or eye discomfort ENMT: Denies: throat pain or dental pain Card: Denies: chest pain Resp: Denies: dyspnea GI: Reports: nausea; Denies: abdominal pain, vomiting or diarrhea Musc: Denies: neck pain or back pain Skin/Breast: Denies: rash Neuro: Denies: headache(s) PFSH ED 2 PFSH: Medical History Thrush Stroke Heart attack Feeding by G-tube Elevated liver transaminase level Hyponatremia COPD (chronic obstructive pulmonary disease) Laryngeal carcinoma Surgical History History of esophagogastroduodenoscopy (EGD) 2 years ago History of surgery on arm 1986 History of knee surgery 1986 History of insertion of tunneled central venous catheter (CVC) with port H/O tooth extraction had 32 teeth removed prior to radiation therapy in January 2022 Family History Mother Lung disease COPD Other Anesthesia complication Cancer Hyperlipidemia Hypertension Denies family history of Diabetes CAD (coronary artery disease) Clotting disorder Dementia Psychiatric illness Chronic kidney disease (CKD) Suicide Bleeding disorder Stroke Social History Smoking and tobacco/nicotine status: current every day tobacco/nicotine user cigarettes Packs smoked per day: 0.5 Alcohol intake: current Alcohol intake frequency: 3 or more drinks per day Substance/Drug Use: never Physical Exam 2 Const: COMMON NORMALS: no acute distress, patient oriented x3 and healthy appearing HENMT: COMMON NORMALS: normocephalic and atraumatic HEAD & SCALP: n ormocephalic and atraumatic Neck/C-Spine: COMMON NORMALS: full ROM and supple Chest: COMMONS NORMALS: normal inspection of the chest Resp: COMMON NORMALS: normal respiratory effort, No retractions, No use of accessory muscles and clear to auscultation bilaterally AUSCULTATION: clear to auscultation bilaterally Cardio: COMMON NORMALS: regular rate, regular rhythm and No murmurs present (Cardio) RATE: regular rate RHYTHM: regular rhythm GI: COMMON NORMALS: Normal to inspection, nondistended, normoactive bowel sounds present, Soft to palpation, non-tender and no masses PALPATION: Yes Soft to palpation Extremity: COMMON NORMALS: normal to inspection and full ROM Neuro: COMMON NORMALS: patient oriented x3, moves all extremities and no focal motor deficits Psych: COMMON NORMALS: mental status grossly normal, Normal thought process present and cooperative THOUGHT PROCESS: Normal thought process present Skin: COMMON NORMALS: no rashes or lesions noted and no wounds GENERAL SKIN EXAM: no rashes or lesions noted Course 2 Vital Signs: Vital signs: Vital Signs Temperature 98.2 F 07/12/24 20:14 Pulse Rate 70 07/12/24 21:03 Respiratory Rate 18 07/12/24 21:03 Blood Pressure 119/83 07/12/24 21:03 Pulse Oximetry 97 07/12/24 21:03 Oxygen Delivery Me thod Room Air 07/12/24 21:03 MDM - Nausea/Vomiting/Diarrhea Medical Decision Making Patient presents here with a near syncopal event likely from heat exposure he feels much improved here has been well-appearing here blood works normal he feels much improved after Zofran will prescribe Zofran for home is follow-up with PCP return if worsening. Medical Records I reviewed the patient's medical records. Lab Data I reviewed the patient's lab results. 07/12/24 20:00 07/12/24 20:00 Laboratory Results WBC 10.49 10^3/uL (3.29-11.43) 07/12/24 20:00 RBC 4.02 10^6/uL (3.85-5.65) 07/12/24 20:00 Hgb 14.30 g/dL (11.27-16.99) 07/12/24 20:00 Hct 40.5 % (37-53) 07/12/24 20:00 MCV 100.7 fl (82-101) 07/12/24 20:00 MCH 35.6 pg (27-33) H 07/12/24 20:00 MCHC 35.3 g/dL (30-55) 07/12/24 20:00 RDW 14.3 % (12.1-15.1) 07/12/24 20:00 Plt Count 190 10^3/cmm (157-399) 07/12/24 20:00 MPV 9.2 fL (7.4-10.4) 07/12/24 20:00 Neut % (Auto) 27.2 % 07/12/24 20:00 Lymph % (Auto) 62.8 % 07/12/24 20:00 [place] % (Auto) 6.7 % 07/12/24 20:00 Eos % (Auto) 2.0 % 07/12/24 20:00 Baso % (Auto) 0.7 % 07/12/24 20:00 Neut # (Auto) 2.86 10^3/uL (1.8-7.7) 07/12/24 20:00 Lymph # (Auto) 6.6 10^3/uL (0.8-4.8) H 07/12/24 20:00 [place] # (Auto) 0.7 10^3/uL (0.2-0.9) 07/12/24 20:00 Eos # (Auto) 0.2 10^3/uL (0.0-0.8) 07/12/24 20:00 Baso # (Auto) 0.1 10^3/uL (0.0-0.1) 07/12/24 20:00 Nucleated RBC % (auto) 0 % 07/12/24 20:00 Nucleated RBCs # 0.0 /100WBC 07/12/24 20:00 Sodium 134 mmol/L (136-145) L 07/12/24 20:00 Potassium 3.6 mmol/L (3.5-5.1) 07/12/24 20:00 Chloride 97 mmol/L (98-107) L 07/12/24 20:00 Carbon Dioxide 19 mmol/L (22-29) L 07/12/24 20:00 Anion Gap 21.6 (5-19) H 07/12/24 20:00 BUN 7 mg/dL (6-20) 07/12/24 20:00 Creatinine 0.6 mg/dL (0.7-1.2) L 07/12/24 20:00 GFR Calculation 139.4 mL/min (90-130) H 07/12/24 20:00 Glucose 116 mg/dL (65-115) H 07/12/24 20:00 Calculated Osmolality 277 mOsm/kg (285-295) L 07/12/24 20:00 Calcium 9.0 mg/dL (8.5-10.5) 07/12/24 20:00 Total Bilirubin 0.4 mg/dL (0.15-1.2) 07/12/24 20:00 AST 109 U/L (0-40) H 07/12/24 20:00 ALT 90 U/L (0-41) H 07/12/24 20:00 Alkaline Phosphatase 58 U/L (40-130) 07/12/24 20:00 Creatine Kinase 65 U/L (39-308) 07/12/24 20:00 Total Protein 7.1 g/dL (6.6-8.7) 07/12/24 20:00 Albumin 4.2 g/dL (3.5-5.2) 07/12/24 20:00 Globulin 2.9 g/dL (1.3-4.6) 07/12/24 20:00 Lipase 36 U/L (13-60) 07/12/24 20:00 No radiology studies performed this visit EKG Data EKG 1: I personally reviewed and interpreted this EKG as follows: EKG interpretation date: 07/12/24 EKG interpretation time: 21:03 Interpretation: nsr hr [address] or t wave abnormalities qrs 84 qtc 421 Discharge Plan Discharge Patient Disposition: Home Clinical Impression: Near syncope, Nausea Condition: Stable Prescriptions: New ondansetron 4 mg tablet,disintegrating 4 mg PO Q6H PRN (Reason: nausea and vomiting) Qty: 14 0RF No Action albuterol sulfate 90 mcg/actuation HFA aerosol inhaler 2 puff inhalation Q6H PRN (Reason: sob) clotrimazole 10 mg saundra 10 mg mucous membrane TID Qty: 30 1RF permethrin 5 % cream 1 applic topical Q14D Qty: 60 0RF Rx Instructions: apply second treatment 14 days after first treatment if live lice remain sildenafil 50 mg tablet 50 mg PO DAILY PRN (Reason: sexual activity) Qty: 20 5RF Rx Instructions: administer 30 minutes to 4 hours before activity. Diflucan 40 mg/mL suspension for reconstitution 100 mg PO BID 14 Days Qty: 70 0RF Rx Instructions: swish for 30 seconds and then swallow lactulose 20 gram/30 mL solution 20 g PO DAILY PRN (Reason: constipation) Qty: 1200 0RF Rx Instructions: take 30mL every 2 hours until BM. Repeat cycle, if no BM within 72 hrs. nicotine 21 mg/24 hr patch 24 hour 1 patch transdermal DAILY Qty: 14 2RF tramadol 50 mg tablet 50 mg PO Q8H PRN (Reason: pain) Qty: 20 0RF Discharge Orders: Discharge ED (Routine); Ordered 07/12/24 Ordered By: Shelbi Lopez Referrals: Ketan Verde DO [Primary Care Provider] - 7-10 days Discharge Diet: Advance as tolerated Discharge Activity: Resume usual activity Patient Instructions: Near Syncope (ED) Coding Level of Care Code ED [employer] Lead for [facility]
[2024-07-12 20:20] VITALS: BP 127/74; PULSE 74; RESP 16; O2SAT 97
[2024-07-12 20:23] LABS: Basophils # 0.1 10^3/uL (0.0-0.1); Basophils % 0.7 %; Eosinophils # 0.2 10^3/uL (0.0-0.8); Hematocrit 40.5 % (37-53); Lymphocytes # 6.6 10^3/uL (0.8-4.8); Lymphocytes % 62.8 %; Mean Corpuscular HGB Conc 35.3 g/dL (30-55); Mean Corpuscular Hemoglobin 35.6 pg (27-33); Mean Corpuscular Volume 100.7 fl (82-101); Mean Platelet Volume 9.2 fL (7.4-10.4); Monocytes # 0.7 10^3/uL (0.2-0.9); Monocytes % 6.7 %; Neutrophils # 2.86 10^3/uL (1.8-7.7); Neutrophils % 27.2 %; Nucleated Red Blood Cells % 0 %; Platelet Count 190 10^3/cmm (157-399); Red Blood Count 4.02 10^6/uL (3.85-5.65); Red Cell Distribution Width 14.3 % (12.1-15.1); White Blood Count 10.49 10^3/uL (3.29-11.43)
[2024-07-12 20:41] LABS: Alanine Aminotransferase 90 U/L (0-41); Albumin Level 4.2 g/dL (3.5-5.2); Alkaline Phosphatase 58 U/L (40-130); Anion Gap 21.6 (5-19); Aspartate Amino Transferase 109 U/L (0-40); Blood Urea Nitrogen 7 mg/dL (6-20); Carbon Dioxide 19 mmol/L (22-29); Chloride 97 mmol/L (98-107); Creatine Phosphokinase 65 U/L (39-308); Creatinine Clr Calc Pharmacy 118.4579; Globulin 2.9 g/dL (1.3-4.6); Glomerular Filtration Rate 139.4 mL/min (90-130); Glucose 116 mg/dL (65-115); Lipase 36 U/L (13-60); Osmolality Calculated 277 mOsm/kg (285-295); Potassium 3.6 mmol/L (3.5-5.1); Sodium 134 mmol/L (136-145); Total Bilirubin 0.4 mg/dL (0.15-1.2); Total Protein 7.1 g/dL (6.6-8.7)
[2024-07-12 21:03] VITALS: BP 119/83; PULSE 70; RESP 18; O2SAT 97
--- NOTE | 2024-07-12 21:03 | ECG_ITS ---
[facility] Test Date: 2024-07-12 Pat Name: Donny Waller Department: Room: Gender: Male Skein Yarn Dyer: : 1970 Requested By: Shelbi Lopez Order Number: [id number] Ana MD: Nathan Irvin M.D. Measurements Intervals [place] Rate: 70 P: 20 TX: 152 QRS: 73 QRSD: 84 T: 71 QT: 401 QTc: 433 Interpretive Statements SINUS RHYTHM Compared to ECG 06/05/2022 19:55:47 No significant changes Electronically Signed On 07-13-2024 9:03:18 CDT by Nathan Irvin M.D. [id number]
[2024-07-12] MEDS: sodium chloride 0.9% 1,000 ML 999 ML IV (21:05)
[2024-07-12 21:51] VITALS: BP 119/90; PULSE 80; RESP 18; TEMP 36.8; O2SAT 98
== END 2024-07-12 21:40 | disposition home or self-care (01) ==
PROVIDERS: Emergency Provider Emergency Medicine; PCP Family Medicine
DX: R55 Syncope and collapse (principal); R11.0 Nausea; F17.210 Nicotine dependence, cigarettes, uncomplicated; Z86.73 Personal history of transient ischemic attack (TIA), and cerebral infarction without residual deficits; J44.9 Chronic obstructive pulmonary disease, unspecified; Z85.21 Personal history of malignant neoplasm of larynx
CPT/HCPCS: 80053; 82550; 83690; 85025; 93005; 96360; 99284; J7030

== ENCOUNTER 2024-07-28 06:00 | Outpatient (CLI) | payer MEDICAID, SELFPAY | END 2024-07-28 06:01 | disposition home or self-care (01) | LOC: RAD 08-21 09:26 | PROVIDERS: PCP Family Medicine; Visit Provider Family Medicine | DX: R79.89 Other specified abnormal findings of blood chemistry (principal); K59.00 Constipation, unspecified | CPT/HCPCS: 82977; 83615; 84439; 84443; 84450; 84460 ==

== ENCOUNTER 2024-09-17 11:36 | Emergency (ER) | payer MEDICAID, SELFPAY ==
[2024-09-17 11:44] VITALS: BP 164/115; PULSE 91; RESP 18; TEMP 36.7; O2SAT 97
--- NOTE | 2024-09-17 11:58 | XRR_ITS ---
PROCEDURE INFORMATION: Exam: XR Chest Exam date and time: 09/17/2024 12:28 PM Age: 54 years old Clinical indication: Fever TECHNIQUE: Imaging protocol: Radiologic exam of the chest. Views: 1 view. COMPARISON: CR XR chest 2V* [id number] 10/04/2022 9:11 AM FINDINGS: Tubes, catheters and devices: Previously seen right chest port catheter has been removed. Lungs: The lungs appear clear. Pleural spaces: No pleural effusion. No pneumothorax. Heart/Mediastinum: Mediastinum and jennifer appear unremarkable. Bones/joints: Mild to moderate generalized bony degenerative changes. Bony structures appear otherwise unremarkable. XR/XR chest 1V portable [id number] IMPRESSION: No evidence for acute abnormality identified in the chest.
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
[2024-09-17] MEDS: morphine 4 mg/mL SDV 1 mL IVP (12:32)
[2024-09-17] MEDS: sodium chloride 0.9% 1,000 ML 999 ML IV (12:32)
[2024-09-17] MEDS: ondansetron 2 mg/ML SDV 2 mL 4 MG IVP (12:32)
[2024-09-17 13:09] LABS: Alanine Aminotransferase 147 U/L (0-41); Albumin Level 4.1 g/dL (3.5-5.2); Alkaline Phosphatase 57 U/L (40-130); Anion Gap 18.1 (5-19); Aspartate Amino Transferase 183 U/L (0-40); Blood Urea Nitrogen 6 mg/dL (6-20); Calcium 8.8 mg/dL (8.5-10.5); Carbon Dioxide 23 mmol/L (22-29); Chloride 95 mmol/L (98-107); Creatinine Clr Calc Pharmacy 100.9307; Globulin 2.8 g/dL (1.3-4.6); Glomerular Filtration Rate 116.7 mL/min (90-130); Glucose 105 mg/dL (65-115); Lipase 24 U/L (13-60); Osmolality Calculated 272 mOsm/kg (285-295); Potassium 4.1 mmol/L (3.5-5.1); Sodium 132 mmol/L (136-145); Total Bilirubin 0.7 mg/dL (0.15-1.2); Total Protein 6.9 g/dL (6.6-8.7)
--- NOTE | 2024-09-17 13:11 | CTR_ITS ---
PROCEDURE INFORMATION: Exam: CT Abdomen And Pelvis With Contrast Exam date and time: 09/17/2024 2:20 PM Age: 54 years old Clinical indication: Abdominal pain; Generalized; Additional info: Abd pain TECHNIQUE: Imaging protocol: Computed tomography of the abdomen and pelvis with contrast. Radiation optimization: All CT scans at this facility use at least one of these dose optimization techniques: automated exposure control; mA and/or kV adjustment per patient size (includes targeted exams where dose is matched to clinical indication); or iterative reconstruction. Contrast material: OMNI 350; Contrast volume: 100 ml; Contrast route: INTRAVENOUS (IV); COMPARISON: KUB dated 06/30/2024. CT abdomen pelvis w con* [id number] 06/05/2022 8:[address] abdomen and pelvis with contrast dated 11/13/2017. RADIATION DOSE METRICS: Total DLP (mGy-cm): 349.7 FINDINGS: Lungs: Bilateral dependent lung atelectasis or scarring is demonstrated. Liver: Liver demonstrates diffuse severe hypodensity. Liver appears heterogeneous with irregular border. Possible hepatic parenchymal disease. Gallbladder and biliary ducts: Unremarkable. No calcified stones. No ductal dilation. Pancreas: Unremarkable. Spleen: Unremarkable. No splenomegaly. Adrenal glands: Normal. No mass. Kidneys and ureters: Unremarkable. No hydronephrosis or calculi. Stomach and bowel: Unremarkable. No obstruction, ileus or definite inflammation. Appendix: The visualized appendix appears unremarkable. Intraperitoneal space: No free air. No significant fluid collection. Vasculature: Mild atherosclerotic arterial vascular wall calcifications are demonstrated. Mild atherosclerotic calcification demonstrated within the aorta. Lymph nodes: No enlarged lymph nodes. Urinary bladder: Unremarkable as visualized. Reproductive: Unremarkable as visualized. Bones/joints: Mild to moderate generalized bony degenerative changes. Multilevel disc and osteophyte complexes with mild to moderate central canal and foraminal narrowing. Disc osteophyte complex with moderate to severe left foraminal narrowing at L4-L5 level. Bony structures appear otherwise unremarkable. Soft tissues: Unremarkable. Other findings: Limited study with motion artifact. CT/CT abdomen pelvis w con* [id number] IMPRESSION: 1. Severe hepatic steatosis. Nonspecific heterogeneous and irregular appearance of the liver. Recommend correlation with liver function tests. 2. Chronic findings.
[2024-09-17 13:15] LABS: Covid PCR NEGATIVE (Negative); Influenza A NEGATIVE (Negative); Influenza B NEGATIVE (Negative); Respiratory Syncytial Virus Ce NEGATIVE (Negative)
[2024-09-17 13:19] LABS: Basophils # 0.1 10^3/uL (0.0-0.1); Basophils % 1.2 %; Eosinophils # 0.1 10^3/uL (0.0-0.8); Eosinophils % 1.5 %; Lymphocytes # 2.3 10^3/uL (0.8-4.8); Lymphocytes % 38.5 %; Mean Corpuscular HGB Conc 34.5 g/dL (30-55); Mean Corpuscular Hemoglobin 34.9 pg (27-33); Mean Corpuscular Volume 101.1 fl (82-101); Mean Platelet Volume 10.4 fL (7.4-10.4); Monocytes # 0.6 10^3/uL (0.2-0.9); Monocytes % 10.6 %; Neutrophils # 2.79 10^3/uL (1.8-7.7); Neutrophils % 47.9 %; Nucleated Red Blood Cells % 0 %; Platelet Count 162 10^3/cmm (157-399); Red Blood Count 4.35 10^6/uL (3.85-5.65); Red Cell Distribution Width 12.2 % (12.1-15.1); White Blood Count 5.84 10^3/uL (3.29-11.43)
[2024-09-17 13:24] LABS: Bilirubin Urine Negative (Negative); Blood Urine Negative (Negative); Glucose Urine UA Negative (Normal); Ketones Urine Negative (Negative); Leukocyte Esterase Urine Negative (Negative); Nitrate Urine Negative (Negative); Protein Urine Negative (Negative); Specific Gravity, Urine 1.004 (1.005-1.030); Urine Appearance Clear (CLEAR); Urine Color Yellow (Yellow)
[2024-09-17 13:29] LABS: Add Urine Microscopic? YES; Bacteria Urine None Seen /hpf; Hyaline Casts Urine 0-4 /lpf; RBC Urine 0-2 /hpf (0-2); Squamous Epithelial Cell Urine 0-5 /hpf (0-5); WBC Urine 0-5 /hpf (0-5)
[2024-09-17 14:11] VITALS: BP 139/76
== END 2024-09-17 14:43 | disposition home or self-care (01) ==
PROVIDERS: Emergency Provider Emergency Medicine
DX: R10.9 Unspecified abdominal pain (principal); Z11.52 Encounter for screening for COVID-19; F17.290 Nicotine dependence, other tobacco product, uncomplicated; J44.9 Chronic obstructive pulmonary disease, unspecified; C32.9 Malignant neoplasm of larynx, unspecified
CPT/HCPCS: 0241U; 71045; 74177; 80053; 81001; 83690; 85025; 96374; 96375; 99285; J2270; J2405; J7030; Q9967

== ENCOUNTER → 2024-10-04 13:45 | Outpatient (BNVA) | payer MEDICAID, SELFPAY | PROVIDERS: Visit Provider Family Medicine | DX: R11.10 Vomiting, unspecified (principal) | CPT/HCPCS: 87400; 87426 ==

== ENCOUNTER 2024-10-18 08:44 | Outpatient (CLI) | payer MEDICAID, SELFPAY ==
--- NOTE | 2024-10-18 08:49 | CTR_ITS ---
PROCEDURE INFORMATION: Exam: CT Neck With Contrast Exam date and time: 10/18/2024 9:06 AM Age: 54 years old Clinical indication: Condition or disease; Cancer; Other: Neoplasm of supraglottis; Additional info: Malignant neoplasm of supraglottis, PT having barium swallow too TECHNIQUE: Imaging protocol: Computed tomography of the neck with contrast. Radiation optimization: All CT scans at this facility use at least one of these dose optimization techniques: automated exposure control; mA and/or kV adjustment per patient size (includes targeted exams where dose is matched to clinical indication); or iterative reconstruction. Contrast material: OMNI 350; Contrast volume: 100 ml; Contrast route: INTRAVENOUS (IV); COMPARISON: CT neck w con* [id number] 01/17/2024 8:30 AM RADIATION DOSE METRICS: Total DLP (mGy-cm): 145.78 FINDINGS: Limitations: Motion artifact degrades image quality, to include in the region of the glottis. Salivary glands: Normal. Glands are normal in size. Pharynx: Unremarkable. No significant tonsillar enlargement. Prevertebral and retropharyngeal spaces: Unremarkable. Larynx: Unremarkable as visualized. Epiglottis appears normal. Previous edematous thickening not visualized on this exam. Thyroid: Unremarkable. No enlarged or calcified nodules. Trachea: Visualized trachea is unremarkable. Lungs: Unremarkable as visualized. Lymph nodes: Unremarkable. No lymphadenopathy. Bones/joints: No acute fracture. No aggressive osteolytic or blastic lesion. [id number] degenerative change along the spine greatest at C4-C5. Soft tissues: Unremarkable. No significant soft tissue swelling. CT/CT neck w con* [id number] IMPRESSION: Significant motion artifact degradation decreases sensitivity. Previous edematous thickening of the oropharynx and larynx appears to have resolved.
--- NOTE | 2024-10-18 08:49 | FL_ITS ---
WS: [id number] FL barium swallow [id number] REASON FOR EXAM: MALIGNANT NEOPLASM OF SUPRAGLOTTIS FLUOROSCOPY TIME: 1min [id number] # OF SPOT FILMS: Multiple Patient was examined in the standing upright PA and lateral position, prone AVILA and supine positions. The esophagus was evaluated from the oropharynx to the fundus of the stomach. FINDINGS: The cervical esophagus demonstrated normal motility and anatomy with no penetration or aspiration. The thoracic esophagus demonstrated intermittent but infrequent weakened primary peristalsis and mild tertiary contractions. A small hiatal hernia was seen without significant reflux. No stricture or persistent lower esophageal spasm. FL/FL barium swallow [id number] IMPRESSION: Minimal esophageal dysmotility as above.
[2024-10-18] MEDS: iohexol 350 mg/mL 500 mL Btl (per mL) IV (09:13)
== END 2024-10-18 08:45 | disposition home or self-care (01) ==
LOC: RAD 08:45
PROVIDERS: PCP Specialist; Visit Provider Specialist
DX: C32.1 Malignant neoplasm of supraglottis (principal)
CPT/HCPCS: 70491; 74220

== ENCOUNTER 2024-12-17 11:27 | Emergency (ER) | payer MEDICAID, SELFPAY ==
[2024-12-17 11:38] VITALS: BP 155/90; PULSE 80; RESP 18; TEMP 36.7; O2SAT 98
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
[2024-12-17 12:25] LABS: Basophils # 0.1 10^3/uL (0.0-0.1); Basophils % 1.2 %; Eosinophils % 0.4 %; Lymphocytes # 2.3 10^3/uL (0.8-4.8); Lymphocytes % 31.3 %; Mean Corpuscular HGB Conc 35.1 g/dL (30-55); Mean Corpuscular Hemoglobin 34.3 pg (27-33); Mean Corpuscular Volume 97.8 fl (82-101); Monocytes # 0.5 10^3/uL (0.2-0.9); Monocytes % 6.8 %; Neutrophils # 4.35 10^3/uL (1.8-7.7); Nucleated Red Blood Cells % 0 %; Platelet Count 186 10^3/cmm (157-399); Red Cell Distribution Width 13.2 % (12.1-15.1); White Blood Count 7.25 10^3/uL (3.29-11.43)
[2024-12-17 12:35] LABS: Covid PCR NEGATIVE (Negative); Influenza A NEGATIVE (Negative); Influenza B NEGATIVE (Negative); Respiratory Syncytial Virus Ce NEGATIVE (Negative)
[2024-12-17 12:37] VITALS: RESP 16; O2SAT 96
[2024-12-17] MEDS: HYDROmorphone 1 mg/mL INJ 1 mL IVP (12:37)
[2024-12-17] MEDS: diphenhydrAMINE 50 mg/mL SDV 1mL 25 MG IVP (12:37)
[2024-12-17] MEDS: ondansetron 2 mg/ML SDV 2 mL 8 MG IVP (12:38)
[2024-12-17] MEDS: prochlorperazine 10 mg/2 mL Inj IVP (12:38)
[2024-12-17 12:48] LABS: Alanine Aminotransferase 98 U/L (0-41); Albumin Level 4.3 g/dL (3.5-5.2); Alkaline Phosphatase 81 U/L (40-130); Anion Gap 23.9 (5-19); Aspartate Amino Transferase 161 U/L (0-40); Blood Urea Nitrogen 5 mg/dL (6-20); Calcium 9.6 mg/dL (8.5-10.5); Carbon Dioxide 19 mmol/L (22-29); Chloride 93 mmol/L (98-107); Creatinine Clr Calc Pharmacy 118.4579; Globulin 3.2 g/dL (1.3-4.6); Glomerular Filtration Rate 139.4 mL/min (90-130); Glucose 127 mg/dL (65-115); Lipase 27 U/L (13-60); Osmolality Calculated 273 mOsm/kg (285-295); Potassium 3.9 mmol/L (3.5-5.1); Sodium 132 mmol/L (136-145); Total Bilirubin 1.1 mg/dL (0.15-1.2); Total Protein 7.5 g/dL (6.6-8.7)
--- NOTE | 2024-12-17 13:19 | CTR_ITS ---
PROCEDURE INFORMATION: Exam: CT Abdomen And Pelvis With Contrast Exam date and time: 12/17/2024 1:40 PM Age: 54 years old Clinical indication: Abdominal pain TECHNIQUE: Imaging protocol: Computed tomography of the abdomen and pelvis with contrast. Axial, coronal and sagittal reformatted images were created and reviewed. Radiation optimization: All CT scans at this facility use at least one of these dose optimization techniques: automated exposure control; mA and/or kV adjustment per patient size (includes targeted exams where dose is matched to clinical indication); or iterative reconstruction. Contrast material: OMNI 350; Contrast volume: 100 ml; Contrast route: INTRAVENOUS (IV); COMPARISON: CT abdomen pelvis w con* [id number] 09/17/2024 2:20 PM RADIATION DOSE METRICS: Total DLP (mGy-cm): 355.79 FINDINGS: Lungs: Patchy right lower lobe reticulonodular infiltrates, suggestive of small airway disease/aspiration. Liver: Diffuse hepatic steatosis. Gallbladder and biliary ducts: No radiodense gallstones. No biliary ductal dilatation. Pancreas: Unremarkable. Spleen: Unremarkable. Adrenal glands: Normal. No mass. Kidneys and ureters: No mass. No radiodense calculi. No hydronephrosis. Stomach and bowel: No bowel wall thickening. No obstruction. No pneumatosis. Appendix: Normal. Intraperitoneal space: No free fluid. No organized fluid collection. No free air. Vasculature: Mild atherosclerotic disease. No aneurysm or dissection. Lymph nodes: No pathologically enlarged lymph nodes. Urinary bladder: Mild circumferential urinary bladder wall thickening, likely secondary to underdistention. Reproductive: Unremarkable. Bones/joints: No acute osseous abnormality. Osteopenia. Degenerative changes. Soft tissues: Unremarkable. CT/CT abdomen pelvis w con* [id number] IMPRESSION: 1. Mild circumferential urinary bladder wall thickening, possibly secondary to underdistention. Correlate with urinalysis to exclude cystitis. 2. Patchy right lower lobe reticulonodular infiltrates, suggestive of small airway disease/aspiration. 3. Additional findings, as above.
[2024-12-17] MEDS: sodium chloride 0.9% 1,000 ML 999 ML IV (13:39)
[2024-12-17] MEDS: iohexol 350 mg/mL 500 mL Btl (per mL) IV (13:46)
[2024-12-17 13:48] LABS: Bilirubin Urine 1+ (Negative); Blood Urine Negative (Negative); Glucose Urine UA Negative (Normal); Ketones Urine 1+ (Negative); Leukocyte Esterase Urine Negative (Negative); Nitrate Urine Negative (Negative); Protein Urine 1+ (Negative); Specific Gravity, Urine 1.019 (1.005-1.030); Urine Appearance Clear (CLEAR); pH Urine 5.5 (5-7)
[2024-12-17 13:52] LABS: Add Urine Microscopic? YES; Bacteria Urine None Seen /hpf; Hyaline Casts Urine 0-4 /lpf; RBC Urine 0-2 /hpf (0-2); Squamous Epithelial Cell Urine 0-5 /hpf (0-5); WBC Urine 0-5 /hpf (0-5)
[2024-12-17 13:55] LABS: Amphetamines Screen Urine Negative (Negative); Barbiturates Screen Urine Negative (Negative); Benzodiazepines Screen Urine Negative (Negative); Cocaine Screen Urine Negative (Negative); Opiate Screen Urine Positive (Negative); PCP Screen Urine Negative (Negative); THC Screen Urine Negative (Negative); Urine Color Orange (Yellow)
[2024-12-17 14:43] VITALS: BP 155/87; PULSE 71; O2SAT 95
== END 2024-12-17 14:45 | disposition home or self-care (01) ==
PROVIDERS: Emergency Medicine; Emergency Provider Emergency Medicine; PCP Specialist
DX: R11.10 Vomiting, unspecified (principal); E86.0 Dehydration; Z11.52 Encounter for screening for COVID-19; F17.210 Nicotine dependence, cigarettes, uncomplicated; J44.9 Chronic obstructive pulmonary disease, unspecified
CPT/HCPCS: 74177; 80053; 80306; 81001; 83690; 85025; 87637; 96374; 96375; 99285; J0780; J1171; J1200; J2405; J7030

== ENCOUNTER 2024-12-30 14:02 | Emergency (ER) | payer MEDICAID, SELFPAY ==
[2024-12-30 14:14] VITALS: BP 132/81; PULSE 84; RESP 16; TEMP 36.8; O2SAT 98; BMI 21.4
--- NOTE | 2024-12-30 15:10 | XRR_ITS ---
PROCEDURE INFORMATION: Exam: XR Chest Exam date and time: 12/30/2024 3:26 PM Age: 54 years old Clinical indication: Cough; Prior surgery; Surgery date: 6+ months; Surgery type: Port; Additional info: Cough, congestion TECHNIQUE: Imaging protocol: Radiologic exam of the chest. Views: 2 views. COMPARISON: CR (CHEST, ) 09/17/2024 12:28 PM FINDINGS: Lungs: Unremarkable. No consolidation. Pleural spaces: Unremarkable. No pleural effusion. No pneumothorax. Heart/Mediastinum: Unremarkable. No cardiomegaly. Bones/joints: Moderate degenerative disease of bilateral acromioclavicular joints. Chronic fracture deformity of the right 3rd rib. XR/XR chest 2V* [id number] IMPRESSION: No acute cardiopulmonary process.
--- NOTE | 2024-12-30 15:10 | CTR_ITS ---
PROCEDURE INFORMATION: Exam: CT Neck With Contrast Exam date and time: 12/30/2024 3:35 PM Age: 54 years old Clinical indication: Dysphagia / difficulty swallowing; Prior surgery; Surgery date: 6+ months; Surgery type: Throat cancer SX about 1 year ago; Additional info: History of throat cancer, dysphagia TECHNIQUE: Imaging protocol: Computed tomography of the neck with contrast. Radiation optimization: All CT scans at this facility use at least one of these dose optimization techniques: automated exposure control; mA and/or kV adjustment per patient size (includes targeted exams where dose is matched to clinical indication); or iterative reconstruction. Contrast material: OMNIPAQUE 350; Contrast volume: 80 ml; Contrast route: INTRAVENOUS (IV); COMPARISON: CT neck w con* [id number] 10/18/2024 9:06 AM RADIATION DOSE METRICS: Total DLP (mGy-cm): 209.8 FINDINGS: Salivary glands: Normal. Glands are normal in size. Pharynx: Unremarkable. No significant tonsillar enlargement. Larynx: Unremarkable. Epiglottis is normal. Thyroid: Normal. No enlarged or calcified nodules. Trachea: Visualized trachea is unremarkable. Lungs: Unremarkable as visualized. Lymph nodes: Unremarkable. No lymphadenopathy. Vasculature: Mild atheromatous disease of bilateral carotid arteries. Bones/joints: The cervical spine demonstrates mild degenerative changes at multiple levels. Soft tissues: Unremarkable. No significant soft tissue swelling. CT/CT neck w con* [id number] IMPRESSION: No soft tissue masses in the neck. No lymphadenopathy.
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
[2024-12-30 15:22] VITALS: BP 151/89; PULSE 79; RESP 16; O2SAT 100
[2024-12-30 15:26] LABS: Basophils % 0.2 %; Eosinophils % 0.3 %; Hematocrit 42.3 % (37-53); Lymphocytes # 4.8 10^3/uL (0.8-4.8); Mean Corpuscular Hemoglobin 34.5 pg (27-33); Mean Corpuscular Volume 98.6 fl (82-101); Mean Platelet Volume 8.9 fL (7.4-10.4); Monocytes # 0.6 10^3/uL (0.2-0.9); Monocytes % 5.2 %; Neutrophils # 5.49 10^3/uL (1.8-7.7); Neutrophils % 49.9 %; Nucleated Red Blood Cells % 0 %; Platelet Count 160 10^3/cmm (157-399); Red Blood Count 4.29 10^6/uL (3.85-5.65); Red Cell Distribution Width 14.1 % (12.1-15.1); White Blood Count 10.99 10^3/uL (3.29-11.43)
[2024-12-30] MEDS: iohexol 350 mg/mL 500 mL Btl (per mL) IV (15:32)
[2024-12-30 15:46] LABS: Alanine Aminotransferase 76 U/L (0-41); Albumin Level 3.7 g/dL (3.5-5.2); Alkaline Phosphatase 62 U/L (40-130); Anion Gap 21.7 (5-19); Aspartate Amino Transferase 204 U/L (0-40); Blood Urea Nitrogen 7 mg/dL (6-20); Calcium 9.1 mg/dL (8.5-10.5); Carbon Dioxide 20 mmol/L (22-29); Chloride 92 mmol/L (98-107); Creatinine Clr Calc Pharmacy 96.9993; Globulin 2.8 g/dL (1.3-4.6); Glomerular Filtration Rate 116.7 mL/min (90-130); Glucose 101 mg/dL (65-115); Lipase 46 U/L (13-60); Osmolality Calculated 268 mOsm/kg (285-295); Potassium 3.7 mmol/L (3.5-5.1); Sodium 130 mmol/L (136-145); Total Bilirubin 0.7 mg/dL (0.15-1.2); Total Protein 6.5 g/dL (6.6-8.7)
--- NOTE | 2025-01-02 08:03 | DCPLANNER ---
Referral sent to ENT Dr. Richards
== END 2024-12-30 17:03 | disposition home or self-care (01) ==
PROVIDERS: Emergency Medicine; Emergency Provider Nurse Practitioner; PCP Specialist
DX: J06.9 Acute upper respiratory infection, unspecified (principal); E87.1 Hypo-osmolality and hyponatremia; R13.10 Dysphagia, unspecified; R49.0 Dysphonia; F17.210 Nicotine dependence, cigarettes, uncomplicated; Z85.21 Personal history of malignant neoplasm of larynx; J44.9 Chronic obstructive pulmonary disease, unspecified
CPT/HCPCS: 70491; 71046; 80053; 83690; 85025; 99285

== ENCOUNTER → 2025-04-16 09:32 | Outpatient (BNVA) | payer MEDICAID, SELFPAY | PROVIDERS: PCP Family Medicine; Visit Provider Family Medicine | DX: E87.1 Hypo-osmolality and hyponatremia (principal); K70.0 Alcoholic fatty liver; B37.81 Candidal esophagitis; B37.0 Candidal stomatitis; F10.90 Alcohol use, unspecified, uncomplicated; R79.89 Other specified abnormal findings of blood chemistry | CPT/HCPCS: 80053; 80061; 84439; 84443; 84481; 87070 ==

== ENCOUNTER 2025-05-15 09:00 | Outpatient (CLI) | payer MEDICAID, SELFPAY ==
--- NOTE | 2025-05-15 09:13 | XR_ITS ---
WS: [id number] XR cervical spine 3V* [id number] REASON FOR EXAM: neck pain--fell at home and hit head 2d ago, neck hurting FINDINGS: Straightening of the normal lordosis with slight reversal in the upper cervical spine. No significant vertebral body compression or focal lesion. Mild narrowing of the disc spaces C3-C5. Associated mild to moderate posterior and anterior osteophytosis. No significant neutral listhesis. Normal alignment of the facet joints. Incidental note made of moderate calcified plaque in the left carotid artery. XR/XR cervical spine 3V* [id number] IMPRESSION: Moderate degenerative spondylosis of the cervical spine as above. Calcified left carotid artery plaque.
== END 2025-05-15 09:01 | disposition home or self-care (01) ==
LOC: RAD 09:03
PROVIDERS: PCP Family Medicine; Visit Provider Family Medicine
DX: M47.892 Other spondylosis, cervical region (principal); I65.22 Occlusion and stenosis of left carotid artery; M50.31 Other cervical disc degeneration, high cervical region; M50.321 Other cervical disc degeneration at C4-C5 level; M25.78 Osteophyte, vertebrae
CPT/HCPCS: 72040

== ENCOUNTER 2025-05-23 19:46 | Emergency (ER) | payer MEDICAID, SELFPAY ==
[2025-05-23 19:48] VITALS: BP 138/82; PULSE 100; TEMP 36.9; O2SAT 96; BMI 21.6
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
--- OUTSIDE RECORDS SUMMARY | 2025-05-23 19:50 | XMS_ITS ---
Author Organization [facility] Address [address] 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 Past Treatment and Therapy Plans No past plan information found. Lifetime Dose Tracking * Chemical Lifetime Dose Automatic Entry Manual Entr y Effective Dose 53.9 mSv 3.4 mSv 50.5 mSv Total DLP 8,324 DLP 364 DLP 7,960 DLP CTDIvol Max 549.5 mGy 10.3 mGy 539.2 mGy CTDIvol Min 387.5 mGy 10.3 mGy 377.2 mGy Resolved Problems Problem Noted Date Diagnosed Date Resolved Date URI (upper respiratory infection) 10/17/2018 11/24/2021
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
[2025-05-23 20:08] VITALS: BP 138/89; PULSE 91; O2SAT 98
[2025-05-23 20:27] LABS: Hematocrit 36.2 % (37-53); Hemoglobin 12.70 g/dL (11.27-16.99); Mean Corpuscular HGB Conc 35.1 g/dL (30-55); Mean Corpuscular Hemoglobin 36.1 pg (27-33); Mean Corpuscular Volume 102.8 fl (82-101); Nucleated Red Blood Cells % 0 %; Platelet Count 146 10^3/cmm (157-399); Red Blood Count 3.52 10^6/uL (3.85-5.65); White Blood Count 10.05 10^3/uL (3.29-11.43)
[2025-05-23 20:42] LABS: Glucose Urine UA Negative (Normal); Nitrate Urine Negative (Negative); Specific Gravity, Urine 1.007 (1.005-1.030)
[2025-05-23 20:44] LABS: Alanine Aminotransferase 60 U/L (0-41); Albumin Level 3.1 g/dL (3.5-5.2); Alkaline Phosphatase 107 U/L (40-130); Anion Gap 16.1 (5-19); Aspartate Amino Transferase 148 U/L (0-40); Blood Urea Nitrogen 2 mg/dL (6-20); Calcium 8.8 mg/dL (8.5-10.5); Carbon Dioxide 20 mmol/L (22-29); Chloride 100 mmol/L (98-107); Creatinine Clr Calc Pharmacy 168.2514; Globulin 3.1 g/dL (1.3-4.6); Glucose 67 mg/dL (65-115); Osmolality Calculated 268 mOsm/kg (285-295); Potassium 4.1 mmol/L (3.5-5.1); Sodium 132 mmol/L (136-145); Total Protein 6.2 g/dL (6.6-8.7)
[2025-05-23 20:45] LABS: Add Urine Microscopic? YES
--- NOTE | 2025-05-23 20:52 | CTR_ITS ---
PROCEDURE INFORMATION: Exam: CT Abdomen And Pelvis With Contrast Exam date and time: 05/23/2025 8:59 PM Age: 55 years old Clinical indication: Abdominal pain; Generalized; Additional info: Abd pain TECHNIQUE: Imaging protocol: Computed tomography of the abdomen and pelvis with contrast. Radiation optimization: All CT scans at this facility use at least one of these dose optimization techniques: automated exposure control; mA and/or kV adjustment per patient size (includes targeted exams where dose is matched to clinical indication); or iterative reconstruction. Contrast material: OMNIPAQUE 350; Contrast volume: 100 ml; Contrast route: INTRAVENOUS (IV); COMPARISON: CT abdomen pelvis w con* [id number] 12/17/2024 1:40 PM RADIATION DOSE METRICS: Total DLP (mGy-cm): 348.2 FINDINGS: Liver: Normal. No mass. Gallbladder and biliary ducts: Normal. No calcified stones. No ductal dilation. Pancreas: Normal. No ductal dilation. Spleen: Normal. No splenomegaly. Adrenal glands: Normal. No mass. Kidneys and ureters: Normal. No hydronephrosis. Stomach and bowel: Unremarkable. No obstruction. No mucosal thickening. Appendix: Normal appendix. Intraperitoneal space: Small volume ascites. Negative for pneumoperitoneum. Vasculature: Unremarkable. No abdominal aortic aneurysm. Lymph nodes: Unremarkable. No enlarged lymph nodes. Urinary bladder: Unremarkable as visualized. Reproductive: Unremarkable as visualized. Bones/joints: Unremarkable. No acute fracture. Soft tissues: Unremarkable. CT/CT abdomen pelvis w con* [id number] IMPRESSION: Negative for acute abdominopelvic pathology.
[2025-05-23] MEDS: iohexol 350 mg/mL 500 mL Btl (per mL) IV (21:01)
[2025-05-23 21:55] VITALS: BP 128/76; PULSE 82; O2SAT 96
[2025-05-23 22:20] VITALS: BP 131/77; PULSE 91; RESP 16; O2SAT 96
== END 2025-05-23 22:21 | disposition home or self-care (01) ==
PROVIDERS: Emergency Provider Student in an Organized Health Care Education/Training Program; PCP Family Medicine
DX: R10.9 Unspecified abdominal pain (principal); N40.0 Benign prostatic hyperplasia without lower urinary tract symptoms; F17.210 Nicotine dependence, cigarettes, uncomplicated; J44.9 Chronic obstructive pulmonary disease, unspecified; Z85.21 Personal history of malignant neoplasm of larynx
CPT/HCPCS: 51798; 74177; 80053; 81001; 85025; 99285

== ENCOUNTER 2025-05-31 09:44 | Outpatient (CLI) | payer MEDICAID, SELFPAY ==
--- NOTE | 2025-05-31 09:57 | FL_ITS ---
WS: [id number] FL barium swallow modifd [id number] REASON FOR EXAM: Other dysphagia FLUOROSCOPY TIME: 3min [id number] # OF SPOT FILMS: 0 TECHNIQUE: Examination was supervised by the speech therapy department. Patient was examined in the sitting upright lateral projection. The swallowing of multiple consistencies of barium was monitored fluoroscopically and video recorded. FINDINGS: With thin liquids there was penetration of contrast into the laryngeal vestibule without alberto aspiration. There was no impedance of the transit of the barium tablet through the esophagus into the stomach. FL/FL barium swallow modifd [id number] IMPRESSION: A detailed report of the swallowing will be provided by the speech therapy depa rtment. Contrast penetration of the laryngeal vestibule. No esophageal obstruction.
== END 2025-05-31 09:45 | disposition home or self-care (01) ==
LOC: RAD 09:44
PROVIDERS: PCP Family Medicine; Visit Provider Specialist
DX: R13.19 Other dysphagia (principal)
CPT/HCPCS: 74230; 92611

== ENCOUNTER 2025-06-18 19:23 | Emergency (ER) | payer MEDICAID, SELFPAY ==
--- OUTSIDE RECORDS SUMMARY | 2025-06-18 19:29 | XMS_ITS | Clinical Summary ---
Author Organization [facility] Address [address] 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 [id number] 12/15/2021 Supraglottic lesion (left laryngeal surface of [...] Date URI (upper respiratory infection) 10/17/2018 11/24/2021 Immunizations Immunization Administration Dates Next Due (ADACEL/BOOSTRIX)(10 [...] = 0.6 oz pur e alcohol) daily Sex and Gender Information Value Date Recorded Sex Assigned at Not on file 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
--- OUTSIDE RECORDS SUMMARY | 2025-06-18 19:29 | XMS_ITS ---
Author Organization [facility] Address [address] 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
[2025-06-18 19:32] VITALS: BP 101/66; PULSE 114; RESP 18; TEMP 36.9; O2SAT 97
--- NOTE | 2025-06-18 19:44 | CTR_ITS ---
PROCEDURE INFORMATION: Exam: CT Abdomen And Pelvis With Contrast Exam date and time: 06/18/2025 8:19 PM Age: 55 years old Clinical indication: Abdominal pain; Generalized; Additional info: Soncern for sbo TECHNIQUE: Imaging protocol: Computed tomography of the abdomen and pelvis with contrast. Radiation optimization: All CT scans at this facility use at least one of these dose optimization techniques: automated exposure control; mA and/or kV adjustment per patient size (includes targeted exams where dose is matched to clinical indication); or iterative reconstruction. Contrast material: OMNIPAQUE 350; Contrast volume: 100 ml; Contrast route: INTRAVENOUS (IV); COMPARISON: CT abdomen pelvis w con* [id number] 05/23/2025 8:59 PM RADIATION DOSE METRICS: Total DLP (mGy-cm): 384.93 FINDINGS: Lungs: Few scattered chronic appearing strands at the lung bases. Liver: Nodular liver, nonspecific although compatible with cirrhosis. Mild ascites . Gallbladder and biliary ducts: Normal. No calcified stones. No ductal dilation. Pancreas: Normal. No ductal dilation. Spleen: Normal. No splenomegaly. Adrenal glands: Normal. No mass. Kidneys and ureters: Normal. No hydronephrosis. Stomach and bowel: Scattered areas of mild bowel wall thickening, nonspecific although presumably related to ascites. Appendix: No evidence of appendicitis. Intraperitoneal space: See Liver finding. Vasculature: Aortic and coronary atherosclerosis. Lymph nodes: Unremarkable. No enlarged lymph nodes. Urinary bladder: Unremarkable as visualized. Reproductive: Unremarkable as visualized. Bones/joints: Moderate degenerative changes of vertebral bodies with multilevel endplate spurring and disc space narrowing. Soft tissues: Unremarkable. CT/CT abdomen pelvis w con* [id number] IMPRESSION: No definitive radiographic evidence of small bowel obstruction. Mild ascites. Nodular liver, nonspecific although compatible with cirrhosis. Aortic and coronary atherosclerosis.
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
[2025-06-18] MEDS: iohexol 350 mg/mL 500 mL Btl (per mL) IV (20:22)
[2025-06-18 20:25] LABS: Alanine Aminotransferase 48 U/L (0-41); Albumin Level 2.7 g/dL (3.5-5.2); Alcohol Level 32 mg/dL (0-10); Alkaline Phosphatase 99 U/L (40-130); Anion Gap 13.7 (5-19); Aspartate Amino Transferase 142 U/L (0-40); Blood Urea Nitrogen 8 mg/dL (6-20); Calcium 8.7 mg/dL (8.5-10.5); Carbon Dioxide 21 mmol/L (22-29); Chloride 99 mmol/L (98-107); Creatinine Clr Calc Pharmacy 224.3352; Globulin 3.8 g/dL (1.3-4.6); Glucose 132 mg/dL (65-115); Lipase 18 U/L (13-60); Osmolality Calculated 270 mOsm/kg (285-295); Potassium 3.7 mmol/L (3.5-5.1); Sodium 130 mmol/L (136-145); Total Protein 6.5 g/dL (6.6-8.7)
[2025-06-18 20:26] LABS: Lactic Sepsis W/Reflex 1.7 mmol/L (0.5-2.2)
[2025-06-18 20:29] LABS: Hematocrit 36.9 % (37-53); Hemoglobin 12.90 g/dL (11.27-16.99); Mean Corpuscular HGB Conc 35.0 g/dL (30-55); Mean Corpuscular Hemoglobin 35.2 pg (27-33); Mean Corpuscular Volume 100.8 fl (82-101); Nucleated Red Blood Cells % 0 %; Platelet Count 100 10^3/cmm (157-399); Red Blood Count 3.66 10^6/uL (3.85-5.65); White Blood Count 11.94 10^3/uL (3.29-11.43)
[2025-06-18 20:30] VITALS: RESP 19; O2SAT 99
[2025-06-18] MEDS: morphine 4 mg/mL SDV 1 mL IVP (20:30)
[2025-06-18 21:00] LABS: Slide Review Slide Review Perform
[2025-06-18 21:37] LABS: Glucose Urine UA Negative (Normal); Nitrate Urine Positive (Negative)
[2025-06-18 21:40] LABS: Add Urine Microscopic? YES
[2025-06-18 21:49] LABS: Specific Gravity, Urine 1.055 (1.005-1.030)
[2025-06-18 22:30] VITALS: BP 130/75; PULSE 99; RESP 18; O2SAT 97
--- NOTE | 2025-06-21 08:17 | DCPLANNER ---
pushed images and faxed referral to [facility] urology
== END 2025-06-18 22:36 | disposition home or self-care (01) ==
PROVIDERS: Emergency Provider Emergency Medicine; PCP Family Medicine
DX: K70.31 Alcoholic cirrhosis of liver with ascites (principal); R33.9 Retention of urine, unspecified; Y90.1 Blood alcohol level of 20-39 mg/100 ml; F17.210 Nicotine dependence, cigarettes, uncomplicated; J44.9 Chronic obstructive pulmonary disease, unspecified; Z85.21 Personal history of malignant neoplasm of larynx
CPT/HCPCS: 36415; 51702; 74177; 80053; 80307; 81001; 83605; 83690; 85025; 87040; 96361; 96374; 99285; J2270; J7030

== ENCOUNTER → 2025-06-20 11:22 | Outpatient (BNVA) | payer MEDICAID, SELFPAY | PROVIDERS: PCP Family Medicine | DX: R33.8 Other retention of urine (principal) | CPT/HCPCS: 81000; 87086 ==

== ENCOUNTER 2025-06-22 09:34 | Inpatient (IN) | payer MEDICAID, SELFPAY ==
[2025-06-22] VITALS (8 sets, daily range): BP systolic 102–128; BP diastolic 65–77; PULSE 106–120; RESP 14–18; TEMP 36.3–36.9; O2SAT 93–98; BMI 20.9
--- OUTSIDE RECORDS SUMMARY | 2025-06-22 09:42 | XMS_ITS | Encounter Summary ---
Author Organization [facility] Address [address] [place] [address] Care Team Providers Care Substation Operator Automatic Name Role Phone Catalina Aden MD Primary Care Provider [phone] Encounter Details Date Type Department Care Team (Late st Contact Info) Description 06/22/2025 Abstract [facility] Urology [address] [place] [phone] Provider, Abstract NO ADDRESS ON FILE Social History Tobacco Use Types Packs/Day Years Used Date Smoking Tobacco: Every Day Cigarettes Smokeless Tobacco: Former Quit: 05/29/2021 Alcohol Use Standard Drinks/Week Comments Yes 0 (1 standard drink = 0.6 oz pur e alcohol) daily Sex and Gender Information Value Date Recorded Sex Assigned at Not on file 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
--- OUTSIDE RECORDS SUMMARY | 2025-06-22 09:42 | XMS_ITS | Clinical Summary ---
Author Organization Address [address] 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 [id number] 12/15/2021 Supraglottic lesion (left laryngeal surface of [...] Encounters Date Type Department Care Team Description 06/22/2025 Abstract [facility] Urology [address] [place] [phone] Provider, Abstract from Last 3 Months Immunizations Immunization Administration [...] on file 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 Gender Identity Not on file Sexual Orientation [...] Tdap) 01/19/2023 INFLUENZA VACCINE (#1) 2025 Insurance [facility] [employer] [facility] [id number] Advance Directives For more information, please contact: [phone] * Full Code (Latest Code Status on File) Date Activated Date Inactivated Comments 08/20/2022 9:26 AM 08/20/2022 2:01 PM * Full Code Date Activated Date Inactivated Comments 12/12/2021 7:29 AM 12/12/2021 12:48 PM Care Teams Line Therapist Relationship Specialty Start Date End Date Catalina Aden MD [address] [phone] PCP - General Family Practice 12/18/21
--- OUTSIDE RECORDS SUMMARY | 2025-06-22 09:42 | XMS_ITS ---
Author Organization [facility] Address [address] 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
--- NOTE | 2025-06-22 09:57 | CT_ITS ---
WS: [id number] CT ABDOMEN AND PELVIS WITH CONTRAST HISTORY: abdominal pain, distention, vomiting TECHNIQUE: Imaging performed of the abdomen and pelvis with IV contrast. Single phase imaging of the abdomen. Coronal and sagittal reformats are submitted. All CT scans at [facility] use at least one of these dose optimization techniques: automated exposure control; mA and/or kV adjustment per patient size (includes targeted exams where dose is matched to clinical indication); or iterative reconstruction. IV CONTRAST: Omnipaque 350; 100 mL IV. Oral contrast: No DLP: 447.06 mGy.cm COMPARISON: 06/18/2025, 05/23/2025 Lower thorax: Dependent changes at the lung bases. Partial atelectasis RIGHT middle lobe. Heart is normal size. No hiatal hernia. Liver/biliary system: Heterogeneous liver. Areas of variable density within the liver is probably due to hepatic congestion. Similar findings were noted on the prior study. There is no discrete mass. LEFT lobe is enlarged. Mildly cirrhotic configuration. Normal portal vein. Gallbladder: Mildly hydropic gallbladder. No stones or wall thickening. Pancreas: Normal size pancreas and pancreatic duct. No adjacent inflammation. Spleen: Normal size spleen. No mass or infarct. Adrenal glands: Normal. Right kidney: Normal. Left kidney: Normal. Aorta: Mild atherosclerosis with no aneurysm. Lymphadenopathy: None. Free fluid: Small to moderate amount of ascites throughout the abdomen. There is ascites surrounding the liver and spleen and a small amount in the lesser sac. Ascites continues along the paracolic gutters and central mesentery to the pelvis. Ascites volume has slightly increased since 06/18/2025. GI tract: Stomach is distended with fluid. No small bowel obstruction. Appendix is not visualized. No colon obstruction. There is high density contrast in the colon from a prior CT evaluation with contrast. No obstructive pattern. No colitis. Abdominal wall: Tiny umbilical hernia. Mild soft tissue anasarca. Pelvis: Razo catheter present in the urinary bladder. Bladder is not distended. Bones: Unremarkable. CT/CT abdomen pelvis w con* [id number] IMPRESSION: 1. Small increase in volume of ascites since 06/18/2025. Small to moderate amoun t of ascites. 2. Cirrhotic configuration of the liver. 3. Variable attenuation in the liver from hepatic congestion. 4. No GI tract obstruction. 5. Mesenteric and subcutaneous edema.
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
[2025-06-22 10:18] LABS: Hematocrit 34.4 % (37-53); Hemoglobin 12.10 g/dL (11.27-16.99); Mean Corpuscular HGB Conc 35.2 g/dL (30-55); Mean Corpuscular Hemoglobin 34.5 pg (27-33); Mean Corpuscular Volume 98.0 fl (82-101); Nucleated Red Blood Cells % 0 %; Platelet Count 135 10^3/cmm (157-399); Red Blood Count 3.51 10^6/uL (3.85-5.65); White Blood Count 13.91 10^3/uL (3.29-11.43)
[2025-06-22] MEDS: iohexol 350 mg/mL 500 mL Btl (per mL) IV (10:23)
[2025-06-22 10:26] LABS: INR 1.34 (0.8-1.2); Prothrombin Time 17.40 SECONDS (12.1-14.9)
[2025-06-22 10:27] LABS: Partial Thromboplastin Time 38.3 SECONDS (23.9-36.7)
[2025-06-22 10:30] LABS: Alanine Aminotransferase 54 U/L (0-41); Albumin Level 3.0 g/dL (3.5-5.2); Alkaline Phosphatase 98 U/L (40-130); Anion Gap 16.8 (5-19); Aspartate Amino Transferase 151 U/L (0-40); Blood Urea Nitrogen 12 mg/dL (6-20); Calcium 9.3 mg/dL (8.5-10.5); Carbon Dioxide 21 mmol/L (22-29); Chloride 96 mmol/L (98-107); Creatinine Clr Calc Pharmacy 132.9273; Globulin 4.0 g/dL (1.3-4.6); Glucose 142 mg/dL (65-115); Lactic Sepsis W/Reflex 2.7 mmol/L (0.5-2.2); Lipase 55 U/L (13-60); Osmolality Calculated 272 mOsm/kg (285-295); Potassium 3.8 mmol/L (3.5-5.1); Sodium 130 mmol/L (136-145); Total Protein 7.0 g/dL (6.6-8.7)
--- NOTE | 2025-06-22 10:43 | US_ITS ---
WS: [id number] ULTRASOUND-GUIDED PARACENTESIS CLINICAL INFORMATION: concern for SBP COMPARISON: None. Procedure Informed consent: The risks, benefits, and alternatives of the procedure were discussed with the patient. Verbal and written consent was obtained. Timeout: A timeout was performed to confirm the correct patient, procedure, and site. Preparation: A suitable skin site was identified. The patient was prepped and draped in usual sterile fashion. Lidocaine 1% was used for local anesthesia. Catheter: 4 [place] One-step Yueh catheter. Side: LEFT lower quadrant. Fluid Volume: 1500 ml Color: Clear yellow DISPOSITION: Discarded safely. Complications: None. US/US paracentesis abd w [id number] IMPRESSION: Uncomplicated ultrasound-guided paracentesis. Removal of 1500 cc
--- NOTE | 2025-06-22 10:44 | XR_ITS ---
WS: [id number] XR chest 1V portable [id number] REASON FOR EXAM: tachycardic, low bp, elevated wbc FINDINGS: The chest is relatively unchanged compared to 12/30/2024. The heart and the mediastinum are within normal limits. The lungs are somewhat hypoexpanded. Mild elevation of the right hemidiaphragm. Bilateral calcified granulomatous disease. No acute pulmonary parenchymal or pleural abnormality. Mild degenerative spondylosis in the thoracic spine. XR/XR chest 1V portable [id number] IMPRESSION: Stable chest without acute abnormality.
[2025-06-22 10:53] LABS: Glucose Urine UA Negative (Normal); Nitrate Urine Negative (Negative)
[2025-06-22 10:59] LABS: Add Urine Microscopic? YES
[2025-06-22 11:28] LABS: Specific Gravity, Urine >= 1.099 (1.005-1.030)
[2025-06-22 11:29] LABS: UA Manual Slide Review YES
[2025-06-22 11:57] LABS: Reflex Lactate Order REFLEX LACTIC ORDERD
[2025-06-22 12:47] LABS: Cyto Order Verification No Order
--- NOTE | 2025-06-22 12:47 | PC.NURSE ---
THIS NURSE AND SHANA PAREKH RN AT BEDSIDE. SKIN ASSESSMENT COMPLETED ON PATIENT WITH THE EXCEPTION OF UNDER DIAPER. SMALL LINEAR DISCOLORATION NOTED BELOW LEFT AC, VARYING SHADES OF RED. PARENTS REPORT THEY SELF REPORTED TO BREAKDOWN WORKER AND ARE UNSURE OF WHAT HAPPENED. 17 MONTH OLD SIBLING IN THE ROOM APPEARS APPROPRIATE FOR AGE, WELL FED, AND APPROPRIATELY DRESSED. PARENTS INTERACTIVE WITH BOTH CHILDREN. MOTHER PATIENT UPON OUR ARRIVAL.
[2025-06-22 12:48] LABS: Apprearance, Body Fluid CLOUDY; Color, Body Fluid PALE YELLOW
[2025-06-22 12:58] LABS: Fluid Laterality Left Lower
[2025-06-22 13:03] LABS: Body Fluid Polynuclear #Cells 0.022; Monocytes # Body Fluid 0.182; Mononuclear WBC Body Fluid % 89.200 %; Polynuclear WBC Body Fluid % 10.800 %
[2025-06-22] MEDS: cefTRIAXone 2,000 mg SDV 2000 MG IVP (13:07)
[2025-06-22 13:21] LABS: Alcohol Level 18 mg/dL (0-10)
[2025-06-22 13:30] LABS: Lactic Acid level (Lactate) 2.4 mmol/L (0.5-2.2)
[2025-06-22 13:59] LABS: PATH Referral YES
[2025-06-22 17:48] LABS: Fluid Alkaline Phos. 9 IU/L
[2025-06-22 17:50] LABS: Cyto Order Verification Order Verified; Fluid Laterality Left Lower; PATH Referral NO
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
--- NOTE | 2025-06-22 18:41 | PHA.VACGOAL ---
Vancomycin Goal - Goal Vancomycin Goal:: 15-20 mg/L Vancomycin Indication:: Other - Therapy Day of therpy:: Day []of [] . Actual body weight (kg): 122 lb - Data Labs: WBC 13.91 10^3/uL (3.29-11.43) H 06/22/25 10:04 RBC 3.51 10^6/uL (3.85-5.65) L 06/22/25 10:04 Hgb 12.10 g/dL (11.27-16.99) 06/22/25 10:04 Hct 34.4 % (37-53) L 06/22/25 10:04 MCV 98.0 fl (82-101) 06/22/25 10:04 MCH 34.5 pg (27-33) H 06/22/25 10:04 MCHC 35.2 g/dL (30-55) 06/22/25 10:04 RDW 14.6 % (12.1-15.1) 06/22/25 10:04 Sodium 130 mmol/L (136-145) L 06/22/25 10:04 Potassium 3.8 mmol/L (3.5-5.1) 06/22/25 10:04 Chloride 96 mmol/L (98-107) L 06/22/25 10:04 Carbon Dioxide 21 mmol/L (22-29) L 06/22/25 10:04 Anion Gap 16.8 (5-19) 06/22/25 10:04 BUN 12 mg/dL (6-20) 06/22/25 10:04 Creatinine 0.5 mg/dL (0.7-1.2) L 06/22/25 10:04 GFR Calculation 171.4 mL/min (90-130) H 06/22/25 10:04 Treatment plan:: new consult Regimen:: SSTARTED PATIENT ON 750 MG Q8H PER PROTOCOL. WILL OBTAIN TROUGH PRIOR TO 4TH DOSE.
[2025-06-22] MEDS: pantoprazole 40 mg SDV IVP (18:56)
[2025-06-22] MEDS: heparin 5,000 unit/mL INJ 1 mL 5000 UNIT SUBCUT (18:56)
[2025-06-22] MEDS: thiamine 100 mg/mL 2mL SDV IM (18:57)
[2025-06-22] MEDS: lactulose oral liq 20 gm/30 mL UDC 30 GM PO (18:58)
[2025-06-22 19:23] LABS: Ammonia 66 umol/L (16-60)
[2025-06-22 19:38] LABS: Procalcitonin 0.14 ng/mL (0-0.5); Thyroid Stimulating Hormone 21.14 uIU/mL (0.27-4.20); Vitamin B12 1253 pg/mL (232-1245)
[2025-06-22 20:18] LABS: Iron 108 ug/dL (59-158)
[2025-06-22 21:20] LABS: Total Iron Binding Capacity 124.99999 mcg/dl; Unsaturated Iron Binding < 17 ug/dL (112-347)
[2025-06-22 21:51] LABS: Estmated Average Glucose 85; Hemoglobin A1C 4.6 % (4.0-6.0)
[2025-06-22 22:59] LABS: MRSA PCR OZH (swab) NOT DETECTED (Negative)
[2025-06-23] VITALS (8 sets, daily range): BP systolic 100–119; BP diastolic 52–75; PULSE 91–112; RESP 14–20; TEMP 36.6–37.1; O2SAT 94–97
[2025-06-23 05:00] LABS: Hematocrit 29.1 % (37-53); Hemoglobin 10.40 g/dL (11.27-16.99); Mean Corpuscular HGB Conc 35.7 g/dL (30-55); Mean Corpuscular Hemoglobin 34.8 pg (27-33); Mean Corpuscular Volume 97.3 fl (82-101); Nucleated Red Blood Cells % 0 %; Platelet Count 131 10^3/cmm (157-399); Red Blood Count 2.99 10^6/uL (3.85-5.65); White Blood Count 10.03 10^3/uL (3.29-11.43)
[2025-06-23] MEDS: lactulose oral liq 20 gm/30 mL UDC 30 GM PO ×2 (05:12→17:22)
[2025-06-23] MEDS: heparin 5,000 unit/mL INJ 1 mL 5000 UNIT SUBCUT ×2 (05:12→17:23)
[2025-06-23 05:16] LABS: Cholesterol 66 mg/dL (0-200); HDL Cholesterol 12 mg/dL (60-100); Triglycerides 53 mg/dL (0-150)
[2025-06-23 05:18] LABS: Alanine Aminotransferase 47 U/L (0-41); Albumin Level 2.4 g/dL (3.5-5.2); Alkaline Phosphatase 83 U/L (40-130); Anion Gap 12.3 (5-19); Aspartate Amino Transferase 141 U/L (0-40); Blood Urea Nitrogen 11 mg/dL (6-20); Calcium 8.5 mg/dL (8.5-10.5); Carbon Dioxide 21 mmol/L (22-29); Chloride 102 mmol/L (98-107); Creatinine Clr Calc Pharmacy 170.9696; Globulin 3.4 g/dL (1.3-4.6); Glucose 89 mg/dL (65-115); Magnesium 2.1 mg/dL (1.7-2.3); Osmolality Calculated 271 mOsm/kg (285-295); Potassium 4.3 mmol/L (3.5-5.1); Sodium 131 mmol/L (136-145); Total Protein 5.8 g/dL (6.6-8.7)
[2025-06-23 05:21] LABS: Procalcitonin 0.12 ng/mL (0-0.5)
[2025-06-23 08:50] LABS: Free T4 Free Thyroxine 1.10 ng/dL (0.82-1.77)
--- NOTE | 2025-06-23 11:35 | P.PN_ITS ---
Subjective 2 Subjective: No acute vents overnight. Patient laying comfortably in bed. Denies any nausea, vomiting, headache. States abdominal pain is improving. Did have bowel movement yesterday. Has remained hemodynamically stable and afebrile. Vitals/I&O/Wt Last Vital Signs Temp 98.5 F 06/23/25 07:30 Pulse 110 H 06/23/25 07:59 Resp 16 06/23/25 07:59 BP 103/58 06/23/25 07:30 Pulse Ox 95 06/23/25 07:59 O2 Del Method Room Air 06/23/25 07:59 06/22/25 06/23/25 06/23/25 22:59 06:59 14:59 Intake Total 250 / 1250 370 / 1620 120 / 120 Output Total 100 / 100 Balance 250 / 1250 270 / 1520 120 / 120 Weight last 48 hrs Weight 59.511 kg Weight 55.338 kg Physical Exam 2 Narrative: General: No acute distress, AO x3, dehydrated, HEENT: PERRLA, pupils bilaterally equal and reactive Chest: Normal vesicular breath sounds, no added sounds, equal good air entry bilaterally CVS: S1-S2 regular, no murmurs, no tachycardia, no gallops, no rubs Abdomen: Soft, nontender, no organomegaly, bowel sounds present Neuro: No focal deficits, no facial deformity, AO x3, power 5/5 in all limbs Data 06/23/25 04:13 06/23/25 04:13 Micro: Microbiology 06/23/25 11:05 Blood Culture - Preliminary Blood SPECIMEN COLLECTED 06/23/25 11:09 Blood Culture - Preliminary Blood SPECIMEN COLLECTED 06/22/25 10:02 Blood Culture - Preliminary Blood NEGATIVE TO DATE 06/22/25 10:04 Blood Culture - Preliminary Blood Staphylococcus sp coag neg 06/22/25 10:44 Bacterial Antigens - Final Urine Kidney A&P Assessment and plan 1. Generalized abdominal pain: 2. Ascites due to alcoholic cirrhosis: 3. SBP (spontaneous bacterial peritonitis): 4. Constipation, unspecified constipation type: 5. Chronic indwelling Razo catheter: 6. Chronic obstructive pulmonary disease with acute lower respiratory infection: 7. Bacteremia due to Staphylococcus: Plan: 55-year-old gentleman past medical history of laryngeal cancer, alcoholic cirrhosis with daily alcohol use presents to the ER today with abdominal pain, nausea and constipation with distention underwent paracentesis with concern for SBP. Abdominal pain: Could be in setting of SBP. Could be in setting of significant constipation. Appreciate CT abdomen pelvis. No concern for any collection. Acetic fluid studies appreciated. Cell count of 204 which is borderline with predominantly monocytes. Will have to follow-up for abdominal fluid cultures. Continue with IV ceftriaxone 1 g daily, vancomycin. MRSA swab negative. Staphylococcus bacteremia: Blood culture from admission 1 bottle positive for Staphylococcus species. Cannot rule out aureus. Repeat blood culture sent on 06/23. Will wait for complete ID and specification. If concern for aureus we will do further workup with echocardiogram and CT spine to rule out discitis and infective endocarditis. For constipation: Resolving. Continue with aggressive bowel regimen with lactulose, senna Colace and milk of mag. Zofran as needed, Protonix daily. Continue Flomax. Recent urinary retention: Continue with Razo catheter for now. Will need to follow-up with urology as an outpatient. Daily alcohol use: CIWA protocol. Banana bag. Check EKG. Patient is having episodes of tachycardia. Could be in setting of mild alcohol withdrawal. Metoprolol 12.5 mg twice daily. Albumin 1 dose. Full code Protonix for PUD prophylaxis Advance to mechanical soft diet PDMP PDMP Reviewed: Not Reviewed Attestations 2 Medical Necessity Statement*: Requires further hospitalization for management of abdominal pain with concerns for SBP, constipation, Staphylococcus bacteremia in a patient with recent diagnosis of urinary retention, chronic Razo in place, daily alcohol use Diagnoses Generalized abdominal pain R10.84 Abdominal location: generalized Ascites due to alcoholic cirrhosis K70.31 SBP (spontaneous bacterial peritonitis) K65.2 Constipation, unspecified constipation type K59.00 Constipation type: unspecified constipation type Chronic indwelling Razo catheter Z97.8 Chronic obstructive pulmonary disease with acute lower respiratory infection J44.0 COPD type: COPD with acute lower respiratory infection Bacteremia due to Staphylococcus R78.81; B95.8
[2025-06-23] MEDS: folic acid 1 MG, multivitamin inj 10 ML, thiamine 100 MG in sodium chloride 0.9% 1,000 ML 252.8 MG IV (11:38)
[2025-06-23] MEDS: multivitamin therapeutic Tablet 1 TAB PO (11:39)
--- NOTE | 2025-06-23 13:26 | ECG_ITS ---
[facility]23 Pat Name: Donny Waller Department: Room: 251 Gender: Male [employer] Supervisor: : [id number] Requested By: Mohan Garber Order Number: [id number] Reading MD: KAITLYNN POWELL Measurements Intervals [place] Rate: 107 P: 72 CA: 142 QRS: 66 QRSD: 88 T: 62 QT: 354 QTc: 473 Interpretive Statements SINUS TACHYCARDIA ABNORMAL RHYTHM ECG Compared to ECG 07/12/2024 21:03:07 Sinus rhythm no longer present Electronically Signed On 06-26-2025 20:05:31 CDT by KAITLYNN POWELL [email or web address]
[2025-06-23] MEDS: cefTRIAXone 1,000 mg SDV 1000 MG IVP (14:48)
[2025-06-23] MEDS: albumin 12.5 GM/250 ML VIAL IV (14:59)
[2025-06-23] MEDS: pantoprazole 40 mg SDV IVP (17:22)
[2025-06-23] MEDS: ondansetron 2 mg/ML SDV 2 mL 4 MG IVP (18:38)
[2025-06-24 04:00] VITALS: BP 108/62; PULSE 89; RESP 13; TEMP 36.8; O2SAT 96
[2025-06-24 04:27] LABS: Hematocrit 28.0 % (37-53); Hemoglobin 9.90 g/dL (11.27-16.99); Mean Corpuscular HGB Conc 35.4 g/dL (30-55); Mean Corpuscular Hemoglobin 34.7 pg (27-33); Mean Corpuscular Volume 98.2 fl (82-101); Nucleated Red Blood Cells % 0 %; Platelet Count 120 10^3/cmm (157-399); Red Blood Count 2.85 10^6/uL (3.85-5.65); White Blood Count 9.00 10^3/uL (3.29-11.43)
[2025-06-24 04:39] LABS: Alanine Aminotransferase 46 U/L (0-41); Albumin Level 2.5 g/dL (3.5-5.2); Alkaline Phosphatase 71 U/L (40-130); Anion Gap 11.2 (5-19); Aspartate Amino Transferase 131 U/L (0-40); Blood Urea Nitrogen 12 mg/dL (6-20); Calcium 8.1 mg/dL (8.5-10.5); Carbon Dioxide 19 mmol/L (22-29); Chloride 107 mmol/L (98-107); Creatinine Clr Calc Pharmacy 231.8636; Globulin 3.0 g/dL (1.3-4.6); Glucose 98 mg/dL (65-115); Magnesium 2.1 mg/dL (1.7-2.3); Osmolality Calculated 278 mOsm/kg (285-295); Potassium 3.2 mmol/L (3.5-5.1); Sodium 134 mmol/L (136-145); Total Protein 5.5 g/dL (6.6-8.7)
[2025-06-24] MEDS: heparin 5,000 unit/mL INJ 1 mL 5000 UNIT SUBCUT ×2 (05:23→17:37)
[2025-06-24] MEDS: lactulose oral liq 20 gm/30 mL UDC 30 GM PO (05:24)
[2025-06-24 08:09] VITALS: BP 115/67; PULSE 99; RESP 17; TEMP 36.6; O2SAT 95
[2025-06-24] MEDS: multivitamin therapeutic Tablet 1 TAB PO (09:23)
[2025-06-24 09:58] VITALS: PULSE 97; RESP 18; O2SAT 95
[2025-06-24] MEDS: potassium phosphate (mMol PO4) 30 MMOL in sodium chloride 0.9% (100 ml) 100 ML 25 MMOL IV (10:40)
[2025-06-24 11:40] VITALS: BP 100/62; PULSE 72; RESP 18; TEMP 36.8; O2SAT 96
[2025-06-24] MEDS: cefTRIAXone 1,000 mg SDV 1000 MG IVP (12:01)
--- NOTE | 2025-06-24 12:35 | P.PN_ITS ---
Subjective 2 Subjective: No acute events overnight. Patient having multiple soft small bowel movements. Has remained hemodynamically stable and afebrile. No Ativan needed in last 24 hours for alcohol withdrawal. Denies any nausea, vomiting, headache. Vitals/I&O/Wt Last Vital Signs Temp 98.2 F 06/24/25 11:40 Pulse 72 06/24/25 11:40 Resp 18 06/24/25 11:40 BP 100/62 06/24/25 11:40 Pulse Ox 96 06/24/25 11:40 O2 Del Method Room Air 06/24/25 11:40 06/23/25 06/24/25 06/24/25 22:59 06:59 14:59 Intake Total 1931.2 / 2541.2 370 / 2911.2 360 / 360 Output Total 250 / 250 100 / 350 Balance 1681.2 / 2291.2 270 / 2561.2 360 / 360 Weight last 48 hrs Weight 62.051 kg Weight 59.511 kg Physical Exam 2 Narrative: General: No acute distress, AO x3, dehydrated, HEENT: PERRLA, pupils bilaterally equal and reactive Chest: Normal vesicular breath sounds, no added sounds, equal good air entry bilaterally CVS: S1-S2 regular, no murmurs, no tachycardia, no gallops, no rubs Abdomen: Soft, nontender, no organomegaly, bowel sounds present Neuro: No focal deficits, no facial deformity, AO x3, power 5/5 in all limbs Data 06/24/25 02:48 06/24/25 02:48 Micro: Microbiology 06/22/25 10:44 Urine Culture - Final Urine,Clean Catch 06/23/25 11:05 Blood Culture - Preliminary Blood NEGATIVE TO DATE 06/23/25 11:09 Blood Culture - Preliminary Blood NEGATIVE TO DATE 06/22/25 12:37 Gram Stain - Final Peritoneal Fluid Anaerobic Culture - Preliminary Body Fluid Culture - Preliminary 06/22/25 10:02 Blood Culture - Preliminary Blood NEGATIVE TO DATE 06/22/25 10:04 Blood Culture - Preliminary Blood Staphylococcus sp coag neg 06/22/25 10:44 Bacterial Antigens - Final Urine Kidney A&P Assessment and plan 1. Generalized abdominal pain: 2. Ascites due to alcoholic cirrhosis: 3. SBP (spontaneous bacterial peritonitis): 4. Constipation, unspecified constipation type: 5. Chronic indwelling Razo catheter: 6. Chronic obstructive pulmonary disease with acute lower respiratory infection: 7. Bacteremia due to Staphylococcus: Plan: 55-year-old gentleman past medical history of laryngeal cancer, alcoholic cirrhosis with daily alcohol use presents to the ER today with abdominal pain, nausea and constipation with distention underwent paracentesis with concern for SBP. Abdominal pain: Could be in setting of SBP. Could be in setting of significant constipation. Appreciate CT abdomen pelvis. No concern for any collection. Acetic fluid studies appreciated. Cell count of 204 which is borderline with predominantly monocytes. Will have to follow-up for abdominal fluid cultures. Continue with IV ceftriaxone 1 g daily, vancomycin. MRSA swab negative. Staphylococcus bacteremia: Blood culture from admission 1 bottle positive for Staphylococcus species. Cannot rule out aureus. Repeat blood culture sent on 06/23. Will wait for complete ID and specification. If concern for aureus we will do further workup with echocardiogram and CT spine to rule out discitis and infective endocarditis. For constipation: Resolving. Continue with aggressive bowel regimen with lactulose, senna Colace and milk of mag. Zofran as needed, Protonix daily. Continue Flomax. Recent urinary retention: Continue with Razo catheter for now. Will need to follow-up with urology as an outpatient. Daily alcohol use: CIWA protocol. Banana bag. Full code Protonix for PUD prophylaxis Advance to mechanical soft diet Plan for the day: Follow-up peritoneal fluid culture. Follow-up blood culture. Blood culture from admission positive for coag negative staph. Most likely contaminant. Repeat blood culture sent on 06/23. Continue IV ceftriaxone for now. Continue with metoprolol 12.5 mg twice daily. Advance diet to mechanical soft. Continue with aggressive bowel regimen. Replace potassium and phosphate with 30 mmol one-time. Recheck in AM. PDMP PDMP Reviewed: Not Reviewed Attestations 2 Medical Necessity Statement*: Requires further hospitalization for management of abdominal pain with concerns for SBP, constipation, Staphylococcus bacteremia in a patient with recent diagnosis of urinary retention, chronic Razo in place, daily alcohol use Diagnoses Generalized abdominal pain R10.84 Abdominal location: generalized Ascites due to alcoholic cirrhosis K70.31 SBP (spontaneous bacterial peritonitis) K65.2 Constipation, unspecified constipation type K59.00 Constipation type: unspecified constipation type Chronic indwelling Razo catheter Z97.8 Chronic obstructive pulmonary disease with acute lower respiratory infection J44.0 COPD type: COPD with acute lower respiratory infection Bacteremia due to Staphylococcus R78.81; B95.8
[2025-06-24 15:57] VITALS: BP 97/58; PULSE 83; RESP 18; TEMP 36.9; O2SAT 96
[2025-06-24] MEDS: lactulose oral liq 20 gm/30 mL UDC 10 GM PO (17:36)
[2025-06-24] MEDS: pantoprazole 40 mg SDV IVP (17:36)
[2025-06-24 19:24] VITALS: BP 96/49; PULSE 100; RESP 15; TEMP 36.9; O2SAT 96
[2025-06-25] VITALS: BP 123/69; PULSE 92; RESP 15; TEMP 36.6; O2SAT 96
[2025-06-25 04:00] VITALS: BP 108/64; PULSE 95; RESP 17; TEMP 36.8; O2SAT 97
[2025-06-25] MEDS: heparin 5,000 unit/mL INJ 1 mL 5000 UNIT SUBCUT (04:55)
[2025-06-25 05:22] LABS: Hematocrit 32.4 % (37-53); Hemoglobin 10.80 g/dL (11.27-16.99); Mean Corpuscular HGB Conc 33.3 g/dL (30-55); Mean Corpuscular Hemoglobin 34.3 pg (27-33); Mean Corpuscular Volume 102.9 fl (82-101); Nucleated Red Blood Cells % 0 %; Platelet Count 128 10^3/cmm (157-399); Red Blood Count 3.15 10^6/uL (3.85-5.65); White Blood Count 10.99 10^3/uL (3.29-11.43)
[2025-06-25 05:50] LABS: Alanine Aminotransferase 55 U/L (0-41); Albumin Level 2.5 g/dL (3.5-5.2); Alkaline Phosphatase 75 U/L (40-130); Anion Gap 13.0 (5-19); Aspartate Amino Transferase 149 U/L (0-40); Blood Urea Nitrogen 9 mg/dL (6-20); Calcium 8.6 mg/dL (8.5-10.5); Carbon Dioxide 18 mmol/L (22-29); Chloride 105 mmol/L (98-107); Creatinine Clr Calc Pharmacy 144.3056; Globulin 3.3 g/dL (1.3-4.6); Glucose 114 mg/dL (65-115); Magnesium 2.1 mg/dL (1.7-2.3); Osmolality Calculated 274 mOsm/kg (285-295); Potassium 4.0 mmol/L (3.5-5.1); Sodium 132 mmol/L (136-145); Total Protein 5.8 g/dL (6.6-8.7)
[2025-06-25 07:46] VITALS: BP 108/61; PULSE 103; RESP 17; TEMP 36.6; O2SAT 95
[2025-06-25 08:26] VITALS: PULSE 93; RESP 16; O2SAT 96
[2025-06-25] MEDS: lactulose oral liq 20 gm/30 mL UDC 10 GM PO (09:02)
[2025-06-25] MEDS: multivitamin therapeutic Tablet 1 TAB PO (09:03)
--- NOTE | 2025-06-25 09:56 | PC.NURSE ---
Lab called to say pt had a critical vanc trough of 43.5. This nurse informed her that pt has vanc currently running. Pharmacy will re-time vanc trough for 1700.
[2025-06-25 11:21] VITALS: BP 102/65; PULSE 78; RESP 16; TEMP 37; O2SAT 96
[2025-06-25] MEDS: cefTRIAXone 1,000 mg SDV 1000 MG IVP (11:55)
--- NOTE | 2025-06-25 12:55 | PM.DCS ---
Discharge Providers Date of Admission: 06/22/25 13:47 Date of Discharge: June 25, 2025 Attending Provider at Admission: Mohan Garber MD Attending Provider at Discharge: Tony Centeno MD Primary Care Provider: Aurora Sandy MD Diagnoses at Discharge Discharge Diagnosis 1. Generalized abdominal pain: 2. Ascites due to alcoholic cirrhosis: 3. SBP (spontaneous bacterial peritonitis): 4. Constipation, unspecified constipation type: 5. Chronic indwelling Razo catheter: 6. Chronic obstructive pulmonary disease with acute lower respiratory infection: 7. Bacteremia due to Staphylococcus: Reason for Visit Reason for Visit: N/V More ABD Pain Hospital Course Hospital Course This is a 55-year-old male with a past medical history of alcoholic liver cirrhosis, urine retention with Razo catheter, laryngeal cancer, COPD, who presents [facility] for abdominal pain Patient was admitted to [facility] for abdominal pain, concerns for SBP, managed with IV antibiotics ascitic fluid cell count 204 borderline, culture so far no growth, blood cultures so far no growth SBP is felt to be unlikely, remained afebrile, no current abdominal pain Concerns for Staph aureus bacteremia, 1 blood culture positive for staph species, blood cultures Staphylococcus hominis, likely contamination as repeat blood cultures negative, nonetheless discharged on Zyvox - 1 out of 4 blood cultures was positive for staph species, this could be a contamination, urine culture results will be available tomorrow, I will let you go home, if the culture results come back positive I will call you back to the hospital for consideration of IV antibiotics, however to be on the safe side I meant to discharge on oral antibiotics - Please follow-up with [facility] - For urinary retention please follow-up with urology - If any recurrent abdominal pain go to the emergency room Physical Exam Const: COMMON NORMALS: no acute distress and patient oriented x3 Resp: COMMON NORMALS: normal respiratory effort, No retractions, No use of accessory muscles and clear to auscultation bilaterally AUSCULTATION: clear to auscultation bilaterally Cardio: COMMON NORMALS: regular rate, regular rhythm, S1 normal heart sound present and S2 normal heart sound present RATE: regular rate RHYTHM: regular rhythm HEART SOUNDS: S1 normal heart sound present and S2 normal heart sound present GI: COMMON NORMALS: Normal to inspection, nondistended, normoactive bowel sounds present and non-tender Extremity: COMMON NORMALS: no pedal edema Neuro: COMMON NORMALS: patient oriented x3 Psych: COMMON NORMALS: mental status grossly normal Discharge Data Studies Completed and Pending Completed Studies During Hospitalization Category Date Time Status CT abdomen pelvis w con* [id number] Urgent Cat Scan 06/22/25 09:57 Completed XR chest 1V portable [id number] Stat Exams 06/22/25 10:44 [place] w [id number] Stat Ultrasound 06/22/25 10:43 Completed Pending at discharge Category Date Time Status Amylase, Peritoneal Fluid Routine Lab 06/22/25 12:37 Received Anaerobic Culture Routine Lab 06/22/25 12:37 Results Blood Culture Stat Lab 06/22/25 10:02 Results Blood Culture Stat Lab 06/23/25 11:05 Results Body Fluid Culture & GS Routine Lab 06/22/25 12:37 Results Mycobacteria, Culture w/Fluor Routine Lab 06/22/25 12:37 Received Vancomycin Trough Timed Lab 06/25/25 17:00 Ordered Cytology [PTH] Routine Pth 06/22/25 16:24 Received Radiology Impressions Abdomen/Pelvis CT 06/22/25 09:57 IMPRESSION: 1. Small increase in volume of ascites since 06/18/2025. Small to moderate amount of ascites. 2. Cirrhotic configuration of the liver. 3. Variable attenuation in the liver from hepatic congestion. 4. No GI tract obstruction. 5. Mesenteric and subcutaneous edema. Paracentesis Ultrasound 06/22/25 10:43 IMPRESSION: Uncomplicated ultrasound-guided paracentesis. Removal of 1500 cc Chest X-Ray 06/22/25 10:44 IMPRESSION: Stable chest without acute abnormality. Laboratory Results WBC 10.99 10^3/uL (3.29-11.43) 06/25/25 04:52 RBC 3.15 10^6/uL (3.85-5.65) L 06/25/25 04:52 Hgb 10.80 g/dL (11.27-16.99) L 06/25/25 04:52 Hct 32.4 % (37-53) L 06/25/25 04:52 MCV 102.9 fl (82-101) H 06/25/25 04:52 MCH 34.3 pg (27-33) H 06/25/25 04:52 MCHC 33.3 g/dL (30-55) D 06/25/25 04:52 RDW 15.3 % (12.1-15.1) H 06/25/25 04:52 Plt Count 128 10^3/cmm (157-399) L 06/25/25 04:52 MPV 9.5 fL (7.4-10.4) 06/25/25 04:52 Neut % (Auto) 45.1 % 06/25/25 04:52 Lymph % (Auto) 41.2 % 06/25/25 04:52 Buchanan % (Auto) 10.0 % 06/25/25 04:52 Eos % (Auto) 1.9 % 06/25/25 04:52 Baso % (Auto) 1.3 % 06/25/25 04:52 Neut # (Auto) 4.96 10^3/uL (1.8-7.7) 06/25/25 04:52 Lymph # (Auto) 4.5 10^3/uL (0.8-4.8) 06/25/25 04:52 Buchanan # (Auto) 1.1 10^3/uL (0.2-0.9) H 06/25/25 04:52 Eos # (Auto) 0.2 10^3/uL (0.0-0.8) 06/25/25 04:52 Baso # (Auto) 0.1 10^3/uL (0.0-0.1) 06/25/25 04:52 Nucleated RBC % (auto) 0 % 06/25/25 04:52 Nucleated RBCs # 0.0 /100WBC 06/25/25 04:52 Differential Comment No 06/22/25 12:37 Differential Comment Yes 06/22/25 12:37 PT 17.40 SECONDS (12.1-14.9) H 06/22/25 10:04 INR 1.34 (0.8-1.2) H 06/22/25 10:04 APTT 38.3 SECONDS (23.9-36.7) H 06/22/25 10:04 Sodium 132 mmol/L (136-145) L 06/25/25 04:52 Potassium 4.0 mmol/L (3.5-5.1) 06/25/25 04:52 Chloride 105 mmol/L (98-107) 06/25/25 04:52 Carbon Dioxide 18 mmol/L (22-29) L 06/25/25 04:52 Anion Gap 13.0 (5-19) 06/25/25 04:52 BUN 9 mg/dL (6-20) 06/25/25 04:52 Creatinine 0.5 mg/dL (0.7-1.2) L 06/25/25 04:52 GFR Calculation 171.4 mL/min (90-130) H 06/25/25 04:52 Glucose 114 mg/dL (65-115) 06/25/25 04:52 Estimat Average Glucose 85 06/22/25 10:04 Hemoglobin A1c 4.6 % (4.0-6.0) 06/22/25 10:04 Calculated Osmolality 274 mOsm/kg (285-295) L 06/25/25 04:52 Lactic Acid 2.7 mmol/L (0.5-2.2) H 06/22/25 10:04 Lactic Acid (Sepsis) 2.4 mmol/L (0.5-2.2) H 06/22/25 12:47 Calcium 8.6 mg/dL (8.5-10.5) 06/25/25 04:52 Phosphorus 2.5 mg/dL (2.5-4.5) 06/25/25 04:52 Magnesium 2.1 mg/dL (1.7-2.3) 06/25/25 04:52 Iron 108 ug/dL (59-158) 06/22/25 10:04 TIBC 124.73768 mcg/dl 06/22/25 10:04 % Saturation 86.0 % (20-50) H 06/22/25 10:04 Unsat Iron Binding < 17 ug/dL (112-347) L 06/22/25 10:04 Total Bilirubin 1.9 mg/dL (0.15-1.2) H 06/25/25 04:52 GGT 127 U/L (8-61) H 06/22/25 10:04 AST 149 U/L (0-40) H 06/25/25 04:52 ALT 55 U/L (0-41) H 06/25/25 04:52 Alkaline Phosphatase 75 U/L (40-130) 06/25/25 04:52 Ammonia 66 umol/L (16-60) H 06/22/25 18:22 Lactate Dehydrogenase 164 U/L (135-225) 06/22/25 10:04 Total Protein 5.8 g/dL (6.6-8.7) L 06/25/25 04:52 Albumin 2.5 g/dL (3.5-5.2) L 06/25/25 04:52 Globulin 3.3 g/dL (1.3-4.6) 06/25/25 04:52 Triglycerides 53 mg/dL (0-150) 06/23/25 04:13 Cholesterol 66 mg/dL (0-200) 06/23/25 04:13 LDL Cholesterol, Calc 43 mg/dL (50-129) L 06/23/25 04:13 HDL Cholesterol 12 mg/dL (60-100) L 06/23/25 04:13 LDL/HDL Ratio 3.58 RATIO (0.00-3.22) H 06/23/25 04:13 Cholesterol/HDL Ratio 5.50 mg/dL (1.0-5.00) H 06/23/25 04:13 Lipase 55 U/L (13-60) 06/22/25 10:04 Vitamin B12 1253 pg/mL (232-1245) H 06/22/25 10:04 Folate 2.3 ng/mL (4.5-32.2) L 06/23/25 04:13 Procalcitonin 0.12 ng/mL (0-0.5) 06/23/25 04:13 TSH 21.14 uIU/mL (0.27-4.20) H 06/22/25 10:04 Free T4 1.10 ng/dL (0.82-1.77) 06/23/25 04:13 Free T3 1.8 PG/ML (2.0-4.4) L 06/23/25 04:13 Urine Color Yellow (Yellow) 06/22/25 10:44 Urine Appearance Clear (CLEAR) 06/22/25 10:44 Urine pH 6.5 (5-7) 06/22/25 10:44 Ur Specific Olpe >= 1.099 (1.005-1.030) H 06/22/25 10:44 Urine Protein Trace (Negative) A 06/22/25 10:44 Urine Glucose (UA) Negative (Normal) 06/22/25 10:44 Urine Ketones Negative (Negative) 06/22/25 10:44 Urine Blood 2+ (Negative) A 06/22/25 10:44 Urine Nitrate Negative (Negative) 06/22/25 10:44 Urine Bilirubin Negative (Negative) 06/22/25 10:44 Urine Urobilinogen 2.0 mg/dL (Negative) H 06/22/25 10:44 Ur Leukocyte Esterase Negative (Negative) 06/22/25 10:44 Urine RBC 15-25 /hpf (0-2) H 06/22/25 10:44 Urine WBC Rare /hpf (0-5) 06/22/25 10:44 Ur Squamous Epith Cells None /hpf (0-5) 06/22/25 10:44 Amorphous Sediment Not Reportable 06/22/25 10:44 Urine Bacteria Trace /hpf (NONE) 06/22/25 10:44 Fluid Color Pale yellow 06/22/25 12:37 Fluid Color TNP 06/22/25 12:37 Fluid Appearance Cloudy 06/22/25 12:37 Fluid Appearance TNP 06/22/25 12:37 Fluid Specific Grav 1.011 06/22/25 12:37 Fluid pH 8.0 06/22/25 12:37 Fluid WBC 204 /uL 06/22/25 12:37 Fluid WBC TNP 06/22/25 12:37 Fluid RBC 0 10^3/uL 06/22/25 12:37 Fluid RBC TNP 06/22/25 12:37 Fld Polynuclear WBCs # 0.022 06/22/25 12:37 Fld Polynuclear WBCs # TNP 06/22/25 12:37 Fld Polynuclear WBCs % 10.800 % 06/22/25 12:37 Fld Polynuclear WBCs % TNP 06/22/25 12:37 Fl Mononucl WBCs #(Auto) 0.182 06/22/25 12:37 Fl Mononucl WBCs #(Auto) TNP 06/22/25 12:37 Fl Mononuclear % Auto 89.200 % 06/22/25 12:37 Fl Mononuclear % Auto TNP 06/22/25 12:37 Fld Crystal Laterality Left lower 06/22/25 12:37 Fld Crystal Laterality Left lower 06/22/25 12:37 Fluid Glucose 137.0 mg/dL 06/22/25 12:37 Fluid Total Protein 0.8 g/dL 06/22/25 12:37 Fluid Albumin 0.5 g/dL 06/22/25 12:37 Fluid LDH 33 U/L 06/22/25 12:37 Fluid Alk Phosphatase 9 IU/L 06/22/25 12:37 Fluid Cholesterol 9 mg/dL (0-200) 06/22/25 12:37 Fluid Triglycerides 30 mg/dL (0-150) 06/22/25 12:37 Fluid Uric Acid 4 mg/dL 06/22/25 12:37 Nasal MRSA (PCR) Not detected (Negative) 06/22/25 21:35 Vancomycin Trough Cancelled 06/25/25 09:17 Ethyl Alcohol 18 mg/dL (0-10) H 06/22/25 10:04 Vitals Last Vital Signs Temp 98.6 F 06/25/25 11:21 Pulse 78 06/25/25 11:21 Resp 16 06/25/25 11:21 BP 102/65 06/25/25 11:21 Pulse Ox 96 06/25/25 11:21 O2 Del Method Room Air 06/25/25 11:21 Discharge Plan Discharge Patient Disposition: Home Condition: Stable Prescriptions: New levothyroxine 25 mcg Tablet 25 mcg PO QAM 30 Days Qty: 30 0RF docusate sodium 100 mg Capsule 100 mg PO BID 30 Days Qty: 60 0RF folic acid 1 mg Tablet 1 mg PO DAILY 30 Days Qty: 30 0RF metoprolol tartrate 25 mg Tablet 12.5 mg PO BID@0900,2100 30 Days Qty: 30 0RF thiamine mononitrate (vit B1) [Vitamin B-1 (mononitrate)] 100 mg Tablet 100 mg PO DAILY 30 Days Qty: 30 0RF multivitamin with folic acid [Thera] 400 mcg Tablet 1 tab PO DAILY 30 Days Qty: 30 0RF linezolid [Zyvox] 600 mg tablet 600 mg PO BID 10 Days Qty: 20 0RF Continued tramadol 50 mg tablet 50 mg PO Q8H PRN (Reason: pain) Qty: 60 1RF sildenafil 50 mg tablet See Rx Instructions .ROUTE .COMPLEX Qty: 20 0RF Dose Instruction: TAKE 1 TABLET BY MOUTH DAILY NEEDED FOR SEXUAL ACTIVITY ADMINISTER 30 MINUTES TO 4 HOURS BEFORE ACTIVITY Rx Instructions: TAKE 1 TABLET BY MOUTH DAILY NEEDED FOR SEXUAL ACTIVITY ADMINISTER 30 MINUTES TO 4 HOURS BEFORE ACTIVITY tamsulosin [Flomax] 0.4 mg capsule 0.4 mg PO DAILY Qty: 30 0RF Discontinued sulfamethoxazole-trimethoprim [Bactrim DS] 800-160 mg tablet 1 tab PO Q12H 10 Days Qty: 20 0RF Discharge Order = DC NOW: Discharge Order (Routine); Ordered 06/25/25 Ordered By: Tony Centeno Referrals: Pop Duarte MD [Referring, Internal Medicine] - 2 weeks Referral Note: liver cithosis, We have notified your physician's clinic of the need for a follow-up appointment to be scheduled. If you have not heard from them within the next 2 business days, please call them directly. Cisco Kaye MD [Referring, Urology] - 1 week Referral Note: urinary retention, We have notified your physician's clinic of the need for a follow-up appointment to be scheduled. If you have not heard from them within the next 2 business days, please call them directly. Aurora Sandy MD [Primary Care Provider, Family Practice] - 07/26/25 2:15 pm Discharge Diet: Regular Discharge Activity: Resume usual activity Patient Instructions: Ciprofloxacin (By mouth), Metoprolol (By mouth), Levothyroxine (By mouth), Thiamine (By mouth), Folic Acid (By mouth), Laxative, Stool Softeners (By mouth) (Doculax, Colace, Colace Clear, DSS), Linezolid (By mouth), Bacteremia (DC), Peritonitis (DC), Opioid Safety, Patient Portal & Khris Instructions Activity Restrictions/Additional Instructions: - 1 out of 4 blood cultures was positive for staph species, this could be a contamination, urine culture results will be available tomorrow, I will let you go home, if the culture results come back positive I will call you back to the hospital for consideration of IV antibiotics, however to be on the safe side I meant to discharge on oral antibiotics - Please follow-up with [facility] - For urinary retention please follow-up with urology - If any recurrent abdominal pain go to the emergency room Discharge Attestations Time Spent in Discharge Care*: greater than 30 min Quality Metrics Clinical Quality Measures [ No reported AMI, CVA or VTE this stay] Coding Level of Care Code 28178 Total time (in minutes) for Discharge: 45 Diagnoses Generalized abdominal pain R10.84 Abdominal location: generalized Ascites due to alcoholic cirrhosis K70.31 SBP (spontaneous bacterial peritonitis) K65.2 Constipation, unspecified constipation type K59.00 Constipation type: unspecified constipation type Chronic indwelling Razo catheter Z97.8 Chronic obstructive pulmonary disease with acute lower respiratory infection J44.0 COPD type: COPD with acute lower respiratory infection Bacteremia due to Staphylococcus R78.81; B95.8
[2025-07-01 06:09] LABS: Amylase, Peritoneal Fluid <10 U/L
== END 2025-06-25 14:07 | disposition home or self-care (01) | DRG 433 ==
LOC: ER 13:29 → ER IP 13:48 → MEDSURG 16:41
PROVIDERS: Admitting Provider Student in an Organized Health Care Education/Training Program; Emergency Provider Physician Assistant; PCP Family Medicine; Visit Provider Family Medicine
DX: K70.31 Alcoholic cirrhosis of liver with ascites (principal); E87.1 Hypo-osmolality and hyponatremia; E87.20 Acidosis, unspecified; F10.10 Alcohol abuse, uncomplicated; Y90.0 Blood alcohol level of less than 20 mg/100 ml; K59.00 Constipation, unspecified; J44.9 Chronic obstructive pulmonary disease, unspecified; R33.9 Retention of urine, unspecified; Z96.0 Presence of urogenital implants; F17.210 Nicotine dependence, cigarettes, uncomplicated; K70.0 Alcoholic fatty liver; Z79.891 Long term (current) use of opiate analgesic; Z85.21 Personal history of malignant neoplasm of larynx; Z92.3 Personal history of irradiation
CPT/HCPCS: 36415; 49083; 71045; 74177; 80053; 80061; 80202; 80307; 80503; 81001; 82042; 82140; 82150; 82465; 82607; 82746; 82945; 82977; 83036; 83540; 83550; 83605; 83615; 83690; 83735; 83986; 84075; 84100; 84145; 84157; 84315; 84439; 84443; 84478; 84481; 84560; 85025; 85610; 85730; 86403; 87015; 87040; 87070; 87075; 87077; 87086; 87116; 87150; 87186; 87205; 87206; 87801; 88112; 88305; 89050; 93005; 94664; 96361; 96372; 96374; 99285; J0696; J1644; J2405; J2470; J3373; J3411; J3490; J7030; J7050; J9999; P9045

== ENCOUNTER 2025-06-30 11:29 | Inpatient (IN) | payer MEDICAID, SELFPAY ==
[2025-06-30] VITALS (16 sets, daily range): BP systolic 108–147; BP diastolic 67–82; PULSE 64–85; RESP 16–23; TEMP 36.8–37.2; O2SAT 94–100; BMI 20.7
--- OUTSIDE RECORDS SUMMARY | 2025-06-30 11:35 | XMS_ITS | Encounter Summary ---
Author Organization [facility] Address [address] [place] [address] Care Team Providers Care Business Process Analyst Name Role Phone Catalina Aden MD Primary Care Provider [phone] Encounter Details Date Type Department Care Team (Late Contact Info) Description 06/26/2025 Abstract [facility] [address] [place] [address] Provider, Abstract NO ADDRESS ON FILE Social History Tobacco Use Types Packs/Day Years Used Date Smoking Tobacco: Every Day Cigarettes Smokeless Tobacco: Former Quit: 05/29/2021 Alcohol Use Standard Drinks/Week Comments Yes 0 (1 standard drink = 0.6 oz pur e alcohol) daily Sex and Gender Information Value Date Recorded Sex Assigned at Not on file 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 Gender Identity Not on file Sexual Orientation Not on file documented as of this encounter Plan of Treatment Upcoming Encounters Date Type Department Care Team (Late Contact Info) Description 07/03/2025 9:30 AM CDT Office Visit [address] [place] [address] Crow Medrano NP [facility] [address] [facility] [address] [place] [address] documented as of this encounter Visit Diagnoses Not on filedocumented in this encounter Care Teams Business Process Analyst Relationship Specialty Start Date End Date Catalina Aden MD [address] [facility] [place] [facility] [address] [place] [address] PCP - General Family Practice 12/18/21 documented as of this encounter
--- OUTSIDE RECORDS SUMMARY | 2025-06-30 11:35 | XMS_ITS ---
Author Organization [facility] Address [address] 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
--- OUTSIDE RECORDS SUMMARY | 2025-06-30 11:35 | XMS_ITS | Clinical Summary ---
Author Organization [facility] Address [address] 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 [id number] 12/15/2021 Supraglottic lesion (left laryngeal surface of [...] Encounters Date Type Department Care Team Description 06/26/2025 Abstract [facility] [place] [address] [place] [phone] Provider, Abstract 06/22/2025 Abstract [place] [address] [place] [address] Provider, Abstract from Last 3 Months Immunizations [...] on file 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 Gender Identity Not on file Sexual Orientation [...] 05/29/2023 4:33 PM CDT Plan of Treatment Upcoming Encounters Date Type Department Care Team (Late st Contact Info) Description 07/03/2025 9:30 AM CDT Office Visit [facility] [place] [address] [facility] [address] [place] [address] Crow Medrano NP [address] [place] [phone] Health Maintenance Due Date Last Done Comments [...] Tdap) 01/19/2023 INFLUENZA VACCINE (#1) 2025 Insurance [facility] [id number] Advance Directives For more information, please contact: [phone] * Full Code (Latest Code Status on File) Date Activated Date Inactivated Comments 08/20/2022 9:26 AM 08/20/2022 2:01 PM * Full Code Date Activated Date Inactivated Comments 12/12/2021 7:29 AM 12/12/2021 12:48 PM Care Teams Optical Manufacturing Technician Relationship Specialty Start Date End Date Catalina Aden MD [address] [phone] PCP - General Family Practice 12/18/21
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
[2025-06-30 13:30] LABS: Hematocrit 38.5 % (37-53); Hemoglobin 13.10 g/dL (11.27-16.99); Mean Corpuscular HGB Conc 34.0 g/dL (30-55); Mean Corpuscular Hemoglobin 33.7 pg (27-33); Mean Corpuscular Volume 99.0 fl (82-101); Nucleated Red Blood Cells % 0 %; Platelet Count 181 10^3/cmm (157-399); Red Blood Count 3.89 10^6/uL (3.85-5.65); White Blood Count 13.83 10^3/uL (3.29-11.43)
[2025-06-30 13:49] LABS: Alanine Aminotransferase 65 U/L (0-41); Albumin Level 3.1 g/dL (3.5-5.2); Alkaline Phosphatase 93 U/L (40-130); Anion Gap 18.1 (5-19); Aspartate Amino Transferase 146 U/L (0-40); Blood Urea Nitrogen 26 mg/dL (6-20); Calcium 9.5 mg/dL (8.5-10.5); Carbon Dioxide 18 mmol/L (22-29); Chloride 99 mmol/L (98-107); Globulin 4.1 g/dL (1.3-4.6); Glucose 123 mg/dL (65-115); INR 1.40 (0.8-1.2); Osmolality Calculated 276 mOsm/kg (285-295); Potassium 5.1 mmol/L (3.5-5.1); Prothrombin Time 18.10 SECONDS (12.1-14.9); Sodium 130 mmol/L (136-145); Total Protein 7.2 g/dL (6.6-8.7)
[2025-06-30 13:52] LABS: Ammonia 39 umol/L (16-60)
[2025-06-30 13:53] LABS: Creatinine Clr Calc Pharmacy 17.6108
--- NOTE | 2025-06-30 14:18 | CTR_ITS ---
PROCEDURE INFORMATION: Exam: CT Abdomen And Pelvis Without Contrast Exam date and time: 06/30/2025 3:04 PM Age: 55 years old Clinical indication: Abdominal pain; Generalized; Additional info: Flank pain TECHNIQUE: Imaging protocol: Computed tomography of the abdomen and pelvis without contrast. Radiation optimization: All CT scans at this facility use at least one of these dose optimization techniques: automated exposure control; mA and/or kV adjustment per patient size (includes targeted exams where dose is matched to clinical indication); or iterative reconstruction. COMPARISON: CT abdomen pelvis w con* [id number] 06/22/2025 10:11 AM RADIATION DOSE METRICS: Total DLP (mGy-cm): 428.38 FINDINGS: Lungs: Linear opacities within left lower lobe favor atelectasis, however developing infiltrate not excluded. Pleural spaces: Small left and trace right pleural effusion. Liver: Cirrhotic liver morphology. Gallbladder and biliary ducts: Normal. No calcified stones. No ductal dilation. Pancreas: Normal. No ductal dilation. Spleen: Normal. No splenomegaly. Adrenal glands: Normal. No mass. Kidneys and ureters: Normal. No hydronephrosis. Stomach and bowel: No small bowel obstruction. Appendix: No evidence of appendicitis. Intraperitoneal space: Moderate abdominopelvic ascites. Scattered areas of bowel wall thickening, presumably due to ascites. Vasculature: Aortic atherosclerosis. Lymph nodes: Unremarkable. No enlarged lymph nodes. Urinary bladder: Urinary bladder contains Razo catheter. Reproductive: Unremarkable as visualized. Bones/joints: No acute fracture. Moderate degenerative changes within visualized spine. Soft tissues: Unremarkable. CT/CT kidney stone [id number] IMPRESSION: 1. Cirrhotic liver morphology. 2. Moderate ascites. 3. Aortic and coronary artery atherosclerosis.
[2025-06-30 14:44] LABS: Glucose Urine UA Negative (Normal); Nitrate Urine Positive (Negative); Specific Gravity, Urine 1.017 (1.005-1.030)
[2025-06-30 14:51] LABS: UA Manual Slide Review YES
[2025-06-30 14:52] LABS: Add Urine Microscopic? YES
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
[2025-06-30 19:34] LABS: Lactic Sepsis W/Reflex 1.8 mmol/L (0.5-2.2)
[2025-06-30] MEDS: cefTRIAXone 1,000 mg SDV 1000 MG IVP (20:34)
[2025-06-30 21:04] LABS: Lactic Sepsis W/Reflex 1.5 mmol/L (0.5-2.2)
[2025-07-01] VITALS (7 sets, daily range): BP systolic 101–118; BP diastolic 56–74; PULSE 66–78; RESP 16–18; TEMP 36.4–37.1; O2SAT 93–98
[2025-07-01 06:06] LABS: Hematocrit 34.5 % (37-53); Hemoglobin 11.70 g/dL (11.27-16.99); Mean Corpuscular HGB Conc 33.9 g/dL (30-55); Mean Corpuscular Hemoglobin 33.5 pg (27-33); Mean Corpuscular Volume 98.9 fl (82-101); Nucleated Red Blood Cells % 0 %; Platelet Count 158 10^3/cmm (157-399); Red Blood Count 3.49 10^6/uL (3.85-5.65); White Blood Count 12.51 10^3/uL (3.29-11.43)
[2025-07-01 06:30] LABS: Alanine Aminotransferase 54 U/L (0-41); Albumin Level 2.6 g/dL (3.5-5.2); Alkaline Phosphatase 75 U/L (40-130); Anion Gap 16.6 (5-19); Aspartate Amino Transferase 117 U/L (0-40); Blood Urea Nitrogen 28 mg/dL (6-20); Calcium 8.4 mg/dL (8.5-10.5); Carbon Dioxide 16 mmol/L (22-29); Chloride 106 mmol/L (98-107); Globulin 3.5 g/dL (1.3-4.6); Glucose 87 mg/dL (65-115); Magnesium 2.5 mg/dL (1.7-2.3); Osmolality Calculated 283 mOsm/kg (285-295); Potassium 4.6 mmol/L (3.5-5.1); Sodium 134 mmol/L (136-145); Total Protein 6.1 g/dL (6.6-8.7)
[2025-07-01 06:38] LABS: Creatinine Clr Calc Pharmacy 18.7625
[2025-07-01] MEDS: multivitamin therapeutic Tablet 1 TAB PO (09:08)
--- NOTE | 2025-07-01 11:16 | P.PN_ITS ---
Subjective 2 Subjective: Confusion somewhat improved, keeps tugging on Razo, however. Vitals/I&O/Wt Last Vital Signs Temp 98.0 F 07/01/25 10:55 Pulse 67 07/01/25 10:55 Resp 18 07/01/25 10:55 BP 118/65 07/01/25 10:55 Pulse Ox 96 07/01/25 10:55 O2 Del Method Room Air 07/01/25 10:55 06/30/25 07/01/25 07/01/25 22:59 06:59 14:59 Intake Total 1820.97 / 1820.97 947.917 / 2768.887 Output Total 400 / 400 100 / 500 Balance 1420.97 / 1420.97 847.917 / 2268.887 Weight last 48 hrs Weight 54.233 kg Weight 56.608 kg Weight 56.699 kg Physical Exam 2 Const: COMMON NORMALS: no acute distress EXAM LIMITATIONS: altered mental status ORIENTATION/CONSCIOUSNESS: not oriented to person and not oriented to place HENMT: COMMON NORMALS: normocephalic and atraumatic HEAD & SCALP: n ormocephalic and atraumatic Eye: COMMON NORMALS: Equal, round and reactive pupils present and EOMs intact bilaterally PUPIL: Yes Equal, round and reactive pupils present Neck/C-Spine: COMMON NORMALS: no JVD Lymph: LYMPHATIC: no lymphadenopathy noted and no lymphedema noted Chest: COMMONS NORMALS: normal inspection of the chest and normal palpation of entire chest wall Resp: COMMON NORMALS: normal respiratory effort, No retractions and clear to auscultation bilaterally AUSCULTATION: clear to auscultation bilaterally Cardio: COMMON NORMALS: no JVD, regular rate, regular rhythm, No gallops present (Cardio), No murmurs present (Cardio), No rub (Cardio) and Peripheral pulses 2+ throughout RATE: regular rate RHYTHM: regular rhythm P ERIPHERAL PULSES: Peripheral pulses 2+ throughout GI: OTHER: mild abdominal tenderness, ascites : OTHER: Razo in place Neuro: COMMON NORMALS: no focal motor deficits SENSORIUM/ORIENTATION: No oriented to person, No oriented to place and Yes Orientation impaired Data 07/01/25 04:29 07/01/25 04:29 Micro: Microbiology 06/30/25 19:07 Blood Culture - Preliminary Blood SPECIMEN COLLECTED 06/30/25 19:05 Blood Culture - Preliminary Blood SPECIMEN COLLECTED A&P Assessment and plan 1. UTI (urinary tract infection): 2. Alcoholic cirrhosis: 3. Generalized abdominal pain: 4. Chronic indwelling Razo catheter: 5. Ascites due to alcoholic cirrhosis: Plan: 55 year old male presenting with AMS, EtOH cirrhosis with ascites. AMS toxic metabolic encephalopathy: multifactorial 2/2 EtOH cirrhosis and UTI/infection - hold outpatient zyvox for now, can contribute to lactic acidosis - cont. BB - cont. folate, thiamine - lactic acid not elevated - ammonia not elevated currently - leukocytosis without fever - blood culture pending Etoh Cirrhosis Ascites - ongoing alcohol use - Moderate ascited on CT, however states his abdomen is the largest that it's been. - will need therapeutic paracentesis, last done about 1 week ago, reported to have been his first paracentesis - will likely be Wednesday before he can get one done, ordered for Wednesday AM. - hyperbilirubinemia with elevtated AST/ALT consistent with ETOH cirrhosis - hypoalbuminemia - no thrombocytopenia this admission - INR slightly elevated 2/2 EtOH chrrhosis, recommendations are not to attempt to lower this prior to therapeutic paracentesis DARVIN CKD II at baseline. - creatinine 3.9 on admisison, now 3.6, with azotemia, which can contribute to encephalopathy - cont. IV fluids: NS at 125 ml/hr UTI - start rocephin 1g daily - urine culture pending. Hypothyroidism - cont. levothyroxine Urinary retention - indwelling Razo placed about 1 1/2 week ago - he has appointment with urology in [place] on Wednesday - cont. flomax - blood in urine, continues to tug on Razo. Chronic hyponatremia - mild - 2/2 cirrhosis Diet: regular, NPO after midnight for Wednesday night (paracentesis generally does not require NPO, but attempting to avoid barriers to procedure) PPx: lovenox, hold evening dose prior to procedure. Disposition - inpatient for EtOH cirrhosis with confusion. - therapeutic paracentesis on Wed. - home meds continued. - follow up with outpatient urology as planned, keep Razo in. PDMP PDMP Reviewed: Not Reviewed Attestations 2 Medical Necessity Statement*: ongoing inpatient care for AMS, EtOH cirrhosis with ascites. Time Spent in Patient Care: 16 - 35 minutes (>than 50% of time sp ent in counselling and/or direct pt care on unit) . Coding Level of Care Code Acute Code for Chg Fwd Diagnoses UTI (urinary tract infection) N39.0 Alcoholic cirrhosis K70.30 Generalized abdominal pain R10.84 Abdominal location: generalized Chronic indwelling Razo catheter Z97.8 Ascites due to alcoholic cirrhosis K70.31
[2025-07-01] MEDS: cefTRIAXone 1,000 mg SDV 1000 MG IVP (20:11)
[2025-07-02] VITALS (13 sets, daily range): BP systolic 95–128; BP diastolic 60–78; PULSE 66–76; RESP 16–18; TEMP 36.3–36.6; O2SAT 94–98
--- NOTE | 2025-07-02 05:00 | US_ITS ---
WS: [id number] ULTRASOUND-GUIDED PARACENTESIS CLINICAL INFORMATION: ascites COMPARISON: None. Procedure Informed consent: The risks, benefits, and alternatives of the procedure were discussed with the patient. Verbal and written consent was obtained. Timeout: A timeout was performed to confirm the correct patient, procedure, and site. Preparation: A suitable skin site was identified. The patient was prepped and draped in usual sterile fashion. Lidocaine 1% was used for local anesthesia. Catheter: 4 Upper Sorbian One-step Yueh catheter. Side: LEFT lower quadrant. Fluid Volume: 4700 ml Color: Clear yellow DISPOSITION: Discarded safely. Complications: None. Patient disposition: Discharged from the department in stable condition. US/US paracentesis abd w [id number] IMPRESSION: Uncomplicated ultrasound-guided paracentesis. Removal of 4700 cc
[2025-07-02 05:20] LABS: Hematocrit 34.3 % (37-53); Hemoglobin 11.70 g/dL (11.27-16.99); Mean Corpuscular HGB Conc 34.1 g/dL (30-55); Mean Corpuscular Hemoglobin 33.7 pg (27-33); Mean Corpuscular Volume 98.8 fl (82-101); Nucleated Red Blood Cells % 0 %; Platelet Count 161 10^3/cmm (157-399); Red Blood Count 3.47 10^6/uL (3.85-5.65); White Blood Count 11.60 10^3/uL (3.29-11.43)
[2025-07-02 05:46] LABS: INR 1.40 (0.8-1.2); Prothrombin Time 18.10 SECONDS (12.1-14.9)
[2025-07-02 06:01] LABS: Anion Gap 14.5 (5-19); Blood Urea Nitrogen 33 mg/dL (6-20); Calcium 8.4 mg/dL (8.5-10.5); Carbon Dioxide 15 mmol/L (22-29); Chloride 107 mmol/L (98-107); Creatinine Clr Calc Pharmacy 19.0099; Glucose 99 mg/dL (65-115); Osmolality Calculated 281 mOsm/kg (285-295); Potassium 4.5 mmol/L (3.5-5.1); Sodium 132 mmol/L (136-145)
[2025-07-02] MEDS: multivitamin therapeutic Tablet 1 TAB PO (08:17)
[2025-07-02 09:04] LABS: Total Protein 6.1 g/dL (6.6-8.7)
--- NOTE | 2025-07-02 12:36 | PM.PN ---
Subjective Subjective: patient seen in the morning, doing well. having tense ascites however no signs of alcohol withdrawal or any drowsiness patient is alert and oriented on folleys catheter, clear urine Vitals/I&O/Wt Last Vital Signs Temp 97.6 F 07/02/25 11:52 Pulse 66 07/02/25 11:52 Resp 18 07/02/25 11:52 BP 117/78 07/02/25 11:52 Pulse Ox 95 07/02/25 11:52 O2 Del Method Room Air 07/02/25 03:45 07/01/25 07/02/25 07/02/25 22:59 06:59 14:59 Intake Total 1720 / 2960 970.833 / 3930.833 883.333 / 883.333 Output Total 300 / 300 Balance 1720 / 2960 670.833 / 3630.833 883.333 / 883.333 Weight last 48 hrs Weight 64.41 kg Weight 54.233 kg Weight 56.608 kg Physical Exam Narrative: General: Alert oriented x3, no asterixis, patient lying comfortably on the bed with mild distress due to abdominal distention HEENT: Breathing room normally at room air Cardio: Regular rate rhythm, normal S1-S2, no murmurs rubs gallops, JVD normal Respiratory: normal vesicular breathing, Good bilateral air entry, no wheezes no rhonchi appreciated GI: Abdomen soft, mildly tender, shifting dullness and positive fluid thrill Neuro: No gross neurological deficit, however patient feels drowsy likely secondary to mild alcoholic encephalopathy Behavior: Appropriate and cooperative Extremities: Trace bilateral pedal edema pitting in nature, good peripheral pulses palpable Skin: Unremarkable exam Data 07/02/25 04:45 07/02/25 04:45 Micro: Microbiology 06/30/25 19:07 Blood Culture - Preliminary Blood NEGATIVE TO DATE 06/30/25 19:05 Blood Culture - Preliminary Blood NEGATIVE TO DATE 06/30/25 14:07 Urine Culture - Preliminary Urine,Clean Catch A&P Assessment and plan 1. UTI (urinary tract infection): 2. Alcoholic cirrhosis: 3. Generalized abdominal pain: 4. Chronic indwelling Razo catheter: 5. Ascites due to alcoholic cirrhosis: 6. Protein calorie malnutrition: Plan: 55 year old male presenting with AMS, complaints of diffuse musculoskeletal pain, EtOH cirrhosis with ascites and having worsening renal parameters likely hepatorenal syndrome - toxic metabolic encephalopathy: multifactorial 2/2 EtOH cirrhosis and UTI/infection currently improving - cont. BB at home dose 12.5mg bid and hold in case of HR less than 60 or systolic BP <100mmhg - cont. folate, thiamine - leukocytosis without fever continue to monitor currently trending down - blood culture preliminary negative Etoh Cirrhosis Ascites -s/p paracentesis and removed ~5L of fluids - Monitor liver enzymes and fluid analysis to follow - Continue monitor hemoglobin and platelets - Monitor coagulation profile DARVIN CKD II at baseline. Currently worsening likely hepatorenal syndrome versus prerenal? - Octreotide and midodrine for with albumin challenge for 2 to 3 days and monitoring of renal functions - Monitor for any signs of azotemia -Consider transfer in a specialty hospital with GI services for further management Protein calorie malnourishment: Dietitian consult and follow the recommendations UTI - Possible UTI, ceftriaxone to continue Hypothyroidism - cont. levothyroxine Urinary retention - indwelling Razo placed about 1 1/2 week ago - he has appointment with urology in [place] on Wednesday - cont. flomax Chronic hyponatremia - Sinew to monitor - 2/2 cirrhosis Diet: Regular diet PPx: lovenox, hold evening dose prior to procedure. Disposition: Based on the patient current situation, hepatorenal syndrome and labs if improving for discharge home versus transfer to a facility with GI services PDMP PDMP Reviewed: Not Reviewed Attestations Medical Necessity Statement*: Donny [facility] [place]'s hospital stay will require greater than 2 midnights for alcoholic cirrhosis, status post paracentesis and hepatorenal syndrome Time Spent in Patient Care: Greater than 35 minutes (>than 50% of time spent in counselling and/or direct pt care on unit). Other Attestations: Patient condition has been discussed at length with the patient/family, I have independently reviewed the chart labs imaging and diagnostics and EKG. the goals of care and code status with the patient/family/NOK/legal outside energy sales representatives, and documented accordingly. The patient/family has been informed about the current condition and further plan of care. Agreed with the plan of care and understood without any language barrier. This documentation was created by [employer] statistical consultant software. Every effort was made to ensure accuracy of statistical consultant. Any obvious errors or omissions should be clarified with the author of the document. Coding Level of Care Code 66641 Diagnoses UTI (urinary tract infection) N39.0 Alcoholic cirrhosis K70.30 Generalized abdominal pain R10.84 Abdominal location: generalized Chronic indwelling Razo catheter Z97.8 Ascites due to alcoholic cirrhosis K70.31 Protein calorie malnutrition E46
--- NOTE | 2025-07-02 13:25 | PC.NURSE ---
Ultrasound here to prep for paracentesis, awaiting dr. garsia. Pt's fiance is at bedside.
--- NOTE | 2025-07-02 14:08 | PC.NURSE ---
Paracentesis completed with 4700ml off. Dr. Baca advised. May resume diet.
[2025-07-02 14:20] LABS: Cyto Order Verification No Order
[2025-07-02 14:21] LABS: Body Fluid Polynuclear #Cells 0.008; Monocytes # Body Fluid 0.133; Mononuclear #, Pertinoneal Fl 0.133 10^3/uL; Mononuclear %, Pertinoneal Fl 94.300 %; Mononuclear WBC Body Fluid % 94.300 %; Polynuclear # Cells, Perit 0.008 10^3/uL; Polynuclear % Cells,Perit 5.700 %; Polynuclear WBC Body Fluid % 5.700 %; RBC Pertioneal Fluid 0 10^3/uL; WBC Peritoneal Fluid 141 /uL
[2025-07-02 14:22] LABS: Apprearance, Body Fluid CLOUDY; Color, Body Fluid PALE YELLOW
[2025-07-02 14:23] LABS: Appearance, Peritoneal Fluid Cloudy (Clear); Color, Peritoneal Fluid Pale Yellow (Pale Yellow); Fluid Laterality PERITONEAL FLUID; PATH Referral YES; Pathology Referral Yes
[2025-07-02] MEDS: albumin 25 G/100 ML BAG 60 G IV ×2 (15:02→22:48)
[2025-07-02] MEDS: cefTRIAXone 1,000 mg SDV 1000 MG IVP (21:28)
[2025-07-02] MEDS: thiamine 100 mg/mL 2mL SDV IM (21:29)
[2025-07-02] MEDS: LORazepam 1 MG/0.5 ML injection 2 MG IM (21:34)
[2025-07-03] VITALS (8 sets, daily range): BP systolic 90–129; BP diastolic 54–71; PULSE 67–89; RESP 16–18; TEMP 36.2–36.9; O2SAT 95–98
[2025-07-03 04:48] LABS: Hematocrit 31.7 % (37-53); Hemoglobin 10.60 g/dL (11.27-16.99); Mean Corpuscular HGB Conc 33.4 g/dL (30-55); Mean Corpuscular Hemoglobin 33.5 pg (27-33); Mean Corpuscular Volume 100.3 fl (82-101); Nucleated Red Blood Cells % 0 %; Platelet Count 134 10^3/cmm (157-399); Red Blood Count 3.16 10^6/uL (3.85-5.65); White Blood Count 9.73 10^3/uL (3.29-11.43)
[2025-07-03 04:59] LABS: INR 1.75 (0.8-1.2); Prothrombin Time 21.50 SECONDS (12.1-14.9)
[2025-07-03 05:03] LABS: Alanine Aminotransferase 48 U/L (0-41); Albumin Level 3.1 g/dL (3.5-5.2); Alkaline Phosphatase 61 U/L (40-130); Anion Gap 17.1 (5-19); Aspartate Amino Transferase 98 U/L (0-40); Blood Urea Nitrogen 33 mg/dL (6-20); Calcium 8.6 mg/dL (8.5-10.5); Carbon Dioxide 16 mmol/L (22-29); Chloride 110 mmol/L (98-107); Creatinine Clr Calc Pharmacy 20.6393; Globulin 2.8 g/dL (1.3-4.6); Glucose 125 mg/dL (65-115); Osmolality Calculated 295 mOsm/kg (285-295); Potassium 5.1 mmol/L (3.5-5.1); Sodium 138 mmol/L (136-145); Total Protein 5.9 g/dL (6.6-8.7)
[2025-07-03] MEDS: albumin 25 G/100 ML BAG 60 G IV ×3 (05:19→22:53)
--- NOTE | 2025-07-03 08:24 | P.PN_ITS ---
Subjective 2 Subjective: patient seen in the morning, doing well. s/p paracentensis, no signs of SBP in the peritoneal fluid patient is alert and oriented on folleys catheter, clear urine Vitals/I&O/Wt Last Vital Signs Temp 97.5 F L 07/03/25 08:00 Pulse 67 07/03/25 08:00 Resp 18 07/03/25 08:00 BP 129/71 07/03/25 08:00 Pulse Ox 97 07/03/25 08:00 O2 Del Method Room Air 07/03/25 08:00 07/02/25 07/03/25 07/03/25 22:59 06:59 14:59 Intake Total 1400 / 2283.333 1132.5 / 3415.833 100 / 100 Output Total 250 / 4950 300 / 5250 Balance 1150 / -2666.667 832.5 / -1834.167 100 / 100 Weight last 48 hrs Weight 255.146 g Weight 64.41 kg Physical Exam 2 Narrative: General: Alert oriented x3, no asterixis, patient lying comfortably on the bed with mild distress due to abdominal distention HEENT: Breathing room normally at room air Cardio: Regular rate rhythm, normal S1-S2, no murmurs rubs gallops, JVD normal Respiratory: normal vesicular breathing, Good bilateral air entry, no wheezes no rhonchi appreciated GI: Abdomen soft, mildly tender however better than before, shifting dullness and positive fluid thrill Neuro: No gross neurological deficit, however patient feels drowsy likely secondary to mild alcoholic encephalopathy Behavior: Appropriate and cooperative Extremities: Trace bilateral pedal edema pitting in nature, good peripheral pulses palpable Skin: Unremarkable exam Data 07/03/25 04:27 07/03/25 04:27 Micro: Microbiology 07/02/25 13:45 Gram Stain - Final Ankle - Paracentesis 06/30/25 14:07 Urine Culture - Final Urine,Clean Catch A&P Assessment and plan 1. UTI (urinary tract infection): 2. Alcoholic cirrhosis: 3. Generalized abdominal pain: 4. Chronic indwelling Razo catheter: 5. Ascites due to alcoholic cirrhosis: 6. Protein calorie malnutrition: Plan: 55 year old male presenting with AMS, complaints of diffuse musculoskeletal pain, EtOH cirrhosis with ascites and having worsening renal parameters likely hepatorenal syndrome - toxic metabolic encephalopathy: multifactorial 2/2 EtOH cirrhosis and UTI/infection currently improving - cont. BB at home dose 12.5mg bid and hold in case of HR less than 60 or systolic BP <100mmhg - cont. folate, thiamine - leukocytosis without fever continue to monitor currently trending down, however continue on ceftriaxone since pt had ascites and is immunocompromised, considering empiric converage - blood culture preliminary negative - Patient lactate will likely be will stay a little risk considering the patient having liver cirrhosis and unable to clear lactate Etoh Cirrhosis Ascites -s/p paracentesis and removed ~5L of fluids, no signs of SBP on - Monitor liver enzymes and fluid analysis to follow - Continue monitor hemoglobin and platelets - Monitor coagulation profile DARVIN CKD II at baseline. Currently worsening likely hepatorenal syndrome versus prerenal? - Octreotide and midodrine for with albumin challenge for 2 to 3 days and monitoring of renal functions - Monitor for any signs of azotemia - renal USG showed ascites and possible lobular mass in the posterior urinary bladder. s.p folleys cath - hold diuresis at the moment -contacted the transfer in a specialty hospital with GI services for further management Protein calorie malnourishment: Dietitian consult and follow the recommendations UTI - Possible UTI, ceftriaxone to continue Hypothyroidism - cont. levothyroxine Urinary retention, having bladder mass on USG? - indwelling Razo placed about 1 1/2 week ago - Following with the urology at [place] - cont. flomax Chronic hyponatremia, resolved - continue to monitor - 2/2 cirrhosis Diet: Regular diet PPx: lovenox, to continue Disposition: Based on the patient current situation, hepatorenal syndrome and labs if improving for discharge home versus transfer to a facility with GI services, already spoke with the transfer center at [facility] PDMP PDMP Reviewed: Not Reviewed Attestations 2 Medical Necessity Statement*: Donny Waller's hospital stay will require greater than 2 midnights for management of hepatorenal syndrome, liver cirrhosis complicated by ascites s/p paracentesis Time Spent in Patient Care: 16 - 35 minutes (>than 50% of time sp ent in counselling and/or direct pt care on unit) . Other Attestations: Patient condition has been discussed at length with the patient/family, I have independently reviewed the chart labs imaging and diagnostics and EKG. the goals of care and code status with the patient/family/NOK/legal sales representative trainee, and documented accordingly. The patient/family has been informed about the current condition and further plan of care. Agreed with the plan of care and understood without any language barrier. This documentation was created by [employer] negative turner apprentice software. Every effort was made to ensure accuracy of negative turner apprentice. Any obvious errors or omissions should be clarified with the author of the document. Coding Level of Care Code 05172 Diagnoses UTI (urinary tract infection) N39.0 Alcoholic cirrhosis K70.30 Generalized abdominal pain R10.84 Abdominal location: generalized Chronic indwelling Razo catheter Z97.8 Ascites due to alcoholic cirrhosis K70.31 Protein calorie malnutrition E46
[2025-07-03] MEDS: multivitamin therapeutic Tablet 1 TAB PO (08:25)
--- NOTE | 2025-07-03 08:43 | USR_ITS ---
PROCEDURE INFORMATION: Exam: US Retroperitoneal, Complete, Kidneys and Bladder Exam date and time: 07/03/2025 11:59 AM Age: 55 years old Clinical indication: Condition or disease; Kidney or ureter condition; Other: Josue; Additional info: Josue on ckd? Work up TECHNIQUE: Imaging protocol: Real-time ultrasound of the retroperitoneum with image documentation. Complete exam focused on the bilateral kidneys and urinary bladder. COMPARISON: US paracentesis abd w [id number] 07/02/2025 1:18 PM FINDINGS: Limitations: Keno Writer indicates ascites and prominent bowel gas. Limited visualization. Right kidney: Right kidney measured at 9.0 x 4.6 x 5.2 cm, volume 114.02 mL. Right renal parenchyma measured at 1.4 cm thickness. Right renal parenchyma appears possibly mildly echogenic. Correlate for medical renal disease or other process. No dilated renal collecting system demonstrated of visualized portions of right kidney. Left kidney: Left kidney not well visualized/demonstrated, obscured by shadows, grossly measured at 9.0 x 4.6 x 4.7 cm, volume 101.53 mL. Left renal parenchymal thickness measured at 1.3 cm. No obvious dilated renal collecting system demonstrated of visualized portions of left kidney. Urinary bladder: Evidence of lobular mixed echogenicity, heterogeneous appearing structure measured at 3.8 x 4.7 x 6.6 cm projecting region of posterior urinary bladder near midline versus visualization of bowel within ascites, or other process. Intraperitoneal space: Evidence of extensive ascites. US/US renal BI* [id number] IMPRESSION: 1. Limited study, limited visualization. 2. Evidence of extensive ascites. 3. Correlate for medical renal disease or other process. 4. Evidence of lobular mixed echogenicity, heterogeneous appearing structure measured at 3.8 x 4.7 x 6.6 cm projecting region of posterior urinary bladder near midline versus visualization of bowel within ascites, or other process.
--- NOTE | 2025-07-03 09:57 | PC.CHAP ---
Pastoral Care Encounter/Spiritual Assessment Type of Contact [] Declined certified caregiver visit [] Patient/Family/Request visit [] Outpatient visit [] Follow-up visit [] Physician referral [] Code/Alert [x] Routine visit [] Staff referral [] Actively dying [] Patient sleeping [] Family support [] [] Out of room [] Palliative care [] [] Receiving care in room [] Pre-surgical visit [] Trauma [] Long length of stay [] ICU visit [] Other: Relational/Emotional Strength [x] Patient feels connected with others/family/visitors/staff [] Distress [] Loneliness/isolation [] Abandonment Spirituality of Patient [x] Person of Светлана [] Attends Moravian of their Светлана [x] Believes in Prayer [] Reads Bible or Voodoo materials [] There are Spiritual issues to be addressed 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 Interventions [x] Prayer [x] Active listening [x] Non-anxious presence [x] Spiritual/emotional support [] Crisis/trauma care [] Spiritual counseling [] Bereavement support [] Provided bereavement packet [] Provided Bible/devotional materials [] Provided toy/stuffed animal, coloring book to patient or family member [] Provided Communion [] Anointing/Sigel [] Salvation [x] Completed spiritual assessment [] Other: Impact on Illness or Injury [] Angry [] Fearful [] Anxious [] Often cries [] Exhaustion [] Unable to work [] Unable to attend episcopal [] Unable to walk/stand [] Unable to read [] Unable to drive [] Unable to eat/drink [] Unable to sleep [] Unable to be with family [] Patient intubated [] Other: Summary Time spent with patient 5 min
[2025-07-03 10:43] LABS: Lactate (Lactic Acid level) 1.3 mmol/L (0.5-2.2)
[2025-07-03 11:09] LABS: Potassium, Radom Urine 52 mmol/L; Urine Random Chloride 36 mmol/L
[2025-07-03 11:11] LABS: Urine Random Sodium 12 mmol/L
[2025-07-03 11:15] LABS: Creatinine Urine, Random 158 mg/dL (39-259); Microalbum Creatinine Ratio Ur 25 mg/dL (0-20)
--- NOTE | 2025-07-03 15:21 | P.TS_ITS ---
Transfer Summary Providers Date of Admission: 06/30/25 16:59 Date of Discharge/Transfer: 07/03/25 Attending Provider at Admission: Jan Garcia MD Attending Provider at Transfer: Angel Baca MD Primary Care Provider: Aurora Sandy MD Transfer Plans: Anticipated date of transfer: 07/03/25 . Diagnoses at Discharge Discharge Diagnosis 1. UTI (urinary tract infection): 2. Alcoholic cirrhosis: 3. Generalized abdominal pain: 4. Chronic indwelling Razo catheter: 5. Ascites due to alcoholic cirrhosis: 6. Protein calorie malnutrition: Reason for Visit Reason for Visit Confused pulling cath blood around area Brief History: Donny Waller is a 55 year old male with PMHx significant for EtOH cirrhosis presenting with AMS and increased ascites. He had a paracentesis done about one week ago. Family at bedside states that this is the first time he has had one done. Family also states that his abdomen is the most distended that it has been thus far in his disease process. He continues to drink alcohol, he is unable to specify how much. About 1 1/2 weeks ago he developed urinary retention and had a Razo placed which is present today and he has been pulling on it in his confused state. There were plans to see urology in [place] next week on Wednesday. Confusion has been worsening over the last 2 days and he has had decreased appetite for the past 3 days. He is admitted for further work up and treatment. Hospital Course Hospital Course The patient was admitted for therapeutic and diagnostic paracentesis. However he was found to have stage III DARVIN and was able to produce urine. He underwent paracentesis ultrasound-guided of approximately 5 L of fluid that did not show any signs of SBP. However considering his immunocompromise status and on folates the patient was kept on ceftriaxone .Urine cultures, blood cultures and paracentesis cultures were sent and did not show any growth up to date The patient underwent ultrasound of the kidneys that showed some lobular urinary bladder mass however also catheterized passing adequate amount of urine. Urine studies were done but there is no normal range. Considering patient advanced liver cirrhosis and tense ascites a diagnosis of hepatorenal syndrome was the likely cause of his stage III DARVIN. He was started on albumin and midodrine with octreotide for the response which was inadequate response. Therefore is considering his hepatorenal syndrome, class III DARVIN and need of subspecialties of GI and nephrology on board for further management the patient case were discussed with [facility] and was accepted for transfer and further management. The patient was not started on any diuresis considering his renal parameters derangement. The patient hemodynamics and stability was established before the transfer. Patient care was discussed with the and the patient and agreed for transfer and also agreed for the management of plan that has been delivered without any language barrier Physical Exam Narrative: General: Alert oriented x3, no asterixis, patient lying comfortably on the bed with mild distress due to abdominal distention HEENT: Breathing room normally at room air Cardio: Regular rate rhythm, normal S1-S2, no murmurs rubs gallops, JVD normal Respiratory: normal vesicular breathing, Good bilateral air entry, no wheezes no rhonchi appreciated GI: Abdomen soft, mildly tender however better than before, shifting dullness and positive fluid thrill Neuro: No gross neurological deficit, however patient feels drowsy likely secondary to mild alcoholic encephalopathy Behavior: Appropriate and cooperative Extremities: Trace bilateral pedal edema pitting in nature, good peripheral pulses palpable Skin: Unremarkable exam TS Data Studies Completed and Pending Pending at discharge Category Date Time Status Amylase, Peritoneal Fluid Routine Lab 07/02/25 13:45 Received Blood Culture Stat Lab 06/30/25 19:07 Results Body Fluid Culture & GS Routine Lab 07/02/25 13:45 Results CBC Auto Diff [Complete Blood Count w/Auto] AM LABS Lab 07/04/25 04:00 Ordered CMP [Comprehensive Metabolic Panel] AM LABS Lab 07/04/25 04:00 Ordered Osmolality Urine Stat Lab 07/03/25 10:42 Received Completed Studies During Hospitalization Category Date Time Status CT kidney stone [id number] Stat Cat Scan 06/30/25 14:18 Completed US kidney bilateral [US renal BI* [id number]] Routine Ultrasound 07/03/25 08:43 [place] w [id number] Routine Ultrasound 07/02/25 05:00 Completed Laboratory Last Values WBC 9.73 10^3/uL (3.29-11.43) 07/03/25 04:27 RBC 3.16 10^6/uL (3.85-5.65) L 07/03/25 04:27 Hgb 10.60 g/dL (11.27-16.99) L 07/03/25 04:27 Hct 31.7 % (37-53) L 07/03/25 04:27 MCV 100.3 fl (82-101) 07/03/25 04:27 MCH 33.5 pg (27-33) H 07/03/25 04:27 MCHC 33.4 g/dL (30-55) 07/03/25 04:27 RDW 15.3 % (12.1-15.1) H 07/03/25 04:27 Plt Count 134 10^3/cmm (157-399) L 07/03/25 04:27 MPV 9.5 fL (7.4-10.4) 07/03/25 04:27 Neut % (Auto) 48.4 % 07/03/25 04:27 Lymph % (Auto) 39.3 % 07/03/25 04:27 [place] % (Auto) 8.7 % 07/03/25 04:27 Eos % (Auto) 2.5 % 07/03/25 04:27 Baso % (Auto) 0.7 % 07/03/25 04:27 Neut # (Auto) 4.71 10^3/uL (1.8-7.7) 07/03/25 04:27 Lymph # (Auto) 3.8 10^3/uL (0.8-4.8) 07/03/25 04:27 [place] # (Auto) 0.9 10^3/uL (0.2-0.9) 07/03/25 04:27 Eos # (Auto) 0.2 10^3/uL (0.0-0.8) 07/03/25 04:27 Baso # (Auto) 0.1 10^3/uL (0.0-0.1) 07/03/25 04:27 Nucleated RBC % (auto) 0 % 07/03/25 04:27 Nucleated RBCs # 0.0 /100WBC 07/03/25 04:27 Differential Comment Yes 07/02/25 13:45 PT 21.50 SECONDS (12.1-14.9) H 07/03/25 04:27 INR 1.75 (0.8-1.2) H 07/03/25 04:27 Sodium 138 mmol/L (136-145) 07/03/25 04:27 Potassium 5.1 mmol/L (3.5-5.1) 07/03/25 04:27 Chloride 110 mmol/L (98-107) H 07/03/25 04:27 Carbon Dioxide 16 mmol/L (22-29) L 07/03/25 04:27 Anion Gap 17.1 (5-19) 07/03/25 04:27 BUN 33 mg/dL (6-20) H 07/03/25 04:27 Creatinine 3.5 mg/dL (0.7-1.2) H 07/03/25 04:27 GFR Calculation 18.1 mL/min (90-130) L 07/03/25 04:27 Glucose 125 mg/dL (65-115) H 07/03/25 04:27 Calculated Osmolality 295 mOsm/kg (285-295) 07/03/25 04:27 Lactic Acid 1.5 mmol/L (0.5-2.2) 06/30/25 20:25 Lactate 1.3 mmol/L (0.5-2.2) 07/03/25 10:20 Calcium 8.6 mg/dL (8.5-10.5) 07/03/25 04:27 Phosphorus 3.7 mg/dL (2.5-4.5) 07/01/25 04:29 Magnesium 2.5 mg/dL (1.7-2.3) H 07/01/25 04:29 Total Bilirubin 1.8 mg/dL (0.15-1.2) H 07/03/25 04:27 AST 98 U/L (0-40) H 07/03/25 04:27 ALT 48 U/L (0-41) H 07/03/25 04:27 Alkaline Phosphatase 61 U/L (40-130) 07/03/25 04:27 Ammonia 39 umol/L (16-60) 06/30/25 13:09 Lactate Dehydrogenase 230 U/L (135-225) H 07/02/25 04:45 Creatine Kinase 40 U/L (39-308) 06/30/25 13:09 Total Protein 5.9 g/dL (6.6-8.7) L 07/03/25 04:27 Albumin 3.1 g/dL (3.5-5.2) L 07/03/25 04:27 Globulin 2.8 g/dL (1.3-4.6) 07/03/25 04:27 Urine Color Red (Yellow) A 06/30/25 14:07 Urine Appearance Turbid (CLEAR) A 06/30/25 14:07 Urine pH 5.0 (5-7) 06/30/25 14:07 Ur Specific [place] 1.017 (1.005-1.030) 06/30/25 14:07 Urine Protein 3+ (Negative) A 06/30/25 14:07 Urine Glucose (UA) Negative (Normal) 06/30/25 14:07 Urine Ketones Negative (Negative) 06/30/25 14:07 Urine Blood 3+ (Negative) A 06/30/25 14:07 Urine Nitrate Positive (Negative) A 06/30/25 14:07 Urine Bilirubin 2+ (Negative) H 06/30/25 14:07 Urine Urobilinogen 0.2 mg/dL (Negative) 06/30/25 14:07 Ur Leukocyte Esterase 2+ (Negative) A 06/30/25 14:07 Urine RBC Too numerous to cnt /hpf (0-2) H 06/30/25 14:07 Urine WBC 0-4 /hpf (0-5) H 06/30/25 14:07 Ur Squamous Epith Cells 0-4 /hpf (0-5) H 06/30/25 14:07 Amorphous Sediment Not Reportable 06/30/25 14:07 Urine Bacteria 1+ /hpf (NONE) H 06/30/25 14:07 Hyaline Casts 0-4 /lpf H 06/30/25 14:07 Ur Random Microalbumin 4 ug/dL (0-20) 07/03/25 10:42 Ur Random Sodium 12 mmol/L 07/03/25 10:42 Ur Random Potassium 52 mmol/L 07/03/25 10:42 Ur Random Chloride 36 mmol/L 07/03/25 10:42 Urine Creatinine 155 mg/dL (39-259) 07/03/25 10:42 Urine Creatinine 158 mg/dL (39-259) 07/03/25 10:42 Microalb/Creat Ratio 25 mg/dL (0-20) H 07/03/25 10:42 Fluid Color Pale yellow 07/02/25 13:45 Fluid Appearance Cloudy 07/02/25 13:45 Fluid pH 6.0 07/02/25 13:45 Fluid WBC 141 /uL 07/02/25 13:45 Fluid RBC 0 10^3/uL 07/02/25 13:45 Fld Polynuclear WBCs # 0.008 07/02/25 13:45 Fld Polynuclear WBCs % 5.700 % 07/02/25 13:45 Fl Mononucl WBCs #(Auto) 0.133 07/02/25 13:45 Fl Mononuclear % Auto 94.300 % 07/02/25 13:45 Fld Crystal Laterality Peritoneal fluid 07/02/25 13:45 Fluid Glucose 98.0 mg/dL 07/02/25 13:45 Fluid Total Protein 0.9 g/dL 07/02/25 13:45 Fluid Albumin 0.6 g/dL 07/02/25 13:45 Fluid LDH 48 U/L 07/02/25 13:45 Fluid Amylase Cancelled 07/02/25 13:45 Peritoneal Color Pale yellow (Pale Yellow) 07/02/25 13:45 Peritoneal Appearance Cloudy (Clear) 07/02/25 13:45 Peritoneal WBC 141 /uL 07/02/25 13:45 Peritoneal RBC 0 10^3/uL 07/02/25 13:45 Periton Mononu # Auto 0.133 10^3/uL 07/02/25 13:45 Mononuclear WBCs % 94.300 % 07/02/25 13:45 Polynuclear WBCs % 5.700 % 07/02/25 13:45 Perit Polynuc WBCs # 0.008 10^3/uL 07/02/25 13:45 Peritoneal Diff Commnt Yes 07/02/25 13:45 Peritoneal Amylase Cancelled 07/02/25 13:45 Misc Test Reference Cancelled 07/02/25 13:45 Radiology Impressions Abdomen/Pelvis CT 06/30/25 14:18 IMPRESSION: 1. Cirrhotic liver morphology. 2. Moderate ascites. 3. Aortic and coronary artery atherosclerosis. Paracentesis Ultrasound 07/02/25 05:00 IMPRESSION: Uncomplicated ultrasound-guided paracentesis. Removal of 4700 cc Renal Ultrasound 07/03/25 08:43 IMPRESSION: 1. Limited study, limited visualization. 2. Evidence of extensive ascites. 3. Correlate for medical renal disease or other process. 4. Evidence of lobular mixed echogenicity, heterogeneous appearing structure measured at 3.8 x 4.7 x 6.6 cm projecting region of posterior urinary bladder near midline versus visualization of bowel within ascites, or other process. Recent Clincial Data Last Vital Signs Temp 97.2 F L 07/03/25 11:29 Pulse 82 07/03/25 11:29 Resp 18 07/03/25 11:29 BP 116/69 07/03/25 11:29 Pulse Ox 95 07/03/25 11:29 O2 Del Method Room Air 07/03/25 11:29 Vital Signs Temp Pulse Resp BP Pulse Ox O2 Del Method 07/03/25 11:29 97.2 F L 82 18 116/69 95 Room Air 07/03/25 08:00 97.5 F L 67 18 129/71 97 Room Air 07/03/25 04:00 97.8 F 74 16 98/64 97 Room Air Intake & Output/Weight 07/01/25 07/02/25 07/03/25 07/04/25 06:59 06:59 06:59 06:59 Intake Total 2768.887 / 2768.887 3930.833 / 3930.833 3415.833 / 3415.833 170 / 1700 Output Total 500 / 500 300 / 300 5250 / 5250 Balance 2268.887 / 2268.887 3630.833 / 3630.833 -1834.167 / -7124.199 4239 / 1700 Weight 54.233 kg 64.41 kg 255.146 g Vitals Last Vital Signs Temp 97.2 F L 07/03/25 11:29 Pulse 82 07/03/25 11:29 Resp 18 07/03/25 11:29 BP 116/69 07/03/25 11:29 Pulse Ox 95 07/03/25 11:29 O2 Del Method Room Air 07/03/25 11:29 TS Medications Medications Ceftriaxone Sodium (Ceftriaxone 1,000 Mg Sdv) 1,000 mg IVP Q24H PRAVIN; Protocol Last Admin: 07/02/25 21:28 Dose: 1,000 mg Docusate Sodium (Docusate Sodium 100 Mg Capsule) 100 mg PO BID@0500,1700 PRAVIN Last Admin: 07/03/25 04:50 Dose: 100 mg Enoxaparin Sodium (Enoxaparin 30 Mg/0.3 Ml Syringe) 30 mg SUBCUT Q24H PRAVIN Last Admin: 07/02/25 21:29 Dose: 30 mg Folic Acid (Folic Acid 1 Mg Tablet) 1 mg PO DAILY [facility] Last Admin: 07/03/25 08:25 Dose: 1 mg Folic Acid (Folic Acid 1 Mg Tablet) 1 mg PO DAILY [facility] Last Admin: 07/03/25 08:44 Dose: Not Given Sodium Chloride (Sodium Chloride 0.9%) 1,000 mls @ 125 mls/hr IV .Q8H [facility] Last Infusion: 07/03/25 14:55 Dose: 0 mls/hr Albumin Human (Albumin) 25 g in 100 mls @ 60 mls/hr IV Q8H [facility] Stop: 07/05/25 14:44 Last Infusion: 07/03/25 07:10 Dose: Infused Levothyroxine Sodium (Levothyroxine 25 Mcg Tablet) 25 mcg PO QAM [facility] Last Admin: 07/03/25 04:51 Dose: 25 mcg Lorazepam (Lorazepam 2 Mg Tablet) 2 mg PO Q4H PRN; Protocol PRN Reason: WITHDRAWAL Lorazepam (Lorazepam 1 Mg/0.5 Ml Injection) 2 mg IM Q4H PRN; Protocol PRN Reason: ALCOHOL WITHDRAWAL Last Admin: 07/02/25 21:34 Dose: 2 mg Lorazepam (Lorazepam 1 Mg/0.5 Ml Injection) 2 mg IVP PRN PRN; Protocol PRN Reason: WITHDRAWAL Metoprolol Tartrate (Metoprolol Tartrate 25 Mg Tablet) 12.5 mg PO BID@0500,1700 [facility] Last Admin: 07/03/25 04:51 Dose: 12.5 mg Midodrine (Midodrine 5 Mg Tablet) 10 mg PO TID [facility] Last Admin: 07/03/25 08:25 Dose: 10 mg Multivitamins Therapeutic (Multivitamin Therapeutic Tablet) 1 tab PO DAILY [facility] Last Admin: 07/03/25 08:25 Dose: 1 tab Multivitamins Therapeutic (Multivitamin Therapeutic Tablet) 1 tab PO DAILY [facility] Last Admin: 07/03/25 08:44 Dose: Not Given Ondansetron HCl (Ondansetron 2 Mg/Ml Sdv 2 Ml) 4 mg IVP Q6H PRN PRN Reason: NAUSEA AND VOMITING Tamsulosin HCl (Tamsulosin 0.4 Mg Capsule) 0.4 mg PO DAILY [facility] Last Admin: 07/03/25 08:25 Dose: 0.4 mg Thiamine Mononitrate (Thiamine 100 Mg Tablet) 100 mg PO DAILY [facility] Last Admin: 07/03/25 08:25 Dose: 100 mg Thiamine Mononitrate (Thiamine 100 Mg Tablet) 100 mg PO DAILY [facility] Last Admin: 07/03/25 08:44 Dose: Not Given Tramadol HCl (Tramadol 50 Mg Tablet) 50 mg PO Q8H PRN PRN Reason: PAIN Last Admin: 06/30/25 22:08 Dose: 50 mg Discontinued Medications Docusate Sodium (Docusate Sodium 100 Mg Capsule) 100 mg PO BID [facility] Last Admin: 07/02/25 08:17 Dose: 100 mg Sodium Chloride (Sodium Chloride 0.9%) 1,700.97 mls @ 1,700.97 mls/hr 30 ml/kg infuse over 1 hr (1700.97 ml) IV .Q1H ONE Stop: 06/30/25 15:17 Last Infusion: 06/30/25 19:30 Dose: Infused Sodium Chloride (Sodium Chloride 0.9%) 1,000 mls @ 150 mls/hr IV .Q6H40M [facility] Last Admin: 07/01/25 07:24 Dose: Not Given Metoprolol Tartrate (Metoprolol Tartrate 25 Mg Tablet) 12.5 mg PO BID@0900,2100 [facility] Last Admin: 07/02/25 08:17 Dose: 12.5 mg Octreotide Acetate (Octreotide 100 Mcg/Ml Sdv) 100 mcg SUBCUT Q8H ONE Stop: 07/02/25 09:01 Last Admin: 07/02/25 09:30 Dose: 100 mcg Thiamine HCl (Thiamine 100 Mg/Ml 2ml Sdv) 100 mg IM ONCE ONE Stop: 07/02/25 20:35 Last Admin: 07/02/25 21:29 Dose: 100 mg Allergies No Known Allergies Allergy (Verified 06/20/25 10:45) Home Medications sildenafil 50 mg tablet See Rx Instructions .Route .COMPLEX #20 tabs 03/15/25 [Rx Confirmed 06/30/25] tamsulosin 0.4 mg capsule (Flomax) 0.4 mg PO DAILY #30 caps 05/23/25 [Rx Confirmed 06/30/25] tramadol 50 mg tablet 50 mg PO Q8H PRN pain #60 tabs 06/20/25 [Rx Confirmed 06/30/25] docusate sodium 100 mg capsule 100 mg PO BID 30 days #60 caps 06/25/25 [Rx Confirmed 06/30/25] folic acid 1 mg tablet 1 mg PO DAILY 30 days #30 tabs 06/25/25 [Rx Confirmed 06/30/25] levothyroxine 25 mcg tablet 25 mcg PO QAM 30 days #30 tabs 06/25/25 [Rx Confirmed 06/30/25] linezolid 600 mg tablet (Zyvox) 600 mg PO BID 10 days #20 tabs 06/25/25 [Rx Confirmed 06/30/25] metoprolol tartrate 25 mg tablet 12.5 mg (1/2 x 25 mg) PO BID@0900,2100 30 days #30 tabs 06/25/25 [Rx Confirmed 06/30/25] multivitamin with folic acid 400 mcg tablet (Thera) 1 tab PO DAILY 30 days #30 tabs 06/25/25 [Rx Confirmed 06/30/25] thiamine mononitrate (vit B1) 100 mg tablet (Vitamin B-1 (mononitrate)) 100 mg PO DAILY 30 days #30 tabs 06/25/25 [Rx Confirmed 06/30/25] Discharge Plan Discharge Patient Disposition: Xfer Other Condition: Stable Prescriptions: No Action tramadol 50 mg tablet 50 mg PO Q8H PRN (Reason: pain) Qty: 60 1RF sildenafil 50 mg tablet See Rx Instructions .ROUTE .COMPLEX Qty: 20 0RF Dose Instruction: TAKE 1 TABLET BY MOUTH DAILY NEEDED FOR SEXUAL ACTIVITY ADMINISTER 30 MINUTES TO 4 HOURS BEFORE ACTIVITY Rx Instructions: TAKE 1 TABLET BY MOUTH DAILY NEEDED FOR SEXUAL ACTIVITY ADMINISTER 30 [place] NUTES TO 4 HOURS BEFORE ACTIVITY levothyroxine 25 mcg Tablet 25 mcg PO QAM 30 Days Qty: 30 0RF docusate sodium 100 mg Capsule 100 mg PO BID 30 Days Qty: 60 0RF folic acid 1 mg Tablet 1 mg PO DAILY 30 Days Qty: 30 0RF metoprolol tartrate 25 mg Tablet 12.5 mg PO BID@0900,2100 30 Days Qty: 30 0RF thiamine mononitrate (vit B1) [Vitamin B-1 (mononitrate)] 100 mg Tablet 100 mg PO DAILY 30 Days Qty: 30 0RF multivitamin with folic acid [Thera] 400 mcg Tablet 1 tab PO DAILY 30 Days Qty: 30 0RF linezolid [Zyvox] 600 mg tablet 600 mg PO BID 10 Days Qty: 20 0RF tamsulosin [Flomax] 0.4 mg capsule 0.4 mg PO DAILY Qty: 30 0RF Referrals: Aurora Sandy MD [Primary Care Provider, [facility]] Discharge Diet: Advance as tolerated Discharge Activity: Resume usual activity and Limit activity as instructed Patient Instructions: Altered Mental Status (ED) Transfer Attestations Time Spent in Transfer Care: greater than 30 min Specific Discharge Activities: educating patient, educating and/or supporting family/caregiver, discussing with pcp/other providers, discussing with case specialist/social workers/dc planners, documenting/other paperwork and evaluating patient/reviewing data Status at Transfer: Cognitive status at transfer: cognitively intact ; Behavioral status at transfer: cooperative ; Functional status at transfer: other assisted ambulation ; Overall status at transfer: patient is back to baseline Quality Metrics Clinical Quality Measures [ No reported AMI, CVA or VTE this stay] Coding Level of Care Code 72586 Diagnoses UTI (urinary tract infection) N39.0 Alcoholic cirrhosis K70.30 Generalized abdominal pain R10.84 Abdominal location: generalized Chronic indwelling Razo catheter Z97.8 Ascites due to alcoholic cirrhosis K70.31 Protein calorie malnutrition E46
[2025-07-03] MEDS: cefTRIAXone 1,000 mg SDV 1000 MG IVP (20:30)
--- NOTE | 2025-07-04 01:01 | PC.NURSE ---
EMS here to transport to [facility]. Vitals 129/69, HR-84, R-16, TEMP 97.6 RM 97%
[2025-07-05 21:05] LABS: Amylase, Peritoneal Fluid 13 U/L
== END 2025-07-04 01:04 | disposition short-term general hospital (02) | DRG 432 ==
LOC: ER 14:57 → MEDSURG 18:44
PROVIDERS: Admitting Provider Internal Medicine; Emergency Provider Family Medicine; PCP Family Medicine; Visit Provider Student in an Organized Health Care Education/Training Program
DX: K70.31 Alcoholic cirrhosis of liver with ascites (principal); G92.8 Other toxic encephalopathy; K76.7 Hepatorenal syndrome; E46 Unspecified protein-calorie malnutrition; N17.9 Acute kidney failure, unspecified; E87.1 Hypo-osmolality and hyponatremia; E87.20 Acidosis, unspecified; F10.10 Alcohol abuse, uncomplicated; Y90.9 Presence of alcohol in blood, level not specified; N32.9 Bladder disorder, unspecified; R33.9 Retention of urine, unspecified; F17.210 Nicotine dependence, cigarettes, uncomplicated; J44.9 Chronic obstructive pulmonary disease, unspecified; E03.9 Hypothyroidism, unspecified; N18.2 Chronic kidney disease, stage 2 (mild); Z96.0 Presence of urogenital implants; Z79.891 Long term (current) use of opiate analgesic; Z79.899 Other long term (current) drug therapy; Z85.21 Personal history of malignant neoplasm of larynx
CPT/HCPCS: 36415; 49083; 74176; 76770; 80048; 80053; 80503; 81001; 82042; 82044; 82140; 82150; 82436; 82550; 82570; 82945; 83605; 83615; 83735; 83935; 83986; 84100; 84133; 84155; 84157; 84300; 85025; 85610; 87040; 87070; 87075; 87086; 87205; 89050; 96372; 99285; J0696; J1650; J2060; J2354; J3411; J7030; J9999; P9046

== ENCOUNTER 2025-07-14 15:48 | Emergency (ER) | payer MEDICAID, SELFPAY ==
--- OUTSIDE RECORDS SUMMARY | 2025-07-04 02:48 | XMS_ITS | Encounter Summary ---
Author Organization [facility] Address 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 Name Role Phone Catalina Aden MD Primary Care Provider [phone] Reason for Referral * Eval and Treat (5-7 Days) - Closed Specialty Diagnoses / Procedures Referred By Contac t Referred To Contact Diagnoses Acute hepatic encephalopathy (CMS/HCC) Procedures ND OFFICE/OUTPATIENT ESTABLISHED MOD MDM 30 MIN ND OFFICE/OUTPATIENT NEW MODERATE MDM 45 MINUTES Jesusita Gutierrez MD [address] [place] [phone] Phone: tel: fax: Referral ID Status Reason Start Date Expiration Date Visits Re quested Visits Authorized [id number] Closed 07/10/2025 07/10/2026 1 1 * Eval and Treat (8-30 Days) - Open Specialty Diagnoses / Procedures Referred By Contac t Referred To Contact Diagnoses DARVIN (acute kidney injury) Procedures ND OFFICE/OUTPATIENT ESTABLISHED MOD MDM 30 MIN ND OFFICE/OUTPATIENT NEW MODERATE [place]DM [place] [address] [place] [phone] Phone: tel: fax: Referral ID Status Reason Start Date Expiration Date Visits Re quested Visits Authorized [id number] Open 07/10/2025 07/10/2026 1 1 * Eval and Treat (8-30 Days) - Open Specialty Diagnoses / Procedures Referred By Beatriz orta Referred To Contact Diagnoses Acute alcoholic intoxication with complication Alcoholic cirrhosis of liver with ascites (CMS/HCC) Chronic hepatitis C without hepatic coma (CMS/HCC) Procedures ND OFFICE/OUTPATIENT ESTABLISHED MOD MDM 30 MIN ND OFFICE/OUTPATIENT NEW MODERATE MDM 45 MINUTES Jesusita Gutierrez MD [address] [place] [phone] Phone: tel: fax: Referral ID Status Reason Start Date Expiration Date Visits Re quested Visits Authorized [id number] Open 07/10/2025 07/10/2026 1 1 Reason for Visit * Auth/Cert (Routine) Specialty Diagnoses / Procedures Referred By Beatriz orta Referred To Contact Internal Medicine Diagnoses ascites DARVIN Mino Butler MD [address] [place] [phone] Phone: tel: fax: [address] [phone] Phone: tel: fax: Referral ID Status Reason Start Date Expiration Date Visits Re quested Visits Authorized [id number] 1 1 Encounter Details Date Type Department Care Team (Latest Contact Info) Description 07/04/2025 2:48 AM CDT - 07/12/2025 2:00 PM CDT Hospital Encounter [address] [phone] Pool Arciniega MD [address] [place] [phone] Mino Butler MD [address] [place] [phone] Jesusita Gutierrez MD [address] [place] [address] Kenji Regalado MD [address] [place] [address] DARVIN (acute kidney injury) Discharge Disposition: Home or Self Care Social History Tobacco Use Types Packs/Day Years Used Date Smoking Tobacco: Every Day Cigarettes Smokeless Tobacco: Former Quit: 05/29/2021 Alcohol Use Standard Drinks/Week Comments Yes 0 (1 standard drink = 0.6 oz pur e alcohol) daily Feeling Safe Answer Date Recorded Are you in a relationship wi th someone who hurts you emotionally and/or physically? 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 Gender Identity Not on file Sexual Orientation Not on file documented as of this encounter Last Filed Vital Signs Vital Sign Reading Time Taken Comments Blood Pressure 124/76 07/12/2025 7:51 AM CDT Pulse 95 07/12/2025 7:51 AM CDT Temperature 36.8 C (98.2 F) 07/12/2025 7:51 AM CDT Respiratory Rate 18 07/12/2025 7:51 AM CDT Oxygen Saturation 96% 07/12/2025 7:51 AM CDT Inhaled Oxygen Concentration - - Weight 69.3 kg (152 lb 12.5 oz) 07/12/2025 3:30 AM CDT Height 172.7 cm (5' 8 ) 07/04/2025 3:35 AM CDT Body Mass Index 23.23 07/04/2025 3:35 AM CDT documented in this encounter Discharge Summaries * Kenji Regalado MD - 07/12/2025 10:29 AM CDT Physician Discharge Summary PATIENT: Donny Waller AGE: 55 y.o. CSN: [id number] Date of : 1970 Admit date: 07/04/2025 Discharge date: 07/12/2025 Disposition: home Discharge Condition: stable. Patient instructions: Activity: activity as tolerated. Diet: DIET SUPPLEMENT GEN ADULT TID; Complete Oral Supplement, DIET RENAL Food Texture: Soft, Follow-up with PCP in 5 day(s). Patient has been instructed to seek urgent medical care or call PCP if patient has ANY health care concerns or questions such as fever greater than 101, increasing SOB or chest pain that is not normal or increasing or any other concerns. Significant Diagnostic Studies: CT head, MRI brain, US abdomen, ECHO, EEG. Consults: nephrology. Hospital Course: Donny Waller is a 55-year-old male with a history of alcoholic liver cirrhosis,chronic obstructive pulmonary disease, squamous cell carcinoma of the larynx, anemia, thrombocytopenia, alcohol use disorder, protein-calorie malnutrition, and mood disorder, who was admitted for evaluation and management of acute kidney injury (DARVIN) in the context of altered mental status and worsening ascites. The principal diagnosis of DARVIN w as established based on laboratory findings of elevated creatinineand BUN, reduced GFR, and clinical context of cirrhosis with concern for hepatorenal syndrome. Abdominal ultrasound demonstrated extensive ascites, and CT abdomen/pelvis confirmed cirrhotic liver morphology with moderate ascites and vascular atherosclerosis. Nephrology was consulted and recommendedintravenous fluids, initially normal saline, then lactated Ringer???s, and subsequently sodium bicarbonate/potassium chloride-containing flu ids as metabolic acidosis and hypovolemia were identified as contributors to the DARVIN. Renal function improved with supportive care, and nephrology signed off as DARVIN stabilized. To address progressive ascites and abdominal distention, he underwent two large- volume paracenteses: one prior to transfer (4.7 L) and one during admission (4.9 L), both without evidence of spontaneous bacterial peritonitis (SBP) on fluid analysis and cultures. He received IV albumin post-paracentesis and intermittent IV furosemide for volume overload and lower extremity edema. Ceftriaxone was ad ministered for SBP prophylaxis. Possible catheter-associated cystitis was ruled. Razo catheter wasexchanged during admission, with outpatient urology follow-up planned for ongoing urinary retention. Acute hepatic encephalopathy was managed with lactulose, including an initial enema and ongoing oral therapy titrated to bowel movement frequency, resulting in gradual i mprovement in mental status though not returning to baseline. Cognitive evaluation by speech therapy revealed severe impairment (MoCA 930), with recommendations for 24-hour supervision and home health speech therapy. Additional issues addressed included severe protein-calorie malnutrition, for which a renal, soft diet with oral supplements was provided and nutrition consults followed. Anemia and thrombocytopenia were monitored, attributed to cirrhosis, with no active bleeding during admission. Chronic hepatitisC was confirmed by positive antibody and viral RNA load, with outpatient GI referral recommended for further management. COPD was stable, but he required inhaled bronchodilators for intermittent wheezing. Hypothyroidism was managed with increased levothyroxine dosing, and outpatient thyroid function testing was planned. Generalized weakness, balance deficits, and decreased activity tolerance wereaddressed by physical and occupational therapy, with rec ommendations for home discharge with 24-hour supervision and home health services. Throughout the admission, he remained full code. Discharge planning included home with family assistance, outpatient follow-up with PCP, GI, and urology, and continued therapy and nutritional support. Discharge Exam: BP 124/76 (BP Location: Left arm, Patient Position (BP): Supine) Pulse 95 Temp 98.2 ??F (36.8 ??C) (Oral) Resp 18 Ht 5' 8 (1.727 m) Wt 69.3 kg (152 lb 12.5 oz) SpO2 96% BMI 23.23 kg/m?? General appearance: alert, in no distress Lungs: clear to auscultation bilaterally, normal respiratory effort Heart: normal rate, regular rhythm, normal S1, S2, no murmurs, rubs, clicks or gallops Abdomen: Soft, non-tender. Bowel sounds normal. No masses, no organomegaly. 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 Signed by: Dr. Nikhil Hyde Quantity: 30 Tablet Refills: 0 lactulose 10 gram/15 mL oral solution Commonly known as: ENULOSE Take 45 mL by mouth 3 times daily. Likely to have at least 2-3 loose bowel movements per day, can hold if you already have more than 3 loose bowel movements for that day Signed by: Dr. Nikhil Hyde Quantity: 4050 mL Refills: 0 spironolactone 25 mg tablet Commonly known as: ALDACTONE Take 0.5 Tablets (12.5 mg) by mouth daily. Signed by: Dr. Nikhil Hyde Quantity: 30 Tablet Refills: 0 walker Length of Need: 99 months Ht Readings from Last 1 Encounters: 07/04/25 : 5' 8 (1.727 m) , Weight: 71 kg (156 lb 8.4 oz) (07/08/25 0500). If over 300 lbs, patient requires heavy duty. Type of walker:walker Signed by: Dr. Nikhil Hyde Quantity: 1 Each Refills: 0 CHANGE how you take these medications levothyroxine 75 mcg tablet Commonly known as: SYNTHROID What changed: medication strength how much to take Take 0.5 Tablets (37 mcg) by mouth daily in the morning. Signed by: Dr. Nikhil Hyde Quantity: 30 Tablet Refills: 0 CONTINUE taking these medications folic acid 1 mg tablet Commonly known as: FOLVITE Take 1 Tablet by mouth daily. Refills: 0 multivitamin tablet Commonly known as: DAILY-TADEO Take 1 Tablet by mouth daily. Refills: 0 tamsulosin 0.4 mg capsule Commonly known as: FLOMAX Take 1 Capsule by mouth daily. Refills: 0 thiamine 500 mg Tablet Commonly known as: VITAMIN B-1 Take 500 mg by mouth daily. Refills: 0 traMADol 50 mg tablet Commonly known as: ULTRAM Take 50 mg by mouth every 8 hours as needed for Pain. Refills: 0 STOP taking these medications docusate sodium 100 mg capsule Commonly known as: COLACE linezolid 600 mg tablet Commonly known as: ZYVOX metoprolol tartrate 25 mg tablet Commonly known as: LOPRESSOR Where to Get Your Medications These medications were sent to [facility] - [place], [place] - [address], [facility] [address] Hours: M-F [id number] Sat 8632-0202 Sun closed furosemide 40 mg tablet lactulose 10 gram/15 mL oral solution levothyroxine 75 mcg tablet spironolactone 25 mg tablet walker This discharge took greater than 30 minutes which included examining the patient, answering questions and providing instructions for follow up, prescribing medications and coordinating discharge arrangements. Signed: Kenji Regalado MD 07/12/2025, 10:29 AM CC: No primary care provider on file. documented in this encounter Discharge Instructions * Discharge Instructions* Kenji Regalado MD - 07/04/2025 11:10 AM CDT Admit date: 07/04/2025 Discharge date: 07/12/2025 Disposition: home Discharge Condition: stable. Patient instructions: Activity: activity as tolerated. Diet: DIET SUPPLEMENT GEN ADULT TID; Complete Oral Supplement, DIET RENAL Food Texture: Soft, Follow-up with PCP in 5 day(s). Follow up with specialists. Per previously scheduled appointment or according their most recent instructions. During your hospital stay you were cared for by the hospitalist service in collaboration with your primary care physician. Your primary care physician will have access to/or receive records includingan updated list of your medications upon your discharge from the hospital. As the hospitalist physician provides care while you are in the hospital, your primary care physician will assume that responsibility after you are discharged from the hospital. Please contact your primary care physician's office for a follow-up as instructed. Please contact your PCPs office regarding any questions or new problems, including medication refills or ANY health care concerns or questions such as but not limited to fever greater than 101. Increasing SOB. Chest pain that is not normal or increasing or any other health concerns. Recommend repeat TSH with reflexive 3 to 4 weeks and follow-up with PCP You also have chronic hepatitis C - and alcoholic cirrhosis - Must follow up with OP GI And need strict alcohol cessation In case of worsening confusion, abdominal distention, any bleeding, worsening dyspnea-please come back to ER immediately Follow up PCP 5 days with repeaT cbc,cmp You might need paracentesis in 1-2 weeks , pls discuss with your phsycian CONTINUE FLUID AND SALT RESTRICTION <2 G, /DAY Chemical Dependency Treatment List ? [place] [facility] of Mental Health/Call for up to date list of treatment facilities: 8:00 a.m.- 5:00 p.m. Wednesday - Wednesday. [facility] ([place]) [address] [place] [address] [facility] ([place])-Social Detox Program [address] [place] [address] [address] [address] [facility]) [address] [place] [address] Women???s admission: [phone] Men???s admission: [phone] [facility] (outpatient) [address] [place] [address] [facility] (outpatient- located at [facility]) [address] [address] [facility] [address] [facility] [place] [phone] [facility] [address] [facility] [address] [address] [facility] [address] [place] [address] [address] [address] [facility] Recovery [address] [phone] (07/06 number) [facility] - Detox Program [address] [place] [address] ? [place] [address] [place], [place] [phone] ? [facility] [address] [place] [address] ? [facility] [address], [place] [phone] ? [facility] [address] [place], [place] [phone] ? [facility] [address] [place], [place] [phone] Website: teenchallenge.net ? [facility] (Outpatient) [address] [place], [place] [phone] (Bring [place] state ID, and proof of income) ? [facility] [address] [place], [place] [phone] ? [facility] [address] [facility] [place] [address] ? [facility] [address] [place] [address] ? [place]- [facility] [address] [facility] [address] Ext: [phone] 18 day inpatient CD [place] for veterans ? [facility] [address] [place] [address] Offers 3 day detox program; Medical Detox; accepts Medicaid ? [facility] Detox [facility] [address] [place], [place] [phone] ? [facility] Call for more information: [phone] ? 58-jjls-r-day hotline for information about AA Meetings: [phone] [place] [facility] [address] [facility] [address] Wednesdays @ noon [facility] [address] [facility] [address] [address] [facility] [place] Full Handicap Accessibility, -Wednesday @ 6:30am [facility] [address] [facility] [address] [facility] In the [place] Full Handicap Accessibility, Saturdays @ 10am 10:00 AM [facility], Sundays @7pm, Mondays @ 8pm [address] [facility] [address] [facility] Detox Facilities [facility] Detox [address] [place], [place] [phone] [facility] Medical Detox [address] [place] [address] [facility] Alcohol/ Drug Detox [phone] [facility] Inpatient and Outpatient [address] [place] [address] [facility] Inpatient and Outpatient [address] [place] [address] [facility] Inpatient and Outpatient [place], [place] [phone] ? ? Resources and Services Counseling and Support Groups [facility]: [address] [place] [address]; [phone]. Free services for victims of abuse. STEPHANIE ([facility] [place] [facility]): [address] [facility]; [phone]. Free support groups and community referrals. Local Warm Line 4pm to 10pm daily [phone] or [phone]. Statewide Warm Line 9am to 9pm weekdays/1pm to 6pm weekends and holidays [phone] [facility]; [phone].? Free counseling provided by students. [facility] Crisis Team: Estela Ruiz, [phone]. For mental health emergencies and to schedule a screening for services. [facility]: [address] [facility]; [phone]. Counseling on a sliding-fee scale. [facility]/Carlos Gooden: [address] [facility]; [phone]. Individual and family counseling. [facility]: [address] [place]; [phone]. Bryant Alicea, and Melissa. [facility]: [place], [place]; [phone]. Andie Counselin [address] [place], [place]; [phone]. 1 year free counseling for any who has been actively deployed to a war zone. [facility]: [place], [place]; [phone]. [place], [place] [phone]. [facility]: [address], [place], [place]; [phone]. Takes Medicaid. [facility]: [place], [place]; [phone]. Sliding scale fees. Gene Vivienne: [address] [facility]; [phone] [facility]: [phone]. [facility]'s [facility]. [facility]: [phone]. [facility]'s [facility]. March: [place], [place]; [phone]. Individual and family counseling. [facility]: [facility]; [phone]. Housing and Shelters One [facility]: [address] [facility]; [phone] Housing Authority: [address] [place] [address]; [phone]. Low-income housing. [place] [facility]: [address]; [phone]. [facility] [place]: [address]; [phone]. [facility]: [address] [facility]; [phone]. [facility]: [phone] [facility]: [phone] [facility] Life: [phone] [facility]: [address] [facility]; [phone]. Crisis nursery. * Attachments The following attachments cannot be sent through Care Everywhere. * Furosemide (Beninese) * Spironolactone (Beninese) * Lactulose (Beninese) * Acute Kidney Injury (Beninese) documented in this encounter Medications at Time of Discharge levothyroxine 75 mcg tablet Take 0.5 Tablets (37 mcg) by mouth daily in the morning. 30 Tablet 07/10/2025 lactulose (ENULOSE) 10 gram/15 mL oral solution Take 45 mL by mouth 3 times daily. Likely to have at least 2-3 loose bowel movements per day, can hold if you already have more than 3 loose bowel movements for that day 4050 mL 07/10/2025 furosemide (Lasix) 40 mg tablet Take 1 Tablet (40 mg) by mouth daily. 30 Tablet 07/10/2025 spironolactone (ALDACTONE) 25 mg tablet Take 0.5 Tablets (12.5 mg) by mouth daily. 30 Tablet 07/10/2025 walker Length of Need: 99 months Ht Readings from Last 1 Encounters: 07/04/25 : 5' 8 (1.727 m) , Weight: 71 kg (156 lb 8.4 oz) (07/08/25 0500). If over 300 lbs, patient requires heavy duty. Type of walker:walker 1 Each 07/10/2025 folic acid (FOLVITE) 1 mg tablet Take 1 Tablet by mouth daily. 06/25/2025 tamsulosin (FLOMAX) 0.4 mg capsule Take 1 Capsule by mouth daily. 05/24/2025 traMADol (ULTRAM) 50 mg tablet Take 50 mg by mouth every 8 hours as needed for Pain. 06/20/2025 thiamine (VITAMIN B-1) 500 mg Tablet Take 500 mg by mouth daily. multivitamin (DAILY-TADEO) tablet Take 1 Tablet by mouth daily. documented as of this encounter Progress Notes * Jesusita Gutierrez MD - 07/10/2025 8:[address] cog eval-still significantly low 08/14-given on oral thiamine supplements on multiple lactulose with good bowel movements, CT head unremarkable Discussed with neurology on-call Dr. Knox-possibly agree on alcohol related encephalopathy but recommend to do MRI brain, eeg to complete encephalopathy workup Also will recheck TSH and free T4 if abnormal will discuss with endocrinology in a.m. Meanwhile we will switch to IV thiamine regiment Neurology will see as consult if any abnormal results on MRI/EEG * Jesusita Gutierrez MD - 07/10/2025 5:39 PM CDT Images from the original note were not included. Your life is our life's work [facility] Medicine Progress Note LOS: 6 days Room/Bed: [facility]/ Patient name: Donny Waller Date of : 1970 HOSPITAL COURSE SUMMARY: Donny Waller is a 55 y.o. male with PMH significant for alcoholic liver cirrhosis, COPD, history of squamous cell carcinoma larynx, anemia, thrombocytopenia, alcohol use, protein calorie malnutrition and mood disorder who initially presented to [facility] with altered mental status and wors ening ascites, paracentesis earlier today was done about a week ago, underwent paracentesis yielding about 4700 cc acetic fluid with no evidence of SBP, urine cultures, blood cultures and paracentesis cultures were sent and did not show growth till date, was being treated with Rocephin for possibleUTI due to abnormal UA, has Razo catheter in place due to urinary retention since last 2 weeks, found to have DARVIN, transferred to [facility] with concern for hepatorenal syndrome, GIand nephrology evaluation. He received octreotide, midodrine and albumin with little to no responseas well prior to transfer. Renal ultrasound showed evidence of extensive ascites, lobular mixed echogenicity 3.8x 4.7x 6.6 cm,CT abdomen/pelvis showed cirrhotic liver morphology with moderate ascites and aortic and coronary artery atherosclerosis. Vital signs stable upon presentation to ED, labs showed Hb 9.4, platelets 104. Labs at other hospital showed WBC 9.7, Hb 10.6, platelets 134, INR 1.75, sodium 138, potassium 5.1,bicarb 16, BUN 33, creatinine 3.5, GFR 18, lactic acid 1.5, LFTs mildly elevated, T. bili 1.8, CK 40. UA with nitrite positive, 2+ leukocyte esterase, 1+ bacteria, acetic fluid pale yellow with pH 6,ascitic fluid blood glucose 98, albumin 2.6, LDH 48, WBCs 141, PMNs 0.008, 5.7% Serum ammonia Upon my evaluation, he is cachectic appearing, awake, however, not very well- oriented to time or place. 07/04: Somnolent, oriented to self -not eating much per staff. Trial of lactulose enema.-RN reports large brown BM, confusion slightly improving now Continue IV ABX. Appreciate nephrology continue IVF per them. Co2- 14 -will check blood gas, TSH high, follow free T4. Need home med reconciliation- d/w staff 07/05: Alert, able to answer ox2 , but still confused. Titrate lactulose. D/w staff to obtain ascites fluid analysis/cultures, UCX from [facility]. Reports last alcohol drink 2 weeks ago. He reports he has abdominal taps before. Restart home meds per [employer], will d/w significant other Nephrology switched to LR. Call significant other per chart-unable to reach 07/06: More alert since admit, following commands but still confusion-says July at [facility] does not remember why he in the hospital. Per records from [facility]-he is having confusion from past 2 days prior to admit with decreased appetite, having ongoing drinking, Razo was placed about 2 weeks ago for urine retention, also reported no prior paracentesis. Ammonia level 39 at OSH . D.w RN and charge lpn again -to obtain culture results from OSH. Per staff multiple BMs yesterday with no bleeding. Nephrology switched to bicarb fluids. Platelets dropped 71 His abdomen is progressively getting distended again-but he does not feel most discomfort-will holdrepeat paracentesis in the setting of DARVIN unless symptomatic 07/07: Awake, mentation same. Continue IVF per nephrology. Good BMs. Staff send fax-still awaiting cultures. Called SO/sister per chart with no response, encourage OOB. Platelets 66. PT/OT ordered 07/08: DARVIN better-nephrology signed off. Wheezing on exam, new leg swelling,, progressive abdominal distention. No much urine output or 50 cc-IV Lasix x 1 ordered (d/w nephro), nebs ordered. CXR no acute findings, proBNP elevated. Encourage OOB Likely need repeat paracentesis-will discuss with nephro on any limit protocol 07/09: Repeat IV Lasix today. 1X IV albumin. Paracentesis today 4.9 L-follow cytology and cultures. D/w charge lpn- on pending cultures from OSH. Today able to say at [facility] and Cirrhosis but still sayssep- ST/PT/OT eval. Hcv RNA PCR- 5.40- reccd need for close OP GI eval both for cirrhosis/hep C. TTE stable. I called Girlfriennicole Damon- updated on clinical status. Reports he was diagnosed with liver cirrhosis 4-5 months and had his first at the beginning of his month and now is his first episode of encephalopathy, confusion improving since admit but not at baseline. Discussed her need for alcohol cessation hepatitis C treatment and need for outpatient GI follow-up 07/10: ST cog eval [facility] 08/14. Repeat fluid analysis here not suggestive of SBP, cultures NTD. Ammonia level stable, check B1 level/recheck TSH. CT head came back stable. He has good bowel movements this admit, suspected his encephalopathy secondary to alcohol related disorder. Currently ambulating well with therapy, PT/OT recommend home with 24 x 7 supervision. Foleyexchanged today with OP urology follow-up. DARVNI stable, repeat IV albumin I counseled on need for strict alcohol cessation, need for close follow-up with PCP and GI also might need repeat paracentesis sooner/high risk for readmit Consultants: IP CONSULT TO NUTRITION SERVICES IP CONSULT TO NEPHROLOGY SUBJECTIVE: Rounded with [place] Seen ambulating with therapy today Appeared to have cognitive deficits, again discussed on liver cirrhosis ROS: History obtained from the patient-Limited given patient confusion Psychological: no Depression, no Suicide ideation/thoughts Constitutional: negative for fever, chills, negative for confusion, fatigue Pulmonary: negative for dyspnea, no cough Cardiovascular: negative for chest pain, no palpitations, no orthopnea GI: Abdominal distention and discomfort Renal: no dysuria, no hematuria Musculoskeletal: no back pain, no joint pain, no calf swelling Neuro: negative for headache, no vision changes, no dizziness Skin: no skin rash, no redness OBJECTIVE: Temp (24hrs), Av.2 ??F (36.8 ??C), Min:97.8 ??F (36.6 ??C), Max:98.5 ??F (36.9 ??C) BP 119/64 (BP Location: Left arm, Patient Position (BP): Supine) Pulse 87 Temp 97.8 ??F (36.6 ??C) (Temporal) Resp 16 Ht 5' 8 (1.727 m) Wt 71 kg (156 lb 8.4 oz) SpO2 96% BMI 23.80 kg/m?? Intake/Output Summary (Last 24 hours) at 07/10/2025 1739 Last data filed at 07/10/2025 0324 Gross per 24 hour Intake -- Output 751 ml Net -751 ml Last documented weight: Weight: 71 kg (156 lb 8.4 oz) (07/08/25 0500) EXAM: General: Much alert and awake since admit, oriented X2-3, Neurologic: Grossly normal, moving all extremities of gravity HEENT: atraumatic, Normocephalic, without obvious abnormality Lungs: Bilateral wheezing on exam Heart: normal rate, regular rhythm, normal S1, S2, no murmurs, rubs, clicks or gallops Abdomen: Moderate abdominal distention-gradually getting worse since admit Extremities: + 1 bilateral lower extremity edema Skin: Scattered bruising LABORATORY: Recent Labs 07/08/25 0158 07/10/25 0341 WBC 10.8 13.4* HGB 9.3* 9.7* HCT 26.3* 27.8* PLT 75* 143 Recent Labs 07/08/25 0158 07/09/25 1140 07/10/25 0341 NA 145 138 138 K 4.1 4.5 3.9 CL 116* 109* 111* CO2 18* 17* 17* CA 8.5* 8.9 8.7 BUN 22* 28* 28* CREAT 1.45* 1.30* 1.21* GLUCOSE 103* 153* 113* Recent Labs 07/08/25 0158 07/09/25 1140 TOTALPROTEIN 5.2* 6.0* ALBUMIN 3.0* 3.0* BILITOTAL 1.9* 1.7* ALKPHOS 60 71 AST 103* 103* ALT 55* 61* Recent Labs 07/09/25 1140 INR 2.6* PT 28.9* No results for input(s): BASETROP , 2HRTROP , DELTA , 6HRTROP in the last 72 hours. Diagnostic testing reviewed by me: Medications were reviewed by me. Current Facility-Administered Medications: [COMPLETED] albumin, human 25 % injection 25 Gram, 25 Gram, IV, ONE time only, Jesusita Gutierrez MD, 25 Gram at 07/10/25 1046 albuterol sulfate 90 mcg/Actuation inhaler 1 Puff, 1 Puff, Inhalation, resp, every 6 hours PRN, Jesusita Gutierrez MD albuterol (PROVENTIL,VENTOLIN) 2.5 mg /3 mL (0.083 %) inhalation solution 2.5 mg, 2.5 mg, Inhalation, resp, 3 times daily, Jesusita Gutierrez MD, 2.5 mg at 07/10/25 1254 zinc OXIDE-cod liver oil (DESITIN) 40 % topical paste, , Topical, see admin instructions, Jesusita Gutierrez MD lactulose (ENULOSE) 10 gram/15 mL oral solution 45 mL, 45 mL, Oral, TID, Jesusita Gutierrez MD, 45 mL at 07/10/25 1725 tamsulosin (FLOMAX) SR 24 hour capsule 0.4 mg, 0.4 mg, Oral, daily AFTER supper, Jesusita Gutierrez MD, 0.4 mg at 07/10/25 1724 levothyroxine (SYNTHROID) tablet 37 mcg, 37 mcg, Oral, daily EARLY, Jesusita Gutierrez MD, 37 mcg at 07/10/25 0536 sodium chloride flush injection 10 mL, 10 mL, IV, every 12 hours (2 times daily), Mino Butler MD, 10 mL at 07/10/25 1052 sodium chloride flush injection 10 mL, 10 mL, IV, see admin instructions, Mino Butler MD sodium chloride 0.9 % flush bag 25 mL, 25 mL, IV, see admin instructions, Mino Butler MD dextrose 5 % in water 250 mL flush bag 25 mL, 25 mL, IV, see admin instructions, Mino Butler MD acetaminophen (TYLENOL) tablet 650 mg, 650 mg, Oral, every 6 hours PRN, Mino Butler MD morphine 4 mg/mL injection 2 mg, 2 mg, IV, every 4 hours PRN, Mino Butler MD naloxone (NARCAN) 0.4 mg/mL injection 0.1-0.4 mg, 0.1-0.4 mg, IV, see admin instructions, Mino Butler MD ondansetron (ZOFRAN) 4 mg/2 mL injection 4 mg, 4 mg, IV, every 6 hours PRN, Mino Butler MD, 4 mg at 07/06/252009 calcium as CARBONATE (TUMS) 500 mg (200 mg elemental) chewable tablet 400 mg, 400 mg, Oral, every 6hours PRN, Mino Butler MD cefTRIAXone (ROCEPHIN) 2,000 mg in sodium chloride 0.9% 50 mL IVPB (MBP), 2,000 mg, IV, every 24 hours (daily), Mino Butler MD, Stopped at 07/10/25 0952 Primary discharge diagnosis: DARVIN (acute kidney injury) Other active medical issues also addressed during this admission: Active Hospital Problems Diagnosis Chronic hepatitis C without hepatic coma (CMS/HCC) History of hepatitis CAb +ve Hypoproteinemia Elevated LFTs Protein-calorie malnutrition, severe DARVIN (acute kidney injury) Anemia Thrombocytopenia Alcohol use disorder Urinary retention Hyperammonemia Ascites Normocytic anemia Acute hepatic encephalopathy (CMS/HCC) 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 S/p paracentesis with 4700 mL ascitic fluid removed at OSH S/P repeat paracentesis here on 07/09-4.9 L-follow fluid results-not suggestive of SBP Continue Rocephin for SBP prophylaxis, Obtain ascitic fluid cultures, ascitic fluid lab analysis reviewed as above- still pending Currently unable to start diuretics given DARVIN Might need repeat paracentesis given worsening abdominal distention slowly BCx-NTD WBC/LFT trend Repeat IV Lasix today,1 X IV Albumin > oral diuretic regimen on discharge Outpatient GI referral for cirrhosis/chronic hepatitis C DARVIN suspected from HRS: Slow improvement Metabolic acidosis Appreciate nephrology-s/p IVF currently signed off renal ultrasound showed evidence of extensive ascites, lobular mixed echogenicity 3.8x 4.7x 6.6 cm Closely watch on diuresis, post tap Suspect fluid overload/acute CHF unspecified: Not POA Oxygen per protocol Currently s/p IVF One-time IV Lasix today Started on inhalers, nebs TTE-stable EF 55 to 60% Suspect catheter associated acute cystitis: Recent acute urine retention: Razo placed 2 weeks ago prior to admit at [facility] Finished course of IV ceftriaxone Will obtain UCX, BCx from OSH - d/w charge lpn-still pending Monitor accurate I/os Razo exchanged this admit, follow-up with outpatient urology Acute hepatic encephalopathy/suspect underlying alcohol-related encephalopathy: Slowly improving CT head-no acute findings Status post lactulose enema Titrate p.o. lactulose [address] [facility] 08/14 Follow vitamin B1 levels, continue thiamine supplements Anemia/thrombocytopenia suspect from cirrhosis: Relatively stable Monitor on labs periodically Watch for any bleeding signs Alcohol abuse: Chronic hepatitis C: Currently does not appear in active withdrawal symptoms Counseled extensively on need for alcohol cessation. HIV screen negative HIV viral RNA load positive need outpatient GI referral Generalized weakness from all above: PT/OT ordered-recommend home with 24 x 7 supervision Chronic medical problems: COPD: Stable inhalers nebs as needed MAGGIE: Need home med reconciliation Hypothyroidism: Increased home levothyroxine 25 >37 mcg per [employer]. Recheck TSH TSH high 32, but free T4 stable- recd OP TFTs in 4 weeks and follow-up with PCP BPH:resume flomax Hx of SCC OF larynx 2021: Nutrition Status: Malnutrition Nutrition Diagnosis: Severe protein-calorie malnutrition Provider Assessment/Plan: Symptoms/Signs/Physical Exam: Eating Poorly, Weakness, and Fatigue Etiology: Alcohol abuse, Inability to consume adequate nutrition, Altered mental status, Alterationin GI tract structure/function, and Physiological causes increasing nutrient needs Nutrition Treatment Plan: - Current Diet and/or Nutritional Supplementation ordered: DIET SUPPLEMENT GEN ADULT TID; Complete Oral Supplement, DIET RENAL Food Texture: Soft, - Daily weights Impact of Malnutrition on patient condition and outcomes: Increased risk of infection, Delayed recovery, Increased muscle weakness and fall risk, Decreased activity tolerance and reduced mobility , Respiratory deterioration, and Increased readmission risk DVT prophylaxis: DVT Pharmacologic Prophylaxis: Patient has a contraindication for pharmacologic prophylaxis. Please refer to the orders for additional details. Code status: Full Code Outpatient follow up: PCP, GI Anticipated Disposition Location: Per PT/OT-Home with / supervision Timeframe: 07/10/2025 Criteria: Stable labs/stable mentation, transport issues Patient's understanding of illness: Fair Primary family contact: Significant other Morenita per [phone] MDM complexity: [] Mild [x] Moderate [] High More than 35 minutes spent in pateint care including at least 50% time spent face to face encounter, labs, radiological images, chart review, discussing with family and staff and consultants on the case. Jesusita Hyde MD 07/10/2025, 5:39 PM * Delvin Peraza RN - 07/10/2025 3:59 PM CDT Minoo Xavier updated that d/t transportation delays and need for CT scan, pt will discharge tomorrow morning. Family and pt agreeable to plan. * Delvin Peraza RN - 07/10/2025 1:18 PM CDT Left msg for [employer] requesting DME walker per OT recommendation. 1322: Family updated nursing staff that patient already has walker at home. Cancelled request from [employer]. * Jenna Saldaña RN - 07/10/2025 1:17 PM CDT Spoke to Minoo Xavier, patients significant other, who states that she is ready for patient to come home now or at anytime. Minoo Xavier confirms that someone will be at their home to help care for patient 07/06. * Belkys Santillan, Occupational Therapist - 07/10/2025 12:20 PM CDT [facility] - Therapy Services 3K Ph. Acute Occupational Therapy Evaluation 07/10/2025 Room: [address] [place] [address] Name: Donny Waller Age: 55 y.o. Patient Class: Inpatient Date of : 1970 Insurance: Payor: [facility] MEDICAID / Plan: [facility] [id number] / Product Type: HMO / Prior to OT session thorough chart review completed, including prior OT notes as applicable. Consent to evaluate provided by patient and nurse Date of admission: 07/04/2025 SUBJECTIVE Occupational Profile Information provided by: patient Prior Level of Function ADLs: Pt's significant other assist with lower body dressing, bathing, and sometimes stephanie-care for toileting. IADLs: unknown due to patient cognition; no family present Functional mobility: modified independent with intermittent use of cane Falls: Denies Home Information Employment/daily routine: Self-care ADLs Self-care assist available at home: Lives with his /girlfriend who works 4 days per week, nightshift only. Pt states that he just sleeps while she is at work and she is home to provide supervision during the day. Home environment: 1-level home 4-5 step(s) to enter Walk-in shower Tub/shower Durable medical equipment already in home: Canes: single point cane Grab bar next to toilet Additional Information Patient/family statement/goal(s): To return home today Comments: Patient supine in bed upon OTR arrival, agreeable to therapy evaluation. Pt cooperative throughout OT session. Pain: Refer to flowsheet for documentation of pain and interventions. OBJECTIVE Cognition Level of alertness: alert and flat Orientation: assessment deferred due to pt frustration with repeatedly being asked orientation questions by nursing and staff Command following: good Safety awareness: fair; limited by slow processing, decreased problem solving, decreased insight into deficits, and decreased attention Memory: impaired STM, impaired LTM, and pt with 9/30 MoCA score with MEDICAL TECH cognitive assessment Vision: not assessed UE Function Right-hand dominant UE Assessment Right Left ROM Active: WFL Active: impaired shoulder flexion at baseline due to history of significant arm andwrist injuries Strength Generalized weakness present; ~3/5 Generalized weakness present; ~3/5 Muscle Tone Normal; frail Normal; frail Coordination Normal Normal Sensation Normal Baseline numbness and tingling Edema None noted None noted Occupational Performance Activities of Daily Living Feeding: supervision for setup Grooming: supervision standing at sink for hand hygiene Upper extremity dressing: supervision to don/doff gown seated EOB Lower extremity dressing: maximal assistance to adjust socks seated EOB - pt's significant other does this for him at baseline Toileting: supervision on toilet, in standing for clothing management to pull brief down and back up, no LOB Toilet transfer: supervision sit < > stand from toilet with use of grab bar All tasks not tested with anticipated assist levels are based on observed tasks and movement patterns. Functional Mobility All mobility completed with gait belt, non-skid socks, and walker Bed mobility: minimal assistance supine > sit EOB with assist for trunk righting; supervision for sit to supine and to boost to HOB using long sit Sit to stand: supervision from EOB Functional ambulation: supervision x 10+10 feet with 2WWR Sitting balance: supervision for static tasks and dynamic tasks at EOB Standing balance: supervision for static tasks and dynamic tasks with 2WWR Patient required verbal, visual, and tactile cues for attention to task and problem solving. [facility] Daily Activity How much help from another person does the patient currently need? Score 1. Putting on and taking off regular lower body clothing? 2 - A lot (max to mod assist) 2. Bathing (including washing, rinsing, drying)? 3 - A little (supervision to min assist) 3. Toileting, which includes using toilet, bedpan or urinal? 3 - A little (supervision to min assist) 4. Putting on and taking off regular upper body clothing? 3 - A little (supervision to min assist) 5. Taking care of personal grooming such as brushing teeth? 3 - A little (supervision to min assist) 6. Eating meals? 3 - A little (supervision to min assist) Total score 17/24 0-19 indicates likely facility discharge 19-24 indicates likely community discharge *Scores determined based on patient report, observation or professional expertise* Vitals Current O2 requirement: room air Vital signs stable throughout. On continuous monitoring throughout session. Pt denies any orthostatic symptoms throughout OT evaluation. Precautions Patient precautions: fall Patient bracing: none Weight bearing: no restrictions ASSESSMENT & PLAN Evaluation Details Donny Waller is a 55 y.o. male referred for OT following admission for AMS and ascites, found to have liver cirrhosis and Hep C. Additional pertinent diagnoses and past medical history related to this hospital stay are present in physician H&P and physician daily notes. OT evaluation: Moderate complexity Assessment Patient is currently functioning below his prior level of function. Patient presents with acute functional deficits including: Functional balance Safety awareness Decreased functional strength Decreased endurance Cognitive deficits Medical complexity These deficits impact patient ability to complete: Functional mobility Bathing Toileting Dressing Personal hygiene/grooming Patient would benefit from continued skilled OT services in order to increase occupational performance through modification and remediation approaches such as ADL training, balance training, endurance training, strength training, functional transfer training, home safety education, patient education, caregiver education, and functional cognition training Plan During acute hospitalization, recommend medium frequency treatment (3-5 times/week). Current plan of care to continue until goals met or patient discharges from facility Anticipate ongoing OT treatment sessions with specific focus on functional transfers and mobility, ADL training, activity tolerance, safety awareness. Recommendations Based on OT assessment of patient's ability to complete self care tasks, AM-PAC Daily Activity Score, functional cognition and safety awareness, potential for improvement, available home support, participation in therapeutic intervention, and tolerance for activity, anticipated discharge disposition, once medically ready: Home with supervision;Home with assistance;Home with Home Health OT (07/10/25 1220). Rationale: Patient needs home environment assessment, DME recommendations, and modifications to improve functional performance for ADLs and IADLs within their typical environment. Assistance recommended for household I/ADLs, driving, medication management. * The final discharge location is determined through physician, case management, and patient/caregiver input along with insurance authorization of skilled services when appropriate. Plan of care and discharge recommendations shared with patient, hospice home care coordinator, and PT OT recommended DME and AE upon discharge: (2-wheeled walker) (07/10/25 1220) No new additional adaptive equipment necessary (07/10/25 1220) Education provided to patient regarding OT recommendations and plan of care, safety awareness, fallprevention. Education response: verbalized understanding and would benefit from reinforcement Nursing Staff Mobility Recommendations Recommended daily activity during admission: toileting in bathroom, up with supervision, up to chair for meals, and up with 2WWR Disposition At start of session, patient found lying in bed At end of session, patient left in bed, call light in reach, phone in reach, bed alarm activated, patient instructed not to get up without staff assistance, and staff notified of patient location/events of session Further treatment notes and therapeutic goals can be found in Care Plan Notes. If the patient discharges from facility before another therapy visit, this shall serve as therapy discharge summary. Thank you for this referral, Belkys Santillan, Occupational Therapist * Jesusita Gutierrez MD - 07/09/2025 3:20 PM CDT Images from the original note were not included. Your life is our life's work [facility] Hospitalist/Hospital Medicine Progress Note LOS: 5 days Room/Bed: 422/ Patient name: Donny Waller Date of : 1970 HOSPITAL COURSE SUMMARY: Donny Waller is a 55 y.o. male with PMH significant for alcoholic liver cirrhosis, COPD, history of squamous cell carcinoma larynx, anemia, thrombocytopenia, alcohol use, protein calorie malnutrition and mood disorder who initially presented to [facility] with altered mental status and wors ening ascites, paracentesis earlier today was done about a week ago, underwent paracentesis yielding about 4700 cc acetic fluid with no evidence of SBP, urine cultures, blood cultures and paracentesis cultures were sent and did not show growth till date, was being treated with Rocephin for possibleUTI due to abnormal UA, has Razo catheter in place due to urinary retention since last 2 weeks, found to have DARVIN, transferred to [facility] with concern for hepatorenal syndrome, GIand nephrology evaluation. He received octreotide, midodrine and albumin with little to no responseas well prior to transfer. Renal ultrasound showed evidence of extensive ascites, lobular mixed echogenicity 3.8x 4.7x 6.6 cm,CT abdomen/pelvis showed cirrhotic liver morphology with moderate ascites and aortic and coronary artery atherosclerosis. Vital signs stable upon presentation to ED, labs showed Hb 9.4, platelets 104. Labs at other hospital showed WBC 9.7, Hb 10.6, platelets 134, INR 1.75, sodium 138, potassium 5.1,bicarb 16, BUN 33, creatinine 3.5, GFR 18, lactic acid 1.5, LFTs mildly elevated, T. bili 1.8, CK 40. UA with nitrite positive, 2+ leukocyte esterase, 1+ bacteria, acetic fluid pale yellow with pH 6,ascitic fluid blood glucose 98, albumin 2.6, LDH 48, WBCs 141, PMNs 0.008, 5.7% Serum ammonia was elevated. Upon my evaluation, he is cachectic appearing, awake, however, not very well- oriented to time or place. 07/04: Somnolent, oriented to self -not eating much per staff. Trial of lactulose enema.-RN reports large brown BM, confusion slightly improving now Continue IV ABX. Appreciate nephrology continue IVF per them. Co2- 14 -will check blood gas, TSH high, follow free T4. Need home med reconciliation- d/w staff 07/05: Alert, able to answer ox2 , but still confused. Titrate lactulose. D/w staff to obtain ascites fluid analysis/cultures, UCX from [facility]. Reports last alcohol drink 2 weeks ago. He reports he has abdominal taps before. Restart home meds per [employer], will d/w significant other Nephrology switched to LR. Call significant other per chart-unable to reach 07/06: More alert since admit, following commands but still confusion-says July at [facility] does not remember why he in the hospital. Per records from [facility]-he is having confusion from past 2 days prior to admit with decreased appetite, having ongoing drinking, Razo was placed about 2 weeks ago for urine retention, also reported no prior paracentesis. Ammonia level 39 at OSH . D.w RN and charge lpn again -to obtain culture results from OSH. Per staff multiple BMs yesterday with no bleeding. Nephrology switched to bicarb fluids. Platelets dropped 71 His abdomen is progressively getting distended again-but he does not feel most discomfort-will holdrepeat paracentesis in the setting of DARVIN unless symptomatic 07/07: Awake, mentation same. Continue IVF per nephrology. Good BMs. Staff send fax-still awaiting cultures. Called SO/sister per chart with no response, encourage OOB. Platelets 66. PT/OT ordered 07/08: DARVIN better-nephrology signed off. Wheezing on exam, new leg swelling,, progressive abdominal distention. No much urine output or 50 cc-IV Lasix x 1 ordered (d/w nephro), nebs ordered. CXR no acute findings, proBNP elevated. Encourage OOB Likely need repeat paracentesis-will discuss with nephro on any limit protocol 07/09: Repeat IV Lasix today. 1X IV albumin. Paracentesis today 4.9 L-follow cytology and cultures. D/w charge lpn- on pending cultures from OSH. Today able to say at [facility] and Cirrhosis but still sayssep- ST/PT/OT eval. Hcv RNA PCR- 5.40- reccd need for close OP GI eval both for cirrhosis/hep C. TTE stable. I called Girlfriend Nelson- updated on clinical status. Reports he was diagnosed with liver cirrhosis 4-5 months and had his first at the beginning of his month and now is his first episode of encephalopathy, confusion improving since admit but not at baseline. Discussed her need for alcohol cessation hepatitis C treatment and need for outpatient GI follow-up Consultants: IP CONSULT TO NUTRITION SERVICES IP CONSULT TO NEPHROLOGY SUBJECTIVE: Rounded with ABRIL Weber No family at bedside Awake, still has underlying confusion He feels abdominal distention and discomfort gradually getting worse ROS: History obtained from the patient-Limited given patient confusion Psychological: no Depression, no Suicide ideation/thoughts Constitutional: negative for fever, chills, negative for confusion, fatigue Pulmonary: negative for dyspnea, no cough Cardiovascular: negative for chest pain, no palpitations, no orthopnea GI: Abdominal distention and discomfort Renal: no dysuria, no hematuria Musculoskeletal: no back pain, no joint pain, no calf swelling Neuro: negative for headache, no vision changes, no dizziness Skin: no skin rash, no redness OBJECTIVE: Temp (24hrs), Av.3 ??F (36.8 ??C), Min:98.3 ??F (36.8 ??C), Max:98.3 ??F (36.8 ??C) BP (!) 142/78 (BP Location: Right arm, Patient Position (BP): Supine) Pulse 92 Temp 98.3 ??F (36.8 ??C) (Temporal) Resp 16 Ht 5' 8 (1.727 m) Wt 71 kg (156 lb 8.4 oz) SpO2 95% BMI 23.80kg/m?? Intake/Output Summary (Last 24 hours) at 07/09/2025 1520 Last data filed at 07/09/2025 1034 Gross per 24 hour Intake 360 ml Output 652 ml Net -292 ml Last documented weight: Weight: 71 kg (156 lb 8.4 oz) (07/08/25 0500) EXAM: General: Much alert and awake since admit, oriented X2-3, Neurologic: Grossly normal, moving all extremities of gravity HEENT: atraumatic, Normocephalic, without obvious abnormality Lungs: Bilateral wheezing on exam Heart: normal rate, regular rhythm, normal S1, S2, no murmurs, rubs, clicks or gallops Abdomen: Moderate abdominal distention-gradually getting worse since admit Extremities: + 1 bilateral lower extremity edema Skin: Scattered bruising LABORATORY: Recent Labs 07/07/25 03507/08/25157 WBC 12.2* 10.8 HGB 9.1* 9.3* HCT 26.1* 26.3* PLT 66* 75* Recent Labs 07/07/25 03507/08/25 0158 07/09/25 1140 NA 145 145 138 K 3.5 4.1 4.5 CL 118* 116* 109* CO2 16* 18* 17* CA 8.9 8.5* 8.9 BUN 25* 22* 28* CREAT 1.73* 1.45* 1.30* GLUCOSE 118* 103* 153* Recent Labs 07/07/25 0359 07/08/25 0158 07/09/25 1140 TOTALPROTEIN 5.4* 5.2* 6.0* ALBUMIN 3.1* 3.0* 3.0* BILITOTAL 1.9* 1.9* 1.7* ALKPHOS 69 60 71 AST 103* 103* 103* ALT 55* 55* 61* Recent Labs 07/09/25 1140 INR 2.6* PT 28.9* No results for input(s): BASETROP , 2HRTROP , DELTA , 6HRTROP in the last 72 hours. Diagnostic testing reviewed by me: Medications were reviewed by me. Current Facility-Administered Medications: [COMPLETED] furosemide (LASIX) injection 40 mg, 40 mg, IV, ONE time only, Jesusita Gutierrez MD,40 mg at 07/09/25 1131 albuterol sulfate 90 mcg/Actuation inhaler 1 Puff, 1 Puff, Inhalation, resp, every 6 hours PRN, Jesusita Gutierrez MD albuterol (PROVENTIL,VENTOLIN) 2.5 mg /3 mL (0.083 %) inhalation solution 2.5 mg, 2.5 mg, Inhalation, resp, 3 times daily, Jesusita Gutierrez MD, 2.5 mg at 07/09/25 0936 [DISCONTINUED] albuterol (PROVENTIL,VENTOLIN) 2.5 mg /3 mL (0.083 %) inhalation solution 2.5 mg, 2.5 mg, Inhalation, resp, every 6 hours, Jesusita Gutierrez MD, 2.5 mg at 07/08/25 1859 zinc OXIDE-cod liver oil (DESITIN) 40 % topical paste, , Topical, see admin instructions, Jesusita Gutierrez MD [DISCONTINUED] albuterol sulfate 90 mcg/Actuation inhaler 1 Puff, 1 Puff, Inhalation, resp, every 6hours, Jesusita Gutierrez MD lactulose (ENULOSE) 10 gram/15 mL oral solution 45 mL, 45 mL, Oral, TID, Jesusita Gutierrez MD, 45 mL at 07/09/25 0922 tamsulosin (FLOMAX) SR 24 hour capsule 0.4 mg, 0.4 mg, Oral, daily AFTER supper, Jesusita Gutierrez MD, 0.4 mg at 07/08/25 1711 levothyroxine (SYNTHROID) tablet 37 mcg, 37 mcg, Oral, daily EARLY, Jesusita Gutierrez MD, 37 mcg at 07/09/25 0536 sodium chloride flush injection 10 mL, 10 mL, IV, every 12 hours (2 times daily), Mino Butler MD, 10 mL at 07/09/25 0922 sodium chloride flush injection 10 mL, 10 mL, IV, see admin instructions, Mino Butler MD sodium chloride 0.9 % flush bag 25 mL, 25 mL, IV, see admin instructions, Mino Butler MD dextrose 5 % in water 250 mL flush bag 25 mL, 25 mL, IV, see admin instructions, Mino Butler MD acetaminophen (TYLENOL) tablet 650 mg, 650 mg, Oral, every 6 hours PRN, Mino Butler MD morphine 4 mg/mL injection 2 mg, 2 mg, IV, every 4 hours PRN, Mino Butler MD naloxone (NARCAN) 0.4 mg/mL injection 0.1-0.4 mg, 0.1-0.4 mg, IV, see admin instructions, Mino Butler MD ondansetron (ZOFRAN) 4 mg/2 mL injection 4 mg, 4 mg, IV, every 6 hours PRN, Mino Butler MD, 4 mg at 07/06/252009 calcium as CARBONATE (TUMS) 500 mg (200 mg elemental) chewable tablet 400 mg, 400 mg, Oral, every 6hours PRN, Mino Butler MD cefTRIAXone (ROCEPHIN) 2,000 mg in sodium chloride 0.9% 50 mL IVPB (MBP), 2,000 mg, IV, every 24 hours (daily), Mino Butler MD, Stopped at 07/09/25 1003 Primary discharge diagnosis: DARVIN (acute kidney injury) Other active medical issues also addressed during this admission: Active Hospital Problems Diagnosis History of hepatitis CAb +ve Hypoproteinemia Elevated LFTs Protein-calorie malnutrition, severe DARVIN (acute kidney injury) Anemia Thrombocytopenia Alcohol use disorder Urinary retention Hyperammonemia Ascites Normocytic anemia Acute hepatic encephalopathy (CMS/HCC) 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 S/p paracentesis with 4700 mL ascitic fluid removed at OSH S/P repeat paracentesis here on 07/09-4.9 L-follow fluid results Continue Rocephin for SBP prophylaxis, Obtain ascitic fluid cultures, ascitic fluid lab analysis reviewed as above- still pending Currently unable to start diuretics given DARVIN Might need repeat paracentesis given worsening abdominal distention slowly BCx-NTD WBC/LFT trend Repeat IV Lasix today,1 X IV Albumin Outpatient GI referral for cirrhosis/chronic hepatitis C DARVIN suspected from HRS: Slow improvement Metabolic acidosis Appreciate nephrology-s/p IVF currently signed off renal ultrasound showed evidence of extensive ascites, lobular mixed echogenicity 3.8x 4.7x 6.6 cm Closely watch on diuresis, post tap Suspect fluid overload/acute CHF unspecified: Not POA Oxygen per protocol Currently s/p IVF One-time IV Lasix today Started on inhalers, nebs TTE-stable EF 55 to 60% Suspect catheter associated acute cystitis: Recent acute urine retention: Razo placed 2 weeks ago prior to admit at [facility] Currently on IV ceftriaxone Will obtain UCX, BCx from OSH - d/w charge lpn-still pending Monitor accurate I/os Acute hepatic encephalopathy: Slowly improving Status post lactulose enema today Titrate p.o. lactulose [address] cog eval Anemia/thrombocytopenia suspect from cirrhosis: Relatively stable Monitor on labs periodically Watch for any bleeding signs Alcohol abuse: Chronic hepatitis C: Currently does not appear in active withdrawal symptoms Counseled extensively on need for alcohol cessation. HIV screen negative AB viral RNA load positive need outpatient GI referral Generalized weakness from all above: PT/OT ordered Chronic medical problems: COPD: Stable inhalers nebs as needed MAGGIE: Need home med reconciliation Hypothyroidism: Increased home levothyroxine 25 >37 mcg per [employer]. TSH high 32, but free T4 stable- recd OP TFTs in 4 weeks and follow-up with PCP BPH:resume flomax Hx of SCC OF larynx 2021: Nutrition Status: Malnutrition Nutrition Diagnosis: Severe protein-calorie malnutrition Provider Assessment/Plan: Symptoms/Signs/Physical Exam: Eating Poorly, Weakness, and Fatigue Etiology: Alcohol abuse, Inability to consume adequate nutrition, Altered mental status, Alterationin GI tract structure/function, and Physiological causes increasing nutrient needs Nutrition Treatment Plan: - Current Diet and/or Nutritional Supplementation ordered: DIET SUPPLEMENT GEN ADULT TID; Complete Oral Supplement, DIET RENAL Food Texture: Soft, - Daily weights Impact of Malnutrition on patient condition and outcomes: Increased risk of infection, Delayed recovery, Increased muscle weakness and fall risk, Decreased activity tolerance and reduced mobility , Respiratory deterioration, and Increased readmission risk DVT prophylaxis: DVT Pharmacologic Prophylaxis: Patient has a contraindication for pharmacologic prophylaxis. Please refer to the orders for additional details. Code status: Full Code Outpatient follow up: PCP, GI Anticipated Disposition Location: Per PT/OT Timeframe: 07/10/2025 Criteria: Stable labs/pending therapies Patient's understanding of illness: Fair Primary family contact: Significant other Morenita per [phone] MDM complexity: [] Mild [x] Moderate [] High More than 35 minutes spent in pateint care including at least 50% time spent face to face encounter, labs, radiological images, chart review, discussing with family and staff and consultants on the case. Jesusita Hyde MD 07/09/2025, 3:20 PM * Cassandra Pham, CHRISTINA - 07/09/2025 2:30 PM CDT [facility] Therapy [facility] Ph. ; Fax. Acute Speech-Language Pathology Cognitive-Linguistic/Memory Evaluation 07/09/2025 Room: [address] [place] [address] Name: Donny Waller Age: 55 y.o. Date of : 1970 Insurance: Payor: [facility] MEDICAID / Plan: [facility] [id number] / Product Type: HMO / Patient class: Inpatient Confirmed patient's identification of name and date of : by patient report Consent to treatment given by patient with results as follows: Onset of illness/injury or date of surgery: 07/04/2025 HPI Donny Waller is a 55 y.o. male admitted for AMS and worsening ascites. PMH significant for alcoholic liver cirrhosis, COPD, history of squamous cell carcinoma larynx, anemia, thrombocytopenia, alcohol use, protein calorie malnutrition and mood disorder. Subjective Information and Clinical Observations Patient/Family Goals Statement: I did pretty good I think. Pain: Refer to Doc Flowsheet for documented pain levels. Level of Alertness: Drowsy Mood/Affect: Patient calm and cooperative Position: Lying in bed Circumstances negatively impacting performance this date: none Objective Information Diagnostic Intervention Provided: Speech Language Pathology Predisposing cognitive-linguistic risk factors: Chronic alcohol use Acute cognitive-linguistic risk factors: Encephalopathy Social History/Home Environment: Currently lives with girlfriend Occupational background: disabled Highest level of education: highest grade completed: 9th History of special education requirements: Yes Able to read/write at baseline: yes, for basic information Independently managed medications: Yes Independently managed finances: No, managed by girlfriend Able to drive motor vehicle prior to admission: No Sensory Input/Output: Visual deficits: none per patient Hearing deficits: uncorrected hearing impairment per patient Dominant hand: right handed per patient Patient demonstrated functional utilization of dominant hand during evaluation:Yes Informal Assessment: Temporal orientation: impaired - 0/5 appropriate responses to basic orientation questions (e.g., day of the week, month, and year). Oriented 4/5 with independent use of the white board. Spatial orientation: impaired - 3/5 appropriate responses to basic orientation questions (e.g., city, state, and county) Biographical orientation: impaired - 2/5 appropriate responses to basic orientation questions (e.g., name, birthday, and age) Situational orientation: suspect at baseline - Patient able to provide basic reason for hospital visit Verbal problem solving regarding safety: suspect at baseline - 3/4 appropriate responses to basic problem solving questions (e.g., What would you do if you noticed a fire in your home? ) Tests Administered and Qualitative Observations Speech-Language Pathology: Administered Greg Cognitive Assessment (MoCA) version BASIC to assess cognitive-linguistic skills. MoCA assesses attention, concentration, executive functioning, memory, language, visuoconstructional skills, conceptual thinking, calculation, and orientation. The results were as follows: MoCA Subtests Executive function: 0/1 Fluency: 1/2 Orientation: 1/6 Calculation: 0/3 Abstraction: 2/3 Delayed Recall: 0/5 Visuoperception: 1/3 Namin/4 Attention: 0/3 Patient completed <4 years of education - one point added Patient reported to be illiterate - one point added Total: 9/30, suggesting basic impairment for age and education level. Normal range: Score greater than or equal to 26 Memory index score: 315 Qualitative Observations Speech Production: Speech intelligibility subjectively judged to be 90-100% at the conversation level with an unfamiliar listener. Hoarse/harsh vocal quality likely related to hx of laryngeal cancer. Expressive Language: functional for basic information Receptive Language: functional for basic information Assessment Per standardized assessment and qualitative observations, patient presents with: Cognitive-linguistic/memory: deficits in the areas of visuospatial skills, executive functioning, immediate recall, calculation, mental flexibility, delayed recall, orientation, and generative/divergent naming Pt's score of 9/30 on the MoCA Basic suggests severe cognitive impairment for his age and education. Pt reported a 9th grade education, hx of special education, and basic literacy. He was unable to identify the pattern during trail making task. He named 8 fruits out of a goal of 13 in one minute. Di fficulty with mental calculation flexibility for making exact change. Pt identified 4/10 items in visuoperception task. Pt had good task attention during vigilance tasks but difficulty recalling the directions once the task began. Patient recalled 0/5 words following 5 minute time delay, increasingto 2/5 words given category and multiple choice cues. This is suggestive of an encoding deficit, asopposed to a retrieval deficit. Pt was oriented to self, hospital, state, and very loosely to situation. Pt's performance is a decline from previous evaluation on 05/08/2016 when pt scored 24/30 indicatingmild impairment. Pt had limited insight into deficits. He attested to receiving help with money management from his girlfriend. Pt agreeable to futher speech therapy. Safety concerns for home discharge: Concern for activities of daily living that require a large cognitive load (e.g., cooking/meal preparation, medication management, patient financial counselor, maintaining personal hygiene, responding to emergency situations, etc.). Recommend 24-hour assistance in discharge location. Patient would benefit from further speech therapy to address the above deficits in order to improvefunctional independence and quality of life. Recommendations DISCHARGE RECOMMENDATIONS: Home, 24-hour assistance, and Home health Speech Therapy * The final discharge location is determined through physician, case management, and patient/caregiver input along with insurance authorization of skilled services when appropriate Recommendations for referral to another service: None at this time Precautions Plan of Care Patient precautions: Fall Continue MEDICAL TECH services to address cognitive- linguistic/memory deficits, anticipate follow up in the next 5-10 days or as medical condition changes. Plan of care to continue for the duration of the patient's acute care hospital stay or until goals are met. Please notify speech therapy department should the patient's condition change and/or patient requires MEDICAL TECH services prior to the next anticipated MEDICAL TECH visit. Education Disposition Regarding: results and recommendations of cognitive-linguistic/memory evaluation, implementation ofmemory strategies, and speech therapy plan of care Learner, method of education, and response to learning listed in Education tab in Epic Before session: Patient lying in bed After session: Patient lying in bed, call light in reach, and phone in reach Current Diagnoses/Past Medical History Pertinent diagnoses and past medical history related to this hospital stay are present in physicianH&P and physician daily notes. Prior to session, completed thorough chart review. Reviewed prior therapy treatment notes as applicable. Further treatment notes and therapeutic goals can be found in Care Plan Notes. If the patient discharges from facility prior to another therapy visit, this shall serve as the therapy discharge summary Thank you for this referral, Cassandra Pham M.S., [facility]-MEDICAL TECH Acute Speech Therapy Charge Zone Phone #[phone] Acute Speech Therapy Charge Pager #[phone] * Tony Ross - 07/09/2025 2:17 PM CDT Paracentesis 4900 ml Charli Lagunas * Nancy Maher, RD - 07/09/2025 2:13 PM CDT Nutritional Status/Recommendations/Plan for Follow up: Po intake 10-90% per graphics of renal, soft diet w/ supplements. Likely needs more paracentesis. Encourage nutrient dense foods and beverages. Following. Estimated Needs: Estimated Energy Target: 8438-1588 (07/04/25 1400) Estimated Protein Target: ~70-90 (07/04/25 1400) Estimated Fluid Target : 0811-0024 (07/04/25 1400) Nutrition Energy Formula: Calories per kilogram (07/04/25 1400) Weight Used for Formula: Actual weight (07/04/25 1400) Current diet/nutrition support: DIET SUPPLEMENT GEN ADULT TID; Complete Oral Supplement, DIET RENAL Food Texture: Soft, Food/Meal: Breakfast (07/09/25 08),Intake (%): 90% (07/09/25 0812) Oral Supplement Type: Complete oral supplement-adult (07/08/25 1130) Weight status/changes: Height: 5' 8 (172.7 cm) (07/04/25 0335) Weight: 71 kg (156 lb 8.4 oz) (07/08/25 0500) Last seven weights (if available) from 06/11/25 1415 to 07/09/25 1414 (Last 7 readings): Weight Weight Method 07/08/25 0500 71 kg (156 lb 8.4 oz) Actual 07/07/25 0500 67.9 kg (149 lb 11.1 oz) Actual 07/04/25 0335 63.8 kg (140 lb 10.5 oz) Actual 07/04/25 025 63 kg (138 lb 14.2 oz) Actual Admission:Weight: 63 kg (138 lb 14.2 oz) (07/04/25 025)Weight Method: Actual (07/04/25256) Body mass index is 23.8 kg/m??. [place] body weight: 68.4 kg (150 lb 12.7 oz) Adjusted ideal body weight: 69.4 kg (153 lb 1.4 oz) Nutrition Focused Exam Physical Findings- Summary: Malnutrition Nutrition Diagnosis: Severe protein-calorie malnutrition (07/04/25 1400) Subcutaneous Fat Loss Assessment: Severe fat loss (07/04/25 1400) Muscle Wasting Assessment: Severe (07/04/25 1400) Edema: Rounded contour with a deep depression or pit that persists (severe) (recent ascites) (07/04/25 1400) Hand Manager Mechanical Maintenance: Unable to assess (07/04/25 1400) Percentage of Energy: < or equal to 50% for > or equal to 5 days (severe-acute) (07/04/25 1400) Percentage of Weight Loss: >20% in 1 year (severe) (07/04/25 1400) Additional assessment indices: Ermias Score: 19 (07/09/25 0749) Last Bowel Movement (mm/dd/yyyy): 07/09/25 (07/09/25 1034) Stool Consistency - Reference Brooks Stool Chart: liquid - (type 7) (07/09/25 1034) Allergies No Known Allergies Labs: Lab Results Component Value Date/Time NA 138 07/09/2025 11:40 AM K 4.5 07/09/2025 11:40 AM CL 109 (H) 07/09/2025 11:40 AM CO2 17 (L) 07/09/2025 11:40 AM CA 8.9 07/09/2025 11:40 AM BUN 28 (H) 07/09/2025 11:40 AM CREAT 1.30 (H) 07/09/2025 11:40 AM GLUCOSE 153 (H) 07/09/2025 11:40 AM TOTALPROTEIN 6.0 (L) 07/09/2025 11:40 AM ALBUMIN 3.0 (L) 07/09/2025 11:40 AM BILITOTAL 1.7 (H) 07/09/2025 11:40 AM ALKPHOS 71 07/09/2025 11:40 AM AST 103 (H) 07/09/2025 11:40 AM ALT 61 (H) 07/09/2025 11:40 AM ANIONGAP 12 07/09/2025 11:40 AM BCRATIO 7 08/12/2022 02:42 PM No results found for: HGBA1C , [id number] Lab Results Component Value Date/Time RDW 16.3 (H) 07/08/2025 01:58 AM Lab Results Component Value Date/Time CRP <3.0 06/12/2021 05:50 PM Lab Results Component Value Date/Time MG 1.8 07/06/2025 02:15 AM Lab Results Component Value Date/Time CA 8.9 07/09/2025 11:40 AM No results found for: [id number] , VITD25 , [id number] , DMHY41KPR3 , [id number] , [id number] , [id number] , VITAMINDTO , RRPHAPR432 Lab Results Component Value Date/Time [id number] 313 10/18/2018 05:30 AM Lab Results Component Value Date/Time FOLATE 7.5 10/18/2018 05:30 AM No results found for: ZINC * Ki Lagunas PA-C - 07/09/2025 1:44 PM CDT Post Procedure Vascular/Interventional Radiology Note Pre-Radiology Procedure Diagnosis: Ascites Technical Procedure: US guided paracentesis Specimens removed: 4900 ml clear, yellow ascites from the RLQ Findings: Tolerated procedure well. There were no immediate post-procedure complications. Estimated Blood Loss: Minimal Medications: 1% Lidocaine used for local anesthesia. Post-Radiology Procedure Diagnosis: as above Ki Lagunas PA-C 07/09/25 1:44 PM Cosigned by Todd Crockett MD at 07/09/2025 2:39 PM CDT * Skye Ruelas Occupational Therapist - 07/09/2025 10:56 AM CDT Attempted to see patient for OT evaluation. Patient/Family chose not to participate in therapy due to fatigue stating, Come back tomorrow. . Pt educated on importance of continued mobility. Will continue with attempts for evaluation/established plan of care. Thank you, Skye Ruelas Occupational Therapist * Malik Villegas, Physical Therapist - 07/09/2025 10:16 AM CDT [facility] - Therapy Services [facility] Ph. Acute Physical Therapy Evaluation 07/09/2025 Room: [address] [place] [address] Name: Donny Waller Age: 55 y.o. Date of : 1970 Insurance: Payor: [facility] MEDICAID / Plan: [facility] [id number] / Product Type: HMO / Patient Class: Inpatient Onset of illness/injury or date of surgery: 07/04/2025 Subjective Information/History Subjective Information Provided By: Patient reports urgency of bowel. Patient is agreeable to PT Prior level of Function: reports at times he uses a SPC when his legs feel weak or tired. He reports he normally can walk through the store, he does not drive, and denies needing help at home. Patient does not report a history of falls Home Environment: 1-Story home Number of Outside Stairs: 4-5 with rail Available Adaptive Equipment: Cane: single point cane Assistance available: reports his can provide 24hr assist and that there is normally a good number of people visiting Patient/Family Goals Statement: to go home Pain: Refer to Doc Flowsheet for documented pain levels. Consent To Treatment Given By: Patient and Nurse Safety Awareness Orientation: Person and Situation. Patient could not state month nor year. Patient knew he [facility] at [facility] but did not know what town/city he was in. Command Following: good Safety Awareness: Good Precautions Patient Precautions: Fall Risk and Oxygen Bracing/Orthotics: none Weight Bearing: No Restrictions Objective Information/Examination Muscle Tone: Normal Coordination: Normal Sensation: Not Tested Strength: Right UE: Generalized weakness noted: limiting functional mobility Left UE: Generalized weakness noted: limiting functional mobility Right LE: Abnormal: 4/5 grossly Left LE: Abnormal: 4/5 grossly Functional Mobility: Supine to sit: supervision Sit to stand: supervision Toilet transfer: supervision assist Toileting: supervision assist Gait Trainin feet with rolling walker. minimal assistance for safety. Deficits affecting function/Deviations noted: no loss of balance, good use of FWW Patient required verbal cues energy conservation and proper posture. Patient was found to be soiledwhen laying in bed, was ambulated to the restroom, nursing called to clean bed and patient. Nursingasked keep patient sitting on toilet. Emergency light provided Balance: Sitting: Normal Standing: Abnormal: FWW needed today Vitals Patient on 2 liters/min via nasal cannula At rest: HR: 90 bpm, O2 Sat: 96% [facility] AM-PAC Basic Mobility How much help from another person does the patient currently need? Score 1. Turning from your back to your side while in a flat bed without using bedrails? 3 - A little (supervision to min assist) 2. Moving from lying on your back to sitting on the side of a flat bed without using bedrails? 3 - A little (supervision to min assist) 3. Moving to and from a bed to a chair (including a wheelchair)? 3 - A little (supervision to min assist) 4. Standing up from a chair using your arms (e.g., wheelchair, or bedside chair)? 3 - A little (supervision to min assist) 5. Walking in hospital room? 3 - A little (supervision to min assist) 6. Climbing 3-5 steps with a railing? 3 - A little (supervision to min assist) Total score 18/24 0-16 - indicates likely facility discharge 17-24 indicates likely community discharge * scores determined based on patient report, observation or professional expertise Assessment/Plan Donny Waller is a 55 y.o. male is referred for physical therapy. Based on objective findings above, the patient presents with the following impairments: balance deficits, decreased activity tolerance, decreased strength, gait disturbance, medical complexity, pain, risk for falls, and disorientation which impacts independent mobility . Patient is currently functioning below his prior level of function. Patient will benefit from continued PT to improve strength, balance, and mobility to assist with return to prior level of function. Plan will include but is not limited to: Gait Training, Transfer Training, Patient/Family Education, Stair Training, Home & Safety Instruction, Balance Training, ADL Training, Functional Cognition Training, Neuromuscular Re- education, Functional Strengthening, and Monitor and adjust treatment as needed based on patient response/vital signs, in accordance with physicians ordered guidelines. Specific focus for next treatment session: progress stair training. PT Evaluation: medium complexity Recommendations During acute hospitalization, recommend medium frequency treatment (3-5 times per week). Current plan of care to continue until goals met or patient discharges from facility. Functional Prognosis: Based on prior level of function and deficits, anticipate good progress with PT. Based on PT assessment of and/or progress with physical function, AM-PAC Basic Mobility score, potential for improvement, available home support, participation in therapeutic intervention, tolerance for activity, and safety , anticipated discharge disposition once medically ready: Home with 24-hoursupervision;Home with home health PT (07/09/25 1007). Safety concerns if patient is without supervision/assistance. HHPT for continued strengthening. * The final discharge location is determined through physician, case management, and patient/caregiver input along with insurance authorization of skilled services when appropriate Plan of care and/or discharge recommendations shared with: Patient, [employer], and Nurse PT Recommended DME: To be determined (07/09/25 1007). May require FWW Daily activity recommendations: Up with 1 assist, Ambulate to bathroom with staff, and Ambulation with nursing three times daily Recommendations for referral to another service: Care Management and Occupational Therapy Education/Training Provided Education provided: basic time frames for healing, daily activity with nursing staff, discharge planning, plan of care, pain management, precautions during healing, rehabilitation principles, and to ambulate with nursing staff TID Learner, method of education, and response to learning listed in Education tab in Epic. Disposition At start of session, patient found lying in bed At end of session, patient left sitting on toilet per nursing request, emergency call light in hand Current Diagnoses/Past Medical History Pertinent diagnoses and past medical history related to this hospital stay are present in physicianH&P and physician daily notes. Prior to PT session a thorough chart review was completed including prior PT notes as applicable. Further treatment notes and therapeutic goals can be found in Care Plan Notes. If the patient discharges from the facility before another therapy visit, this shall serve as the therapy discharge summary. Thank you for this referral, Malik Villegas, Physical Therapist * Jesusita Gutierrez MD - 07/08/2025 2:28 PM CDT Images from the original note were not included. Your life is our life's work [facility] Hospitalist/Hospital Medicine Progress Note LOS: 4 days Room/Bed: Patient name: Donny Waller Date of : 1970 HOSPITAL COURSE SUMMARY: Donny Waller is a 55 y.o. male with PMH significant for alcoholic liver cirrhosis, COPD, history of squamous cell carcinoma larynx, anemia, thrombocytopenia, alcohol use, protein calorie malnutrition and mood disorder who initially presented to [facility] with altered mental status and wors ening ascites, paracentesis earlier today was done about a week ago, underwent paracentesis yielding about 4700 cc acetic fluid with no evidence of SBP, urine cultures, blood cultures and paracentesis cultures were sent and did not show growth till date, was being treated with Rocephin for possibleUTI due to abnormal UA, has Razo catheter in place due to urinary retention since last 2 weeks, found to have DARVIN, transferred to [facility] with concern for hepatorenal syndrome, GIand nephrology evaluation. He received octreotide, midodrine and albumin with little to no responseas well prior to transfer. Renal ultrasound showed evidence of extensive ascites, lobular mixed echogenicity 3.8x 4.7x 6.6 cm,CT abdomen/pelvis showed cirrhotic liver morphology with moderate ascites and aortic and coronary artery atherosclerosis. Vital signs stable upon presentation to ED, labs showed Hb 9.4, platelets 104. Labs at other hospital showed WBC 9.7, Hb 10.6, platelets 134, INR 1.75, sodium 138, potassium 5.1,bicarb 16, BUN 33, creatinine 3.5, GFR 18, lactic acid 1.5, LFTs mildly elevated, T. bili 1.8, CK 40. UA with nitrite positive, 2+ leukocyte esterase, 1+ bacteria, acetic fluid pale yellow with pH 6,ascitic fluid blood glucose 98, albumin 2.6, LDH 48, WBCs 141, PMNs 0.008, 5.7% Serum ammonia was elevated. Upon my evaluation, he is cachectic appearing, awake, however, not very well- oriented to time or place. 07/04: Somnolent, oriented to self -not eating much per staff. Trial of lactulose enema.-RN reports large brown BM, confusion slightly improving now Continue IV ABX. Appreciate nephrology continue IVF per them. Co2- 14 -will check blood gas, TSH high, follow free T4. Need home med reconciliation- d/w staff 07/05: Alert, able to answer ox2 , but still confused. Titrate lactulose. D/w staff to obtain ascites fluid analysis/cultures, UCX from [facility]. Reports last alcohol drink 2 weeks ago. He reports he has abdominal taps before. Restart home meds per [employer], will d/w significant other Nephrology switched to LR. Call significant other per chart-unable to reach 07/06: More alert since admit, following commands but still confusion-says July at [facility] does not remember why he in the hospital. Per records from [facility]-he is having confusion from past 2 days prior to admit with decreased appetite, having ongoing drinking, Razo was placed about 2 weeks ago for urine retention, also reported no prior paracentesis. Ammonia level 39 at OSH . D.w RN and charge lpn again -to obtain culture results from OSH. Per staff multiple BMs yesterday with no bleeding. Nephrology switched to bicarb fluids. Platelets dropped 71 His abdomen is progressively getting distended again-but he does not feel most discomfort-will holdrepeat paracentesis in the setting of DARVIN unless symptomatic 07/07: Awake, mentation same. Continue IVF per nephrology. Good BMs. Staff send fax-still awaiting cultures. Called SO/sister per chart with no response, encourage OOB. Platelets 66. PT/OT ordered 07/08: DARVIN better-nephrology signed off. Wheezing on exam, new leg swelling,, progressive abdominal distention. No much urine output or 50 cc-IV Lasix x 1 ordered (d/w nephro), nebs ordered. CXR no acute findings, proBNP elevated. Encourage OOB Likely need repeat paracentesis-will discuss with nephro on any limit protocol Consultants: IP CONSULT TO NUTRITION SERVICES IP CONSULT TO NEPHROLOGY SUBJECTIVE: Rounded with RN No family at bedside Awake, still has underlying confusion He feels abdominal distention and discomfort gradually getting worse ROS: History obtained from the patient-Limited given patient confusion Psychological: no Depression, no Suicide ideation/thoughts Constitutional: negative for fever, chills, negative for confusion, fatigue Pulmonary: negative for dyspnea, no cough Cardiovascular: negative for chest pain, no palpitations, no orthopnea GI: Abdominal distention and discomfort Renal: no dysuria, no hematuria Musculoskeletal: no back pain, no joint pain, no calf swelling Neuro: negative for headache, no vision changes, no dizziness Skin: no skin rash, no redness OBJECTIVE: Temp (24hrs), Av.2 ??F (36.8 ??C), Min:98.1 ??F (36.7 ??C), Max:98.3 ??F (36.8 ??C) BP 107/80 (BP Location: Right arm, Patient Position (BP): Supine) Pulse 97 Temp 98.1 ??F (36.7 ??C) (Oral) Resp 20 Ht 5' 8 (1.727 m) Wt 71 kg (156 lb 8.4 oz) SpO2 97% BMI 23.80 kg/m?? Intake/Output Summary (Last 24 hours) at 07/08/2025 1428 Last data filed at 07/08/2025 1220 Gross per 24 hour Intake 2879.18 ml Output 551 ml Net 2328.18 ml Last documented weight: Weight: 71 kg (156 lb 8.4 oz) (07/08/25 0500) EXAM: General: Much alert and awake since admit, oriented X1-3, Neurologic: Grossly normal, moving all extremities of gravity HEENT: atraumatic, Normocephalic, without obvious abnormality Lungs: Bilateral wheezing on exam Heart: normal rate, regular rhythm, normal S1, S2, no murmurs, rubs, clicks or gallops Abdomen: Moderate abdominal distention-gradually getting worse since admit Extremities: + 1 bilateral lower extremity edema Skin: Scattered bruising LABORATORY: Recent Labs 07/06/2521407/07/25 0359 07/08/25 0158 WBC 11.9* 12.2* 10.8 HGB 9.6* 9.1* 9.3* HCT 27.0* 26.1* 26.3* PLT 71* 66* 75* Recent Labs 07/06/25 0215 07/07/25 0359 07/08/25 0158 NA 143 145 145 K 3.5 3.5 4.1 CL 117* 118* 116* CO2 13* 16* 18* CA 8.8 8.9 8.5* BUN 27* 25* 22* CREAT 1.98* 1.73* 1.45* GLUCOSE 106* 118* 103* Recent Labs 07/06/25214 07/07/25 0359 07/08/25 0158 TOTALPROTEIN 5.5* 5.4* 5.2* ALBUMIN 3.2* 3.1* 3.0* BILITOTAL 1.9* 1.9* 1.9* ALKPHOS 56 69 60 AST 100* 103* 103* ALT 54* 55* 55* No results for input(s): INR , PT in the last 72 hours. Invalid input(s): PTT No results for input(s): BASETROP , 2HRTROP , DELTA , 6HRTROP in the last 72 hours. Diagnostic testing reviewed by me: Medications were reviewed by me. Current Facility-Administered Medications: [COMPLETED] furosemide (LASIX) injection 40 mg, 40 mg, IV, ONE time only, Jesusita Gutierrez MD,40 mg at 07/08/25 1326 albuterol (PROVENTIL,VENTOLIN) 2.5 mg /3 mL (0.083 %) inhalation solution 2.5 mg, 2.5 mg, Inhalation, resp, every 6 hours, Jesusita Gutierrez MD [DISCONTINUED] furosemide (LASIX) tablet 40 mg, 40 mg, Oral, daily, Jesusita Gutierrez MD albuterol sulfate 90 mcg/Actuation inhaler 1 Puff, 1 Puff, Inhalation, resp, every 6 hours, Jesusita Gutierrez MD zinc OXIDE-cod liver oil (DESITIN) 40 % topical paste, , Topical, see admin instructions, Jesusita Gutierrez MD [DISCONTINUED] potassium CHLORIDE 32.96 mEq, sodium bicarbonate 82.4 mEq in sodium chloride 0.45 % 1,098.88 mL infusion, , IV, continuous, Crow Vasquez MD, Stopped at 07/08/25 0756 lactulose (ENULOSE) 10 gram/15 mL oral solution 45 mL, 45 mL, Oral, TID, Jesusita Gutierrez MD, 45 mL at 07/08/25 1326 tamsulosin (FLOMAX) SR 24 hour capsule 0.4 mg, 0.4 mg, Oral, daily AFTER supper, Jesusita Gutierrez MD, 0.4 mg at 07/07/25 1735 levothyroxine (SYNTHROID) tablet 37 mcg, 37 mcg, Oral, daily EARLY, Jesusita Gutierrez MD, 37 mcg at 07/08/25 0524 sodium chloride flush injection 10 mL, 10 mL, IV, every 12 hours (2 times daily), Mino Butler MD, 10 mL at 07/08/25 0900 sodium chloride flush injection 10 mL, 10 mL, IV, see admin instructions, Mino Butler MD sodium chloride 0.9 % flush bag 25 mL, 25 mL, IV, see admin instructions, Mino Butler MD dextrose 5 % in water 250 mL flush bag 25 mL, 25 mL, IV, see admin instructions, Mino Butler MD acetaminophen (TYLENOL) tablet 650 mg, 650 mg, Oral, every 6 hours PRN, Mino Butler MD morphine 4 mg/mL injection 2 mg, 2 mg, IV, every 4 hours PRN, Mino Butler MD naloxone (NARCAN) 0.4 mg/mL injection 0.1-0.4 mg, 0.1-0.4 mg, IV, see admin instructions, Mino Butler MD ondansetron (ZOFRAN) 4 mg/2 mL injection 4 mg, 4 mg, IV, every 6 hours PRN, Mino Butler MD, 4 mg at 07/06/252009 calcium as CARBONATE (TUMS) 500 mg (200 mg elemental) chewable tablet 400 mg, 400 mg, Oral, every 6hours PRN, Mino Butler MD cefTRIAXone (ROCEPHIN) 2,000 mg in sodium chloride 0.9% 50 mL IVPB (MBP), 2,000 mg, IV, every 24 hours (daily), Mino Butler MD, Stopped at 07/08/25 1031 Primary discharge diagnosis: DARVIN (acute kidney injury) Other active medical issues also addressed during this admission: Active Hospital Problems Diagnosis History of hepatitis CAb +ve Hypoproteinemia Elevated LFTs Protein-calorie malnutrition, severe DARVIN (acute kidney injury) Anemia Thrombocytopenia Alcohol use disorder Urinary retention Hyperammonemia Ascites Normocytic anemia Acute hepatic encephalopathy (CMS/HCC) 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 S/p paracentesis with 4700 mL ascitic fluid removed at OSH Continue Rocephin for SBP prophylaxis, Obtain ascitic fluid cultures, ascitic fluid lab analysis reviewed as above- still pending Currently unable to start diuretics given DARVIN Might need repeat paracentesis given worsening abdominal distention slowly BCx-NTD WBC/LFT trend One-time IV Lasix today DARVIN suspected from HRS: Slow improvement Metabolic acidosis Appreciate nephrology-s/p IVF currently signed off renal ultrasound showed evidence of extensive ascites, lobular mixed echogenicity 3.8x 4.7x 6.6 cm Suspect fluid overload/acute CHF unspecified: Not POA Oxygen per protocol Currently s/p IVF One-time IV Lasix today Started on inhalers, nebs Follow TTE Suspect catheter associated acute cystitis: Recent acute urine retention: Razo placed 2 weeks ago prior to admit at [facility] Currently on IV ceftriaxone Will obtain UCX, BCx from OSH - d/w charge lpn-still pending Monitor accurate I/os Acute hepatic encephalopathy: Slowly improving Status post lactulose enema today Titrate p.o. lactulose 3 times daily Likely need cognition evaluation prior to DC Anemia/thrombocytopenia suspect from cirrhosis: Relatively stable Monitor on labs periodically Watch for any bleeding signs Alcohol abuse: Currently does not appear in active withdrawal symptoms Generalized weakness from all above: PT/OT ordered Chronic medical problems: COPD: Stable inhalers nebs as needed MAGGIE: Need home med reconciliation Hypothyroidism: Increased home levothyroxine 25 >37 mcg per [employer]. TSH high 32, but free T4 stable- recd OP TFTs in 4 weeks and follow-up with PCP BPH:resume flomax Hx of SCC OF larynx 2021: Nutrition Status: Malnutrition Nutrition Diagnosis: Severe protein-calorie malnutrition Provider Assessment/Plan: Symptoms/Signs/Physical Exam: Eating Poorly, Weakness, and Fatigue Etiology: Alcohol abuse, Inability to consume adequate nutrition, Altered mental status, Alterationin GI tract structure/function, and Physiological causes increasing nutrient needs Nutrition Treatment Plan: - Current Diet and/or Nutritional Supplementation ordered: DIET SUPPLEMENT GEN ADULT TID; Complete Oral Supplement, DIET RENAL Food Texture: Soft, - Daily weights Impact of Malnutrition on patient condition and outcomes: Increased risk of infection, Delayed recovery, Increased muscle weakness and fall risk, Decreased activity tolerance and reduced mobility , Respiratory deterioration, and Increased readmission risk DVT prophylaxis: DVT Pharmacologic Prophylaxis: Patient has a contraindication for pharmacologic prophylaxis. Please refer to the orders for additional details. Code status: Full Code Outpatient follow up: PCP, GI Anticipated Disposition Location: Per PT/OT Timeframe: 07/09/2025 Criteria: Improvement in labs, clinical/AMS improvement/nephrology clearance Patient's understanding of illness: Fair Primary family contact: Significant other per chart MDM complexity: [] Mild [x] Moderate [] High More than 60 minutes spent in pateint care including at least 50% time spent face to face encounter, labs, radiological images, chart review, discussing with family and staff and consultants on the case. Jesusita Hyde MD 07/08/2025, 2:28 PM * Tony Rapp NP - 07/08/2025 7:57 AM CDT Renal Update Note Renal function improving daily. Okay to stop IVF. Encourage oral hydration. Will sign off. Please call with questions and concerns. Razo present on admission. He is awaiting urology evaluation OP He does not need OP follow up with us, expect full recovery. Please call with questions or concerns. Tony Rapp NP Cosigned by Clover Valverde DO at 07/08/2025 10:02 AM CDT * Jesusita Gutierrez MD - 07/07/2025 2:46 PM CDT Images from the original note were not included. Your life is our life's work [facility] Hospitalist/Hospital Medicine Progress Note LOS: 3 days Room/Bed: 4225/01 Patient name: Donny Waller Date of : 1970 HOSPITAL COURSE SUMMARY: Donny Waller is a 55 y.o. male with PMH significant for alcoholic liver cirrhosis, COPD, history of squamous cell carcinoma larynx, anemia, thrombocytopenia, alcohol use, protein calorie malnutrition and mood disorder who initially presented to [facility] with altered mental status and wors ening ascites, paracentesis earlier today was done about a week ago, underwent paracentesis yielding about 4700 cc acetic fluid with no evidence of SBP, urine cultures, blood cultures and paracentesis cultures were sent and did not show growth till date, was being treated with Rocephin for possibleUTI due to abnormal UA, has Razo catheter in place due to urinary retention since last 2 weeks, found to have DARVIN, transferred to [facility] with concern for hepatorenal syndrome, GIand nephrology evaluation. He received octreotide, midodrine and albumin with little to no responseas well prior to transfer. Renal ultrasound showed evidence of extensive ascites, lobular mixed echogenicity 3.8x 4.7x 6.6 cm,CT abdomen/pelvis showed cirrhotic liver morphology with moderate ascites and aortic and coronary artery atherosclerosis. Vital signs stable upon presentation to ED, labs showed Hb 9.4, platelets 104. Labs at other hospital showed WBC 9.7, Hb 10.6, platelets 134, INR 1.75, sodium 138, potassium 5.1,bicarb 16, BUN 33, creatinine 3.5, GFR 18, lactic acid 1.5, LFTs mildly elevated, T. bili 1.8, CK 40. UA with nitrite positive, 2+ leukocyte esterase, 1+ bacteria, acetic fluid pale yellow with pH 6,ascitic fluid blood glucose 98, albumin 2.6, LDH 48, WBCs 141, PMNs 0.008, 5.7% Serum ammonia was elevated. Upon my evaluation, he is cachectic appearing, awake, however, not very well- oriented to time or place. 07/04: Somnolent, oriented to self -not eating much per staff. Trial of lactulose enema.-RN reports large brown BM, confusion slightly improving now Continue IV ABX. Appreciate nephrology continue IVF per them. Co2- 14 -will check blood gas, TSH high, follow free T4. Need home med reconciliation- d/w staff 07/05: Alert, able to answer ox2 , but still confused. Titrate lactulose. D/w staff to obtain ascites fluid analysis/cultures, UCX from [facility]. Reports last alcohol drink 2 weeks ago. He reports he has abdominal taps before. Restart home meds per [employer], will d/w significant other Nephrology switched to LR. Call significant other per chart-unable to reach 07/06: More alert since admit, following commands but still confusion-says July at [facility] does not remember why he in the hospital. Per records from [facility]-he is having confusion from past 2 days prior to admit with decreased appetite, having ongoing drinking, Razo was placed about 2 weeks ago for urine retention, also reported no prior paracentesis. Ammonia level 39 at OSH . D.w RN and charge lpn again -to obtain culture results from OSH. Per staff multiple BMs yesterday with no bleeding. Nephrology switched to bicarb fluids. Platelets dropped 71 His abdomen is progressively getting distended again-but he does not feel most discomfort-will holdrepeat paracentesis in the setting of DARVIN unless symptomatic 07/07: Awake, mentation same. Continue IVF per nephrology. Good BMs. Staff send fax-still awaiting cultures. Called SO/sister per chart with no response, encourage OOB. Platelets 66. PT/OT ordered Consultants: IP CONSULT TO NUTRITION SERVICES IP CONSULT TO NEPHROLOGY SUBJECTIVE: Rounded with ABRIL López More alert and answering questions better today-still does not remember about his medical problems/diagnosis-we are discussing every day Denies any significant abdominal discomfort so far ROS: History obtained from the patient-Limited given patient confusion Psychological: no Depression, no Suicide ideation/thoughts Constitutional: negative for fever, chills, negative for confusion, fatigue Pulmonary: negative for dyspnea, no cough Cardiovascular: negative for chest pain, no palpitations, no orthopnea GI: negative for nausea, vomiting, diarrhea and constipation, no abdominal pain Renal: no dysuria, no hematuria Musculoskeletal: no back pain, no joint pain, no calf swelling Neuro: negative for headache, no vision changes, no dizziness Skin: no skin rash, no redness OBJECTIVE: Temp (24hrs), Av.8 ??F (37.1 ??C), Min:98.6 ??F (37 ??C), Max:99 ??F (37.2 ??C) BP 132/70 (BP Location: Right arm, Patient Position (BP): Supine) Pulse 98 Temp 98.6 ??F (37 ??C) (Oral) Resp 20 Ht 5' 8 (1.727 m) Wt 67.9 kg (149 lb 11.1 oz) SpO2 96% BMI 22.76 kg/m?? Intake/Output Summary (Last 24 hours) at 07/07/2025 1446 Last data filed at 07/07/2025 1300 Gross per 24 hour Intake 495 ml Output 503 ml Net -8 ml Last documented weight: Weight: 67.9 kg (149 lb 11.1 oz) (07/07/25 0500) EXAM: General: Somnolent, oriented X1-3, Neurologic: Grossly normal HEENT: atraumatic, Normocephalic, without obvious abnormality Lungs: clear to auscultation bilaterally, normal respiratory effort Heart: normal rate, regular rhythm, normal S1, S2, no murmurs, rubs, clicks or gallops Abdomen: Mildly-moderate distended, diffuse mild tenderness Extremities: No edema Skin: Scattered bruising LABORATORY: Recent Labs 07/05/2513207/06/2521407/07/25 0359 WBC 11.2* 11.9* 12.2* HGB 9.3* 9.6* 9.1* HCT 26.3* 27.0* 26.1* PLT 103* 71* 66* Recent Labs 07/05/2513207/06/2521407/07/25 0359 NA 143 143 145 K 3.5 3.5 3.5 CL 119* 117* 118* CO2 13* 13* 16* CA 8.6 8.8 8.9 BUN 32* 27* 25* CREAT 2.45* 1.98* 1.73* GLUCOSE 89 106* 118* Recent Labs 07/05/2513207/06/2521407/07/25 0359 TOTALPROTEIN 5.4* 5.5* 5.4* ALBUMIN 3.1* 3.2* 3.1* BILITOTAL 1.6* 1.9* 1.9* ALKPHOS 52 56 69 AST 101* 100* 103* ALT 51* 54* 55* No results for input(s): INR , PT in the last 72 hours. Invalid input(s): PTT No results for input(s): BASETROP , 2HRTROP , DELTA , 6HRTROP in the last 72 hours. Diagnostic testing reviewed by me: Medications were reviewed by me. Current Facility-Administered Medications: potassium CHLORIDE 32.96 mEq, sodium bicarbonate 82.4 mEq in sodium chloride 0.45 % 1,098.88 mL infusion, , IV, continuous, Crow Vasquez MD, Last Rate: 100 mL/hr at 07/07/25 0508, New Bag at 07/07/25 0508 lactulose (ENULOSE) 10 gram/15 mL oral solution 45 mL, 45 mL, Oral, TID, Jesusita Gutierrez MD, 45 mL at 07/07/25 1250 tamsulosin (FLOMAX) SR 24 hour capsule 0.4 mg, 0.4 mg, Oral, daily AFTER supper, Jesusita Gutierrez MD, 0.4 mg at 07/06/25 1803 levothyroxine (SYNTHROID) tablet 37 mcg, 37 mcg, Oral, daily EARLY, Jesusita Gutierrez MD, 37 mcg at 07/07/25 0508 sodium chloride flush injection 10 mL, 10 mL, IV, every 12 hours (2 times daily), Mino Butler MD, 10 mL at 07/07/25 0906 sodium chloride flush injection 10 mL, 10 mL, IV, see admin instructions, Mino Butler MD sodium chloride 0.9 % flush bag 25 mL, 25 mL, IV, see admin instructions, Mino Butler MD dextrose 5 % in water 250 mL flush bag 25 mL, 25 mL, IV, see admin instructions, Mino Butler MD acetaminophen (TYLENOL) tablet 650 mg, 650 mg, Oral, every 6 hours PRN, Mino Butler MD morphine 4 mg/mL injection 2 mg, 2 mg, IV, every 4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 07/09/2025 12:53 PM CDT Shift Summary Ambulation was performed with assistive devices and 1-person assist, and no falls or injuries occurred during the shift. Physical therapy evaluated and recommended discharge home with supervision and home health PT, while occupational therapy was refused. Skin integrity was maintained with regular turning and mobility promotion, and no wound or moistureissues were noted. Furosemide was administered during the shift. Overall, remained safe and participated in mobility activities with support, and discharge planningprogressed with PT recommendations. Safety/Fall: Absence of fall, injury, harm during hospitalization: No falls or injuries occurred during the shift; safety checks were completed and ambulation was performed with a gait belt and 1-person assist as needed. Identify discharge needs upon admission and through discharge: Physical therapy recommended discharge home with 24-hour supervision and home health PT, and assistive devices were used during ambulation; occupational therapy was refused during the shift. Maintain skin integrity and/or promote wound healing by discharge: Skin remained within defined limits, Ermias score was 19, and interventions included turning and promoting mobility; no moisture or wound issues were documented. * Care Plan - Payton Longo RCP - 07/08/2025 9:04 PM CDT Daily Respiratory Reassessment Note Donny Waller 55 y.o. male [id number] Daily respiratory reassessment of ordered therapy was performed. Based upon the finding documented on Doc Flowsheet, therapy ordered will decrease. Payton Longo RCP * Care Plan - Eula Gray RN - 07/08/2025 8:49 AM CDT Problem: Discharge Planning Goal: Identify discharge needs upon admission and through discharge Description: Outcome: Progressing [employer] Discharge Planning Awaiting PT/Ot recommendations. Expected Discharge Date Jul 09, 2025 Plan Discharge To: Home with family assist (07/08/25848) Plan Discharge To - Alternate: Home Health Services (07/08/25848) Family/Caregiver Assist Does the patient have family and/or a caregiver that is willing, able and available to assist if needed?: Yes (07/04/251107) Name and Relation: Mandy Xavier PIPE (07/04/251107) Referrals Status: Follow-up on Referrals Sent: No (07/08/25848) Preferred Pharmacy: [facility] - [facility] [address] [facility] - [place], [place] - [address] Patient / Family Communications: Patient/Family Communications: Plan Discharge To Update (07/08/25848) Resources Provided Transportation Plan: Has discharge transport been arranged?: No (07/08/25848) Follow Up Appointments Scheduled Eula Gray RN * Care Plan - Rene Villatoro RN - 07/07/2025 7:32 PM CDT Shift Summary Provider was notified for dyspnea and tachycardia in the afternoon. cefTRIAXone and custom IV fluids were administered and stopped in [facility] Ultrasound during the shift. Hygiene care with CHG and comfort interventions were completed at midday. Safety checks and mobility assistance were provided, with no falls or injuries documented. Patient remained alert and oriented, with no pain reported and blood cultures in progress. Verbalizes/displays acceptable comfort level or baseline comfort level: No pain was reported throughout the shift and comfort interventions such as bed pad, gown, and linen changes were performed after hygiene care with CHG. Infection Risk/Actual: Infection prevention, control, or resolution by discharge: Blood cultures are in progress, no signs of UTI were identified, and cefTRIAXone was administered and stopped in [facility] Ultrasound; hygiene care with CHG was provided. Safety/Fall: Absence of fall, injury, harm during hospitalization: Safety checks were completed andpatient required 1-person assist and transfer pad for mobility, with no falls or injuries documented during the shift. Identify discharge needs upon admission and through discharge: Plan of care was reviewed with both the healthcare team and patient, and no family/caregiver contact occurred this shift. Maintain skin integrity and/or promote wound healing by discharge: Skin integrity was WDL except for ecchymosis noted in the groin, and hygiene care including razo care with CHG was performed. Rounded on patient hourly, patient stable, all questions answered, all needs met. Call light and belongings in reach and fall precautions followed. Intake/Output Summary (Last 24 hours) at 07/07/20251931 Last data filed at 07/07/20251929 Gross per 24 hour Intake 3074.18 ml Output 503 ml Net 2571.18 ml Vitals: 07/06/25 2000 07/07/25 0230 07/07/25 0809 07/07/25 1508 Temp: 99 ??F (37.2 ??C) 98.8 ??F (37.1 ??C) 98.6 ??F (37 ??C) Pulse: (!) 119 (!) 104 98 BP: (!) 152/88 118/73 132/70 (!) 136/92 Mean Arterial Pressure: 106 MM HG 87 MM HG 88 MM HG 104 MM HG Resp: SpO2: 95% 94% 96% 95% * Care Plan - Yemi Rincon RN - 07/06/2025 6:36 PM CDT Shift Summary cefTRIAXone (ROCEPHIN) was administered and stopped in the morning, and hygiene care with CHG was performed at midday. No pain was reported and comfort interventions were provided during the shift. Fall risk precautions and safety checks were maintained, with no falls or injuries documented. Discharge planning was discussed and the goal of home was documented. Overall, skin integrity was supported with frequent repositioning and hygiene care, and the patientremained stable in bed with mild muscle weakness. Verbalizes/displays acceptable comfort level or baseline comfort level: No pain was reported throughout the shift and comfort interventions such as linen and gown changes were performed at midday. Infection Risk/Actual: Infection prevention, control, or resolution by discharge: cefTRIAXone (ROCEPHIN) was administered and stopped in the morning, and hygiene care including CHG bathing and razo care was completed; no abnormal temperature trends were noted. Safety/Fall: Absence of fall, injury, harm during hospitalization: Fall risk precautions were maintained, safety checks were completed, and no falls or injuries occurred during the shift. Identify discharge needs upon admission and through discharge: Discharge goal of home was documented and plan of care was reviewed with the patient and healthcare team during the shift. Maintain skin integrity and/or promote wound healing by discharge: Skin was assessed as WDL, but ecchymosis and jaundice were noted; CHG hygiene care and frequent repositioning were performed to support skin integrity. * Care Plan - Yemi Rincon RN - 07/05/2025 5:58 PM CDT Shift Summary cefTRIAXone (ROCEPHIN) was administered and then stopped in the morning, and hygiene care includingCHG bathing and razo care was completed. Patient was repositioned several times and received regular skin assessments and hygiene care. Lactulose was administered three times during the shift. No falls or injuries occurred, and safety checks were completed. Patient remained pain-free and oriented, with discharge goal identified as home. Verbalizes/displays acceptable comfort level or baseline comfort level: No pain was reported throughout the shift and no pain interventions were required. Infection Risk/Actual: Infection prevention, control, or resolution by discharge: cefTRIAXone (ROCEPHIN) was administered in the morning and stopped shortly after; hygiene care including CHG bathing and razo care was completed. Safety/Fall: Absence of fall, injury, harm during hospitalization: No falls or injuries occurred, and safety checks were completed with agreement on fall risk status. Identify discharge needs upon admission and through discharge: Discharge goal was identified as home, and plan of care was reviewed with the patient and healthcare team twice during the shift. Maintain skin integrity and/or promote wound healing by discharge: Skin was assessed as WDL, hygiene care was performed, and Ermias score was 16, indicating moderate risk; patient was repositioned multiple times and razo care was provided. * Care Plan - Yemi Rincon RN - 07/05/2025 2:28 PM CDT Shift Summary lactulose and cefTRIAXone were administered as ordered, and CHG hygiene care was provided. All transfers required one-person assist, and no falls or injuries occurred. Fall risk and safety checks were addressed, and skin integrity was maintained. Plan of care and discharge needs were reviewed with the patient and healthcare team. Overall, remained stable with no pain, maintained safety, and received appropriate infection prevention interventions. Verbalizes/displays acceptable comfort level or baseline comfort level: No pain was reported or observed throughout the shift, and no pain interventions were required. Infection Risk/Actual: Infection prevention, control, or resolution by discharge: CHG bathing and razo care were performed, and cefTRIAXone and lactulose were administered as ordered. Safety/Fall: Absence of fall, injury, harm during hospitalization: Fall risk was acknowledged, safety checks were completed, and all transfers were performed with one-person assist without incident. Identify discharge needs upon admission and through discharge: Discharge goal of home was documented, and plan of care was reviewed with the patient and healthcare team. Maintain skin integrity and/or promote wound healing by discharge: Skin was assessed as within defined limits, CHG hygiene care was provided, and Ermias score was 16 with interventions for moisture and positioning. * Treatment Plan - Lucía Mayo RN - 07/04/2025 1:35 PM CDT Lactulose Enema given. Patient only able to tolerate 400 ml of enema. Large brown gelatenous incontinent result approx 45 min later. Patient now awake. Speaking clearly. In full sentences. * Care Plan - Lucía Mayo RN - 07/04/2025 11:40 AM CDT Shift Summary Razo care with CHG was performed to support infection prevention and skin integrity. Isolation precautions and aspiration precautions were maintained throughout the shift. High fall risk interventions and safety checks were completed, with no falls or injuries reported. Discharge planning was reviewed, and family support for home discharge was confirmed. Overall, comfort was supported and safety maintained during the shift. Verbalizes/displays acceptable comfort level or baseline comfort level: Pain was difficult to assess, but FLACC score remained low and nonverbal indicators of discomfort were minimal; multiple pain management interventions were provided throughout the shift. Infection Risk/Actual: Infection prevention, control, or resolution by discharge: Isolation precautions and VAP prevention measures were maintained, and razo care with CHG was performed; no new infection-related interventions were required during the shift. Safety/Fall: Absence of fall, injury, harm during hospitalization: High fall risk interventions andsafety checks were completed, and identification armband remained in place; no falls or injuries occurred during the shift. Identify discharge needs upon admission and through discharge: Discharge planning was reviewed, with family available to assist and plan to discharge home; individualized goal to go home was reaffirmed during the shift. Maintain skin integrity and/or promote wound healing by discharge: Ermias score indicated moderate risk, with occasional moisture and limited mobility; razo care and hygiene interventions were performed to support skin integrity. * Care Plan - Estrellita Hernández RN - 07/04/2025 11:03 AM CDT Care Management Initial Assessment Initial Discharge Planning Assessment completed. Discussed Care Management's role and Discharge planning. Does the patient have family and/or a caregiver that is willing, able and available to assist if needed? Yes - Name/Relation:PIPE Sparks Comments: CM attempted to meet with patient at bedside, patient is lethargic and not well-oriented.CM attempted to signficant other but the phone number is not an working number. CM reviewed chart to complete assessment Chemical Dependency Treatment List provided in d/c instructions Patient Discharge Planning Goal: uncertain at this time Patient will potentially discharge to a SNF/NH? No Care Management visited with: chart review . Prior to admission, patient resides at: own home. Prior to admission, living arrangements: significant other. Prior to admission, patient's functional level:independent; uses N/A for mobility; needs assistancewith iADLs: N/A Prior to admission, the patient has the following DME? N/A Services in the home/community: none Receives hemodialysis? No Emergency contact(s): Extended Emergency Contact Information Primary Emergency Contact: MINOO MERCEDES [facility] Relation: Significant Other Prescription coverage: yes Preferred Pharmacy verified: [facility] - [place], [place] - [address] [facility] - [place], [place] - [address] Insurance coverage verified: Payor: [facility] MEDICAID / Plan: [facility] PLAN [facility] [id number] / Product Type: HMO / Secondary Insurance:N/A Medicaid Status: no spend down Has VA Benefits: no Employment Status: not employed PCP verified as: Catalina Aden MD Patient has not had a stay at an acute care hospital in the last 30 days. Recent Falls?: Plan for transportation at discharge: pending Care Management contact information provided. Care Management will continue to follow and assist asneeded. documented in this encounter Plan of Treatment Pending Results Name Type Priority Associated Diagnoses Date /Time VITAMIN B1 LEVEL Lab Routine 07/10/20 6:25 PM CDT Scheduled Orders Name Type Priority Associated Diagnoses Orde r Schedule VITAMIN B1 LEVEL Lab Routine ONE TIME for 1 Occurrences starting 07/10/2025 until 07/10/2025 Scheduled Referrals Name Type Priority Associated Diagnoses Orde r Schedule AMB REFERRAL TO GASTROENTEROLOGY Outpatient Referral Routine Acute alcoholic intoxication with complication Alcoholic cirrhosis of liver with ascites (CMS/HCC) Chronic hepatitis C without hepatic coma (CMS/HCC) Ordered: 07/10/2025 AMB REFERRAL TO UROLOGY Outpatient Referral Routine DARVIN (acute kidney injury) Ordered: 07/10/2025 AMB REFERRAL TO FAMILY PRACTICE Outpatient Referral Routine Acute hepatic encephalopathy (CMS/HCC) Ordered: 07/10/2025 documented as of this encounter Procedures Procedure Name Priority Date/Time Associated Diagnosis Comments BASIC METABOLIC PANEL Routine 07/12/2025 1:01 AM CDT MRI BRAIN WO CONTRAST Routine 07/11/2025 5:01 PM CDT CBC WITHOUT DIFFERENTIAL Routine 07/11/2025 3:33 AM CDT BASIC METABOLIC PANEL Routine 07/11/2025 3:33 AM CDT EEG Routine 07/11/2025 VITAMIN B12 AND FOLATE Routine 07/10/2025 10:[address] HEAD WO CONTRAST Stat 07/10/2025 4 :44 PM CDT MEDICAL TECH EVALUATE AND TREAT Pending Discharge 07/10/2025 12:28 PM CDT CBC WITHOUT DIFFERENTIAL Routine 07/10/2025 3:41 AM CDT TSH Routine 07/10/2025 3:41 AM CDT T4 FREE Routine 07/10/2025 3:41 AM CDT BASIC METABOLIC PANEL Routine 07/10/2025 3:41 AM CDT US ASPIRATION ABDOMEN Routine 07/09/2025 2:16 PM CDT ANAEROBIC/AEROBIC CULTURE W GRAM STAIN Routine 07/09/2025 1:41 PM CDT CELL COUNT WITH DIFFERENTIAL, BODY FLUID Routine 07/09/2025 1:41 PM CDT PROTEIN, BODY FLUID Routine 07/09/2025 1 :41 PM CDT CYTOLOGY, NON GYNE Pathology 07/09/2025 1: 41 PM CDT ECHO COMPLETE Routine 07/09/2025 12:23 PM CDT PROTIME-INR Stat 07/09/2025 11:40 AM CDT COMPREHENSIVE METABOLIC PANEL Routine 07/09/2025 11:40 AM CDT CBC WITHOUT DIFFERENTIAL Routine 07/08/2025 1:58 AM CDT COMPREHENSIVE METABOLIC PANEL Routine 07/08/2025 1:58 AM CDT BRAIN NATRIURETIC PEPTIDE, BNP OR PROBNP Routine 07/07/2025 3:54 PM CDT XR CHEST PA OR AP 1 VW Routine 07/07/2025 3:36 PM CDT LACTATE DEHYDROGENASE Routine 07/07/2025 12:07 PM CDT ACUTE HEPATITIS PANEL Routine 07/07/2025 3:59 AM CDT HEPATITIS C RNA PCR, QUANTITATIVE Routine 07/07/2025 3:59 AM CDT CBC WITHOUT DIFFERENTIAL Routine 07/07/2025 3:59 AM CDT COMPREHENSIVE METABOLIC PANEL Routine 07/07/2025 3:59 AM CDT US ABDOMEN LIMITED Routine 07/06/2025 12 :22 PM CDT HIV DETECTION W/REFLX CONFIRMATION Routine 07/06/2025 11:05 AM CDT CBC WITHOUT DIFFERENTIAL Routine 07/06/2025 2:15 AM CDT MAGNESIUM LEVEL Routine 07/06/2025 2:15 AM CDT HAPTOGLOBIN Routine 07/06/2025 2:15 AM CDT COMPREHENSIVE METABOLIC PANEL Routine 07/06/2025 2:15 AM CDT BLOOD CULTURE Routine 07/05/2025 4:44 PM CDT BLOOD CULTURE Routine 07/05/2025 4:44 PM CDT BLOOD CULTURE Routine 07/05/2025 4:44 PM CDT BLOOD CULTURE Routine 07/05/2025 4:44 PM CDT CBC WITHOUT DIFFERENTIAL Routine 07/05/2025 1:33 AM CDT COMPREHENSIVE METABOLIC PANEL Routine 07/05/2025 1:33 AM CDT POC LACTIC ACID Routine 07/04/2025 6:40 PM CDT BLOOD GAS ARTERIAL Routine 07/04/2025 6: 40 PM CDT AMMONIA LEVEL Routine 07/04/2025 3:37 PM CDT TSH Routine 07/04/2025 10:42 AM CDT T4 FREE Stat 07/04/2025 10:42 AM CDT AMMONIA LEVEL Routine 07/04/2025 10:42 AM CDT ETHANOL LEVEL Routine 07/04/2025 10:42 AM CDT CBC WITH DIFFERENTIAL Routine 07/04/2025 6:24 AM CDT FERRITIN Routine 07/04/2025 6:24 AM CDT COMPREHENSIVE METABOLIC PANEL Routine 07/04/2025 6:24 AM CDT documented in this encounter Results * (ABNORMAL) BASIC METABOLIC PANEL (07/12/2025 1:01 AM CDT) Pathologist [facility] SODIUM 140 136 - 145 mmol/L 07/12/2025 2:09 AM CDT [facility] POTASSIUM 3.5 3.5 - 5.1 mmol/L 07/12/2025 2:09 AM CDT [facility] CHLORIDE 112(H) 98 - 107 mmol/L 07/12/2025 2:09 AM CDT [facility] CO2 17(L) 22 - 29 mmol/L 07/12/2025 2:09 AM CDT [facility] CALCIUM 8.5(L) 8.6 - 10.0 mg/dL 07/12/2025 2:09 AM CDT [facility] BUN 26(H) 6 - 20 mg/dL 07/12/2025 2:09 AM CDT [facility] CREATININE 1.12 0.67 - 1.17 mg/dL 07/12/2025 2:09 AM CDT [facility] GLUCOSE 103(H) 74 - 99 mg/dL 07/12/2025 2:09 AM CDT [facility] GFR >60 >=60 mL/min/1.7 3 sq meter 07/12/2025 2:09 AM CDT [facility] Comment:eGFR calculated with 2020 CKD-EPI equation. Vegetarian diet, extremely high or low muscle mass, and may affect results. Cystatin C with Glomerular Filtration Rate is a suitable alternative for these patients. ANION GAP 11 9 - 20 mmol/L 07/12/2025 2:09 AM CDT [facility] Blood Venipuncture / Unknown 07/12/2025 1:01 AM CDT 07/12/2025 1:33 AM CDT us Kenji Regalado MD CHEMISTRY ORDERABLES Final Re sult [facility] CLIA # [id number] [address] [place] [id number] * MRI BRAIN WO CONTRAST (07/11/2025 5:01 PM CDT) Anatomical Region Laterality Modality Head Magnetic Resonan ce 07/11/2025 5:01 PM CDT Impressions 07/12/2025 7:18 AM CDT IMPRESSION: Please see below. Exam: MRI BRAIN WO CONTRAST Date/Time of Exam: 07/11/2025 5:01 PM Reason For Exam: Mental status change, unknown cause. Diagnosis: Acute alcoholic intoxication with complication; Alcoholic cirrhosis of liver with ascites (CMS/HCC); Chronic hepatitis C without hepatic coma (CMS/HCC); Acute hepatic encephalopathy (CMS/HCC); DARVIN (acute kidney injury). Technique: MRI of the brain was performed without the administration of intravenous contrast. Comparison: CT head without contrast 07/10/2025. Findings: Moderate diffuse atrophy. No acute infarcts and no abnormal extra-axial fluid. Moderate chronic small vessel ischemic changes throughout the cerebral white matter. Very small chronic lacunar infarcts in the bilateral thalami and subinsular white matter. The brainstem and cerebellum are unremarkable. No abnormal extra-axial fluid. No significant susceptibility changes. The orbits are unremarkable. Trace ethmoid sinus mucosal thickening. Fluid in the mastoid air cells. IMPRESSION:. 1. Moderate atrophy and chronic small vessel ischemic changes. Nothing acute. 2. Fluid in the bilateral mastoid air cells. Narrative Procedure Note Michael Gill MD - 07/12/2025 IMPRESSION: Please see below. Exam: MRI BRAIN WO CONTRAST Date/Time of Exam: 07/11/2025 5:01 PM Reason For Exam: Mental status change, unknown cause. Diagnosis: Acute alcoholic intoxication with complication; Alcoholic cirrhosis of liver with ascites (CMS/HCC); Chronic hepatitis C without hepatic coma (CMS/HCC); Acute hepatic encephalopathy (CMS/HCC); DARVIN (acute kidney injury). Technique: MRI of the brain was performed without the administration of intravenous contrast. Comparison: CT head without contrast 07/10/2025. Findings: Moderate diffuse atrophy. No acute infarcts and no abnormal extra-axial fluid. Moderate chronic small vessel ischemic changes throughout the cerebral white matter. Very small chronic lacunar infarcts in the bilateral thalami and subinsular white matter. The brainstem and cerebellum are unremarkable. No abnormal extra-axial fluid. No significant susceptibility changes. The orbits are unremarkable. Trace ethmoid sinus mucosal thickening. Fluid in the mastoid air cells. IMPRESSION:. 1. Moderate atrophy and chronic small vessel ischemic changes. Nothing acute. 2. Fluid in the bilateral mastoid air cells. us Jesusita Hyde MD MR ORDERABLES Final Res ult * (ABNORMAL) BASIC METABOLIC PANEL (07/11/2025 3:33 AM CDT) SODIUM 142 136 - 145 mmol/L 07/11/2025 4:12 AM [facility] POTASSIUM 3.2(L) 3.5 - 5.1 mmol/L 07/11/2025 4:12 AM T [facility] CHLORIDE 114(H) 98 - 107 mmol/L 07/11/2025 4:12 AM T [facility] CO2 19(L) 22 - 29 mmol/L 07/11/2025 4:12 AM T [facility] CALCIUM 8.8 8.6 - 10.0 mg/dL 07/11/2025 4:12 AM T [facility] BUN 27(H) 6 - 20 mg/dL 07/11/2025 4:12 AM T [facility] CREATININE 1.20(H) 0.67 - 1.17 mg/dL 07/11/2025 4:12 AM T [facility] GLUCOSE 94 74 - 99 mg/dL 07/11/2025 4:12 AM T [facility] GFR >60 >=60 mL/min/1. 73 sq meter 07/11/2025 4:12 AM [facility] Comment:eGFR calculated with 2020 CKD-EPI equation. Vegetarian diet, extremely high or low muscle mass, and may affect results. Cystatin C with Glomerular Filtration Rate is a suitable alternative for these patients. ANION GAP 9 9 - 20 mmol/L 07/11/2025 4:12 AM [facility] Blood Venipuncture / Unknown 07/11/2025 3:33 AM CDT 07/11/2025 3:41 AM CDT us Jesusita Hyde MD CHEMISTRY ORDERABLES Seble l Result [facility] CLIA # [id number] [address] [place] [address] * (ABNORMAL) CBC WITHOUT DIFFERENTIAL (07/11/2025 3:33 AM CDT) WBC 11.0(H) 4.8 - 10.8 K/uL 07/11/2025 4:00 AM [facility] RBC 2.72(L) 4.60 - 6.20 M/uL 07/11/2025 4:00 AM [facility] HEMOGLOBIN 9.0(L) 14.0 - 18.0 g/dL 07/11/2025 4:00 AM [facility] HEMATOCRIT 25.7(L) 41.0 - 53.0 % 07/11/2025 4:00 AM [facility] MCV 94.5 84.0 - 103.0 fL 07/11/2025 4:00 AM CDT [facility] MCH 33.1 27.0 - 34.0 pg 07/11/2025 4:00 AM CDT [facility] MCHC 35.0 30.0 - 35.0 g/dL 07/11/2025 4:00 AM CDT [facility] PLATELETS 143 140 - 440 K/uL 07/11/2025 4:00 AM CDT [facility] MPV 10.5 8.9 - 12.8 fL 07/11/2025 4:00 AM CDT [facility] RDW 16.9(H) 11.0 - 14.5 % 07/11/2025 4:00 AM T [facility] RDW-STDEV 57.4(H) 37.0 - 54.0 fL 07/11/2025 4:00 AM T [facility] Blood Venipuncture / Unknown 07/11/2025 3:33 AM CDT 07/11/2025 3:41 AM CDT us Jesusita Hyde MD HEMATOLOGY ORDERABLES Fin al Result [facility] CLIA # [id number] [address] [place] [address] * EEG (07/11/2025) Impressions Dee Morse MD - 07/11/2025 HISTORY: Per report Presented with altered mental status and worsening ascites. Found to have DARVIN . MEDICATION: no AEDs listed. TECHNICAL INFORMATION: This EEG was recorded on a [employer] EEG system. The 21 scalp electrodes used were placed in accordance with the standard international 10 - 20 system. BACKGROUND RHYTHM: Background pattern in wakefulness were well organized with a posterior dominant rhythm of 7 Hertz. Drowsiness is associated with attenuation of voltage and slowing of frequencies. Normal stage II sleep patterns were seen. ABNORMAL POTENTIAL: no epileptiform activity or focal slowing was noted. ACTIVATION PROCEDURES: PHOTIC STIMULATION: did not activate tracing EKG: single channel EKG monitoring was uninterpretable. IMPRESSION: This awake and asleep EEG pattern is consistent with mild encephalopathy. No epileptiform discharges were noted. Dee Morse M.D Jesusita Hyde MD NEUROLOGY ORDERABLES Seble l Result * (ABNORMAL) VITAMIN B12 AND FOLATE (07/10/2025 10:08 PM CDT) VITAMIN B12 1,077(H) 211 - 946 pg/mL 07/10/2025 11:31 PM CDT [facility] [employer] [facility] FOLATE, SERUM 10.4 3.1 - 17.5 ng/mL 07/10/2025 11:31 PM CDT [facility] Blood Venipuncture / Unknown 07/10/2025 10:08 PM CDT 07/10/2025 10:22 PM CDT Jesusita Hyde MD CHEMISTRY ORDERABLES Seble l Result [facility] CLIA # [id number] [address] [place] [address] * CT HEAD WO CONTRAST (07/10/2025 4:44 PM CDT) Anatomical Region Laterality Modality Head Computed Tomogra phy 07/10/2025 4:40 PM CDT Impressions 07/10/2025 5:27 PM CDT IMPRESSION: No acute intracranial abnormality. Mild sequela of small vessel ischemic disease. Narrative 07/10/2025 5:27 PM CDT Exam: CT HEAD WO CONTRAST Date/Time of Exam: 07/10/2025 4:44 PM Reason For Exam: Mental status change, unknown cause. Diagnosis: Acute alcoholic intoxication with complication; Alcoholic cirrhosis of liver with ascites (CMS/HCC); Chronic hepatitis C without hepatic coma (CMS/HCC); Acute hepatic encephalopathy (CMS/HCC); DARVIN (acute kidney injury). Technique: CT of the head was performed without the administration of intravenous contrast. Findings: No acute infarction, hemorrhage or extra-axial collection. Mild sequela of small vessel ischemic disease and diffuse parenchymal volume loss. No hydrocephalus. Basal cisterns are patent. No acute osseous abnormality. The paranasal sinuses and mastoid air cells are clear. The orbits are intact. Procedure Note Ramiro Huffman DO - 07/10/2025 Exam: CT HEAD WO CONTRAST Date/Time of Exam: 07/10/2025 4:44 PM Reason For Exam: Mental status change, unknown cause. Diagnosis: Acute alcoholic intoxication with complication; Alcoholic cirrhosis of liver with ascites (CMS/HCC); Chronic hepatitis C without hepatic coma (CMS/HCC); Acute hepatic encephalopathy (CMS/HCC); DARVIN (acute kidney injury). Technique: CT of the head was performed without the administration of intravenous contrast. Findings: No acute infarction, hemorrhage or extra-axial collection. Mild sequela of small vessel ischemic disease and diffuse parenchymal volume loss. No hydrocephalus. Basal cisterns are patent. No acute osseous abnormality. The paranasal sinuses and mastoid air cells are clear. The orbits are intact. IMPRESSION: No acute intracranial abnormality. Mild sequela of small vessel ischemic disease. Jesusita Hyde MD CT ORDERABLES Final Res ult * T4 FREE (07/10/2025 3:41 AM CDT) T4 FREE 0.88 0.81 - 1.70 ng/dL 07/10/2025 8:47 PM CDT [facility] [employer] [facility] Blood Venipuncture / Unknown 07/10/2025 3:41 AM CDT 07/10/2025 3:52 AM CDT Jesusita Hyde MD CHEMISTRY ORDERABLES Seble l Result [facility] [employer] [facility] CLIA # [id number] [address] [address] [place] [address] * (ABNORMAL) TSH (07/10/2025 3:41 AM CDT) TSH 37.85(H) 0.27 - 4.20 uIU/mL 07/10/2025 6:38 PM CDT [facility] Blood Venipuncture / Unknown 07/10/2025 3:41 AM CDT 07/10/2025 3:52 AM CDT Jesusita Hyde MD CHEMISTRY ORDERABLES Seble jefferson Result [facility] CLIA # [id number] [address] [place] [address] * (ABNORMAL) BASIC METABOLIC PANEL (07/10/2025 3:41 AM CDT) Pathologist [facility] SODIUM 138 136 - 145 mmol/L 07/10/2025 4:34 AM T [facility] POTASSIUM 3.9 3.5 - 5.1 mmol/L 07/10/2025 4:34 AM T [facility] CHLORIDE 111(H) 98 - 107 mmol/L 07/10/2025 4:34 AM T [facility] CO2 17(L) 22 - 29 mmol/L 07/10/2025 4:34 AM T [facility] CALCIUM 8.7 8.6 - 10.0 mg/dL 07/10/2025 4:34 AM T [facility] BUN 28(H) 6 - 20 mg/dL 07/10/2025 4:34 AM T [facility] CREATININE 1.21(H) 0.67 - 1.17 mg/dL 07/10/2025 4:34 AM T [facility] GLUCOSE 113(H) 74 - 99 mg/dL 07/10/2025 4:34 AM T [facility] GFR >60 >=60 mL/min/1. 73 sq meter 07/10/2025 4:34 AM T [facility] Comment:eGFR calculated with 2020 CKD-EPI equation. Vegetarian diet, extremely high or low muscle mass, and may affect results. Cystatin C with Glomerular Filtration Rate is a suitable alternative for these patients. ANION GAP 10 9 - 20 mmol/L 07/10/2025 4:34 AM T [facility] Blood Venipuncture / Unknown 07/10/2025 3:41 AM CDT 07/10/2025 3:52 AM CDT us Jesusita Hyde MD CHEMISTRY ORDERABLES Seble jefferson Result [facility] CLIA # [id number] [address] [place] [address] * (ABNORMAL) CBC WITHOUT DIFFERENTIAL (07/10/2025 3:41 AM CDT) WBC 13.4(H) 4.8 - 10.8 K/uL 07/10/2025 3:57 AM CDT [facility] RBC 2.89(L) 4.60 - 6.20 M/uL 07/10/2025 3:57 AM T [facility] HEMOGLOBIN 9.7(L) 14.0 - 18.0 g/dL 07/10/2025 3:57 AM [facility] HEMATOCRIT 27.8(L) 41.0 - 53.0 % 07/10/2025 3:57 AM CDT [facility] MCV 96.2 84.0 - 103.0 fL 07/10/2025 3:57 AM CDT [facility] MCH 33.6 27.0 - 34.0 pg 07/10/2025 3:57 AM T [facility] MCHC 34.9 30.0 - 35.0 g/dL 07/10/2025 3:57 AM CDT [facility] PLATELETS 143 140 - 440 K/uL 07/10/2025 3:57 AM T [facility] MPV 11.0 8.9 - 12.8 fL 07/10/2025 3:57 AM CDT [facility] RDW 17.1(H) 11.0 - 14.5 % 07/10/2025 3:57 AM CDT [facility] RDW-STDEV 57.9(H) 37.0 - 54.0 fL 07/10/2025 3:57 AM CDT [facility] Blood Venipuncture / Unknown 07/10/2025 3:41 AM CDT 07/10/2025 3:52 AM CDT us Jesusita Hyde MD HEMATOLOGY ORDERABLES Fin al Result [facility] CLIA # [id number] [facility] [address] * US ASPIRATION ABDOMEN (07/09/2025 2:16 PM CDT) Anatomical Region Laterality Modality Abdomen Ultrasound 07/09/2025 2:18 PM CDT Impressions 07/09/2025 2:47 PM CDT IMPRESSION: Please see below. Exam: US ASPIRATION ABDOMEN Date/Time of Exam: 07/09/2025 2:16 PM Reason For Exam: Ascites. This procedure was performed and preliminary findings dictated by Charli Lagunas PA-C. Supervision and final interpretation by Dr. Crockett. CONSENT: Risks, benefits, and alternatives of the procedure were discussed with the patient. Specific risks of paracentesis to include, but not limited to: bleeding, infection, pain, injury to bowel, damage to adjacent tissue/organs, . Procedure may need to be repeated if the fluid sample obtained is non-diagnostic. Written informed consent was obtained from the patient. Description of Procedure: A time out was performed to verify the patient and procedure. The patient was placed in a supine position, and ultrasound was utilized to evaluate the abdomen for the largest pocket of free fluid. The right lower quadrant was selected. The area was marked, prepped, and draped in the usual sterile fashion. All elements of maximal sterile barrier technique, including hand hygiene and cutaneous antisepsis with an antisepsis agent, were used. Local anesthesia was achieved with 1% lidocaine overlying the proposed needle course. A 10-cm 5 Maltese Yueh centesis catheter was inserted. 4900 ml of a clear, yellow ascites was then drained via suction. The centesis catheter was removed in its entirety, the chlorhexidine cleansed from the skin, and a sterile dressing placed. The patient tolerated the procedure without complications. Estimated Blood Loss: None Narrative Procedure Note Todd Crockett MD - 07/09/2025 IMPRESSION: Please see below. Exam: US ASPIRATION ABDOMEN Date/Time of Exam: 07/09/2025 2:16 PM Reason For Exam: Ascites. This procedure was performed and preliminary findings dictated by Charli Lagunas PA-C. Supervision and final interpretation by Dr. Crockett. CONSENT: Risks, benefits, and alternatives of the procedure were discussed with the patient. Specific risks of paracentesis to include, but not limited to: bleeding, infection, pain, injury to bowel, damage to adjacent tissue/organs, . Procedure may need to be repeated if the fluid sample obtained is non-diagnostic. Written informed consent was obtained from the patient. Description of Procedure: A time out was performed to verify the patient and procedure. The patient was placed in a supine position, and ultrasound was utilized to evaluate the abdomen for the largest pocket of free fluid. The right lower quadrant was selected. The area was marked, prepped, and draped in the usual sterile fashion. All elements of maximal sterile barrier technique, including hand hygiene and cutaneous antisepsis with an antisepsis agent, were used. Local anesthesia was achieved with 1% lidocaine overlying the proposed needle course. A 10-cm 5 Maltese Yueh centesis catheter was inserted. 4900 ml of a clear, yellow ascites was then drained via suction. The centesis catheter was removed in its entirety, the chlorhexidine cleansed from the skin, and a sterile dressing placed. The patient tolerated the procedure without complications. Estimated Blood Loss: None us Jesusita Hyde MD US ORDERABLES Final Res ult * CELL COUNT WITH DIFFERENTIAL, BODY FLUID (07/09/2025 1:41 PM CDT) APPEARANCE, BODY FLUID Clear 07/09/2025 3:42 PM CDT [facility] COLOR, FLD Yellow 07/09/2025 3:42 PM CDT [facility] TOTAL NUCLEATED CELLS, FLD (AUTO) 119 No Ref Range Estab /ul 07/09/2025 3:42 PM CDT [facility] TOTAL RBC'S, FLD (AUTO) <3,000 No Ref Range Estab /ul 07/09/2025 3:42 PM CDT [facility] NEUTROPHILS, FLD 5 No Ref Range Estab % 07/09/2025 3:42 PM CDT [facility] LYMPHOCYTE, FLD 19 No Ref Range Estab % 07/09/2025 3:42 PM CDT [facility] MONOCYTE/MACROPH AGE, FLD 64 No Ref Range Estab % 07/09/2025 3:42 PM CDT [facility] MESOTHELIAL FLD 10 No Ref Range Estab % 07/09/2025 3:42 PM CDT [facility] Body fluid ENTIRE SEROUS MEMBRANE OF PERITONEUM / Unknown Collection / Unknown 07/09/2025 1:41 PM CDT 07/09/2025 2:45 PM CDT us Jesusita Hyde MD BODY FLUIDS AND STOOLS Fi nal Result [facility] CLIA # [id number] [address] [place] [address] * ANAEROBIC/AEROBIC CULTURE W GRAM STAIN (07/09/2025 1:41 PM CDT) CULTURE No aerobic or anaerobic growth 07/12/2025 11:08 AM CDT [facility] GRAM STAIN No Polymorphonuclear WBC 07/12/2025 11:08 AM CDT [facility] GRAM STAIN No organisms observed 07/12/2025 11:08 AM CDT [facility] Body fluid ENTIRE SEROUS MEMBRANE OF PERITONEUM / Unknown Collection / Unknown 07/09/2025 1:41 PM CDT 07/09/2025 2:45 PM CDT Jesusita Hyde MD MICROBIOLOGY - GENERAL OR DERABLES Final Result [facility] CLIA # [id number] [address] [place] [address] * CYTOLOGY, NON GYNE (07/09/2025 1:41 PM CDT) CASE REPORT Medical Cytology Report Case: [id number] Authorizing Provider: Jesusita Gutierrez MD Collected: 07/09/2025 01:41 PM Ordering Location: [facility] Received: 07/10/2025 08:48 AM Medical Pathologist: Lakesha Garces MD Specimen: Peritoneal (ascitic) fluid 10:57 AM CDT [facility] FINAL DIAGNOSIS A. Peritoneal fluid, ThinPrep and cell block - No malignant cells identified - Mesothelial cells, histiocytes, and small lymphocytes present Lakesha Garces MD [id number] 10:57 AM CDT [facility] at 1057 CDT GROSS DESCRIPTION A. Peritoneal (ascitic) fluid - 30 ml clear yellow fluid processed for ThinPrep and cell block A2. 10:57 AM CDT [facility] CLINICAL INFORMATION No Dx found. 10:57 AM CDT [facility] COMMENT The [employer] voice-activated dictation system may have been used in the creation of this report. Inherent to this system is the possibility of errors in syntax, grammar, punctuation, or other areas that could impact interpretation. If there are interpretive questions about the report, please contact the performing pathologist. Unless gross only is specified in the diagnosis, the microscopic examination substantiates the above cited diagnosis. The performance characteristics of all immunohistochemical stains cited in this report (if any) were determined by the Diagnostic Immunohistochemistry Laboratory of [facility] in compliance with CLIA'88 regulations. Some of these tests rely on the use of analyte specific reagents and are subject to specific labeling requirements by the FDA. All controls show appropriate reactivity. This testing was developed by the Diagnostic Immunohistochemistry Laboratory of [facility]. It has not been cleared or approved by the FDA. The FDA has determined that such clearance or approval is not necessary. 10:57 AM CDT [facility] Body fluid ASCITIC FLUID SPECIMEN / Unknown Collection / Unknown 07/09/2025 1:41 PM CDT 07/10/2025 8:48 AM CDT Jesusita Hyde MD PATHOLOGY/CYTOLOGY ORDERA BLES Final Result Performing Organization Address [facility] de Phone Number [facility] CLIA # [id number] [address] [address] * PROTEIN, BODY FLUID (07/09/2025 1:41 PM CDT) PROTEIN, FLD 0.8 g/dL 07/09/2025 3:18 PM CDT [facility] Body fluid ENTIRE SEROUS MEMBRANE OF PERITONEUM / Unknown Collection / Unknown 07/09/2025 1:41 PM CDT 07/09/2025 2:45 PM CDT Narrative [facility] - 07/09/2025 3:18 PM CDT Interpretive Criteria: Transudate: <2.0 g/dL Exudate: >2.0 g/dL The reference range and other method performance specifications are unavailable for this body fluid. Comparison of this result with the concentration in the blood, serum, or plasma is recommended. Jesusita Hyde MD BODY FLUIDS AND STOOLS Fi nal Result Performing Organization Address [facility] Co de Phone Number [facility] CLIA # [id number] [id number] [place] [address] * ECHO COMPLETE - CONTRAST AND STRAIN IF INDICATED (07/09/2025 12:23 PM CDT) EJECTION FRACTION 60 INTERFACE SYSTEM 07/09/2025 8:37 AM CDT Narrative INTERFACE SYSTEM - 07/09/2025 10:59 AM CDT [facility] Cardiovascular Services Echocardiography Laboratory [address] [place] [address] Transthoracic Echocardiography Patient: Donny Waller Study ID: ECHO COMPLETE - Gender: M : 1970 Age: 55 Room: [facility] Study Date: 07/09/2025 Pt Status: Inpatient Study Time: 08:37:40 AM CSN #: [id number] Ordering:Jesusita Gutierrez Patient Relations Representative: YULY Indications and History: HF, Cardiomyopathy, dyspnea, SOB, initial eval of known or suspected HF/cardiomyopathy. Summary and Conclusion: - Left ventricle: The cavity size is normal. Wall thickness is normal. Global systolic function is normal. The estimated ejection fraction is 55-60%. For Epic reporting: the left ventricular ejection fraction is 60%. No diagnostic regional wall motion abnormality identified. Doppler parameters are consistent with abnormal left ventricular relaxation (grade 1 diastolic dysfunction). The longitudinal strain is -23.3% (Normal range is -18 to -25). - Right ventricle: The cavity size is normal. Systolic function is normal. Systolic pressure is within the normal range. - Mitral valve: The annulus is mildly calcified. There is trivial to mild regurgitation. Procedure information: No prior study is available for comparison. Study status: Routine. Procedure: A transthoracic echocardiogram was performed. Image quality was adequate. Scanning was performed from the parasternal, apical, subcostal, and suprasternal notch acoustic windows. Study components: M-mode, 2D, complete spectral Doppler, and color Doppler. Height: 172.7cm. Height: 68in. Weight: 71kg. Weight: 156.5lb. BMI: 23.8kg/m^2. BSA: 1.85m^2. Blood pressure: 118/67 Study date: 07/09/2025. Study time: 08:37 AM. Location: Bedside. Cardiac Anatomy: LEFT VENTRICLE: The cavity size is normal. Wall thickness is normal. Global systolic function is normal. The estimated ejection fraction is 55-60%. For Epic reporting: the left ventricular ejection fraction is 60%. No diagnostic regional wall motion abnormality identified. The longitudinal strain is -23.3% (Normal range is -18 to -25). Doppler parameters are consistent with abnormal left ventricular relaxation (grade 1 diastolic dysfunction). RIGHT VENTRICLE: The cavity size is normal. Systolic function is normal. Systolic pressure is within the normal range. LEFT ATRIUM: The atrium is normal in size. RIGHT ATRIUM: The atrium is normal in size. ATRIAL SEPTUM: No obvious PFO or ASD identified by 2D imaging and color Doppler. AORTIC VALVE: The valve is trileaflet. The leaflets are normal thickness. Mobility is not restricted. There is no stenosis. There is no significant regurgitation. MITRAL VALVE: The annulus is mildly calcified. Mobility is not restricted. No evidence for prolapse. There is no evidence for stenosis. There is trivial to mild regurgitation. TRICUSPID VALVE: Structurally normal valve. Mobility is unrestricted. There is no evidence for stenosis. There is trivial regurgitation. PULMONIC VALVE: Not well visualized. The valve appears to be grossly normal. There is no evidence for stenosis. There is trivial regurgitation. PERICARDIUM: There is no pericardial effusion. AORTA: Aortic root: The root is not dilated. Aortic arch: The vessel is not dilated. INTRACARDIAC MASS THROMBUS: No apparent intracavitary masses or thrombi detected. Measurements Left ventricle Value Left atrium continued Value GLS, 2D -23.3 % Vol, S 48 ml OTIS, LAX 4.6 cm Vol/bsa, S 26 ml/m^2 ESD, LAX 3.2 cm Vol, ES, 1-p A4C 41 ml OTIS/bsa, LAX 2.5 cm/m^2 Vol/bsa, ES, 1-p A4C 22 ml/m^2 ESD/bsa, LAX 1.7 cm/m^2 Vol, ES, 1-p A2C 44 ml FS, LAX 29 % Vol/bsa, ES, 1-p A2C 24 ml/m^2 ESD major ax, A4C 5.7 cm Vol, ES, A/L 48 ml ESD/bsa major ax, A4C 3.1 cm/m^2 Vol/bsa, ES, A/L 26 ml/m^2 OTIS minor ax, A4C 5.7 cm OTIS/bsa minor ax, A4C 3.1 cm/m^2 Right atrium Value OTIS major ax, A2C 7.4 cm Area, ES 13 cm^2 OTIS/bsa major ax, A2C 4.0 cm/m^2 Area, ES, A4C 13 cm^2 IVS, ED 0.7 cm ESD 3.2 cm Aortic valve Value ESD/bsa 1.7 cm/m^2 Peak v, S 96.47 cm/sec PW, ED 0.9 cm Peak grad, S 4 mm Hg IVS/PW, ED 0.77 LVOT/AV, Vpeak ratio 0.9 EDV, 1-p A4C 91 ml LINDA, Vmax 2.82 cm^2 ESV, 1-p A4C 35 ml LINDA/bsa, Vmax 1.52 cm^2/m^2 EF, 1-p A4C 61 % SV, 1-p A4C 56 ml Mitral valve Value EDV/bsa, 1-p A4C 49 ml/m^2 Mean v, D 64.86 cm/sec ESV/bsa, 1-p A4C 19 ml/m^2 Peak E 91.23 cm/sec SV/bsa, 1-p A4C 30 ml/m^2 Peak A 87.46 cm/sec Decel time 161 ms LVOT Value PHT 47 ms Diam, S 2.1 cm Mean grad, D 2 mm Hg Area 3.4 cm^2 Peak grad, D 6 mm Hg Peak yoni, S 86.68 cm/sec Peak E/A ratio 1.04 Peak grad, S 3 mm Hg MVA, PHT 4.72 cm^2 MVA/bsa, PHT 2.55 cm^2/m^2 Right ventricle Value Vena contracta width 2.3 cm OTIS, LAX 2.3 cm OTIS 2.3 cm Tricuspid valve Value TR peak v 174.12 cm/sec Left atrium Value Peak RV-RA grad, S 12 mm Hg AP dim, ES 3.1 cm AP dim index, ES 1.7 cm/m^2 Ascending aorta Value SI dim, A4C 5.0 cm AAo AP diam, S 3.3 cm Area ES, A4C 17 cm^2 AAo AP diam/bsa, S 1.8 cm/m^2 Legend: (L) and (H) den values outside specified reference range. [facility] are accredited with the Intersocietal Accreditation Commission - Echocardiography. Prepared and Electronically Authenticated Efraín Shabazz MD Confirmed 07/09/2025 10:58 Procedure Note Efraín Shabazz MD - 07/09/2025 [facility] Cardiovascular Services Echocardiography Laboratory [address] [place] [id number] Transthoracic Echocardiography Patient: Donny Waller Study ID: [id number] - Gender: M : 1970 Age: 55 Room: [facility] Study Date: 07/09/2025 Pt Status: Inpatient Study Time: 08:37:40 AM [facility] #: [id number] Ordering:Jesusita Gutierrez Patient Relations Representative: YULY Indications and History: HF, Cardiomyopathy, dyspnea, SOB, initialeval of known or suspected HF/cardiomyopathy. Summary and Conclusion: - Left ventricle: The cavity size is normal. Wall thickness is normal.Global systolic function is normal. The estimated ejection fraction is 55-60%.For Epic reporting: the left ventricular ejection fraction is 60%. Nodiagnostic regional wall motion abnormality identified. Doppler parameters are consistent with abnormal left ventricular relaxation (grade 1diastolic dysfunction). The longitudinal strain is -23.3% (Normal range is -18to -25). - Right ventricle: The cavity size is normal. Systolic function isnormal. Systolic pressure is within the normal range. - Mitral valve: The annulus is mildly calcified. There is trivial tomild regurgitation. Procedure information: No prior study is available for comparison.Study status: Routine. Procedure: A transthoracic echocardiogram wasperformed. Image quality was adequate. Scanning was performed from the parasternal, apical, subcostal, and suprasternal notch acoustic windows.Study components: M-mode, 2D, complete spectral Doppler, and color Doppler. Height: 172.7cm. Height: 68in. Weight: 71kg. Weight: 156.5lb. BMI: 23.8kg/m^2. BSA: 1.85m^2. Blood pressure: 118/67 Studydate: 07/09/2025. Study time: 08:37 AM. Location: Bedside. Cardiac Anatomy: LEFT VENTRICLE: The cavity size is normal. Wall thickness is normal.Global systolic function is normal. The estimated ejection fraction is 55-60%.For Epic reporting: the left ventricular ejection fraction is 60%. Nodiagnostic regional wall motion abnormality identified. The longitudinal strain is-23.3% (Normal range is -18 to -25). Doppler parameters are consistent withabnormal left ventricular relaxation (grade 1 diastolic dysfunction). RIGHT VENTRICLE: The cavity size is normal. Systolic function isnormal. Systolic pressure is within the normal range. LEFT ATRIUM: The atrium is normal in size. RIGHT ATRIUM: The atrium is normal in size. ATRIAL SEPTUM: No obvious PFO or ASD identified by 2D imaging and color Doppler. AORTIC VALVE: The valve is trileaflet. The leaflets are normalthickness. Mobility is not restricted. There is no stenosis. There is nosignificant regurgitation. MITRAL VALVE: The annulus is mildly calcified. Mobility is notrestricted. No evidence for prolapse. There is no evidence for stenosis. There istrivial to mild regurgitation. TRICUSPID VALVE: Structurally normal valve. Mobility isunrestricted. There is no evidence for stenosis. There is trivial regurgitation. PULMONIC VALVE: Not well visualized. The valve appears to be grosslynormal. There is no evidence for stenosis. There is trivial regurgitation. PERICARDIUM: There is no pericardial effusion. AORTA: Aortic root: The root is not dilated. Aortic arch: The vessel is not dilated. INTRACARDIAC MASS THROMBUS: No apparent intracavitary masses or thrombi detected. Measurements Left ventricle Value Left atrium continued Value GLS, 2D -23.3 % Vol, S 48 ml OTIS, LAX 4.6 cm Vol/bsa, S 26ml/m^2 ESD, LAX 3.2 cm Vol, ES, 1-p A4C 41 ml OTIS/bsa, LAX 2.5 cm/m^2 Vol/bsa, ES, 1-p A4C 22ml/m^2 ESD/bsa, LAX 1.7 cm/m^2 Vol, ES, 1-p A2C 44 ml FS, LAX 29 % Vol/bsa, ES, 1-p A2C 24ml/m^2 ESD major ax, A4C 5.7 cm Vol, ES, A/L 48 ml ESD/bsa major ax, A4C 3.1 cm/m^2 Vol/bsa, ES, A/L 26ml/m^2 OTIS minor ax, A4C 5.7 cm OTIS/bsa minor ax, A4C 3.1 cm/m^2 Right atrium Value OTIS major ax, A2C 7.4 cm Area, ES 13 cm^2 OTIS/bsa major ax, A2C 4.0 cm/m^2 Area, ES, A4C 13 cm^2 IVS, ED 0.7 cm ESD 3.2 cm Aortic valve Value ESD/bsa 1.7 cm/m^2 Peak v, S 96.47cm/sec PW, ED 0.9 cm Peak grad, S 4 mmHg IVS/PW, ED 0.77 LVOT/AV, Vpeak ratio 0.9 EDV, 1-p A4C 91 ml LINDA, Vmax 2.82 cm^2 ESV, 1-p A4C 35 ml LINDA/bsa, Vmax 1.52cm^2/m^2 EF, 1-p A4C 61 % SV, 1-p A4C 56 ml Mitral valve Value EDV/bsa, 1-p A4C 49 ml/m^2 Mean v, D 64.86cm/sec ESV/bsa, 1-p A4C 19 ml/m^2 Peak E 91.23cm/sec SV/bsa, 1-p A4C 30 ml/m^2 Peak A 87.46cm/sec Decel time 161 ms LVOT Value PHT 47 ms Diam, S 2.1 cm Mean grad, D 2 mmHg Area 3.4 cm^2 Peak grad, D 6 mmHg Peak yoni, S 86.68 cm/sec Peak E/A ratio 1.04 Peak grad, S 3 mm Hg MVA, PHT 4.72 cm^2 MVA/bsa, PHT 2.55cm^2/m^2 Right ventricle Value Vena contracta width 2.3 cm OTIS, LAX 2.3 cm OTIS 2.3 cm Tricuspid valve Value TR peak v 174.12cm/sec Left atrium Value Peak RV-RA grad, S 12 mmHg AP dim, ES 3.1 cm AP dim index, ES 1.7 cm/m^2 Ascending aorta Value SI dim, A4C 5.0 cm AAo AP diam, S 3.3 cm Area ES, A4C 17 cm^2 AAo AP diam/bsa, S 1.8cm/m^2 Legend: (L) and (H) den values outside specified reference range. [facility] are accredited with theIntersocietal Accreditation Commission - Echocardiography. Prepared and Electronically Authenticated Efraín Shabazz MD Confirmed 07/09/2025 10:58 us Jesusita Hyde MD US ORDERABLES Final Res ult INTERFACE SYSTEM Refer to clinic/hospital department * (ABNORMAL) PROTIME-INR (07/09/2025 11:40 AM CDT) PROTIME 28.9(H) 12.7 - 14.9 Seconds 07/09/2025 12:10 PM CDT [facility] INR 2.6(H) 0.8 - 1.2 07/09/2025 12:10 PM CDT [facility] Blood Venipuncture / Unknown 07/09/2025 11:40 AM CDT 07/09/2025 11:56 AM CDT [facility] - 07/09/2025 12:10 PM CDT Expected Values for INR: DVT/PE Goal INR 2.5; range 2.0 - 3.0 Valve Replacement Tissue Goal INR 2.5; range 2.0 - 3.0 Valve Replacement Mechanical Goal INR 3.0; range 2.5 - 3.5 POST-MN Goal INR 2.5; range 2.0 - 3.0 or Goal INR 3.0; range 2.5 - 3.5 Atrial Fibrillation Goal INR 2.5; range 2.0 - 3.0 Ischemic Stroke Goal INR 2.5; range 2.0 - 3.0 us Jesusita Hyde MD HEMATOLOGY ORDERABLES Fin al Result [facility] CLIA # [id number] [address] [place] [address] * (ABNORMAL) COMPREHENSIVE METABOLIC PANEL (07/09/2025 11:40 AM CDT) SODIUM 138 136 - 145 mmol/L 07/09/2025 12:26 PM [facility] POTASSIUM 4.5 3.5 - 5.1 mmol/L 07/09/2025 12:26 PM [facility] CHLORIDE 109(H) 98 - 107 mmol/L 07/09/2025 12:26 PM T [facility] CO2 17(L) 22 - 29 mmol/L 07/09/2025 12:26 PM T [facility] CALCIUM 8.9 8.6 - 10.0 mg/dL 07/09/2025 12:26 PM T [facility] BUN 28(H) 6 - 20 mg/dL 07/09/2025 12:26 PM [facility] CREATININE 1.30(H) 0.67 - 1.17 mg/dL 07/09/2025 12:26 PM CDT [facility] GLUCOSE 153(H) 74 - 99 mg/dL 07/09/2025 12:26 PM T [facility] TOTAL PROTEIN 6.0(L) 6.4 - 8.3 g/dL 07/09/2025 12:26 PM T [facility] ALBUMIN 3.0(L) 3.5 - 5.2 g/dL 07/09/2025 12:26 PM T [facility] BILIRUBIN TOTAL 1.7(H) 0.0 - 1.0 mg/dL 07/09/2025 12:26 PM T [facility] ALKALINE PHOSPHATASE 71 40 - 129 U/L 07/09/2025 12:26 PM T [facility] AST 103(H) 10 - 50 U/L 07/09/2025 12:26 PM T [facility] ALT 61(H) <=50 U/L 07/09/2025 12:26 PM [facility] GFR >60 >=60 mL/min/1. 73 sq meter 07/09/2025 12:26 PM T [facility] Comment:eGFR calculated with 2020 CKD-EPI equation. Vegetarian diet, extremely high or low muscle mass, and may affect results. Cystatin C with Glomerular Filtration Rate is a suitable alternative for these patients. ANION GAP 12 9 - 20 mmol/L 07/09/2025 12:26 PM T [facility] Blood Venipuncture / Unknown 07/09/2025 11:40 AM CDT 07/09/2025 11:56 AM CDT us Jesusita Hyde MD CHEMISTRY ORDERABLES Seble jefferson Result [facility] CLIA # [id number] [address] [address] * (ABNORMAL) CBC WITHOUT DIFFERENTIAL (07/08/2025 1:58 AM CDT) [facility] WBC 10.8 4.8 - 10.8 K/uL 07/08/2025 2:30 AM CDT [facility] RBC 2.76(L) 4.60 - 6.20 M/uL 07/08/2025 2:30 AM CDT [facility] HEMOGLOBIN 9.3(L) 14.0 - 18.0 g/dL 07/08/2025 2:30 AM CDT [facility] HEMATOCRIT 26.3(L) 41.0 - 53.0 % 07/08/2025 2:30 AM CDT [facility] MCV 95.3 84.0 - 103.0 fL 07/08/2025 2:30 AM CDT [facility] MCH 33.7 27.0 - 34.0 pg 07/08/2025 2:30 AM T [facility] MCHC 35.4(H) 30.0 - 35.0 g/dL 07/08/2025 2:30 AM CDT [facility] PLATELETS 75(L) 140 - 440 K/uL 07/08/2025 2:30 AM T [facility] MPV 10.9 8.9 - 12.8 fL 07/08/2025 2:30 AM T [facility] RDW 16.3(H) 11.0 - 14.5 % 07/08/2025 2:30 AM T [facility] RDW-STDEV 54.0 37.0 - 54.0 fL 07/08/2025 2:30 AM T [facility] Blood Venipuncture / Unknown 07/08/2025 1:58 AM CDT 07/08/2025 2:21 AM CDT us Jesusita Hyde MD HEMATOLOGY ORDERABLES Fin al Result [facility] CLIA # [id number] [address] [address] [place] [address] * (ABNORMAL) COMPREHENSIVE METABOLIC PANEL (07/08/2025 1:58 AM CDT) [facility] SODIUM 145 136 - 145 mmol/L 07/08/2025 2:55 AM T [facility] POTASSIUM 4.1 3.5 - 5.1 mmol/L 07/08/2025 2:55 AM [facility] CHLORIDE 116(H) 98 - 107 mmol/L 07/08/2025 2:55 AM T [facility] CO2 18(L) 22 - 29 mmol/L 07/08/2025 2:55 AM [facility] CALCIUM 8.5(L) 8.6 - 10.0 mg/dL 07/08/2025 2:55 AM T [facility] BUN 22(H) 6 - 20 mg/dL 07/08/2025 2:55 AM [facility] CREATININE 1.45(H) 0.67 - 1.17 mg/dL 07/08/2025 2:55 AM [facility] GLUCOSE 103(H) 74 - 99 mg/dL 07/08/2025 2:55 AM [facility] TOTAL PROTEIN 5.2(L) 6.4 - 8.3 g/dL 07/08/2025 2:55 AM [facility] ALBUMIN 3.0(L) 3.5 - 5.2 g/dL 07/08/2025 2:55 AM [facility] BILIRUBIN TOTAL 1.9(H) 0.0 - 1.0 mg/dL 07/08/2025 2:55 AM [facility] ALKALINE PHOSPHATASE 60 40 - 129 U/L 07/08/2025 2:55 AM [facility] AST 103(H) 10 - 50 U/L 07/08/2025 2:55 AM [facility] ALT 55(H) <=50 U/L 07/08/2025 2:55 AM [facility] GFR 56(L) >=60 mL/min/1. 73 sq meter 07/08/2025 2:55 AM CDT [facility] Comment:eGFR calculated with 2020 CKD-EPI equation. Vegetarian diet, extremely high or low muscle mass, and may affect results. Cystatin C with Glomerular Filtration Rate is a suitable alternative for these patients. ANION GAP 11 9 - 20 mmol/L 07/08/2025 2:55 AM CDT [facility] Blood Venipuncture / Unknown 07/08/2025 1:58 AM CDT 07/08/2025 2:22 AM CDT Jesusita Hyde MD CHEMISTRY ORDERABLES Seble l Result Performing Organization Address [facility] Co de Phone Number [facility] CLIA # [id number] [address] [place] [address] * (ABNORMAL) BRAIN NATRIURETIC PEPTIDE, BNP OR PROBNP (07/07/2025 3:54 PM CDT) PROBNP, N TERMINAL 3,466(H) 0 - 125 pg/mL 07/07/2025 4:35 PM CDT [facility] Comment: INTERPRETIVE COMMENT based on diagnosis: Diagnostic NT pro-BNP cutoffs for Heart Failure in the absence of renal failure is suggested for the following ranges <75 years: <125 pg/mL >=75 years: <450 pg/mL Exclusionary rule out cut-point for Acute Decompensated Heart Failure(ADHF) All ages: <300 pg/mL Diagnostic NT pro-BNP cutoffs for Acute Decompensated Heart Failure(ADHF) in the absence of renal failure is suggested for the following ages <50 years: > 450 pg/mL 50-75 years: > 900 pg/mL >75 years: >1800 pg/mL Blood Venipuncture / Unknown 07/07/2025 3:54 PM CDT 07/07/2025 4:05 PM CDT Jesusita Hyde MD CHEMISTRY ORDERABLES Seble l Result [facility] CLIA # [id number] [address] [facility] [place] [address] * XR CHEST PA OR AP 1 VW (07/07/2025 3:36 PM CDT) Anatomical Region Laterality Modality Chest Computed Radiogr aphy 07/07/2025 3:36 PM CDT Impressions 07/07/2025 3:43 PM CDT IMPRESSION: Please see below. Exam: XR CHEST PA OR AP 1 VW Date/Time of Exam: 07/07/2025 3:36 PM Reason For Exam: Wheezing. Diagnosis: See Reason for Exam. Findings: No consolidating airspace disease. Mild patchy groundglass attenuation/infiltrate centrally of both lungs with mildly accentuated bronchovascular markings. No pleural effusion. No pneumothorax. Cardiac silhouette unremarkable. Narrative Procedure Note Lelia Caraballo MD - 07/07/2025 IMPRESSION: Please see below. Exam: XR CHEST PA OR AP 1 VW Date/Time of Exam: 07/07/2025 3:36 PM Reason For Exam: Wheezing. Diagnosis: See Reason for Exam. Findings: No consolidating airspace disease. Mild patchy groundglass attenuation/infiltrate centrally of both lungs with mildly accentuated bronchovascular markings. No pleural effusion. No pneumothorax. Cardiac silhouette unremarkable. us Jesusita Hyde MD DIAGNOSTIC IMAGING ORDERA BLES Final Result * LACTATE DEHYDROGENASE (07/07/2025 12:07 PM CDT) LD (LACTATE DEHYDROGENASE) 224 135 - 225 U/L 07/07/2025 12:43 PM CDT [facility] Blood Venipuncture / Unknown 07/07/2025 12:07 PM CDT 07/07/2025 12:11 PM CDT us Jesusita Hyde MD CHEMISTRY ORDERABLES Seble l Result [facility] CLIA # [id number] [address] [address] [place] [address] * (ABNORMAL) HEPATITIS C RNA PCR, QUANTITATIVE (07/07/2025 3:59 AM CDT) [facility] HCV RNA, QUANT REAL TIME PCR 071626(H) NOT DETECTED IU/mL 07/09/2025 2:11 PM CDT [facility] HCV RNA QUANT PCR COPIES IU/ML 5.40(H) NOT DETECTED Log IU/mL 07/09/2025 2:11 PM CDT [facility] Comment: For additional information, please refer to http://education.Eventable/faq/FRH92j4 (This link is being provided for informational/ educational purposes only.) Blood Venipuncture / Unknown 07/07/2025 3:59 AM CDT 07/07/2025 5:04 AM CDT Narrative [facility] - 07/09/2025 2:11 PM CDT Performing Organization Information: Site ID: [place] Name[facility] Address: [address] [place], [place] [address] [address] Director: Jam Guido MD us Jesusita Hyde MD CHEMISTRY ORDERABLES Seble l Result [facility] * (ABNORMAL) CBC WITHOUT DIFFERENTIAL (07/07/2025 3:59 AM CDT) [facility] WBC 12.2(H) 4.8 - 10.8 K/uL 07/07/2025 4:09 AM CDT [facility] RBC 2.71(L) 4.60 - 6.20 M/uL 07/07/2025 4:09 AM CDT [facility] HEMOGLOBIN 9.1(L) 14.0 - 18.0 g/dL 07/07/2025 4:09 AM CDT [facility] HEMATOCRIT 26.1(L) 41.0 - 53.0 % 07/07/2025 4:09 AM CDT [facility] MCV 96.3 84.0 - 103.0 fL 07/07/2025 4:09 AM CDT [facility] MCH 33.6 27.0 - 34.0 pg 07/07/2025 4:09 AM CDT [facility] MCHC 34.9 30.0 - 35.0 g/dL 07/07/2025 4:09 AM CDT [facility] PLATELETS 66(L) 140 - 440 K/uL 07/07/2025 4:09 AM T [facility] MPV 10.3 8.9 - 12.8 fL 07/07/2025 4:09 AM T [facility] RDW 15.6(H) 11.0 - 14.5 % 07/07/2025 4:09 AM T [facility] RDW-STDEV 53.3 37.0 - 54.0 fL 07/07/2025 4:09 AM T [facility] Blood Venipuncture / Unknown 07/07/2025 3:59 AM CDT 07/07/2025 4:05 AM CDT us Jesusita Hyde MD HEMATOLOGY ORDERABLES Fin al Result [facility] # [id number] [address] [place] [address] * (ABNORMAL) COMPREHENSIVE METABOLIC PANEL (07/07/2025 3:59 AM CDT) SODIUM 145 136 - 145 mmol/L 07/07/2025 5:02 AM CDT [facility] POTASSIUM 3.5 3.5 - 5.1 mmol/L 07/07/2025 5:02 AM T [facility] CHLORIDE 118(H) 98 - 107 mmol/L 07/07/2025 5:02 AM CDT [facility] CO2 16(L) 22 - 29 mmol/L 07/07/2025 5:02 AM [facility] CALCIUM 8.9 8.6 - 10.0 mg/dL 07/07/2025 5:02 AM [facility] BUN 25(H) 6 - 20 mg/dL 07/07/2025 5:02 AM [facility] CREATININE 1.73(H) 0.67 - 1.17 mg/dL 07/07/2025 5:02 AM [facility] GLUCOSE 118(H) 74 - 99 mg/dL 07/07/2025 5:02 AM [facility] TOTAL PROTEIN 5.4(L) 6.4 - 8.3 g/dL 07/07/2025 5:02 AM [facility] ALBUMIN 3.1(L) 3.5 - 5.2 g/dL 07/07/2025 5:02 AM [facility] BILIRUBIN TOTAL 1.9(H) 0.0 - 1.0 mg/dL 07/07/2025 5:02 AM [facility] ALKALINE PHOSPHATASE 69 40 - 129 U/L 07/07/2025 5:02 AM [facility] AST 103(H) 10 - 50 U/L 07/07/2025 5:02 AM [facility] ALT 55(H) <=50 U/L 07/07/2025 5:02 AM [facility] GFR 45(L) >=60 mL/min/1. 73 sq meter 07/07/2025 5:02 AM [facility] Comment:eGFR calculated with 2020 CKD-EPI equation. Vegetarian diet, extremely high or low muscle mass, and may affect results. Cystatin C with Glomerular Filtration Rate is a suitable alternative for these patients. ANION GAP 11 9 - 20 mmol/L 07/07/2025 5:02 AM [facility] Blood Venipuncture / Unknown 07/07/2025 3:59 AM T 07/07/2025 4:05 AM CDT us Jesusita Hyde MD CHEMISTRY ORDERABLES Seble l Result [facility] CLIA # [id number] [id number] [place] [address] * (ABNORMAL) ACUTE HEPATITIS PANEL (07/07/2025 3:59 AM CDT) HEPATITIS B SURFACE AG NON-REACT CHOLO Non-react cholo 07/07/2025 5:04 AM CDT [facility] Comment:A non-reactive test result does not exclude the possibility of exposure to or infection with hepatitis B. HEPATITIS B CORE IGM NON-REACT CHOLO Non-react cholo 07/07/2025 5:04 AM CDT [facility] Comment:IgM antibodies to HB c were not detected; does not exclude the possibility of exposure to HBV. HEPATITIS A IGM Non-react cholo Non-react cholo 07/07/2025 5:04 AM CDT [facility] Comment:A negative test resu lt does not exclude the possibility of exposure to Hepatitis A virus. HEPATITIS C AB REACTIVE( A) Non-react cholo 07/07/2025 5:04 AM CDT [facility] Blood Venipuncture / Unknown 07/07/2025 3:59 AM CDT 07/07/2025 4:05 AM CDT Narrative [facility] - 07/07/2025 5:04 AM CDT Confirmatory testing by HCV_RNA by PCR will be automatically reflexed on reactive results. us Jesusita Hyde MD CHEMISTRY ORDERABLES Seble l Result Performing Organization Address City/[facility]/ZIP Co de Phone Number [facility] CLIA # [id number] [address] [address] * US ABDOMEN LIMITED (07/06/2025 12:22 PM CDT) Anatomical Region Laterality Modality Abdomen Ultrasound 07/06/2025 12:2 2 PM CDT Impressions 07/06/2025 12:56 PM CDT IMPRESSION: Please see below. US ABDOMEN LIMITED, 07/06/2025 12:22 PM . Reason For Exam: Ascites;Elevated LFT's;Pain. Diagnosis: See Reason for Exam. COMPARISON: None . TECHNIQUE: Multiplanar real-time ultrasonography of the right upper quadrant using asencio-scale imaging, supplemented by color and spectral Doppler as needed. . FINDINGS: . Liver: Hepatic echogenicity is heterogeneous and increased. The contour is diffusely nodular. No focal hepatic lesion. . Gallbladder: There is mild dependent sludge. No shadowing stones. Negative sonographic Whiting's sign. . Pancreas: Obscured by bowel gas. . Biliary: No intra- or extra-hepatic ductal dilatation. Common bile duct measures 5.1 mm. . Right kidney: Normal size, contour and echogenicity without perinephric fluid, or hydronephrosis. No focal masses are identified. Renal Length = 9.2 cm. . Peritoneum: Ascites is present in all four quadrants and a right pleural effusion is partially imaged. ++++++++++++++++++++ IMPRESSION: Cirrhotic morphology liver with moderate volume of abdominal ascites. Right pleural effusion. Narrative Procedure Note Todd Crockett MD - 07/06/2025 IMPRESSION: Please see below. US ABDOMEN LIMITED, 07/06/2025 12:22 PM . Reason For Exam: Ascites;Elevated LFT's;Pain. Diagnosis: See Reason for Exam. COMPARISON: None . TECHNIQUE: Multiplanar real-time ultrasonography of the right upper quadrant using asencio-scale imaging, supplemented by color and spectral Doppler as needed. . FINDINGS: . Liver: Hepatic echogenicity is heterogeneous and increased. The contour is diffusely nodular. No focal hepatic lesion. . Gallbladder: There is mild dependent sludge. No shadowing stones. Negative sonographic Whiting's sign. . Pancreas: Obscured by bowel gas. . Biliary: No intra- or extra-hepatic ductal dilatation. Common bile duct measures 5.1 mm. . Right kidney: Normal size, contour and echogenicity without perinephric fluid, or hydronephrosis. No focal masses are identified. Renal Length = 9.2 cm. . Peritoneum: Ascites is present in all four quadrants and a right pleural effusion is partially imaged. ++++++++++++++++++++ IMPRESSION: Cirrhotic morphology liver with moderate volume of abdominal ascites. Right pleural effusion. Jesusita Hyde MD US ORDERABLES Final Res ult * HIV DETECTION W/REFLX CONFIRMATION (07/06/2025 11:05 AM CDT) Pathologist [facility] HIV-1 AND 2 ABS AND HIV-1 AG Non-reacti ve Non-React cholo 07/06/2025 1:22 PM CDT [facility] Blood Venipuncture / Unknown 07/06/2025 11:05 AM CDT 07/06/2025 11:16 AM CDT Jesusita Hyde MD CHEMISTRY ORDERABLES Seble l Result Performing Organization Address City/[facility]/ZIP Co de Phone Number [facility] CLIA # [id number] [address] [facility] [place] [address] * MAGNESIUM LEVEL (07/06/2025 2:15 AM CDT) [facility] MAGNESIUM 1.8 1.6 - 2.6 mg/dL 07/07/2025 11:04 AM CDT [facility] Blood Venipuncture / Unknown 07/06/2025 2:15 AM CDT 07/06/2025 2:33 AM CDT Tony Rapp NP CHEMISTRY ORDERABLES Final R esult Performing Organization Address City/[facility]/ZIP Co de Phone Number [facility] CLIA # [id number] [address] [place] [address] * HAPTOGLOBIN (07/06/2025 2:15 AM CDT) Pathologist [facility] HAPTOGLOBIN 37 30 - 200 mg/dL 07/07/2025 9:51 AM CDT [facility] Blood Venipuncture / Unknown 07/06/2025 2:15 AM CDT 07/06/2025 2:33 AM CDT us Jesusita Hyde MD CHEMISTRY ORDERABLES Seble li Result [facility] CLIA # [id number] [address] [address] * (ABNORMAL) CBC WITHOUT DIFFERENTIAL (07/06/2025 2:15 AM CDT) [facility] WBC 11.9(H) 4.8 - 10.8 K/uL 07/06/2025 2:43 AM CDT [facility] [facility] RBC 2.81(L) 4.60 - 6.20 M/uL 07/06/2025 2:43 AM CDT [facility] HEMOGLOBIN 9.6(L) 14.0 - 18.0 g/dL 07/06/2025 2:43 AM T [facility] HEMATOCRIT 27.0(L) 41.0 - 53.0 % 07/06/2025 2:43 AM CDT [facility] MCV 96.1 84.0 - 103.0 fL 07/06/2025 2:43 AM CDT [facility] MCH 34.2(H) 27.0 - 34.0 pg 07/06/2025 2:43 AM CDT [facility] MCHC 35.6(H) 30.0 - 35.0 g/dL 07/06/2025 2:43 AM CDT [facility] PLATELETS 71(L) 140 - 440 K/uL 07/06/2025 2:43 AM T [facility] MPV 10.0 8.9 - 12.8 fL 07/06/2025 2:43 AM CDT [facility] RDW 15.8(H) 11.0 - 14.5 % 07/06/2025 2:43 AM CDT [facility] RDW-STDEV 54.8(H) 37.0 - 54.0 fL 07/06/2025 2:43 AM CDT [facility] Blood Venipuncture / Unknown 07/06/2025 2:15 AM CDT 07/06/2025 2:33 AM CDT us Jesusita Hyde MD HEMATOLOGY ORDERABLES Fin al Result [facility] CLIA # [id number] [address] [address] [place] [address] * (ABNORMAL) COMPREHENSIVE METABOLIC PANEL (07/06/2025 2:15 AM CDT) SODIUM 143 136 - 145 mmol/L 07/06/2025 3:24 AM T [facility] POTASSIUM 3.5 3.5 - 5.1 mmol/L 07/06/2025 3:24 AM T [facility] CHLORIDE 117(H) 98 - 107 mmol/L 07/06/2025 3:24 AM T [facility] CO2 13(L) 22 - 29 mmol/L 07/06/2025 3:24 AM T [facility] CALCIUM 8.8 8.6 - 10.0 mg/dL 07/06/2025 3:24 AM T [facility] BUN 27(H) 6 - 20 mg/dL 07/06/2025 3:24 AM T [facility] CREATININE 1.98(H) 0.67 - 1.17 mg/dL 07/06/2025 3:24 AM T [facility] GLUCOSE 106(H) 74 - 99 mg/dL 07/06/2025 3:24 AM T [facility] TOTAL PROTEIN 5.5(L) 6.4 - 8.3 g/dL 07/06/2025 3:24 AM CDT [facility] ALBUMIN 3.2(L) 3.5 - 5.2 g/dL 07/06/2025 3:24 AM CDT [facility] BILIRUBIN TOTAL 1.9(H) 0.0 - 1.0 mg/dL 07/06/2025 3:24 AM CDT [facility] ALKALINE PHOSPHATASE 56 40 - 129 U/L 07/06/2025 3:24 AM T [facility] AST 100(H) 10 - 50 U/L 07/06/2025 3:24 AM T [facility] ALT 54(H) <=50 U/L 07/06/2025 3:24 AM T [facility] GFR 39(L) >=60 mL/min/1. 73 sq meter 07/06/2025 3:24 AM T [facility] Comment:eGFR calculated with 2020 CKD-EPI equation. Vegetarian diet, extremely high or low muscle mass, and may affect results. Cystatin C with Glomerular Filtration Rate is a suitable alternative for these patients. ANION GAP 13 9 - 20 mmol/L 07/06/2025 3:24 AM T [facility] Blood Venipuncture / Unknown 07/06/2025 2:15 AM CDT 07/06/2025 2:33 AM CDT Jesusita yHde MD CHEMISTRY ORDERABLES Seble l Result [facility] CLIA # [id number] [address] [place] [address] * BLOOD CULTURE (07/05/2025 4:44 PM CDT) BLOOD CULTURE No growth 07/10/2025 6:32 PM CDT [facility] Blood (Peripheral) Venipuncture / Unknown 07/05/2025 4:44 PM CDT 07/05/2025 4:57 PM CDT us Jesusita Hyde MD MICROBIOLOGY - GENERAL OR DERABLES Final Result Performing Organization Address [facility] Co de Phone Number [facility] CLIA # [id number] [address] [address] * BLOOD CULTURE (07/05/2025 4:44 PM CDT) [facility] BLOOD CULTURE No growth 07/10/2025 6:32 PM CDT [facility] Blood (Peripheral) Venipuncture / Unknown 07/05/2025 4:44 PM CDT 07/05/2025 4:57 PM CDT us Jesusita Hyde MD MICROBIOLOGY - GENERAL OR DERABLES Final Result Performing Organization Address [facility] Co de Phone Number [facility] CLIA # [id number] [address] [address] * (ABNORMAL) CBC WITHOUT DIFFERENTIAL (07/05/2025 1:33 AM CDT) [facility] WBC 11.2(H) 4.8 - 10.8 K/uL 07/05/2025 3:39 AM CDT [facility] RBC 2.71(L) 4.60 - 6.20 M/uL 07/05/2025 3:39 AM CDT [facility] HEMOGLOBIN 9.3(L) 14.0 - 18.0 g/dL 07/05/2025 3:39 AM CDT [facility] HEMATOCRIT 26.3(L) 41.0 - 53.0 % 07/05/2025 3:39 AM CDT [facility] MCV 97.0 84.0 - 103.0 fL 07/05/2025 3:39 AM CDT [facility] MCH 34.3(H) 27.0 - 34.0 pg 07/05/2025 3:39 AM CDT [facility] MCHC 35.4(H) 30.0 - 35.0 g/dL 07/05/2025 3:39 AM CDT [facility] PLATELETS 103(L) 140 - 440 K/uL 07/05/2025 3:39 AM CDT [facility] MPV 9.8 8.9 - 12.8 fL 07/05/2025 3:39 AM CDT [facility] RDW 15.6(H) 11.0 - 14.5 % 07/05/2025 3:39 AM CDT [facility] RDW-STDEV 54.2(H) 37.0 - 54.0 fL 07/05/2025 3:39 AM CDT [facility] Blood Venipuncture / Unknown 07/05/2025 1:33 AM CDT 07/05/2025 3:27 AM CDT us Jesusita Hyde MD HEMATOLOGY ORDERABLES Fin al Result [facility] CLIA # [id number] [facility] [id number] * (ABNORMAL) COMPREHENSIVE METABOLIC PANEL (07/05/2025 1:33 AM CDT) [facility] SODIUM 143 136 - 145 mmol/L 07/05/2025 3:47 AM CDT [facility] POTASSIUM 3.5 3.5 - 5.1 mmol/L 07/05/2025 3:47 AM CDT [facility] CHLORIDE 119(H) 98 - 107 mmol/L 07/05/2025 3:47 AM CDT [facility] CO2 13(L) 22 - 29 mmol/L 07/05/2025 3:47 AM CDT [facility] CALCIUM 8.6 8.6 - 10.0 mg/dL 07/05/2025 3:47 AM [facility] BUN 32(H) 6 - 20 mg/dL 07/05/2025 3:47 AM [facility] CREATININE 2.45(H) 0.67 - 1.17 mg/dL 07/05/2025 3:47 AM [facility] GLUCOSE 89 74 - 99 mg/dL 07/05/2025 3:47 AM [facility] TOTAL PROTEIN 5.4(L) 6.4 - 8.3 g/dL 07/05/2025 3:47 AM [facility] ALBUMIN 3.1(L) 3.5 - 5.2 g/dL 07/05/2025 3:47 AM [facility] BILIRUBIN TOTAL 1.6(H) 0.0 - 1.0 mg/dL 07/05/2025 3:47 AM [facility] ALKALINE PHOSPHATASE 52 40 - 129 U/L 07/05/2025 3:47 AM [facility] AST 101(H) 10 - 50 U/L 07/05/2025 3:47 AM [facility] ALT 51(H) <=50 U/L 07/05/2025 3:47 AM [facility] GFR 30(L) >=60 mL/min/1. 73 sq meter 07/05/2025 3:47 AM [facility] Comment:eGFR calculated with 2020 CKD-EPI equation. Vegetarian diet, extremely high or low muscle mass, and may affect results. Cystatin C with Glomerular Filtration Rate is a suitable alternative for these patients. ANION GAP 11 9 - 20 mmol/L 07/05/2025 3:47 AM [facility] Blood Venipuncture / Unknown 07/05/2025 1:33 AM CDT 07/05/2025 3:31 AM CDT us Jesusita Hyde MD CHEMISTRY ORDERABLES Seble l Result [facility] CLIA # [id number] [address] [address] * POC LACTIC ACID (07/04/2025 6:40 PM CDT) [facility] LACTIC ACID POC 0.9 <=2.0 mmol/L 07/04/2025 6:40 PM CDT [facility] SPECIMEN SOURCE, GASES POC Arterial 07/04/2025 6:40 PM CDT [facility] PUNC SITE POC ART PUNCT 07/04/2025 6:40 PM CDT [facility] Blood 07/04/2025 6:40 PM CDT 07/04/2025 6:42 PM CDT Narrative [facility] - 07/04/2025 6:40 PM CDT References ranges displayed are for Arterial samples. Jesusita Hyde MD POINT OF CARE TESTING Fin al Result [facility] CLIA # [id number] [address] [place] [address] * (ABNORMAL) BLOOD GAS ARTERIAL (07/04/2025 6:40 PM CDT) [facility] PH BLOOD POC 7.40 7.35 - 7.45 07/04/2025 6:40 PM CDT [facility] PCO2 POC 20(L) 35 - 45 mm Hg 07/04/2025 6:40 PM CDT [facility] PO2 POC 80 80 - 105 mm Hg 07/04/2025 6:40 PM CDT [facility] HCO3 (CALC) POC 12(L) 22 - 26 mmol/L 07/04/2025 6:40 PM CDT [facility] HEMOGLOBIN POC 10.4(L) 12.0 - 18.0 g/dL 07/04/2025 6:40 PM CDT [facility] BASE EXCESS POC -12(L) -2 - 3 mmol/L 07/04/2025 6:40 PM CDT [facility] O2 SATURATION POC 99(H) 95 - 98 % 07/04/2025 6:40 PM CDT [facility] SODIUM POC 141 138 - 146 mmol/L 07/04/2025 6:40 PM CDT [facility] POTASSIUM POC 4.0 3.5 - 4.9 mmol/L 07/04/2025 6:40 PM CDT [facility] HEMATOCRIT POC 31(L) 38 - 51 % 07/04/2025 6:40 PM CDT [facility] PH TEMP CORRECT 7.40 7.35 - 7.45 07/04/2025 6:40 PM CDT [facility] PCO2 TEMP CORRECT 20(L) 35 - 45 mm Hg 07/04/2025 6:40 PM CDT [facility] PO2 TEMP CORRECT 80 80 - 105 mm Hg 07/04/2025 6:40 PM CDT [facility] SPECIMEN SOURCE, GASES POC Arterial 07/04/2025 6:40 PM CDT [facility] CALCIUM IONIZED POC 5.1 4.8 - 5.2 mg/dL 07/04/2025 6:40 PM CDT [facility] TCO2 (CALC) POC 13(L) 23 - 27 mmol/L 07/04/2025 6:40 PM CDT [facility] PUNC SITE POC ART PUNCT 07/04/2025 6:40 PM CDT [facility] Blood, arterial 07/04/2025 6 :40 PM CDT 07/04/2025 6:42 PM CDT us Jesusita Hyde MD ABG ORDERABLES Final Res ult [facility] CLIA # [id number] [address] [place] [address] [place] [address] * AMMONIA LEVEL (07/04/2025 3:37 PM CDT) AMMONIA 25.6 16.0 - 60.0 umol/L 07/04/2025 4:17 PM CDT [facility] Blood, venous Capillary / Unknown 07/04/2025 3:37 PM CDT 07/04/2025 3:47 PM CDT Jesusita Hyde MD CHEMISTRY ORDERABLES Seble l Result Performing Organization Address [facility] Co de Phone Number [facility] CLIA # [id number] [address] [address] [place] [address] * T4 FREE (07/04/2025 10:42 AM CDT) [facility] T4 FREE 0.84 0.81 - 1.70 ng/dL 07/04/2025 6:48 PM CDT [facility] Blood Venipuncture / Unknown 07/04/2025 10:42 AM CDT 07/04/2025 10:49 AM CDT Jesusita Hyde MD CHEMISTRY ORDERABLES Seble l Result Performing Organization Address [facility] de Phone Number [facility] CLIA # [id number] [address] [address] * (ABNORMAL) TSH (07/04/2025 10:42 AM CDT) Pathologist [facility] TSH 32.12(H) 0.27 - 4.20 uIU/mL 07/04/2025 11:26 AM CDT [facility] Blood Venipuncture / Unknown 07/04/2025 10:42 AM CDT 07/04/2025 10:49 AM CDT Jesusita Hyde MD CHEMISTRY ORDERABLES Seble l Result Performing Organization Address [facility] Co de Phone Number [facility] [employer] [facility] CLIA # [id number] [address] [address] [place], [place] [address] * ETHANOL LEVEL (07/04/2025 10:42 AM CDT) ETHANOL <10.10 <10.10 mg/dL 07/04/2025 11:26 AM CDT [facility] ETHANOL % <0.01 <=0.01 %w/v 07/04/2025 11:26 AM CDT [facility] Blood Venipuncture / Unknown 07/04/2025 10:42 AM CDT 07/04/2025 10:49 AM CDT Jesusita Hyde MD CHEMISTRY ORDERABLES Seble l Result Performing Organization Address [facility] Co de Phone Number [facility] [employer] [facility] CLIA # [id number] [address] [address] [place], [place] [address] * AMMONIA LEVEL (07/04/2025 10:42 AM CDT) AMMONIA 28.3 16.0 - 60.0 umol/L 07/04/2025 11:23 AM CDT [facility] Blood, venous Capillary / Unknown 07/04/2025 10:42 AM CDT 07/04/2025 10:47 AM CDT us Mino Butler MD CHEMISTRY ORDERABLES Fi nal Result Performing Organization Address [facility] Co de Phone Number [facility] [employer] [facility] CLIA # [id number] [address] [place], [place] [address] * (ABNORMAL) FERRITIN (07/04/2025 6:24 AM CDT) FERRITIN 1,003.0(H) 30.0 - 400.0 ng/mL 07/04/2025 11:25 AM CDT [facility] Blood Venipuncture / Unknown 07/04/2025 6:24 AM CDT 07/04/2025 6:45 AM CDT us Jesusita Hyde MD CHEMISTRY ORDERABLES Seble l Result [id number] [address] [place] [address] * (ABNORMAL) COMPREHENSIVE METABOLIC PANEL (07/04/2025 6:24 AM CDT) SODIUM 139 136 - 145 mmol/L 07/04/2025 7:34 AM CDT [facility] POTASSIUM 3.9 3.5 - 5.1 mmol/L 07/04/2025 7:34 AM CDT [facility] CHLORIDE 115(H) 98 - 107 mmol/L 07/04/2025 7:34 AM T [facility] CO2 14(L) 22 - 29 mmol/L 07/04/2025 7:34 AM CDT [facility] CALCIUM 8.9 8.6 - 10.0 mg/dL 07/04/2025 7:34 AM T [facility] BUN 35(H) 6 - 20 mg/dL 07/04/2025 7:34 AM CDT [facility] CREATININE 3.12(H) 0.67 - 1.17 mg/dL 07/04/2025 7:34 AM CDT [facility] GLUCOSE 112(H) 74 - 99 mg/dL 07/04/2025 7:34 AM T [facility] TOTAL PROTEIN 5.6(L) 6.4 - 8.3 g/dL 07/04/2025 7:34 AM T [facility] ALBUMIN 3.5 3.5 - 5.2 g/dL 07/04/2025 7:34 AM T [facility] BILIRUBIN TOTAL 1.7(H) 0.0 - 1.0 mg/dL 07/04/2025 7:34 AM T [facility] ALKALINE PHOSPHATASE 51 40 - 129 U/L 07/04/2025 7:34 AM T [facility] AST 98(H) 10 - 50 U/L 07/04/2025 7:34 AM T [facility] ALT 46 <=50 U/L 07/04/2025 7:34 AM [facility] GFR 22(L) >=60 mL/min/1. 73 sq meter 07/04/2025 7:34 AM T [facility] Comment:eGFR calculated with 2020 CKD-EPI equation. Vegetarian diet, extremely high or low muscle mass, and may affect results. Cystatin C with Glomerular Filtration Rate is a suitable alternative for these patients. ANION GAP 10 9 - 20 mmol/L 07/04/2025 7:34 AM [facility] Blood Venipuncture / Unknown 07/04/2025 6:24 AM CDT 07/04/2025 6:45 AM CDT Mino Butler MD CHEMISTRY ORDERABLES Fi nal Result [facility] CLIA # [id number] [address] [place] [address] * (ABNORMAL) CBC WITH DIFFERENTIAL (07/04/2025 6:24 AM CDT) WBC 9.1 4.8 - 10.8 K/uL 07/04/2025 6:52 AM CDT [facility] RBC 2.74(L) 4.60 - 6.20 M/uL 07/04/2025 6:52 AM T [facility] HEMOGLOBIN 9.4(L) 14.0 - 18.0 g/dL 07/04/2025 6:52 AM [facility] HEMATOCRIT 27.1(L) 41.0 - 53.0 % 07/04/2025 6:52 AM [facility] MCV 98.9 84.0 - 103.0 fL 07/04/2025 6:52 AM [facility] MCH 34.3(H) 27.0 - 34.0 pg 07/04/2025 6:52 AM [facility] MCHC 34.7 30.0 - 35.0 g/dL 07/04/2025 6:52 AM [facility] PLATELETS 104(L) 140 - 440 K/uL 07/04/2025 6:52 AM [facility] MPV 9.5 8.9 - 12.8 fL 07/04/2025 6:52 AM [facility] RDW 15.8(H) 11.0 - 14.5 % 07/04/2025 6:52 AM [facility] RDW-STDEV 55.9(H) 37.0 - 54.0 fL 07/04/2025 6:52 AM [facility] NEUTROPHILS 52 42 - 75 % 07/04/2025 6:52 AM [facility] LYMPHOCYTES 36 24 - 44 % 07/04/2025 6:52 AM [facility] MONOCYTES 8 2 - 10 % 07/04/2025 6:52 AM [facility] EOSINOPHILS 3 0 - 7 % 07/04/2025 6:52 AM [facility] BASOPHILS 1 0 - 1 % 07/04/2025 6:52 AM [facility] IMMATURE GRANULOCYTES 1 0 - 2 % 07/04/2025 6:52 AM [facility] NEUTROPHIL ABSOLUTE 4.68 2.00 - 8.00 K/uL 07/04/2025 6:52 AM [facility] LYMPHOCYTE ABSOLUTE 3.28 1.20 - 4.00 K/uL 07/04/2025 6:52 AM CDT [facility] MONOCYTE ABSOLUTE 0.76(H) 0.10 - 0.60 K/uL 07/04/2025 6:52 AM CDT [facility] EOSINOPHIL ABSOLUTE 0.24 0.00 - 0.70 K/uL 07/04/2025 6:52 AM CDT [facility] BASOPHILS ABSOLUTE 0.06 0.00 - 0.20 K/uL 07/04/2025 6:52 AM CDT [facility] IMMATURE GRANULOCYTES ABSOLUTE 0.05 0.00 - 0.10 K/uL 07/04/2025 6:52 AM CDT [facility] SMEAR REVIEWED: NA - Not Applicable 07/04/2025 6:52 AM T [facility] Blood Venipuncture / Unknown 07/04/2025 6:24 AM CDT 07/04/2025 6:45 AM CDT Mino Butler MD HEMATOLOGY ORDERABLES F inal Result Performing Organization Address City/State/[facility] Co de Phone Number [id number] [address] [place] [id number] documented in this encounter Visit Diagnoses Diagnosis DARVIN (acute kidney injury)- Primary Acute kidney failure, unspecified Acute alcoholic intoxication with complication Alcoholic cirrhosis of liver with ascites (CMS/HCC) Alcoholic cirrhosis of liver Chronic hepatitis C without hepatic coma (CMS/HCC) Acute hepatic encephalopathy (CMS/HCC) Hepatic encephalopathy DARVIN (acute kidney injury) Acute kidney failure, unspecified Protein-calorie malnutrition, severe Other severe protein-calorie malnutrition COPD (chronic obstructive pulmonary disease) (CMS/HCC) Chronic airway obstruction, not elsewhere classified Anemia Anemia, unspecified Thrombocytopenia Thrombocytopenia, unspecified 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 [id number] Malignant neoplasm of larynx, unspecified site Generalized anxiety disorder Chronic alcohol abuse Alcohol abuse, unspecified Cigarette dependence Tobacco use disorder Alcohol use disorder Urinary retention Retention of urine, unspecified Hyperammonemia Disorders of urea cycle metabolism Ascites Other ascites Normocytic anemia Anemia, unspecified Acute hepatic encephalopathy (CMS/HCC) Hepatic encephalopathy Elevated LFTs Other abnormal blood chemistry Hypoproteinemia Other disorders of plasma protein metabolism History of hepatitis CAb +ve Personal history of other infectious and parasitic disease Chronic hepatitis C without hepatic coma (CMS/HCC) documented in this encounter Administered Medications Inactive Administered Medications - up to 3 most recent administrations Medication Order MAR Action Action Date Dose Rate Site albumin, human 25 % injection 25 Gram 25 Gram, IV, ONE TIME ONLY, 1 dose, On Wed07/09/25 at 1600, Routine, Indication: Large Volume Paracentesis New Bag 07/09/2025 4:28 PM CDT 25 Grams albumin, human 25 % injection 25 Gram 25 Gram, IV, ONE TIME ONLY, 1 dose, On Wed07/10/25 at 0900, Routine, Indication: Diuresis with Severe Anasarca New Bag 07/10/2025 10:46 AM CDT 25 Grams albuterol (PROVENTIL,VENTOLIN) 2.5 mg /3 mL (0.083 %) inhalation solution 2.5 mg 2.5 mg, Inhalation, EVERY 6 HOURS RESPIRATORY, First dose on Wed07/08/25 at 1415, Until Discontinued, Routine Given 07/08/2025 6:59 PM CDT 2.5 mg Given 07/08/2025 3:15 PM CDT 2.5 mg albuterol (PROVENTIL,VENTOLIN) 2.5 mg /3 mL (0.083 %) inhalation solution 2.5 mg 2.5 mg, Inhalation, THREE TIMES DAILY RESPIRATORY, First dose (after last modification) on Wed07/09/25 at 0700, Until Discontinued, Routine Given 07/11/2025 9:15 PM CDT 2.5 mg Given 07/11/2025 1:42 PM CDT 2.5 mg Given 07/11/2025 8:34 AM CDT 2.5 mg albuterol (PROVENTIL,VENTOLIN) 2.5 mg /3 mL (0.083 %) inhalation solution 2.5 mg 2.5 mg, Inhalation, EVERY 6 HOURS PRN RESPIRATORY, Starting on Wed07/11/25 at 2215, Until Wed07/12/25 at 1600, Respiration, Shortness of Breath, PRN, Routine albuterol sulfate 90 mcg/Actuation inhaler 1 Puff 1 Puff, Inhalation, EVERY 6 HOURS PRN RESPIRATORY, Starting on Wed07/08/25 at 1830, Until Wed07/12/25 at 1600, Shortness of Breath, Routine cefTRIAXone (ROCEPHIN) 2,000 mg in sodium chloride 0.9% 50 mL IVPB (MBP) 2,000 mg, IV, EVERY 24 HOURS (DAILY), First dose on Wed07/04/25 at 0745, Until Discontinued, Routine, Antibiotic Indication: Other: Enter in Comments, Antibiotic Indication: UTI/SBP prophylaxis New Bag 07/10/2025 9:22 AM CDT 2,000 mg 118 mL/hr New Bag 07/09/2025 9:33 AM CDT 2,000 mg 118 mL/hr New Bag 07/08/2025 10:01 AM CDT 2,000 mg 118 mL/hr furosemide (LASIX) injection 40 mg 40 mg, IV, ONE TIME ONLY, 1 dose, On Wed07/08/25 at 1230, Routine Given 07/08/2025 1:26 PM CDT 40 mg furosemide (LASIX) injection 40 mg 40 mg, IV, ONE TIME ONLY, 1 dose, On Wed07/09/25 at 1115, Routine Given 07/09/2025 11:31 AM CDT 40 mg furosemide (LASIX) tablet 40 mg 40 mg, Oral, ONE TIME ONLY, 1 dose, On Wed07/10/25 at 1815, Routine Given 07/10/2025 9:25 PM CDT 40 mg lactated ringers infusion IV, at 100 mL/hr, CONTINUOUS, Starting on Wed07/05/25 at 0700, Until Wed07/06/25 at 0659, Routine New Bag 07/06/2025 4:39 AM CDT 100 mL/hr New Bag 07/05/2025 6:27 PM CDT 100 mL/hr New Bag 07/05/2025 6:59 AM CDT 100 mL/hr lactated ringers infusion IV, at 100 mL/hr, CONTINUOUS, Starting on Wed07/06/25 at 0730, Until Wed07/06/25 at 0842, Routine New Bag 07/06/2025 7:28 AM CDT 100 mL/hr lactulose (ENULOSE) 10 gram/15 mL oral solution 15 mL 15 mL, Oral, THREE TIMES DAILY PRN, Starting on Wed07/04/25 at 0739, Until Wed07/04/25 at 1824, Constipation, Titrate for 3 bowel movements/24 hours, Routine Given 07/04/2025 1:19 PM CDT 15 mL lactulose (ENULOSE) 10 gram/15 mL oral solution 15 mL 15 mL, Oral, THREE TIMES DAILY, First dose (after last modification) on Wed07/04/25 at 1830, Until Discontinued, Routine Given 07/05/2025 12:12 PM CDT 15 mL Given 07/05/2025 8:05 AM CDT 15 mL lactulose (ENULOSE) 10 gram/15 mL oral solution 45 mL 45 mL, Oral, THREE TIMES DAILY, First dose (after last modification) on Wed07/05/25 at 1800, Until Discontinued, Routine Given 07/12/2025 10:48 AM CDT 45 mL Given 07/11/2025 6:36 PM CDT 45 mL Given 07/10/2025 5:25 PM CDT 45 mL lactulose (ENULOSE) 300 mL in water sterile irrigation 1,000 mL enema 1,000 mL, Rectal, ONE TIME ONLY, 1 dose, On Wed07/04/25 at 1200, Routine Given 07/04/2025 1:36 PM CDT 1,000 mL levothyroxine (SYNTHROID) tablet 37 mcg 37 mcg, Oral, DAILY EARLY, First dose (after last modification) on Wed07/06/25 at 0600, Until Discontinued, Routine Given 07/12/2025 5:46 AM CDT 37 mcg Given 07/11/2025 5:28 AM CDT 37 mcg Given 07/10/2025 5:36 AM CDT 37 mcg methylPREDNISolone sodium succinate (SOLU-Medrol) 40 mg in sterile water 1 mL injection 40 mg, IV, ONE TIME ONLY, 1 dose, On Wed07/08/25 at 1445, Routine Given 07/08/2025 3:16 PM CDT 40 mg ondansetron (ZOFRAN) 4 mg/2 mL injection 4 mg 4 mg, IV, EVERY 6 HOURS PRN, Starting on Wed07/04/25 at 0258, Until Wed07/12/25 at 1600, Nausea/Emesis, Routine Given 07/06/2025 8:10 PM CDT 4 mg potassium CHLORIDE (KLOR-CON) SR tablet 40 mEq 40 mEq, Oral, ONE TIME ONLY, 1 dose, On Wed07/11/25 at 1015, Routine Given 07/11/2025 11:35 AM CDT 40 mEq potassium CHLORIDE 32.96 mEq, sodium bicarbonate 82.4 mEq in sodium chloride 0.45 % 1,098.88 mL infusion IV, at 100 mL/hr, CONTINUOUS, Starting on Wed07/06/25 at 0815, Until Wed07/08/25 at 0756, Routine New Bag 07/08/2025 5:25 AM CDT 100 mL/hr Rate Verify 07/07/2025 7:30 PM CDT 100 mL/hr New Bag 07/07/2025 6:28 PM CDT 100 mL/hr sodium chloride 0.9 % infusion IV, at 125 mL/hr, CONTINUOUS, Starting on Wed07/04/25 at 0730, Until Wed07/05/25 at 0651, Routine New Bag 07/04/2025 7:59 AM CDT 125 mL/hr sodium chloride flush injection 10 mL 10 mL, IV, EVERY 12 HOURS (BlD), First dose on Wed07/04/25 at 0900, Until Discontinued, Routine Given 07/12/2025 10:48 AM CDT 10 mL Given 07/11/2025 9:32 PM CDT 10 mL Given 07/11/2025 9:00 AM CDT 10 mL tamsulosin (FLOMAX) SR 24 hour capsule 0.4 mg 0.4 mg, Oral, DAILY AFTER SUPPER, First dose on Wed07/05/25 at 1800, Until Discontinued, Routine Given 07/11/2025 6:36 PM CDT 0.4 mg Given 07/10/2025 5:24 PM CDT 0.4 mg Given 07/09/2025 5:48 PM CDT 0.4 mg thiamine (VITAMIN B-1) 100 mg, folic acid 1 mg, magnesium SULFATE 2 Gram, MVI adult (no. 4 w/ vit K) 10 mL in sodium chloride 0.9 % 1,000 mL infusion IV, at 125 mL/hr, ONE TIME ONLY, 1 dose, On Wed07/10/25 at 2030, Routine, MVI 10mls needs to be mixed in >/= 500mls at a rate > 4 hours New Bag 07/10/2025 9:23 PM CDT 125 mL/hr thiamine (VITAMIN B-1) 200 mg in sodium chloride 0.9 % 100 mL IVPB 200 mg, IV, EVERY 8 HOURS, 6 doses, First dose (after last modification) on Wed07/10/25 at 2100, Last dose on Wed07/12/25 at 1300, Routine New Bag 07/12/2025 5:49 AM CDT 200 mg 117 mL/hr Rate Verify 07/11/2025 10:06 PM CDT 117 mL/hr Rate Verify 07/11/2025 9:37 PM CDT 117 mL/hr zinc OXIDE-cod liver oil (DESITIN) 40 % topical paste Topical, SEE ADMIN INSTRUCTIONS, Starting on 07/07/25 at 1824, Until Wed07/12/25 at 1600, Routine documented in this encounter Active and Recently Administered Medications Times are shown in CDT. Scheduled Medication Order 07/10/2025 07/11/2025 07/12/2025 albumin, human 25 % injection 25 Gram (COMPLETED) 25 Gram, IV, ONE TIME ONLY, 1 dose, On Wed07/10/25 at 0900, Routine, Indication: Diuresis with Severe Anasarca 1046 (New Bag - Provider: Jenna Saldaña, ABRIL) albuterol (PROVENTIL,VENTOLIN) 2.5 mg /3 mL (0.083 %) inhalation solution 2.5 mg (CANCELED) 2.5 mg, Inhalation, THREE TIMES DAILY RESPIRATORY, First dose (after last modification) on Wed07/09/25 at 0700, Until Discontinued, Routine 0732 (Given - Provider: Mahamed Ga RCP)1254 (Given - Provider: Mahamed Ga RCP)2027 (Given - Provider: Esperanza Soto RCP) 0834 (Given - Provider: Priti Elizondo RCP)1342 (Given - Provider: Priti Elizondo RCP)211 (Given - Provider: Esperanza Soto RCP) cefTRIAXone (ROCEPHIN) 2,000 mg in sodium chloride 0.9% 50 mL IVPB (MBP) (CANCELED) 2,000 mg, IV, EVERY 24 HOURS (DAILY), First dose on Wed07/04/25 at 0745, Until Discontinued, Routine, Antibiotic Indication: Other: Enter in Comments, Antibiotic Indication: UTI/SBP prophylaxis 0922 (New Bag - Provider: Jenna Saldaña RN)0952 (Stopped - Provider: Jenna Saldaña RN) dextrose 5 % in water 250 mL flush bag 25 mL 25 mL, IV, SEE ADMIN INSTRUCTIONS, Starting on Wed07/04/25 at 0258, Until Wed07/12/25 at 1600, Routine furosemide (LASIX) tablet 40 mg (COMPLETED) 40 mg, Oral, ONE TIME ONLY, 1 dose, On Wed07/10/25 at 1815, Routine 2125 (Given - Provider: Ketan Gregg, ABRIL) lactulose (ENULOSE) 10 gram/15 mL oral solution 45 mL 45 mL, Oral, THREE TIMES DAILY, First dose (after last modification) on Wed07/05/25 at 1800, Until Discontinued, Routine 0857 (Given - Provider: Jenna Saldaña RN)1212 (Given - Provider: Jenna Saldaña RN)1725 (Given - Provider: Ketan Gregg RN) 0900 (Refused - Provider: Kisha Catherine RN)1300 (Refused - Provider: Kisha Catherine RN)1836 (Given - Provider: Kisha Catherine RN) 1048 (Given - Provider: Fani Guerra, ABRIL)1300 (Refused - Provider: Fani Guerra RN) levothyroxine (SYNTHROID) tablet 37 mcg 37 mcg, Oral, DAILY EARLY, First dose (after last modification) on Wed07/06/25 at 0600, Until Discontinued, Routine 0536 (Given - Provider: Gianna Ngo RN) 0528 (Given - Provider: Ketan Gregg RN) 0546 (Given - Provider: Karime Mcdaniels RN) naloxone (NARCAN) 0.4 mg/mL injection 0.1-0.4 mg 0.1-0.4 mg, IV, SEE ADMIN INSTRUCTIONS, Starting on Wed07/04/25 at 0258, Until Wed07/12/25 at 1600, Routine potassium CHLORIDE (KLOR-CON) SR tablet 40 mEq (COMPLETED) 40 mEq, Oral, ONE TIME ONLY, 1 dose, On Wed07/11/25 at 1015, Routine 1135 (Given - Provider: Kisha Catherine, ABRIL) sodium chloride 0.9 % flush bag 25 mL 25 mL, IV, SEE ADMIN INSTRUCTIONS, Starting on Wed07/04/25 at 0258, Until Wed07/12/25 at 1600, Routine sodium chloride flush injection 10 mL 10 mL, IV, EVERY 12 HOURS (BlD), First dose on Wed07/04/25 at 0900, Until Discontinued, Routine 1052 (Given - Provider: Jenna Saldaña RN)2124 (Given - Provider: Ketan Gregg RN) 0900 (Given - Provider: Kisha Catherine, RN)213 (Given - Provider: Karime Mcdaniels, RN) 1048 (Given - Provider: Fani Guerra RN) sodium chloride flush injection 10 mL 10 mL, IV, SEE ADMIN INSTRUCTIONS, Starting on Wed07/04/25 at 0258, Until Wed07/12/25 at 1600, Routine tamsulosin (FLOMAX) SR 24 hour capsule 0.4 mg 0.4 mg, Oral, DAILY AFTER SUPPER, First dose on Wed07/05/25 at 1800, Until Discontinued, Routine 1724 (Given - Provider: Ketan Gregg RN) 183 (Given - Provider: Kisha Catherine RN) thiamine (VITAMIN B-1) 100 mg, folic acid 1 mg, magnesium SULFATE 2 Gram, MVI adult (no. 4 w/ vit K) 10 mL in sodium chloride 0.9 % 1,000 mL infusion (COMPLETED) IV, at 125 mL/hr, ONE TIME ONLY, 1 dose, On Wed07/10/25 at 2030, Routine, MVI 10mls needs to be mixed in >/= 500mls at a rate > 4 hours 2122 (New Bag - Provider: Ketan Gregg RN) 190 (Stopped - Provider: Karime Mcdaniels, ABRIL) thiamine (VITAMIN B-1) 200 mg in sodium chloride 0.9 % 100 mL IVPB 200 mg, IV, EVERY 8 HOURS, 6 doses, First dose (after last modification) on Wed07/10/25 at 2100, Last dose on Wed07/12/25 at 1300, Routine 2124 (New Bag - Provider: Ketan N Del Pozzo, RN)2215 (Stopped - Provider: Karime Mcdaniels RN)221 (Stopped - Provider: Karime Mcdaniels RN)2225 (Stopped - Provider: Ketan Gregg RN) 0528 (New Bag - Provider: Ketan Gregg RN)0623 (Stopped - Provider: Karime Mcdaniels RN)0628 (Stopped - Provider: Kisha Catherine RN)1418 (New Bag - Provider: Kisha Catherine RN)1518 (Stopped - Provider: Kisha Catherine RN)2136 (New Bag - Provider: Karime Mcdaniels RN)213 (Rate Verify - Provider: Karime Mcdaniels RN)2206 (Rate Verify - Provider: Karime Mcdaniels RN)2250 (Stopped - Provider: Karime Mcdaniels RN) 0549 (New Bag - Provider: Karime Mcdaniels RN)0649 (Stopped - Provider: Fani Guerra, ABRIL)1300 (Refused - Provider: Fani Guerra RN) zinc OXIDE-cod liver oil (DESITIN) 40 % topical paste Topical, SEE ADMIN INSTRUCTIONS, Starting on 07/07/25 at 1824, Until Wed07/12/25 at 1600, Routine PRN Medication Order 07/10/2025 07/11/2025 07/12/2025 acetaminophen (TYLENOL) tablet 650 mg 650 mg, Oral, EVERY 6 HOURS PRN, Starting on Wed07/04/25 at 0258, Until Wed07/12/25 at 1600, Other (See Comment), See admin instructions, Routine albuterol (PROVENTIL,VENTOLIN) 2.5 mg /3 mL (0.083 %) inhalation solution 2.5 mg 2.5 mg, Inhalation, EVERY 6 HOURS PRN RESPIRATORY, Starting on Wed07/11/25 at 2215, Until Wed07/12/25 at 1600, Respiration, Shortness of Breath, PRN, Routine albuterol sulfate 90 mcg/Actuation inhaler 1 Puff 1 Puff, Inhalation, EVERY 6 HOURS PRN RESPIRATORY, Starting on Wed07/08/25 at 1830, Until Wed07/12/25 at 1600, Shortness of Breath, Routine calcium as CARBONATE (TUMS) 500 mg (200 mg elemental) chewable tablet 400 mg 400 mg, Oral, EVERY 6 HOURS PRN, 2 doses, Starting on Wed07/04/25 at 0258, Until Wed07/12/25 at 1600, Dyspepsia, Routine morphine 4 mg/mL injection 2 mg 2 mg, IV, EVERY 4 HOURS PRN, 2 doses, Starting on Wed07/04/25 at 0258, Until Wed07/12/25 at 1600, Pain (See admin instructions), Routine ondansetron (ZOFRAN) 4 mg/2 mL injection 4 mg 4 mg, IV, EVERY 6 HOURS PRN, Starting on Wed07/04/25 at 0258, Until Wed07/12/25 at 1600, Nausea/Emesis, Routine documented in this encounter 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
[2025-07-14 15:50] VITALS: BP 125/84; PULSE 105; RESP 18; TEMP 36.8; O2SAT 97; BMI 22.3
--- OUTSIDE RECORDS SUMMARY | 2025-07-14 15:54 | XMS_ITS ---
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 Name Role Phone Aurora Sandy MD Primary Care Provider [phone] Active Problems Problem Noted Date Diagnosed Date Chronic hepatitis C without hepatic coma 025 History of hepatitis CAb +ve 07/07/2025 Hypoproteinemia 07/06/2025 Elevated LFTs 07/05/2025 Protein-calorie malnutrition, severe 07/04/2025 DARVIN (acute kidney injury) 07/04/2025 Anemia 07/04/2025 Thrombocytopenia 07/04/2025 Alcohol use disorder 07/04/2025 Urinary retention 07/04/2025 Hyperammonemia 07/04/2025 Ascites 07/04/2025 Normocytic anemia 07/04/2025 Acute hepatic encephalopathy 07/04/2025 History of squamous cell car cinoma of larynx - supraglottis [id number] 12/15/2021 Supraglottic lesion (left laryngeal surface of [...] mSv 3.4 mSv 50.5 mSv Total DLP 9,252.51 DLP 1,292.51 DLP 7,960 DLP CTDIvol Max 603.42 mGy 64.22 mGy 539.2 mGy CTDIvol Min 441.42 mGy 64.22 mGy 377.2 mGy Resolved Problems Problem Noted Date Diagnosed Date Resolved Date URI (upper respiratory infection) 10/17/2018 11/24/2021
--- OUTSIDE RECORDS SUMMARY | 2025-07-14 15:54 | XMS_ITS | Encounter Summary ---
Author Organization [facility] Address 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
--- OUTSIDE RECORDS SUMMARY | 2025-07-14 15:54 | XMS_ITS | Clinical Summary ---
Author Organization [facility] Address [address] Attn: Epic Prelude ADT EMERITA PEARSON [address] Care Team Providers Care Garde Manager Name Role Phone Aurora Sandy MD Primary Care Provider [phone] Allergies No known active allergies Medications folic acid (FOLVITE) 1 mg tablet Take 1 Tablet by mouth daily. 06/25/20 25 Active tamsulosin (FLOMAX) 0.4 mg capsule Take 1 Capsule by mouth daily. 05/24/20 25 Active traMADol (ULTRAM) 50 mg tablet Take 50 mg by mouth every 8 hours as needed for Pain. 06/20/20 25 Active thiamine (VITAMIN B-1) 500 mg Tablet Take 500 mg by mouth daily. Active multivitamin (DAILY-TADEO) tablet Take 1 Tablet by mouth daily. Active levothyroxine 75 mcg tablet Take 0.5 Tablets (37 mcg) by mouth daily in the morning. 30 Tablet 07/10/20 25 Active lactulose (ENULOSE) 10 gram/15 mL oral solution Take 45 mL by mouth 3 times daily. Likely to have at least 2-3 loose bowel movements per day, can hold if you already have more than 3 loose bowel movements for that day 4050 mL 07/10/20 25 08/09/ 025 Active furosemide (Lasix) 40 mg tablet Take 1 Tablet (40 mg) by mouth daily. 30 Tablet 07/10/20 25 Active spironolactone (ALDACTONE) 25 mg tablet Take 0.5 Tablets (12.5 mg) by mouth daily. 30 Tablet 07/10/20 25 Active walker Length of Need: 99 months Ht Readings from Last 1 Encounters: 07/04/25 : 5' 8 (1.727 m) , Weight: 71 kg (156 lb 8.4 oz) (07/08/25 0500). If over 300 lbs, patient requires heavy duty. Type of walker:walker 1 Each 07/10/20 25 025 Active docusate sodium (COLACE) 100 mg capsule Take 1 Capsule by mouth 2 times daily. 06/25/20 025 Discontinued levothyroxine 25 mcg tablet Take 25 mcg by mouth daily in the morning. 06/25/20 025 Discontinued linezolid (ZYVOX) 600 mg tablet Take 1 Tablet by mouth 2 times daily. 06/25/20 025 Discontinued metoprolol tartrate (LOPRESSOR) 25 mg tablet Take 12.5 mg by mouth 2 times daily. 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 surface of [...] Encounters Date Type Department Care Team Description 07/11/2025 External Device Data [facility] ABSTRACTION Provider, Abstract 07/10/2025 External Device Data [facility]CTION Provider, Abstract 07/10/2025 External Device Data [facility]CTION Provider, Abstract 07/04/2025 2:48 AM CDT - 07/12/2025 2:00 PM CDT Hospital Encounter [address] [facility] [address] [place] [address] Pool Arciniega MD Abbas, MD Shagufta Johnson Madhavi, MD Nerella, Ravi V., MD DARVIN (acute kidney injury) Discharge Disposition: Home or Self Care 07/04/2025 Travel 07/04/2025 Orders Only [facility] [place] [address] [facility] [address] [place] [address] Tony Centeno MD Ascites due to alcoholic cirrhosis (CMS/HCC) (Primary Dx) 06/26/2025 Abstract [facility] [place] [address] Provider, Abstract 06/22/2025 Abstract [facility] [place] [address] Provider, Abstract from Last 3 Months Immunizations [...] on file Legal Sex Male 9:11 AM [employer]HE[employer] Gender Identity Not on file Sexual Orientation [...] Mass Index 23.23 07/04/2025 3:35 AM CDT Plan of Treatment Health Maintenance Due Date Last Done Comments HEPATITIS B VACCINES (1 of 3 - 19+ 3-dose series) 02/07/1987 COLORECTAL SCREENING 02/07/2013 Colorectal Cancer Screening 02/07/2013 FIT-DNA Q 3 years 02/07/2013 FIT/FOBT Q 1 year 02/07/2013 Flex Sig/CT Colonography Q 5 years 02/07/2013 ZOSTER VACCINE (1 of 2) 02/07/2018 DTAP/TDAP/TD VACCINES (2 - Td or Tdap) 01/19/2023 COVID-19 Vaccine ( - season) 2024, 09/09/2021 INFLUENZA VACCINE (#1) 2025 Procedures Procedure Name Priority Date/Time Associated Diagnosis Comments BASIC METABOLIC PANEL Routine 07/12/2025 1:01 AM CDT MRI BRAIN WO CONTRAST Routine 07/11/2025 5:01 PM CDT BASIC METABOLIC PANEL Routine 07/11/2025 3:33 AM CDT CBC WITHOUT DIFFERENTIAL Routine 07/11/2025 3:33 AM CDT EEG Routine 07/11/2025 VITAMIN B12 AND FOLATE Routine 07/10/2025 10:[address] HEAD WO CONTRAST Stat 07/10/2025 4 :44 PM CDT CRIMPER OPERATOR EVALUATE AND TREAT Pending Discharge 07/10/2025 12:28 PM CDT T4 FREE Routine 07/10/2025 3:41 AM CDT TSH Routine 07/10/2025 3:41 AM CDT BASIC METABOLIC PANEL Routine 07/10/2025 3:41 AM CDT CBC WITHOUT DIFFERENTIAL Routine 07/10/2025 3:41 AM CDT US ASPIRATION ABDOMEN Routine 07/09/2025 2:16 PM CDT CYTOLOGY, NON GYNE Pathology 07/09/2025 1: 41 PM CDT CELL COUNT WITH DIFFERENTIAL, BODY FLUID Routine 07/09/2025 1:41 PM CDT PROTEIN, BODY FLUID Routine 07/09/2025 1 :41 PM CDT ANAEROBIC/AEROBIC CULTURE W GRAM STAIN Routine 07/09/2025 1:41 PM CDT ECHO COMPLETE Routine 07/09/2025 12:23 [...] LACTATE DEHYDROGENASE Routine 07/07/2025 12:07 PM CDT HEPATITIS C RNA PCR, QUANTITATIVE Routine 07/07/2025 3:59 AM CDT CBC WITHOUT DIFFERENTIAL Routine 07/07/2025 3:59 AM CDT COMPREHENSIVE METABOLIC PANEL Routine 07/07/2025 3:59 AM CDT ACUTE HEPATITIS PANEL Routine 07/07/2025 3:59 AM CDT US ABDOMEN LIMITED Routine 07/06/2025 12 :22 PM CDT HIV DETECTION W/REFLX CONFIRMATION Routine 07/06/2025 11:05 AM CDT MAGNESIUM LEVEL Routine 07/06/2025 2:15 AM CDT HAPTOGLOBIN Routine 07/06/2025 2:15 AM CDT CBC WITHOUT DIFFERENTIAL Routine 07/06/2025 2:15 AM CDT COMPREHENSIVE METABOLIC [...] AMMONIA LEVEL Routine 07/04/2025 3:37 PM CDT T4 FREE Stat 07/04/2025 10:42 AM CDT TSH Routine 07/04/2025 10:42 AM CDT ETHANOL LEVEL Routine 07/04/2025 10:42 AM CDT AMMONIA LEVEL Routine 07/04/2025 10:42 AM CDT FERRITIN Routine 07/04/2025 6:24 AM CDT COMPREHENSIVE METABOLIC PANEL Routine 07/04/2025 6:24 AM CDT CBC WITH DIFFERENTIAL Routine 07/04/2025 6:24 AM CDT from Last 3 Months Results * (ABNORMAL) BASIC METABOLIC PANEL (07/12/2025 1:01 AM CDT) Only the most recent of3 resultswithin the time period is included. [facility] SODIUM 140 136 - 145 mmol/L 07/12/2025 2:09 AM CDT [facility] POTASSIUM 3.5 3.5 - 5.1 mmol/L 07/12/2025 2:09 AM CDT [facility] CHLORIDE 112(H) 98 - 107 mmol/L 07/12/2025 2:09 AM CDT [facility] CO2 17(L) 22 - 29 mmol/L 07/12/2025 2:09 AM T [facility] CALCIUM 8.5(L) 8.6 - 10.0 mg/dL 07/12/2025 2:09 AM CDT [facility] BUN 26(H) 6 - 20 mg/dL 07/12/2025 2:09 AM T [facility] CREATININE 1.12 0.67 - 1.17 mg/dL 07/12/2025 2:09 AM T [facility] GLUCOSE 103(H) 74 - 99 mg/dL 07/12/2025 2:09 AM T [facility] GFR >60 >=60 mL/min/1.7 3 sq meter 07/12/2025 2:09 AM T [facility] Comment:eGFR calculated with 2020 CKD-EPI equation. Vegetarian diet, extremely high or low muscle mass, and may affect results. Cystatin C with Glomerular Filtration Rate is a suitable alternative for these patients. ANION GAP 11 9 - 20 mmol/L 07/12/2025 2:09 AM CDT [facility] Blood Venipuncture / Unknown 07/12/2025 1:01 AM CDT 07/12/2025 1:33 AM CDT us Kenji Regalado MD CHEMISTRY ORDERABLES Final Re sult [facility] CLIA # [id number] [address] [place] [address] * MRI BRAIN WO CONTRAST (07/11/2025 5:01 [...] MR ORDERABLES Final Res ult * (ABNORMAL) CBC WITHOUT DIFFERENTIAL (07/11/2025 3:33 AM CDT) Only the most recent of6 resultswithin the time period is included. WBC 11.0(H) 4.8 - 10.8 K/uL 07/11/2025 4:00 AM [facility] RBC 2.72(L) 4.60 - 6.20 M/uL 07/11/2025 4:00 AM [facility] HEMOGLOBIN 9.0(L) 14.0 - 18.0 g/dL 07/11/2025 4:00 AM [facility] HEMATOCRIT 25.7(L) 41.0 - 53.0 % 07/11/2025 4:00 AM [facility] MCV 94.5 84.0 - 103.0 fL 07/11/2025 4:00 AM [facility] MCH 33.1 27.0 - 34.0 pg 07/11/2025 4:00 AM [facility] MCHC 35.0 30.0 - 35.0 g/dL 07/11/2025 4:00 AM [facility] PLATELETS 143 140 - 440 K/uL 07/11/2025 4:00 AM [facility] MPV 10.5 8.9 - 12.8 fL 07/11/2025 4:00 AM [facility] RDW 16.9(H) 11.0 - 14.5 % 07/11/2025 4:00 AM [facility] RDW-STDEV 57.4(H) 37.0 - 54.0 fL 07/11/2025 4:00 AM [facility] Blood Venipuncture / Unknown 07/11/2025 3:33 AM CDT 07/11/2025 3:41 AM CDT Jesusita Hyde MD HEMATOLOGY ORDERABLES Fin al Result Performing Organization Address [facility]/ZIP Co de Phone Number [facility] [employer] [facility] CLIA # [id number] [address] [facility] [place] [address] * EEG (07/11/2025) Impressions Dee Morse MD - 07/11/2025 HISTORY: Per report Presented with altered mental status and worsening ascites. Found to have DARVIN . MEDICATION: no AEDs listed. TECHNICAL INFORMATION: This EEG was recorded on a [employer] EEG system. The 21 scalp electrodes used [...] - 946 pg/mL 07/10/2025 11:31 PM CDT [facility] [employer] [facility] FOLATE, SERUM 10.4 3.1 - 17.5 ng/mL 07/10/2025 11:31 PM CDT [facility] [employer] [facility] Blood Venipuncture / Unknown 07/10/2025 10:08 PM CDT 07/10/2025 10:22 PM CDT Jesusita Hyde MD CHEMISTRY ORDERABLES Seble l Result [id number] [address] [address] [place] [address] * CT HEAD WO CONTRAST (07/10/2025 4:44 [...] The orbits are intact. Procedure Note Ramiro Huffman, DO - 07/10/2025 Exam: CT HEAD WO [...] MD CT ORDERABLES Final Res ult * (ABNORMAL) TSH (07/10/2025 3:41 AM CDT) Only the most recent of2 resultswithin the time period is included. TSH 37.85(H) 0.27 - 4.20 uIU/mL 07/10/2025 6:38 PM CDT [facility] Blood Venipuncture / Unknown 07/10/2025 3:41 AM CDT 07/10/2025 3:52 AM CDT Jesusita Hyde MD CHEMISTRY ORDERABLES Seble l Result Performing Organization Address [facility] Co de Phone Number [facility] CLIA # [id number] [address] [address] [place] [address] * T4 FREE (07/10/2025 3:41 AM CDT) Only the most recent of2 resultswithin the time period is included. T4 FREE 0.88 0.81 - 1.70 ng/dL 07/10/2025 8:47 PM CDT [facility] Blood Venipuncture / Unknown 07/10/2025 3:41 AM CDT 07/10/2025 3:52 AM CDT Jesusita Hyde MD CHEMISTRY ORDERABLES Seble l Result Performing Organization Address City/[facility]/ZIP Co de Phone Number [facility] CLIA # [id number] [address] [address] [place] [address] * US ASPIRATION ABDOMEN (07/09/2025 2:16 PM [...] the proposed needle course. A 10-cm 5 [employer] centesis catheter was inserted. 4900 ml of [...] the proposed needle course. A 10-cm 5 [employer] centesis catheter was inserted. 4900 ml of a clear, yellow ascites was then drained via suction. The centesis catheter was removed in its entirety, the chlorhexidine cleansed from the skin, and a sterile dressing placed. The patient tolerated the procedure without complications. Estimated Blood Loss: None Jesusita Hyde MD US ORDERABLES Final Res ult * ANAEROBIC/AEROBIC CULTURE W GRAM STAIN (07/09/2025 1:41 PM CDT) CULTURE No aerobic or anaerobic growth 07/12/2025 11:08 AM CDT [facility] GRAM STAIN No Polymorphonuclear WBC 07/12/2025 11:08 AM CDT [facility] GRAM STAIN No organisms observed 07/12/2025 11:08 AM CDT [facility] Body fluid ENTIRE SEROUS MEMBRANE OF PERITONEUM / Unknown Collection / Unknown 07/09/2025 1:41 PM CDT 07/09/2025 2:45 PM CDT Jesusita Hyde MD MICROBIOLOGY - GENERAL OR DERABLES Final Result [facility] CLIA # [id number] [address] [place] [address] [place], [place] [address] * CELL COUNT WITH DIFFERENTIAL, BODY FLUID (07/09/2025 1:41 PM CDT) APPEARANCE, BODY FLUID Clear 07/09/2025 3:42 PM CDT [facility] [employer] [facility] COLOR, FLD Yellow 07/09/2025 3:42 PM CDT [facility] TOTAL NUCLEATED CELLS, FLD (AUTO) 119 No Ref Range Estab /ul 07/09/2025 3:42 PM CDT [facility] TOTAL RBC'S, FLD (AUTO) <3,000 No Ref Range Estab /ul 07/09/2025 3:42 PM CDT [facility] NEUTROPHILS, FLD 5 No Ref Range Estab % 07/09/2025 3:42 PM CDT [facility] LYMPHOCYTE, FLD 19 No Ref Range Estab % 07/09/2025 3:42 PM CDT [facility] MONOCYTE/MACROPH AGE, FLD 66 No Ref Range Estab % 07/09/2025 3:42 PM CDT [facility] MESOTHELIAL FLD 10 No Ref Range Estab % 07/09/2025 3:42 PM CDT [facility] Body fluid ENTIRE SEROUS MEMBRANE OF PERITONEUM / Unknown Collection / Unknown 07/09/2025 1:41 PM CDT 07/09/2025 2:45 PM CDT us Jesusita Hyde MD BODY FLUIDS AND STOOLS Fi nal Result [facility] CLIA # [id number] [address] [place] [id number] * PROTEIN, BODY FLUID (07/09/2025 1:41 PM CDT) PROTEIN, FLD 0.8 g/dL 07/09/2025 3:18 PM CDT [facility] Body fluid ENTIRE SEROUS MEMBRANE OF PERITONEUM / Unknown Collection / Unknown 07/09/2025 1:41 PM CDT 07/09/2025 2:45 PM CDT Narrative [facility] - 07/09/2025 3:18 PM CDT Interpretive Criteria: Transudate: <2.0 g/dL Exudate: >2.0 g/dL The reference range and other method performance specifications are unavailable for this body fluid. Comparison of this result with the concentration in the blood, serum, or plasma is recommended. Jesusita Hyde MD BODY FLUIDS AND STOOLS Fi nal Result [facility] CLIA # [id number] [address] [place] [address] * CYTOLOGY, NON GYNE (07/09/2025 1:41 PM CDT) CASE REPORT Medical Cytology Report Case: [id number] Authorizing Provider: Jesusita Gutierrez MD Collected: 07/09/2025 01:41 PM Ordering Location: [facility] Received: 07/10/2025 08:48 AM Medical Pathologist: Lakseha Garces MD Specimen: Peritoneal (ascitic) fluid 10:57 AM CDT [facility] FINAL DIAGNOSIS A. Peritoneal fluid, ThinPrep and cell block - No malignant cells identified - Mesothelial cells, histiocytes, and small lymphocytes present Lakesha Garces MD [id number] 10:57 AM CDT [facility] at 1057 CDT GROSS DESCRIPTION A. Peritoneal (ascitic) fluid - 30 ml clear yellow fluid processed for ThinPrep and cell block A2. 10:57 AM CDT [facility] CLINICAL INFORMATION No Dx found. 10:57 AM CDT [facility] COMMENT The [employer] voice-activated dictation system may have been used [...] determined by the Diagnostic Immunohistochemistry Laboratory of [facility] in compliance with CLIA'88 regulations. Some of these tests rely on the use of analyte specific reagents and are subject to specific labeling requirements by the FDA. All controls show appropriate reactivity. This testing was developed by the Diagnostic Immunohistochemistry Laboratory of [facility]. It has not been cleared or approved by the FDA. The FDA has determined that such clearance or approval is not necessary. 10:57 AM CDT [facility] Body fluid ASCITIC FLUID SPECIMEN / Unknown Collection / Unknown 07/09/2025 1:41 PM CDT 07/10/2025 8:48 AM CDT us Jesusita Hyde MD PATHOLOGY/CYTOLOGY ORDERA BLES Final Result [facility] CLIA # [id number] [address] [place] [address] * ECHO COMPLETE - CONTRAST AND STRAIN IF INDICATED (07/09/2025 12:23 PM CDT) EJECTION FRACTION 60 INTERFACE SYSTEM 07/09/2025 8:37 AM CDT Narrative INTERFACE SYSTEM - 07/09/2025 10:59 AM CDT [facility] Cardiovascular Services Echocardiography Laboratory [address] [place] [address] Transthoracic Echocardiography Patient: Donny Waller Study ID: ECHO COMPLETE - Gender: M : 1970 Age: 55 Room: [facility] Study Date: 07/09/2025 Pt Status: Inpatient Study Time: 08:37:40 AM [facility] #: [id number] Ordering:Shagufta Hyde, Jesusita Interior Design Program Chair: YULY Indications and History: HF, Cardiomyopathy, dyspnea, [...] (H) den values outside specified reference range. [facility] Echo Labs are accredited with the Intersocietal Accreditation Commission - Echocardiography. Prepared and Electronically Authenticated Efraín Shabazz MD Confirmed 07/09/2025 10:58 Procedure Note Efraín Shabazz MD - 07/09/2025 [facility] Cardiovascular Services Echocardiography Laboratory [address] [place] [address] Transthoracic Echocardiography Patient: Donny Waller Study ID: ECHOCOMPLETE - Gender: M : 1970 Age: 55 Room: [facility] Study Date: 07/09/2025 Pt Status: Inpatient Study Time: 08:37:40 AM CSN #: [id number] Ordering:Jesusita Gutierrez Interior Design Program Chair: YULY Indications and History: HF, Cardiomyopathy, dyspnea, [...] (H) den values outside specified reference range. [facility] Echo Labs are accredited with the[facility] Accreditation Commission - Echocardiography. Prepared and Electronically Authenticated Efraín Shabazz MD Confirmed 07/09/2025 10:58 Jesusita Hyde MD US ORDERABLES Final Res ult Performing Organization Address [facility] de Phone Number INTERFACE SYSTEM Refer to clinic/hospital department * (ABNORMAL) PROTIME-INR (07/09/2025 11:40 AM CDT) PROTIME 28.9(H) 12.7 - 14.9 Seconds 07/09/2025 12:10 PM CDT [facility] LABORATORY [facility] INR 2.6(H) 0.8 - 1.2 07/09/2025 12:10 PM CDT [facility] [employer] [facility] Blood Venipuncture / Unknown 07/09/2025 11:40 AM CDT 07/09/2025 11:56 AM CDT Narrative [facility] [employer] [facility] - 07/09/2025 12:10 PM CDT Expected Values for INR: DVT/PE Goal INR 2.5; range 2.0 - 3.0 Valve Replacement Tissue Goal INR 2.5; range 2.0 - 3.0 Valve Replacement Mechanical Goal INR 3.0; range 2.5 - 3.5 POST-VT Goal INR 2.5; range 2.0 - 3.0 or Goal INR 3.0; range 2.5 - 3.5 Atrial Fibrillation Goal INR 2.5; range 2.0 - 3.0 Ischemic Stroke Goal INR 2.5; range 2.0 - 3.0 Jesusita Hyde MD HEMATOLOGY ORDERABLES Fin al Result Performing Organization Address [facility] Co de Phone Number [facility] [employer] [facility] CLIA # [id number] [address] [facility] [place] [address] * (ABNORMAL) COMPREHENSIVE METABOLIC PANEL (07/09/2025 11:40 AM CDT) Only the most recent of6 resultswithin the time period is included. [facility] Signature SODIUM 138 136 - 145 mmol/L 07/09/2025 12:26 PM [facility] POTASSIUM 4.5 3.5 - 5.1 mmol/L 07/09/2025 12:26 PM [facility] CHLORIDE 109(H) 98 - 107 mmol/L 07/09/2025 12:26 PM [facility] CO2 17(L) 22 - 29 mmol/L 07/09/2025 12:26 PM [facility] CALCIUM 8.9 8.6 - 10.0 mg/dL 07/09/2025 12:26 PM [facility] BUN 28(H) 6 - 20 mg/dL 07/09/2025 12:26 PM [facility] CREATININE 1.30(H) 0.67 - 1.17 mg/dL 07/09/2025 12:26 PM [facility] GLUCOSE 153(H) 74 - 99 mg/dL 07/09/2025 12:26 PM [facility] TOTAL PROTEIN 6.0(L) 6.4 - 8.3 g/dL 07/09/2025 12:26 PM [facility] ALBUMIN 3.0(L) 3.5 - 5.2 g/dL 07/09/2025 12:26 PM [facility] BILIRUBIN TOTAL 1.7(H) 0.0 - 1.0 mg/dL 07/09/2025 12:26 PM [facility] ALKALINE PHOSPHATASE 71 40 - 129 U/L 07/09/2025 12:26 PM [facility] AST 103(H) 10 - 50 U/L 07/09/2025 12:26 PM [facility] ALT 61(H) <=50 U/L 07/09/2025 12:26 PM [facility] GFR >60 >=60 mL/min/1. 73 sq meter 07/09/2025 12:26 PM CDT [facility] Comment:eGFR calculated with 2020 CKD-EPI equation. Vegetarian diet, extremely high or low muscle mass, and may affect results. Cystatin C with Glomerular Filtration Rate is a suitable alternative for these patients. ANION GAP 12 9 - 20 mmol/L 07/09/2025 12:26 PM CDT [facility] Blood Venipuncture / Unknown 07/09/2025 11:40 AM CDT 07/09/2025 11:56 AM CDT Jesusita Hyde MD CHEMISTRY ORDERABLES Esble l Result Performing Organization Address [facility] Co de Phone Number [facility] CLIA # [id number] [address] [place] [address] * (ABNORMAL) BRAIN NATRIURETIC PEPTIDE, BNP OR PROBNP (07/07/2025 3:54 PM CDT) Pathologist [facility] PROBNP, N TERMINAL 3,466(H) 0 - 125 pg/mL 07/07/2025 4:35 PM CDT [facility] Comment: INTERPRETIVE COMMENT based on diagnosis: Diagnostic [...] ORDERABLES Seble l Result Performing Organization Address City/[facility]/ZIP Co de Phone Number [facility] # [id number] [address] [facility] [place] [address] * XR CHEST PA OR AP 1 [...] pleural effusion. No pneumothorax. Cardiac silhouette unremarkable. Jesusita Hyde MD DIAGNOSTIC IMAGING ORDERA BLES Final Result * LACTATE DEHYDROGENASE (07/07/2025 12:07 PM CDT) LD (LACTATE DEHYDROGENASE) 224 135 - 225 U/L 07/07/2025 12:43 PM CDT [facility] [employer] [facility] Blood Venipuncture / Unknown 07/07/2025 12:07 PM CDT 07/07/2025 12:11 PM CDT us Jesusita Hyde MD CHEMISTRY ORDERABLES Seble l Result [facility] [employer] [facility] CLIA # [id number] [address] [address] * (ABNORMAL) ACUTE HEPATITIS PANEL (07/07/2025 3:59 AM CDT) Pathologist [facility] HEPATITIS B SURFACE AG NON-REACT CHOLO Non-react cholo 07/07/2025 5:04 AM CDT [facility] Comment:A non-reactive test result does not exclude the possibility of exposure to or infection with hepatitis B. HEPATITIS B CORE IGM NON-REACT CHOLO Non-react cholo 07/07/2025 5:04 AM CDT [facility] Comment:IgM antibodies to HB c were not detected; does not exclude the possibility of exposure to HBV. HEPATITIS A IGM Non-react cholo Non-react cholo 07/07/2025 5:04 AM CDT [facility] Comment:A negative test resu lt does not exclude the possibility of exposure to Hepatitis A virus. HEPATITIS C AB REACTIVE( A) Non-react cholo 07/07/2025 5:04 AM CDT [facility] Blood Venipuncture / Unknown 07/07/2025 3:59 AM CDT 07/07/2025 4:05 AM CDT Narrative [facility] - 07/07/2025 5:04 AM CDT Confirmatory testing by HCV_RNA by PCR will be automatically reflexed on reactive results. Jesusita Hyde MD CHEMISTRY ORDERABLES Seble l Result [facility] CLIA # [id number] [facility] [address] * (ABNORMAL) HEPATITIS C RNA PCR, QUANTITATIVE (07/07/2025 3:59 AM CDT) [facility] HCV RNA, QUANT REAL TIME PCR [id number](H) NOT DETECTED IU/mL 07/09/2025 2:11 PM CDT [facility] HCV RNA QUANT PCR COPIES IU/ML 5.40(H) NOT DETECTED Log IU/mL 07/09/2025 2:11 PM CDT [facility] Comment: For additional information, please refer to http://education.GoFish/faq/CLY43d3 (This link is being provided for informational/ educational purposes only.) Blood Venipuncture / Unknown 07/07/2025 3:59 AM CDT 07/07/2025 5:04 AM CDT Narrative [facility] - 07/09/2025 2:11 PM CDT Performing Organization Information: Site ID: [place] Name: [facility] Address: [address] [address] Director: Jam Guido MD us Jesusita Hyde MD CHEMISTRY ORDERABLES Seble l Result [facility] * US ABDOMEN LIMITED (07/06/2025 12:22 PM [...] DETECTION W/REFLX CONFIRMATION (07/06/2025 11:05 AM CDT) HIV-1 AND 2 ABS AND HIV-1 AG Non-reacti ve Non-React cholo 07/06/2025 1:22 PM CDT [facility] [employer] [facility] Blood Venipuncture / Unknown 07/06/2025 11:05 AM CDT 07/06/2025 11:16 AM CDT Jesusita Hyde MD CHEMISTRY ORDERABLES Seble l Result [facility] CLIA # [id number] [address] [facility] [place] [address] * MAGNESIUM LEVEL (07/06/2025 2:15 AM CDT) Pathologist [facility] MAGNESIUM 1.8 1.6 - 2.6 mg/dL 07/07/2025 11:04 AM CDT [facility] Blood Venipuncture / Unknown 07/06/2025 2:15 AM CDT 07/06/2025 2:33 AM CDT Tony Rapp NP CHEMISTRY ORDERABLES Final R esult Performing Organization Address [facility]/ZIP Co de Phone Number [facility] CLIA # [id number] [address] [place] [address] * HAPTOGLOBIN (07/06/2025 2:15 AM CDT) [facility] HAPTOGLOBIN 37 30 - 200 mg/dL 07/07/2025 9:51 AM CDT [facility] Blood Venipuncture / Unknown 07/06/2025 2:15 AM CDT 07/06/2025 2:33 AM CDT Jesusita Hyde MD CHEMISTRY ORDERABLES Seble l Result [facility] CLIA # [id number] [address] [place] [address] * BLOOD CULTURE (07/05/2025 4:44 PM CDT) Only the most recent of2 resultswithin the time period is included. [facility] BLOOD CULTURE No growth 07/10/2025 6:32 PM CDT [facility] Blood (Peripheral) Venipuncture / Unknown 07/05/2025 4:44 PM CDT 07/05/2025 4:57 PM CDT us Jesusita Hyde MD MICROBIOLOGY - GENERAL OR DERABLES Final Result Performing Organization Address [facility] Co de Phone Number [facility] CLIA # [id number] [address] [address] * POC LACTIC ACID (07/04/2025 6:40 PM CDT) LACTIC ACID POC 0.9 <=2.0 mmol/L 07/04/2025 6:40 PM CDT [facility] SPECIMEN SOURCE, GASES POC Arterial 07/04/2025 6:40 PM CDT [facility] PUNC SITE POC ART PUNCT 07/04/2025 6:40 PM CDT [facility] Blood 07/04/2025 6:40 PM CDT 07/04/2025 6:42 PM CDT Narrative [facility] - 07/04/2025 6:40 PM CDT References ranges displayed are for Arterial samples. us Jesusita Hyde MD POINT OF CARE TESTING Fin al Result Performing Organization Address [facility] Co de Phone Number [facility] CLIA # [id number] [address] [address] * (ABNORMAL) BLOOD GAS ARTERIAL (07/04/2025 6:40 PM CDT) PH BLOOD POC 7.40 7.35 - 7.45 07/04/2025 6:40 PM CDT [facility] PCO2 POC 20(L) 35 - 45 mm Hg 07/04/2025 6:40 PM CDT [facility] PO2 POC 80 80 - 105 mm Hg 07/04/2025 6:40 PM CDT [facility] HCO3 (CALC) POC 12(L) 22 - 26 mmol/L 07/04/2025 6:40 PM T [facility] HEMOGLOBIN POC 10.4(L) 12.0 - 18.0 g/dL 07/04/2025 6:40 PM [facility] BASE EXCESS POC -12(L) -2 - 3 mmol/L 07/04/2025 6:40 PM [facility] O2 SATURATION POC 99(H) 95 - 98 % 07/04/2025 6:40 PM [facility] SODIUM POC 141 138 - 146 mmol/L 07/04/2025 6:40 PM [facility] POTASSIUM POC 4.0 3.5 - 4.9 mmol/L 07/04/2025 6:40 PM [facility] HEMATOCRIT POC 31(L) 38 - 51 % 07/04/2025 6:40 PM [facility] PH TEMP CORRECT 7.40 7.35 - 7.45 07/04/2025 6:40 PM [facility] PCO2 TEMP CORRECT 20(L) 35 - 45 mm Hg 07/04/2025 6:40 PM [facility] PO2 TEMP CORRECT 80 80 - 105 mm Hg 07/04/2025 6:40 PM [facility] SPECIMEN SOURCE, GASES POC Arterial 07/04/2025 6:40 PM [facility] CALCIUM IONIZED POC 5.1 4.8 - 5.2 mg/dL 07/04/2025 6:40 PM [facility] TCO2 (CALC) POC 13(L) 23 - 27 mmol/L 07/04/2025 6:40 PM [facility] PUNC SITE POC ART PUNCT 07/04/2025 6:40 PM [facility] Blood, arterial 07/04/2025 6 :40 PM CDT 07/04/2025 6:42 PM CDT us Jesusita Hyde MD ABG ORDERABLES Final Res ult Performing Organization Address [facility] de Phone Number [facility] CLIA # [id number] [address] [address] [place] [address] * AMMONIA LEVEL (07/04/2025 3:37 PM CDT) Only the most recent of2 resultswithin the time period is included. Pathologist [facility] AMMONIA 25.6 16.0 - 60.0 umol/L 07/04/2025 4:17 PM CDT [facility] Blood, venous Capillary / Unknown 07/04/2025 3:37 PM CDT 07/04/2025 3:47 PM CDT us Jesusita Hyde MD CHEMISTRY ORDERABLES Seble l Result Performing Organization Address [facility] de Phone Number [facility] CLIA # [id number] [address] [address] [place] [address] * ETHANOL LEVEL (07/04/2025 10:42 AM CDT) [facility] ETHANOL <10.10 <10.10 mg/dL 07/04/2025 11:26 AM CDT [facility] ETHANOL % <0.01 <=0.01 %w/v 07/04/2025 11:26 AM CDT [facility] Blood Venipuncture / Unknown 07/04/2025 10:42 AM CDT 07/04/2025 10:49 AM CDT Jesusita Hyde MD CHEMISTRY ORDERABLES Seble l Result Performing Organization Address [facility] Co de Phone Number [facility] [employer] [facility] CLIA # [id number] [address] [address] [place] [address] * (ABNORMAL) CBC WITH DIFFERENTIAL (07/04/2025 6:24 AM CDT) [facility] WBC 9.1 4.8 - 10.8 K/uL 07/04/2025 6:52 AM CDT [facility] RBC 2.74(L) 4.60 - 6.20 M/uL 07/04/2025 6:52 AM CDT [facility] HEMOGLOBIN 9.4(L) 14.0 - 18.0 g/dL 07/04/2025 6:52 AM CDT [facility] HEMATOCRIT 27.1(L) 41.0 - 53.0 % 07/04/2025 6:52 AM T [facility] MCV 98.9 84.0 - 103.0 fL 07/04/2025 6:52 AM T [facility] MCH 34.3(H) 27.0 - 34.0 pg 07/04/2025 6:52 AM T [facility] MCHC 34.7 30.0 - 35.0 g/dL 07/04/2025 6:52 AM T [facility] PLATELETS 104(L) 140 - 440 K/uL 07/04/2025 6:52 AM T [facility] MPV 9.5 8.9 - 12.8 fL 07/04/2025 6:52 AM [facility] RDW 15.8(H) 11.0 - 14.5 % 07/04/2025 6:52 AM T [facility] RDW-STDEV 55.9(H) 37.0 - 54.0 fL 07/04/2025 6:52 AM T [facility] NEUTROPHILS 52 42 - 75 % 07/04/2025 6:52 AM T [facility] LYMPHOCYTES 36 24 - 44 % 07/04/2025 6:52 AM CDT [facility] MONOCYTES 8 2 - 10 % 07/04/2025 6:52 AM CDT [facility] EOSINOPHILS 3 0 - 7 % 07/04/2025 6:52 AM CDT [facility] BASOPHILS 1 0 - 1 % 07/04/2025 6:52 AM CDT [facility] IMMATURE GRANULOCYTES 1 0 - 2 % 07/04/2025 6:52 AM CDT [facility] NEUTROPHIL ABSOLUTE 4.68 2.00 - 8.00 K/uL 07/04/2025 6:52 AM CDT [facility] LYMPHOCYTE ABSOLUTE 3.28 1.20 - 4.00 K/uL 07/04/2025 6:52 AM CDT [facility] MONOCYTE ABSOLUTE 0.76(H) 0.10 - 0.60 K/uL 07/04/2025 6:52 AM CDT [facility] EOSINOPHIL ABSOLUTE 0.24 0.00 - 0.70 K/uL 07/04/2025 6:52 AM CDT [facility] BASOPHILS ABSOLUTE 0.06 0.00 - 0.20 K/uL 07/04/2025 6:52 AM CDT [facility] IMMATURE GRANULOCYTES ABSOLUTE 0.05 0.00 - 0.10 K/uL 07/04/2025 6:52 AM CDT [facility] SMEAR REVIEWED: NA - Not Applicable 07/04/2025 6:52 AM T [facility] Blood Venipuncture / Unknown 07/04/2025 6:24 AM CDT 07/04/2025 6:45 AM CDT Mino Butler MD HEMATOLOGY ORDERABLES F inal Result [facility] CLIA # [id number] [facility] [address] [place] [address] * (ABNORMAL) FERRITIN (07/04/2025 6:24 AM CDT) [facility] FERRITIN 1,003.0(H) 30.0 - 400.0 ng/mL 07/04/2025 11:25 AM CDT [facility] Blood Venipuncture / Unknown 07/04/2025 6:24 AM CDT 07/04/2025 6:45 AM CDT Jesusita Hyde MD CHEMISTRY ORDERABLES Seble li [id number] [address] [address] [place] [address] from Last 3 Months Insurance [facility] [employer] [facility] [id number] Advance Directives For more information, please contact: [phone] * Full Code (Latest Code Status on File) Date Activated Date Inactivated Comments 07/04/2025 2:59 AM 07/12/2025 4:05 PM * Full Code Date Activated Date Inactivated Comments 08/20/2022 9:26 AM 08/20/2022 2:01 PM * Full Code Date Activated Date Inactivated Comments 12/12/2021 7:29 AM 12/12/2021 12:48 PM Care Teams Garde Manager Relationship Specialty Start Date End Date Aurora Sandy MD [address] [place] [address] PCP - General Family Practice 07/13/25
--- OUTSIDE RECORDS SUMMARY | 2025-07-14 15:54 | XMS_ITS | Encounter Summary ---
Author Organization [facility] Address 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
--- OUTSIDE RECORDS SUMMARY | 2025-07-14 15:54 | XMS_ITS | Encounter Summary ---
Author Organization [facility] Address 

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
[2025-07-14 18:16] VITALS: BP 130/77; PULSE 93; O2SAT 98
--- NOTE | 2025-07-17 13:28 | DCPLANNER ---
sent to gi and gen surg for follow up
== END 2025-07-14 18:17 | disposition home or self-care (01) ==
PROVIDERS: Emergency Provider Physician Assistant; PCP Family Medicine
DX: K70.31 Alcoholic cirrhosis of liver with ascites (principal); F17.210 Nicotine dependence, cigarettes, uncomplicated; J44.9 Chronic obstructive pulmonary disease, unspecified; Z85.21 Personal history of malignant neoplasm of larynx
CPT/HCPCS: 99282

== ENCOUNTER 2025-07-24 08:12 | Outpatient (CLI) | payer MEDICAID, SELFPAY ==
[2025-07-24 09:02] LABS: Hematocrit 30.7 % (37-53); Hemoglobin 10.20 g/dL (11.27-16.99); Mean Corpuscular HGB Conc 33.2 g/dL (30-55); Mean Corpuscular Hemoglobin 32.5 pg (27-33); Mean Corpuscular Volume 97.8 fl (82-101); Nucleated Red Blood Cells % 0 %; Platelet Count 163 10^3/cmm (157-399); Red Blood Count 3.14 10^6/uL (3.85-5.65); White Blood Count 11.73 10^3/uL (3.29-11.43)
[2025-07-24 09:15] LABS: INR 1.45 (0.8-1.2); Prothrombin Time 18.60 SECONDS (12.1-14.9)
[2025-07-24 09:17] LABS: Ammonia 54 umol/L (16-60)
[2025-07-24 09:38] LABS: Free T4 Free Thyroxine 1.11 ng/dL (0.82-1.77)
[2025-07-24 09:48] LABS: Alanine Aminotransferase 47 U/L (0-41); Albumin Level 3.0 g/dL (3.5-5.2); Alkaline Phosphatase 110 U/L (40-130); Anion Gap 13.2 (5-19); Aspartate Amino Transferase 96 U/L (0-40); Blood Urea Nitrogen 15 mg/dL (6-20); Calcium 8.8 mg/dL (8.5-10.5); Carbon Dioxide 22 mmol/L (22-29); Chloride 106 mmol/L (98-107); Globulin 3.9 g/dL (1.3-4.6); Glucose 127 mg/dL (65-115); Iron 114 ug/dL (59-158); Magnesium 1.5 mg/dL (1.7-2.3); Osmolality Calculated 288 mOsm/kg (285-295); Potassium 3.2 mmol/L (3.5-5.1); Sodium 138 mmol/L (136-145); Total Protein 6.9 g/dL (6.6-8.7); Vitamin B12 1389 pg/mL (232-1245)
[2025-07-24 10:09] LABS: Ferritin 1352 ng/mL (30-400); Thyroid Stimulating Hormone 113.30 uIU/mL (0.27-4.20)
== END 2025-07-24 08:13 | disposition home or self-care (01) ==
LOC: LAB 08:15
PROVIDERS: PCP Family Medicine; Visit Provider Family Medicine
DX: E03.9 Hypothyroidism, unspecified (principal); E87.1 Hypo-osmolality and hyponatremia; K70.30 Alcoholic cirrhosis of liver without ascites; K76.6 Portal hypertension; K70.31 Alcoholic cirrhosis of liver with ascites; K76.7 Hepatorenal syndrome; N17.9 Acute kidney failure, unspecified; E83.42 Hypomagnesemia; R79.89 Other specified abnormal findings of blood chemistry; E83.39 Other disorders of phosphorus metabolism
CPT/HCPCS: 36415; 80053; 82140; 82607; 82728; 82746; 83540; 83615; 83735; 84100; 84439; 84443; 84481; 85025; 85610; 85651; 86140

== ENCOUNTER 2025-07-30 13:35 | Emergency (ER) | payer MEDICAID, SELFPAY ==
[2025-07-30] VITALS (9 sets, daily range): BP systolic 112–148; BP diastolic 73–85; PULSE 113–126; RESP 18; TEMP 36.8; O2SAT 92–100; BMI 22.4
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
--- OUTSIDE RECORDS SUMMARY | 2025-07-30 14:05 | XMS_ITS | Encounter Summary ---
Author Organization [facility] Address [address] [place] [address] Care Team Providers Care Instructor Bridge Name Role Phone Aurora Sandy MD Primary Care Provider [phone] Reason for Referral * Eval and Treat (Routine) - Closed Specialty Diagnoses / Procedures Referred By Beatriz t Referred To Contact Gastroenterology Diagnoses Alcoholic cirrhosis of liver with ascites (CMS/HCC) Alcoholic cirrhosis of liver without ascites (CMS/HCC) Procedures NV OFFICE/OUTPATIENT ESTABLISHED MOD MDM 30 MIN NV OFFICE/OUTPATIENT NEW MODERATE MDM 45 MINUTES new request Ketan Verde DO [address] [phone] Phone: tel: fax: [facility] Gastroenterology[address] [address] Phone: tel: fax: Referral ID Status Reason Start Date Expiration Date Visits Requested Visits Authorized [id number] Closed Performing Department to Schedule 07/26/2025 07/26/2026 1 1 Encounter Details Date Type Department Care Team (Late st Contact Info) Description 07/26/2025 Orders Only [facility] Gastroenterology[address] [place] [phone] Ketan Verde DO [address] [phone] Alcoholic cirrhosis of liver with ascites (CMS/HCC) (Primary Dx); Alcoholic cirrhosis of liver without ascites (CMS/HCC) Social History Tobacco Use Types Packs/Day Years [...] on file 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 Gender Identity Not on file Sexual Orientation Not on file documented as of this encounter Plan of Treatment Upcoming Encounters Date Type Department Care Team (Late st Contact Info) Description 08/09/2025 8:30 AM CDT Office Visit [facility] Urology [address] [phone] Jesusita Gutierrez MD [address] [place] [phone] Zhanna Stephens NP [address] [place] [phone] Scheduled Referrals Name Type Priority Associated Diagnoses Order Schedule AMB REFERRAL TO GASTROENTEROLOGY Outpatient Referral Routine Alcoholic cirrhosis of liver with ascites (CMS/HCC) Alcoholic cirrhosis of liver without ascites (CMS/HCC) Ordered: 07/26/2025 documented as of this encounter Visit Diagnoses Diagnosis Alcoholic cirrhosis of liver with ascites (CMS/HCC)- Primary Alcoholic cirrhosis of liver Alcoholic cirrhosis of liver without ascites (CMS/HCC) Alcoholic cirrhosis of liver documented in this encounter Care Teams Instructor Bridge Relationship Specialty Start Date End Date Aurora Sandy MD [address] [place] [address] PCP - General Family Practice 07/13/25 documented as of this encounter
--- OUTSIDE RECORDS SUMMARY | 2025-07-30 14:05 | XMS_ITS | Clinical Summary ---
Author Organization [facility] Address [address] [facility] Attn: Epic Prelude ADT EMERITA PEARSON [address] Care Team Providers Care Digital Strategy Manager Name Role Phone Aurora Sandy MD Primary Care Provider [phone] Allergies No known active allergies Medications folic [...] for that day 4050 mL 07/10/20 25 025 Active furosemide (Lasix) 40 mg tablet Take 1 Tablet (40 mg) by mouth daily. 30 Tablet 07/10/20 25 Active spironolactone (ALDACTONE) 25 mg tablet Take 0.5 Tablets (12.5 mg) by mouth daily. 30 Tablet 07/10/20 25 Active docusate sodium (COLACE) 100 mg capsule [...] mouth 2 times daily. 06/25/20 025 Discontinued walker Length of Need: 99 months Ht Readings from Last 1 Encounters: 07/04/25 : 5' 8 (1.727 m) , Weight: 71 kg (156 lb 8.4 oz) (07/08/25 0500). If over 300 lbs, patient requires heavy duty. 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 [address] [place] [phone] Provider, Abstract 07/17/2025 Orders Only [facility] [address] [place] [address] Provider, Abstract 07/11/2025 External Device Data ST[facility] ABSTRACTION Provider, Abstract 07/10/2025 External Device Data [facility] ABSTRACTION Provider, Abstract 07/10/2025 External Device Data [facility] ABSTRACTION Provider, Abstract 07/04/2025 2:48 AM CDT - 07/12/2025 2:00 PM CDT Hospital Encounter [address] [place] [phone] Pool Arciniega MD Abbas, MD Shagufta Johnson Madhavi, MD Nerella, Ravi V., MD DARVIN (acute kidney injury) Discharge Disposition: Home or Self Care 07/04/2025 Travel 07/04/2025 Orders Only [facility] [place] [address] [place] [phone] Tony Centeno MD Ascites due to alcoholic cirrhosis (CMS/HCC) (Primary Dx) 06/26/2025 Abstract [facility] [place] [address] [place] [address] Provider, Abstract 06/22/2025 Abstract [facility] [place] [address] [place] [address] Provider, Abstract from Last 3 Months Immunizations [...] file 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 Gender Identity Not on file Sexual Orientation [...] 07/04/2025 3:35 AM CDT Plan of Treatment Upcoming Encounters Date Type Department Care Team (Late st Contact Info) Description 08/09/2025 8:30 AM CDT Office Visit [facility] [place] [address] [facility] [address] [place] [address] Jesusita Gutierrez MD [address] [place] [phone] Zhanna Stephens NP [address] [facility] [address] [place] [address] Health Maintenance Due Date Last Done Comments HEPATITIS B VACCINES (1 of 3 - 19+ 3-dose series) 02/07/1987 COLORECTAL SCREENING 02/07/2013 Colorectal Cancer Screening 02/07/2013 FIT-DNA Q 3 years 02/07/2013 FIT/FOBT Q 1 year 02/07/2013 Flex Sig/CT Colonography Q 5 years 02/07/2013 ZOSTER VACCINE (1 of 2) 02/07/2018 DTAP/TDAP/TD VACCINES (2 - Td or Tdap) 01/19/2023 INFLUENZA VACCINE (#1) 2025 COVID-19 Vaccine (3 - season) 2025, 09/09/2021 Procedures Procedure Name Priority Date/Time Associated Diagnosis Comments TELEMETRY REPORT 07/17/2025 2:11 AM CDT BASIC METABOLIC PANEL Routine 07/12/2025 1:01 AM CDT MRI BRAIN WO CONTRAST Routine 07/11/2025 5:01 PM CDT BASIC METABOLIC PANEL Routine 07/11/2025 3:33 AM CDT CBC WITHOUT DIFFERENTIAL Routine 07/11/2025 3:33 AM CDT EEG Routine 07/11/2025 VITAMIN B12 AND FOLATE Routine 07/10/2025 10:08 PM CDT VITAMIN B1 LEVEL Routine 07/10/2025 6:[address] HEAD WO CONTRAST Stat 07/10/2025 4 :44 PM CDT HOME HEALTH CLINICIAN EVALUATE AND TREAT Pending Discharge 07/10/2025 12:28 [...] WITH DIFFERENTIAL Routine 07/04/2025 6:24 AM CDT COMPREHENSIVE METABOLIC PANEL Routine 07/03/2025 1:24 PM CDT PROTIME-INR Routine 07/03/2025 COMPREHENSIVE METABOLIC PANEL Routine 07/01/2025 1:26 PM CDT COMPREHENSIVE METABOLIC PANEL Routine 06/30/2025 1:26 PM CDT PROTIME-INR Routine 06/30/2025 from Last 3 Months Results * TELEMETRY REPORT (07/17/2025 2:11 AM CDT) us Provider Scanning ECG ORDERABLES Final Result * (ABNORMAL) BASIC METABOLIC PANEL (07/12/2025 1:01 AM CDT) Only the most recent of3 resultswithin the time period is included. SODIUM 140 136 - 145 mmol/L 07/12/2025 2:09 AM T [facility] POTASSIUM 3.5 3.5 - 5.1 mmol/L 07/12/2025 2:09 AM T [facility] CHLORIDE 112(H) 98 - 107 mmol/L 07/12/2025 2:[address] [facility] CO2 17(L) 22 - 29 mmol/L 07/12/2025 2:[address] [facility] CALCIUM 8.5(L) 8.6 - 10.0 mg/dL 07/12/2025 2:[address] [facility] BUN 26(H) 6 - 20 mg/dL 07/12/2025 2:[address] [facility] CREATININE 1.12 0.67 - 1.17 mg/dL 07/12/2025 2:[address] [facility] GLUCOSE 103(H) 74 - 99 mg/dL 07/12/2025 2:[address] [facility] GFR >60 >=60 mL/min/1.7 3 sq meter 07/12/2025 2:[address] [facility] Comment:eGFR calculated with 2020 CKD-EPI equation. Vegetarian diet, extremely high or low muscle mass, and may affect results. Cystatin C with Glomerular Filtration Rate is a suitable alternative for these patients. ANION GAP 11 9 - 20 mmol/L 07/12/2025 2:[address] [facility] Blood Venipuncture / Unknown 07/12/2025 1:01 AM CDT 07/12/2025 1:33 AM CDT us Kenji Regalado MD CHEMISTRY ORDERABLES Final Re sult [facility] # [id number] [address] [address] [place] [address] * MRI BRAIN WO CONTRAST (07/11/2025 5:01 [...] hepatic coma (CMS/HCC); Acute hepatic encephalopathy (CMS/HCC); DARVNI (acute kidney injury). Technique: MRI of the [...] 4.8 - 10.8 K/uL 07/11/2025 4:[address] [facility] RBC 2.72(L) 4.60 - 6.20 M/uL 07/11/2025 4:[address] [facility] HEMOGLOBIN 9.0(L) 14.0 - 18.0 g/dL 07/11/2025 4:[address] [facility] HEMATOCRIT 25.7(L) 41.0 - 53.0 % 07/11/2025 4:[address] [facility] MCV 94.5 84.0 - 103.0 fL 07/11/2025 4:[address] [facility] MCH 33.1 27.0 - 34.0 pg 07/11/2025 4:[address] [facility] MCHC 35.0 30.0 - 35.0 g/dL 07/11/2025 4:[address] [facility] PLATELETS 143 140 - 440 K/uL 07/11/2025 4:[address] [facility] MPV 10.5 8.9 - 12.8 fL 07/11/2025 4:[address] [facility] RDW 16.9(H) 11.0 - 14.5 % 07/11/2025 4:00 AM CDT [facility] RDW-STDEV 57.4(H) 37.0 - 54.0 fL 07/11/2025 4:00 AM CDT [facility] Blood Venipuncture / Unknown 07/11/2025 3:33 AM CDT 07/11/2025 3:41 AM CDT Jesusita Hyde MD HEMATOLOGY ORDERABLES Fin al Result [facility] CLIA # [id number] [address] [place] [address] * EEG (07/11/2025) Impressions Dee Morse MD - 07/11/2025 HISTORY: Per report Presented with altered mental status and worsening ascites. Found to have DARVIN . MEDICATION: no AEDs listed. TECHNICAL INFORMATION: This EEG was recorded on a Tripeese EEG system. The 21 scalp electrodes used [...] - 946 pg/mL 07/10/2025 11:31 PM CDT [facility] FOLATE, SERUM 10.4 3.1 - 17.5 ng/mL 07/10/2025 11:31 PM CDT [facility] Blood Venipuncture / Unknown 07/10/2025 10:08 PM CDT 07/10/2025 10:22 PM CDT Jesusita Hyde MD CHEMISTRY ORDERABLES Seble l Result Performing Organization Address City/[facility]/ZIP Co de Phone Number [facility] CLIA # [id number] [address] [address] [place] [address] * VITAMIN B1 LEVEL (07/10/2025 6:25 PM CDT) [facility] VITAMIN B1 115 78 - 185 nmol/L 07/16/2025 11:46 AM CDT [facility] Comment: (Note) Vitamin supplementation within 24 hours prior to blood draw may affect the accuracy of the results. This test was developed and its analytical performance characteristics have been determined by [employer]. It has not been cleared or approved by FDA. This assay has been validated pursuant to the CLIA regulations and is used for clinical purposes. [facility] [address] [place] [address],[place] [address] Ronaldo Cox MD, PhD Blood Venipuncture / Unknown 07/10/2025 6:25 PM CDT 07/10/2025 6:53 PM CDT Narrative [facility] - 07/16/2025 11:46 AM CDT Performing Organization Information: Site ID: [id number] Name: [facility] Address: [address] [place] [address], [address] [address] Director: Ronaldo Cox MD,PhD us Jesusita Hyde MD CHEMISTRY ORDERABLES Seble l Result [facility] * CT HEAD WO CONTRAST (07/10/2025 4:44 [...] Mild sequela of small vessel ischemic disease. us Jesusita Hyde MD CT ORDERABLES Final Res ult * (ABNORMAL) TSH (07/10/2025 3:41 AM CDT) Only the most recent of2 resultswithin the time period is included. TSH 37.85(H) 0.27 - 4.20 uIU/mL 07/10/2025 6:38 PM CDT [facility] Blood Venipuncture / Unknown 07/10/2025 3:41 AM CDT 07/10/2025 3:52 AM CDT Jesusita Hyde MD CHEMISTRY ORDERABLES Seble l Result Performing Organization Address [facility] de Phone Number [facility] CLIA # [id number] [address] [address] [place] [address] * T4 FREE (07/10/2025 3:41 AM CDT) Only the most recent of2 resultswithin the time period is included. Pathologist [facility] T4 FREE 0.88 0.81 - 1.70 ng/dL 07/10/2025 8:47 PM CDT [facility] Blood Venipuncture / Unknown 07/10/2025 3:41 AM CDT 07/10/2025 3:52 AM CDT Jesusita Hyde MD CHEMISTRY ORDERABLES Seble l Result Performing Organization Address [facility] de Phone Number [facility] CLIA # [id number] [address] [address] * US ASPIRATION ABDOMEN (07/09/2025 2:16 PM [...] the proposed needle course. A 10-cm 5 Romansh [employer] centesis catheter was inserted. 4900 ml of [...] the proposed needle course. A 10-cm 5 Romansh rimidieh centesis catheter was inserted. 4900 ml of [...] or anaerobic growth 07/12/2025 11:08 AM CDT [facility] GRAM STAIN No Polymorphonuclear WBC 07/12/2025 11:08 AM CDT [facility] GRAM STAIN No organisms observed 07/12/2025 11:08 AM CDT [facility] Body fluid ENTIRE SEROUS MEMBRANE OF PERITONEUM / Unknown Collection / Unknown 07/09/2025 1:41 PM CDT 07/09/2025 2:45 PM CDT Jesusita Hyde MD MICROBIOLOGY - GENERAL OR DERABLES Final Result [facility] CLIA # [id number] [address] [place] [address] * CELL COUNT WITH DIFFERENTIAL, BODY FLUID (07/09/2025 1:41 PM CDT) APPEARANCE, BODY FLUID Clear 07/09/2025 3:42 PM CDT [facility] COLOR, FLD Yellow 07/09/2025 3:42 PM CDT [facility] TOTAL NUCLEATED CELLS, FLD (AUTO) 119 No Ref Range Estab /ul 07/09/2025 3:42 PM CDT [facility] TOTAL RBC'S, FLD (AUTO) <3,000 No Ref Range Estab /ul 07/09/2025 3:42 PM CDT [facility] NEUTROPHILS, FLD 5 No Ref Range Estab % 07/09/2025 3:42 PM CDT [facility] LYMPHOCYTE, FLD 19 No Ref Range Estab % 07/09/2025 3:42 PM CDT [facility] MONOCYTE/MACROPH AGE, FLD 64 No Ref Range Estab % 07/09/2025 3:42 PM CDT [facility] MESOTHELIAL FLD 10 No Ref Range Estab % 07/09/2025 3:42 PM CDT [facility] Body fluid ENTIRE SEROUS MEMBRANE OF PERITONEUM / Unknown Collection / Unknown 07/09/2025 1:41 PM CDT 07/09/2025 2:45 PM CDT Jesusita Hyde MD BODY FLUIDS AND STOOLS Fi nal Result Performing Organization Address [facility] Co de Phone Number [facility] CLIA # [id number] [address] [address] * PROTEIN, BODY FLUID (07/09/2025 1:41 PM CDT) PROTEIN, FLD 0.8 g/dL 07/09/2025 3:18 PM CDT [facility] Body fluid ENTIRE SEROUS MEMBRANE OF PERITONEUM / Unknown Collection / Unknown 07/09/2025 1:41 PM CDT 07/09/2025 2:45 PM CDT Narrative [facility] - 07/09/2025 3:18 PM CDT Interpretive Criteria: Transudate: <2.0 g/dL Exudate: >2.0 g/dL The reference range and other method performance specifications are unavailable for this body fluid. Comparison of this result with the concentration in the blood, serum, or plasma is recommended. us Jesusita Hyde MD BODY FLUIDS AND STOOLS Fi nal Result Performing Organization Address [facility] Co de Phone Number [facility] CLIA # [id number] [address] [address] [place] [address] * CYTOLOGY, NON GYNE (07/09/2025 1:41 PM CDT) CASE REPORT Medical Cytology Report Case: [id number] Authorizing Provider: Jesusita Gutierrez MD Collected: 07/09/2025 01:41 PM Ordering Location: [facility] Received: 07/10/2025 08:48 AM Medical Pathologist: Lakesha Garces MD Specimen: Peritoneal (ascitic) fluid 10:57 AM CDT [facility] FINAL DIAGNOSIS A. Peritoneal fluid, ThinPrep and cell block - No malignant cells identified - Mesothelial cells, histiocytes, and small lymphocytes present Lakesha Garces MD [id number] 10:57 AM CDT [facility] at 1057 CDT GROSS DESCRIPTION A. Peritoneal (ascitic) fluid - 30 ml clear yellow fluid processed for ThinPrep and cell block A2. 10:57 AM CDT [facility] CLINICAL INFORMATION No Dx found. 10:57 AM CDT [facility] COMMENT The [employer] voice-activated dictation system may have been used [...] determined by the Diagnostic Immunohistochemistry Laboratory of [facility] in compliance with CLIA'88 regulations. Some of these tests rely on the use of analyte specific reagents and are subject to specific labeling requirements by the FDA. All controls show appropriate reactivity. This testing was developed by the Diagnostic Immunohistochemistry Laboratory of [facility]. It has not been cleared or approved by the FDA. The FDA has determined that such clearance or approval is not necessary. 10:57 AM CDT [facility] Body fluid ASCITIC FLUID SPECIMEN / Unknown Collection / Unknown 07/09/2025 1:41 PM CDT 07/10/2025 8:48 AM CDT Jesusita Hyde MD PATHOLOGY/CYTOLOGY ORDERA BLES Final Result [facility] CLIA # [id number] [address] [address] * ECHO COMPLETE - CONTRAST AND STRAIN IF INDICATED (07/09/2025 12:23 PM CDT) EJECTION FRACTION 60 INTERFACE SYSTEM 07/09/2025 8:37 AM CDT Narrative INTERFACE SYSTEM - 07/09/2025 10:59 AM CDT [facility] Cardiovascular Services Echocardiography Laboratory [address] [place] [address] Transthoracic Echocardiography Patient: Donny [place] Study ID: ECHO COMPLETE - Gender: M : 1970 Age: 55 Room: [facility] Study Date: 07/09/2025 Pt Status: Inpatient Study Time: 08:37:40 AM CSN #: [id number] Ordering:Jesusita Gutierrez Shipping Track Supervisor: YULY Indications and History: HF, Cardiomyopathy, dyspnea, [...] (H) den values outside specified reference range. [facility] Echo Labs are accredited with the [facility] Accreditation Commission - Echocardiography. Prepared and Electronically Authenticated Efraín Shabazz MD Confirmed 07/09/2025 10:58 Procedure Note Efraín Shabazz MD - 07/09/2025 [facility] Cardiovascular Services Echocardiography Laboratory [address] [place] [address] Transthoracic Echocardiography Patient: Donny [place] Study ID: ECHOCOMPLETE - Gender: M : 1970 Age: 55 Room: [facility] Study Date: 07/09/2025 Pt Status: Inpatient Study Time: 08:37:40 AM [facility] #: [id number] Ordering:Jesusita Gutierrez Shipping Track Supervisor: YULY Indications and History: HF, Cardiomyopathy, dyspnea, [...] (H) den values outside specified reference range. [facility] Echo Labs are accredited with theIntersocietal Accreditation Commission - Echocardiography. Prepared and Electronically Authenticated Efraín Shabazz MD Confirmed 07/09/2025 10:58 us Jesusita Hyde MD US ORDERABLES Final Res ult Performing Organization Address [facility] de Phone Number INTERFACE SYSTEM Refer to clinic/hospital department * (ABNORMAL) PROTIME-INR (07/09/2025 11:40 AM CDT) Only the most recent of3 resultswithin the time period is included. PROTIME 28.9(H) 12.7 - 14.9 Seconds 07/09/2025 12:10 PM CDT [facility] INR 2.6(H) 0.8 - 1.2 07/09/2025 12:10 PM CDT [facility] Blood Venipuncture / Unknown 07/09/2025 11:40 AM CDT 07/09/2025 11:56 AM CDT Narrative [facility] Bill Me Later [facility] - 07/09/2025 12:10 PM CDT Expected Values for INR: DVT/PE Goal INR 2.5; range 2.0 - 3.0 Valve Replacement Tissue Goal INR 2.5; range 2.0 - 3.0 Valve Replacement Mechanical Goal INR 3.0; range 2.5 - 3.5 POST-PA Goal INR 2.5; range 2.0 - 3.0 or Goal INR 3.0; range 2.5 - 3.5 Atrial Fibrillation Goal INR 2.5; range 2.0 - 3.0 Ischemic Stroke Goal INR 2.5; range 2.0 - 3.0 us Jesusita Hyde MD HEMATOLOGY ORDERABLES Fin al Result Performing Organization Address [facility] de Phone Number [facility] CLIA # [id number] [address] [address] [place] [address] * (ABNORMAL) COMPREHENSIVE METABOLIC PANEL (07/09/2025 11:40 AM CDT) Only the most recent of9 resultswithin the time period is included. SODIUM 138 136 - 145 mmol/L 07/09/2025 12:26 PM CDT [facility] POTASSIUM 4.5 3.5 - 5.1 mmol/L 07/09/2025 12:[address] [facility] CHLORIDE 109(H) 98 - 107 mmol/L 07/09/2025 12:[address] [facility] CO2 17(L) 22 - 29 mmol/L 07/09/2025 12:[address] [facility] CALCIUM 8.9 8.6 - 10.0 mg/dL 07/09/2025 12:[address] [facility] BUN 28(H) 6 - 20 mg/dL 07/09/2025 12:[address] [facility] CREATININE 1.30(H) 0.67 - 1.17 mg/dL 07/09/2025 12:[address] [facility] GLUCOSE 153(H) 74 - 99 mg/dL 07/09/2025 12:[address] [facility] TOTAL PROTEIN 6.0(L) 6.4 - 8.3 g/dL 07/09/2025 12:[address] [facility] ALBUMIN 3.0(L) 3.5 - 5.2 g/dL 07/09/2025 12:[address] [facility] BILIRUBIN TOTAL 1.7(H) 0.0 - 1.0 mg/dL 07/09/2025 12:[address] [facility] ALKALINE PHOSPHATASE 71 40 - 129 U/L 07/09/2025 12:[address] [facility] AST 103(H) 10 - 50 U/L 07/09/2025 12:[address] [facility] ALT 61(H) <=50 U/L 07/09/2025 12:[address] [facility] GFR >60 >=60 mL/min/1. 73 sq meter 07/09/2025 12:[address] [facility] Comment:eGFR calculated with 2020 CKD-EPI equation. Vegetarian diet, extremely high or low muscle mass, and may affect results. Cystatin C with Glomerular Filtration Rate is a suitable alternative for these patients. ANION GAP 12 9 - 20 mmol/L 07/09/2025 12:[address] [facility] Blood Venipuncture / Unknown 07/09/2025 11:40 AM CDT 07/09/2025 11:56 AM CDT Jesusita Hdye MD CHEMISTRY ORDERABLES Seble l Result Performing Organization Address [facility] Co de Phone Number [facility] CLIA # [id number] [address] [place] [address] * (ABNORMAL) BRAIN NATRIURETIC PEPTIDE, BNP OR PROBNP (07/07/2025 3:54 PM CDT) PROBNP, N TERMINAL 3,466(H) 0 - 125 pg/mL 07/07/2025 4:35 PM CDT [facility] Comment: INTERPRETIVE COMMENT based on diagnosis: Diagnostic [...] 3:54 PM CDT 07/07/2025 4:05 PM CDT us Jesusita Hyde MD CHEMISTRY ORDERABLES Seble l Result Performing Organization Address [facility]/ZIP Co de Phone Number [facility] CLIA # [id number] [address] [place], [place] [address] * XR CHEST PA OR AP 1 [...] * LACTATE DEHYDROGENASE (07/07/2025 12:07 PM CDT) [facility] LD (LACTATE DEHYDROGENASE) 224 135 - 225 U/L 07/07/2025 12:43 PM CDT [facility] Blood Venipuncture / Unknown 07/07/2025 12:07 PM CDT 07/07/2025 12:11 PM CDT Jesusita Hyde MD CHEMISTRY ORDERABLES Seble l Result [facility] CLIA # [id number] [address] [place] [address] [place] [address] * (ABNORMAL) ACUTE HEPATITIS PANEL (07/07/2025 3:59 AM CDT) [facility] HEPATITIS B SURFACE AG NON-REACT CHOLO Non-react cholo 07/07/2025 5:04 AM CDT [facility] Comment:A non-reactive test result does not exclude the possibility of exposure to or infection with hepatitis B. HEPATITIS B CORE IGM NON-REACT CHOLO Non-react cholo 07/07/2025 5:04 AM CDT [facility] Comment:IgM antibodies to HB c were not detected; does not exclude the possibility of exposure to HBV. HEPATITIS A IGM Non-react cholo Non-react cholo 07/07/2025 5:04 AM CDT [facility] Comment:A negative test resu lt does not exclude the possibility of exposure to Hepatitis A virus. HEPATITIS C AB REACTIVE( A) Non-react cholo 07/07/2025 5:04 AM CDT [facility] Blood Venipuncture / Unknown 07/07/2025 3:59 AM CDT 07/07/2025 4:05 AM CDT Narrative [facility] - 07/07/2025 5:04 AM CDT Confirmatory testing by HCV_RNA by PCR will be automatically reflexed on reactive results. us Jesusita Hyde MD CHEMISTRY ORDERABLES Seble l Result [facility] CLIA # [id number] [address] [place] [address] [place] [address] * (ABNORMAL) HEPATITIS C RNA PCR, QUANTITATIVE (07/07/2025 3:59 AM CDT) Pathologist [facility] HCV RNA, QUANT REAL TIME PCR 658534(H) NOT DETECTED IU/mL 07/09/2025 2:11 PM CDT [facility] HCV RNA QUANT PCR COPIES IU/ML 5.40(H) NOT DETECTED Log IU/mL 07/09/2025 2:11 PM CDT [facility] Comment: For additional information, please refer to [email or web address].[email or web address]/[email or web address] (This link is being provided for informational/ educational purposes only.) Blood Venipuncture / Unknown 07/07/2025 3:59 AM CDT 07/07/2025 5:04 AM CDT Narrative [facility] - 07/09/2025 2:11 PM CDT Performing Organization Information: Site ID: [id number] Name: [facility] Address: [address] [address] Director: Jam Guido MD Jesusita Hyde MD CHEMISTRY ORDERABLES Seble l Result [facility] * US ABDOMEN LIMITED (07/06/2025 12:22 PM [...] DETECTION W/REFLX CONFIRMATION (07/06/2025 11:05 AM CDT) [facility] HIV-1 AND 2 ABS AND HIV-1 AG Non-reacti ve Non-React cholo 07/06/2025 1:22 PM CDT [facility] Blood Venipuncture / Unknown 07/06/2025 11:05 AM CDT 07/06/2025 11:16 AM CDT Jesusita Hyde MD CHEMISTRY ORDERABLES Seble l Result [facility] CLIA # [id number] [address] [address] [place] [address] * MAGNESIUM LEVEL (07/06/2025 2:15 AM CDT) [facility] MAGNESIUM 1.8 1.6 - 2.6 mg/dL 07/07/2025 11:04 AM CDT [facility] Blood Venipuncture / Unknown 07/06/2025 2:15 AM CDT 07/06/2025 2:33 AM CDT Tony Rapp NP CHEMISTRY ORDERABLES Final R esult Performing Organization Address [facility]/ZIP Co de Phone Number [facility] CLIA # [id number] [address] [facility] [place] [address] * HAPTOGLOBIN (07/06/2025 2:15 AM CDT) HAPTOGLOBIN 37 30 - 200 mg/dL 07/07/2025 9:51 AM CDT [facility] Blood Venipuncture / Unknown 07/06/2025 2:15 AM CDT 07/06/2025 2:33 AM CDT Jesusita Hyde MD CHEMISTRY ORDERABLES Seble l Result Performing Organization Address [facility] Co de Phone Number [facility] CLIA # [id number] [address] [address] * BLOOD CULTURE (07/05/2025 4:44 PM CDT) Only the most recent of2 resultswithin the time period is included. BLOOD CULTURE No growth 07/10/2025 6:32 PM CDT [facility] Blood (Peripheral) Venipuncture / Unknown 07/05/2025 4:44 PM CDT 07/05/2025 4:57 PM CDT Jesusita Hyde MD MICROBIOLOGY - GENERAL OR DERABLES Final Result Performing Organization Address City/[facility]/ZIP Co de Phone Number [facility] CLIA # [id number] [address] [address] * POC LACTIC ACID (07/04/2025 6:40 PM CDT) [facility] LACTIC ACID POC 0.9 <=2.0 mmol/L 07/04/2025 6:40 PM CDT [facility] SPECIMEN SOURCE, GASES POC Arterial 07/04/2025 6:40 PM CDT [facility] PUNC SITE POC ART PUNCT 07/04/2025 6:40 PM CDT [facility] Blood 07/04/2025 6:40 PM CDT 07/04/2025 6:42 PM CDT Narrative [facility] - 07/04/2025 6:40 PM CDT References ranges displayed are for Arterial samples. Jesusita Hyde MD POINT OF CARE TESTING Fin al Result [facility] CLIA # [id number] [address] [place] [id number] * (ABNORMAL) BLOOD GAS ARTERIAL (07/04/2025 6:40 PM CDT) [facility] PH BLOOD POC 7.40 7.35 - 7.45 07/04/2025 6:40 PM CDT [facility] PCO2 POC 20(L) 35 - 45 mm Hg 07/04/2025 6:40 PM CDT [facility] PO2 POC 80 80 - 105 mm Hg 07/04/2025 6:40 PM CDT [facility] HCO3 (CALC) POC 12(L) 22 - 26 mmol/L 07/04/2025 6:40 PM CDT [facility] HEMOGLOBIN POC 10.4(L) 12.0 - 18.0 g/dL 07/04/2025 6:40 PM CDT [facility] BASE EXCESS POC -12(L) -2 - 3 mmol/L 07/04/2025 6:40 PM CDT [facility] O2 SATURATION POC 99(H) 95 - 98 % 07/04/2025 6:40 PM CDT [facility] SODIUM POC 141 138 - 146 mmol/L 07/04/2025 6:40 PM CDT [facility] POTASSIUM POC 4.0 3.5 - 4.9 mmol/L 07/04/2025 6:40 PM CDT [facility] HEMATOCRIT POC 31(L) 38 - 51 % 07/04/2025 6:40 PM CDT [facility] PH TEMP CORRECT 7.40 7.35 - 7.45 07/04/2025 6:40 PM CDT [facility] PCO2 TEMP CORRECT 20(L) 35 - 45 mm Hg 07/04/2025 6:40 PM CDT [facility] PO2 TEMP CORRECT 80 80 - 105 mm Hg 07/04/2025 6:40 PM CDT [facility] SPECIMEN SOURCE, GASES POC Arterial 07/04/2025 6:40 PM CDT [facility] CALCIUM IONIZED POC 5.1 4.8 - 5.2 mg/dL 07/04/2025 6:40 PM CDT [facility] TCO2 (CALC) POC 13(L) 23 - 27 mmol/L 07/04/2025 6:40 PM CDT [facility] PUNC SITE POC ART PUNCT 07/04/2025 6:40 PM CDT [facility] Blood, arterial 07/04/2025 6 :40 PM CDT 07/04/2025 6:42 PM CDT us Jesusita Hyde MD ABG ORDERABLES Final Res ult [facility] CLIA # [id number] [address] [address] [place], [place] [id number] * AMMONIA LEVEL (07/04/2025 3:37 PM CDT) Only the most recent of2 resultswithin the time period is included. Pathologist [facility] AMMONIA 25.6 16.0 - 60.0 umol/L 07/04/2025 4:17 PM CDT [facility] Blood, venous Capillary / Unknown 07/04/2025 3:37 PM CDT 07/04/2025 3:47 PM CDT Jesusita Hyde MD CHEMISTRY ORDERABLES Seble l Result Performing Organization Address [facility] Co de Phone Number [facility] CLIA # [id number] [address] [address] [place] [address] * ETHANOL LEVEL (07/04/2025 10:42 AM CDT) [facility] ETHANOL <10.10 <10.10 mg/dL 07/04/2025 11:26 AM CDT [facility] ETHANOL % <0.01 <=0.01 %w/v 07/04/2025 11:26 AM CDT [facility] Blood Venipuncture / Unknown 07/04/2025 10:42 AM CDT 07/04/2025 10:49 AM CDT Jesusita Hyde MD CHEMISTRY ORDERABLES Seble l Result Performing Organization Address [facility]/ZIP Co de Phone Number [facility] CLIA # [id number] [address] [id number] * (ABNORMAL) CBC WITH DIFFERENTIAL (07/04/2025 6:24 AM CDT) [facility] WBC 9.1 4.8 - 10.8 K/uL 07/04/2025 6:52 AM CDT [facility] RBC 2.74(L) 4.60 - 6.20 M/uL 07/04/2025 6:[address] [facility] HEMOGLOBIN 9.4(L) 14.0 - 18.0 g/dL 07/04/2025 6:[address] [facility] HEMATOCRIT 27.1(L) 41.0 - 53.0 % 07/04/2025 6:[address] [facility] MCV 98.9 84.0 - 103.0 fL 07/04/2025 6:[address] [facility] MCH 34.3(H) 27.0 - 34.0 pg 07/04/2025 6:[address] [facility] MCHC 34.7 30.0 - 35.0 g/dL 07/04/2025 6:[address] [facility] PLATELETS 104(L) 140 - 440 K/uL 07/04/2025 6:[address] [facility] MPV 9.5 8.9 - 12.8 fL 07/04/2025 6:[address] [facility] RDW 15.8(H) 11.0 - 14.5 % 07/04/2025 6:[address] [facility] RDW-STDEV 55.9(H) 37.0 - 54.0 fL 07/04/2025 6:[address] [facility] NEUTROPHILS 52 42 - 75 % 07/04/2025 6:[address] [facility] LYMPHOCYTES 36 24 - 44 % 07/04/2025 6:[address] [facility] MONOCYTES 8 2 - 10 % 07/04/2025 6:[address] [facility] EOSINOPHILS 3 0 - 7 % 07/04/2025 6:[address] [facility] BASOPHILS 1 0 - 1 % 07/04/2025 6:[address] [facility] IMMATURE GRANULOCYTES 1 0 - 2 % 07/04/2025 6:[address] [facility] NEUTROPHIL ABSOLUTE 4.68 2.00 - 8.00 K/uL 07/04/2025 6:[address] [facility] LYMPHOCYTE ABSOLUTE 3.28 1.20 - 4.00 K/uL 07/04/2025 6:52 AM CDT [facility] MONOCYTE ABSOLUTE 0.76(H) 0.10 - 0.60 K/uL 07/04/2025 6:52 AM CDT [facility] EOSINOPHIL ABSOLUTE 0.24 0.00 - 0.70 K/uL 07/04/2025 6:52 AM CDT [facility] BASOPHILS ABSOLUTE 0.06 0.00 - 0.20 K/uL 07/04/2025 6:52 AM CDT [facility] IMMATURE GRANULOCYTES ABSOLUTE 0.05 0.00 - 0.10 K/uL 07/04/2025 6:52 AM CDT [facility] SMEAR REVIEWED: NA - Not Applicable 07/04/2025 6:52 AM CDT [facility] Blood Venipuncture / Unknown 07/04/2025 6:24 AM CDT 07/04/2025 6:45 AM CDT us Mino Butler MD HEMATOLOGY ORDERABLES F inal Result [facility] CLIA # [id number] [address] [address] * (ABNORMAL) FERRITIN (07/04/2025 6:24 AM CDT) FERRITIN 1,003.0(H) 30.0 - 400.0 ng/mL 07/04/2025 11:25 AM CDT [facility] Blood Venipuncture / Unknown 07/04/2025 6:24 AM CDT 07/04/2025 6:45 AM CDT us Jesusita Hyde MD CHEMISTRY ORDERABLES Seble l Result [facility] CLIA # [id number] [address] [facility] [place] [address] from Last 3 Months Insurance [facility] [id number] Advance Directives For more information, please contact: [phone] * Full Code (Latest Code Status on File) Date Activated Date Inactivated Comments 07/04/2025 2:59 AM 07/12/2025 4:05 PM * Full Code Date Activated Date Inactivated Comments 08/20/2022 9:26 AM 08/20/2022 2:01 PM * Full Code Date Activated Date Inactivated Comments 12/12/2021 7:29 AM 12/12/2021 12:48 PM Care Teams Digital Strategy Manager Relationship Specialty Start Date End Date Aurora Sandy MD [address] [place] [address] PCP - General Family Practice 07/13/25
--- OUTSIDE RECORDS SUMMARY | 2025-07-30 14:05 | XMS_ITS | Encounter Summary ---
Author Organization [facility] Address 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[employer] Gender Identity Not on file Sexual Orientation Not on file documented as of this encounter Miscellaneous Notes * Result Encounter Note - Jesusita Gutierrez MD - 07/23/2025 3:44 PM CDT Hospital post discharge-noted vitamin B1 level within normal limits 115-results reviewed documented in this encounter Plan of Treatment Upcoming Encounters Date Type Department Care Team (Late st Contact Info) Description 08/09/2025 8:30 AM CDT Office Visit [facility] Urology [address] [address] Jesusita Gutierrez MD [address] [place] [address] Zhanna Stephens NP [address] [address] documented as of this encounter Visit Diagnoses Not on filedocumented in this encounter Care Teams Port Warden Relationship Specialty Start Date End Date Aurora Sandy MD [address] [place] [address] PCP - General Family Practice 07/13/25 documented as of this encounter
[2025-07-30 16:34] LABS: Hematocrit 33.0 % (37-53); Hemoglobin 11.00 g/dL (11.27-16.99); Mean Corpuscular HGB Conc 33.3 g/dL (30-55); Mean Corpuscular Hemoglobin 32.8 pg (27-33); Mean Corpuscular Volume 98.5 fl (82-101); Nucleated Red Blood Cells % 0 %; Platelet Count 164 10^3/cmm (157-399); Red Blood Count 3.35 10^6/uL (3.85-5.65); White Blood Count 8.96 10^3/uL (3.29-11.43)
[2025-07-30 16:48] LABS: INR 1.47 (0.8-1.2); Prothrombin Time 18.80 SECONDS (12.1-14.9)
[2025-07-30 16:49] LABS: Partial Thromboplastin Time 41.4 SECONDS (23.9-36.7)
[2025-07-30 16:53] LABS: Alanine Aminotransferase 40 U/L (0-41); Albumin Level 3.4 g/dL (3.5-5.2); Alkaline Phosphatase 147 U/L (40-130); Anion Gap 20.5 (5-19); Aspartate Amino Transferase 78 U/L (0-40); Blood Urea Nitrogen 14 mg/dL (6-20); Calcium 9.6 mg/dL (8.5-10.5); Carbon Dioxide 21 mmol/L (22-29); Chloride 100 mmol/L (98-107); Creatinine Clr Calc Pharmacy 54.4413; Globulin 4.4 g/dL (1.3-4.6); Glucose 170 mg/dL (65-115); Lipase 19 U/L (13-60); Osmolality Calculated 290 mOsm/kg (285-295); Potassium 3.5 mmol/L (3.5-5.1); Sodium 138 mmol/L (136-145); Total Protein 7.8 g/dL (6.6-8.7)
[2025-07-30 17:43] LABS: Glucose Urine UA Negative (Normal); Nitrate Urine Negative (Negative); Specific Gravity, Urine 1.016 (1.005-1.030)
--- NOTE | 2025-07-30 17:43 | CTR_ITS ---
PROCEDURE INFORMATION: Exam: CT Abdomen And Pelvis Without Contrast Exam date and time: 07/30/2025 6:28 PM Age: 55 years old Clinical indication: Nausea and vomiting; Additional info: Ascites, n/v TECHNIQUE: Imaging protocol: Computed tomography of the abdomen and pelvis without contrast. Radiation optimization: All CT scans at this facility use at least one of these dose optimization techniques: automated exposure control; mA and/or kV adjustment per patient size (includes targeted exams where dose is matched to clinical indication); or iterative reconstruction. COMPARISON: CT kidney stone [id number] 06/30/2025 3:04 PM RADIATION DOSE METRICS: Total DLP (mGy-cm): 476.58 FINDINGS: Lungs: Probable emphysematous change. Pleural spaces: Ohjy-ia-zptymyeo left and trace right pleural effusions. Coronary arteries: Probable mild coronary artery calcification on limited views of the chest. Liver: Cirrhotic morphology of the liver. Gallbladder and biliary ducts: Normal. No calcified stones. No ductal dilation. Pancreas: Normal. No ductal dilation. Spleen: Normal. No splenomegaly. Adrenal glands: Normal. No mass. Kidneys and ureters: Normal. No hydronephrosis. Stomach and bowel: Unremarkable. No obstruction. No mucosal thickening. Appendix: No evidence of appendicitis. Intraperitoneal space: Moderate to severe ascites. Vasculature: Aortic atherosclerosis. Lymph nodes: Unremarkable. No enlarged lymph nodes. Urinary bladder: Razo catheter in a relatively collapsed bladder. Reproductive: Unremarkable as visualized. Bones/joints: Wnoe-fs-nlcfcpya degenerative changes of lumbar spine. Probable mild medullary/pyramidal nephrocalcinosis. Soft tissues: Unremarkable. Other findings: Motion artifact limits exam. CT/CT abdomen pelvis wo con [id number] IMPRESSION: 1. Oktj-qu-gqqazwsl left and trace right pleural effusions. 2. Cirrhotic morphology of the liver. 3. Moderate to severe ascites. 4. Aortic atherosclerosis.
--- NOTE | 2025-07-30 17:43 | XRR_ITS ---
PROCEDURE INFORMATION: Exam: XR Chest Exam date and time: 07/30/2025 5:45 PM Age: 55 years old Clinical indication: Shortness of breath; Additional info: SOB TECHNIQUE: Imaging protocol: Radiologic exam of the chest. Views: 1 view. COMPARISON: CR XR chest 1V portable [id number] 06/22/2025 11:00 AM FINDINGS: Lungs: Unremarkable. No consolidation. Pleural spaces: Unremarkable. No pleural effusion. No pneumothorax. Heart/Mediastinum: Unremarkable. No cardiomegaly. Bones/joints: Possible old right-sided rib fractures. Probably most conspicuous at posterior aspect of the rib 3 on the right. Postsurgical changes of the left humerus. XR/XR chest 1V portable [id number] IMPRESSION: No definitive radiographic evidence of acute cardiopulmonary process.
[2025-07-30 17:45] LABS: Add Urine Microscopic? YES
[2025-07-30 17:55] LABS: UA Slide Review UA Slide Review Perf
[2025-07-30 18:01] LABS: Other Sediment, Urine T
[2025-07-30 18:17] LABS: Lactic Sepsis W/Reflex 4.4 mmol/L (0.5-2.2)
[2025-07-30] MEDS: ondansetron 2 mg/ML SDV 2 mL 4 MG IVP ×2 (18:24→19:50)
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
[2025-07-30] MEDS: piperacillin-tazobactam 3.375 GM in sodium chloride 0.9% (plus) 50 ML IV (19:12)
[2025-07-30 19:27] LABS: Ammonia 43 umol/L (16-60)
[2025-07-30 19:35] LABS: Reflex Lactate Order REFLEX LACTIC ORDERD
[2025-07-30] MEDS: cefTRIAXone 1,000 mg SDV 1000 MG IVP (19:50)
[2025-07-30 20:09] LABS: Gastricult Occult Blood Positive (Negative); Gastricult Occult PH 3.0 PH (1.5-3.5)
[2025-07-30 21:03] LABS: Lactic Acid level (Lactate) 7.9 mmol/L (0.5-2.2)
== END 2025-07-30 22:35 | disposition short-term general hospital (02) ==
PROVIDERS: Physician Assistant; Emergency Provider Physician Assistant
DX: K76.7 Hepatorenal syndrome (principal); K70.31 Alcoholic cirrhosis of liver with ascites; K65.2 Spontaneous bacterial peritonitis; J44.9 Chronic obstructive pulmonary disease, unspecified; Z85.21 Personal history of malignant neoplasm of larynx; F17.210 Nicotine dependence, cigarettes, uncomplicated
CPT/HCPCS: 36415; 71045; 74176; 80053; 81001; 82140; 82271; 83605; 83690; 85025; 85610; 85730; 87040; 87077; 87086; 87186; 96365; 96366; 96367; 96375; 96376; 99285; J0696; J2405; J2543; J3373; J7040; J7050